=== PATIENT | female | born 1940 | race Caucasian/White ===

== ENCOUNTER 2016-10-07 10:37 | Inpatient (IN) | payer MEDICARE, BC, OTHER ==
[~2016-10-07] VITALS: Ht 157.5 cm; Wt 42.8 kg
[2016-10-07] VITALS (7 sets, daily range): BP systolic 117–172; BP diastolic 55–72; PULSE 60–77; RESP 14–22; TEMP 96.6–97.7; O2SAT 91–96
[~2016-10-07 10:37] MED LIST: ASPI81TA82 PO; CALC1CAP11 PO; D31000CA PO; FERR324T4 PO; IBUP800T23 PO; LEVO125T3 PO; LEXA5TAB PO; LORA-392 PO; MELA3CAP2 PO; METO25 PO; REST30CA PO; ZOFR4TAB PO
[2016-10-07] MEDS ORDERED: VITA100018 PO (11:12)
[2016-10-07] MEDS ORDERED: IBUP800T23 PO (11:12)
[2016-10-07] MEDS ORDERED: ZANT150T2 PO (11:12)
[2016-10-07] MEDS ORDERED: CALCTAB38 PO (11:12)
[2016-10-07] MEDS ORDERED: FERR325T86 PO (11:12)
[2016-10-07] MEDS ORDERED: REST15CA PO (11:12)
[2016-10-07] MEDS ORDERED: MELA0.02 PO (11:12)
[2016-10-07] MEDS ORDERED: VENTAER INH (11:12)
[2016-10-07] MEDS ORDERED: LORA-392 PO (11:12)
[2016-10-07] MEDS ORDERED: ZOFR4TAB PO (11:12)
[2016-10-07] MEDS ORDERED: LEXA5TAB PO (11:12)
[2016-10-07] MEDS ORDERED: METO25TA3 PO (11:12)
[2016-10-07] MEDS ORDERED: ACET-703 PO (11:12)
[2016-10-07] MEDS ORDERED: ASPI1TAB91 PO (11:12)
[2016-10-07] MEDS ORDERED: LEVO125T4 PO (11:12)
[2016-10-07] MEDS ORDERED: ONDANSETRON HCL 4 MG/2 ML VIAL IVP ONE (11:15)
[2016-10-07] MEDS ORDERED: SODIUM CHLORIDE 0.9% FLUSH 5 ML FLUSH IVF PRN (11:15)
[2016-10-07] MEDS ORDERED: MORPHINE SULFATE 4 MG/ML INJ IV PUSH ONE (11:15)
--- NOTE | 2016-10-07 11:21 | RADRPT ---
EXAM DATE/TIME: 10/07/2016 11:12 [facility] COMPARISON: No previous studies available for comparison. INDICATIONS : Left hip pain due to fall. MEDICAL HISTORY : Hypertension. Hypercholesterolemia. SURGICAL HISTORY : None. ENCOUNTER: Initial ACUITY: 1 day PAIN SCORE: 8/10 LOCATION: Left pelvis and hip. FINDINGS: Bony structures are osteoporotic. The pelvis is intact. There is no evidence of dislocation. There is a intertrochanteric fracture of the left femur slightly overriding and angulated at 45. CONCLUSION: Osteoporosis. Intertrochanteric fracture left femur Arnold Geller MD on October 07, 2016 at 11:18 Board Certified Radiologist. This report was verified electronically.
[2016-10-07 12:04] LABS: AUTOMATED NEUTROPHIL # 11.1 TH/MM3 (1.8-7.7); BASOPHIL # 0.1 TH/MM3 (0-0.2); BASOPHIL % 0.4 % (0.0-2.0); EOSINOPHIL % 0.3 % (0.0-4.0); HEMATOCRIT 41.1 % (35.0-46.0); HEMO FLAGS DIFF FINAL; LYMPH % 5.8 % (9.0-44.0); LYMPHOCYTE # 0.7 TH/MM3 (1.0-4.8); MEAN CELL VOLUME 94.6 FL (80.0-100.0); MEAN CORPUSCULAR HEMOGLOBIN 31.5 PG (27.0-34.0); MEAN CORPUSCULAR HGB CONC 33.3 % (32.0-36.0); MONO % 4.9 % (0.0-8.0); NEUT % 88.6 % (16.0-70.0); PLATELET COUNT 192 TH/MM3 (150-450); RED BLOOD COUNT 4.35 MIL/MM3 (4.00-5.30); WHITE BLOOD COUNT 12.5 TH/MM3 (4.0-11.0)
--- NOTE | 2016-10-07 12:12 | RADRPT ---
EXAM DATE/TIME: 10/07/2016 11:19 [facility] COMPARISON: CHEST SINGLE AP, June 26, 2016, 8:37. INDICATIONS : Evaluate for pneumonia, pneumothorax or communicable disease.Pre op for left hip surgery MEDICAL HISTORY : None. SURGICAL HISTORY : None. ENCOUNTER: Initial ACUITY: 1 day PAIN SCORE: 0/10 LOCATION: Bilateral chest FINDINGS: There continues to be some atelectasis in both lower lungs. There is no new or significant changes co mpared to the prior study. The upper lung stoddard remain clear and well-aerated. The heart size is sta ble. The bony structures are stable. CONCLUSION: No significant interval change. Andry Calvert MD on October 07, 2016 at 12:09 Board Certified Radiologist. This report was verified electronically.
[2016-10-07 12:26] LABS: ANION GAP 7 MEQ/L (5-15); AST (GOT) 21 U/L (15-37); BICARBONATE 26.4 MEQ/L (21.0-32.0); BLOOD UREA NITROGEN 23 MG/DL (7-18); CHLORIDE 106 MEQ/L (98-107); GLOMERULAR FILTRATION RATE 53 ML/MIN (>89); POTASSIUM 3.8 MEQ/L (3.5-5.1); SODIUM (NA) 139 MEQ/L (136-145)
[2016-10-07 12:29] LABS: ALKALINE PHOSPHATASE 101 U/L (45-117); ALT (GPT) 18 U/L (10-53); TOTAL BILIRUBIN ADULT 0.4 MG/DL (0.2-1.0)
[2016-10-07 12:32] LABS: APTT (PATIENT) 25.7 SEC (24.3-30.1); PROTHROMBIN TIME - PATIENT 11.1 SEC (9.8-11.6)
--- NOTE | 2016-10-07 13:27 | PD ---
HPI Chief Complaint: Fall Time Seen by Provider: 13:20 Travel History International Travel<30 days: No Contact w/Intl Traveler<30days: No Traveled to known affect area: No History of Present Illness HPI Patient is a pleasantly demented 75-year-old female who presents the emergency department with complaint of left-sided hip pain after mechanical fall transferring from wheelchair. This was a witnessed fall, no head injury or LOC. Patient complains of mild pain to the left hip, worsening with range of motion. Patient denies any other injuries. No blood thinners per review of medication list. PFSH Past Medical History AAA: Yes Anxiety: Yes Depression: Yes Cardiovascular Problems: Yes High Cholesterol: Yes COPD: Yes Coronary Artery Disease: Yes Dementia: Yes Diminished Hearing: No Gastrointestinal Disorders: Yes GERD: Yes Genitourinary: No Hypertension: Yes Musculoskeletal: No Neurologic: No Reproductive: No Respiratory: No Thyroid Disease: Yes Past Surgical History Abdominal Surgery: Yes (cholecystectomy 2000) Cholecystectomy: Yes Gynecologic Surgery: Yes (hysterectomy 15 years ago) Hysterectomy: Yes Neurologic Surgery: Yes Other Surgery: Yes Social History Alcohol Use: No Tobacco Use: No (6 CIGARRETTES A DAY) Substance Use: No Allergies-Medications (Allergen,Severity, Reaction): Coded Allergies: No Known Allergies (Verified , 10/07/16) Reported Meds & Prescriptions Reported Meds & Active Scripts Active Reported Zofran (Ondansetron HCl) 4 Mg Tab 4 Mg PO Q6HR PRN Ventolin Hfa 18 GM Inh (Albuterol Sulfate) 90 Mcg/Act Aer 2 Puff INH Q6H PRN Tylenol Extra Strength (Acetaminophen) 500 Mg Tab 500 Mg PO Q6HR PRN Restoril (Temazepam) 15 Mg Cap 15 Mg PO HS PRN Ibuprofen 800 Mg Tab 800 Mg PO Q6HR PRN Ativan (Lorazepam) 0.5 Mg Tab 0.5 Mg PO Q12HR PRN Metoprolol Tartrate 25 Mg Tab 12.5 Mg PO Q8HR Ferrousul (Ferrous Sulfate) 325 Mg Tab 325 Mg PO TID Zantac (Ranitidine HCl) 150 Mg Tab 150 Mg PO DAILY Vitamin D3 (Cholecalciferol) 1,000 Unit Tab 1,000 Units PO DAILY Melatonin 3 Mg Tab 3 Mg PO HS Lexapro (Escitalopram Oxalate) 5 Mg Tab 5 Mg PO DAILY Levothyroxine (Levothyroxine Sodium) 125 Mcg Tab 125 Mcg PO DAILY Calcium 600+D (Calcium Carbonate-Vitamin D) 600-400 Mg-Unit Tab 1 Tab PO DAILY Aspirin Adult Low Strength (Aspirin) 81 Mg Tabdr 81 Mg PO DAILY Review of Systems ROS Limitations: Poor Historian Except as stated in HPI: all other systems reviewed are Neg Physical Exam Exam Limitations: Poor Historian Narrative GENERAL: Elderly demented female in no acute distress SKIN: Warm and dry. HEAD: Atraumatic. Normocephalic. EYES: Pupils equal and round. No scleral icterus. No injection or drainage. ENT: No nasal bleeding or discharge. Mucous membranes pink and moist. NECK: Supple without midline tenderness to palpation CARDIOVASCULAR: Regular rate and rhythm. No murmur appreciated. RESPIRATORY: No accessory muscle use. Clear to auscultation. Breath sounds equal bilaterally. GASTROINTESTINAL: Abdomen soft, non-tender, nondistended. MUSCULOSKELETAL: No midline tenderness to palpation of thoracic or lumbar spine. Bilateral upper extremities and right lower extremities unremarkable. Pelvis is stable AP and lateral compression. Left hip pain with range of motion reproducible, no obvious deformity. Patient prefers to keep the hip slightly flexed. No obvious rotation. Distal sensation and pulses intact. NEUROLOGICAL: Awake and alert to self, place but not time. Baseline first grandson. Normal speech. Data Data Last Documented VS Vital Signs Date Time Temp Pulse Resp B/P Pulse Ox O2 Delivery O2 Flow Rate FiO2 10/07/16 10:42 97.6 60 14 123/58 91 Orders Hip, Uni(4+Vws) W Ap Pelvis (10/07/16 ) Electrocardiogram (10/07/16 11:14) Complete Blood Count With Diff (10/07/16 11:14) Comprehensive Metabolic Panel (10/07/16 11:14) Prothrombin Time / Inr (Pt) (10/07/16 11:14) Act Partial Throm Time (Ptt) (10/07/16 11:14) Chest, Single Ap (10/07/16 11:14) Iv Access Insert/Monitor (10/07/16 11:14) Oximetry (10/07/16 11:14) Ecg Monitoring (10/07/16 11:14) Morphine Inj (Morphine Inj) (10/07/16 11:15) Ondansetron Inj (Zofran Inj) (10/07/16 11:15) Sodium Chloride 0.9% Flush (Ns Flush) (10/07/16 11:15) Labs Laboratory Tests Test 10/07/16 11:45 White Blood Count 12.5 TH/MM3 Red Blood Count 4.35 MIL/MM3 Hemoglobin 13.7 GM/DL Hematocrit 41.1 % Mean Corpuscular Volume 94.6 FL Mean Corpuscular Hemoglobin 31.5 PG Mean Corpuscular Hemoglobin 33.3 % Concent Red Cell Distribution Width 13.0 % Platelet Count 192 TH/MM3 Mean Platelet Volume 9.3 FL Neutrophils (%) (Auto) 88.6 % Lymphocytes (%) (Auto) 5.8 % Monocytes (%) (Auto) 4.9 % Eosinophils (%) (Auto) 0.3 % Basophils (%) (Auto) 0.4 % Neutrophils # (Auto) 11.1 TH/MM3 Lymphocytes # (Auto) 0.7 TH/MM3 Monocytes # (Auto) 0.6 TH/MM3 Eosinophils # (Auto) 0.0 TH/MM3 Basophils # (Auto) 0.1 TH/MM3 CBC Comment DIFF FINAL Differential Comment Prothrombin Time 11.1 SEC Prothromb Time International 1.0 RATIO Ratio Activated Partial 25.7 SEC Thromboplast Time Sodium Level 139 MEQ/L Potassium Level 3.8 MEQ/L Chloride Level 106 MEQ/L Carbon Dioxide Level 26.4 MEQ/L Anion Gap 7 MEQ/L Blood Urea Nitrogen 23 MG/DL Creatinine 1.03 MG/DL Estimat Glomerular Filtration 53 ML/MIN Rate Random Glucose 130 MG/DL Calcium Level 9.1 MG/DL Total Bilirubin 0.4 MG/DL Aspartate Amino Transf 21 U/L (AST/SGOT) Alanine Aminotransferase 18 U/L (ALT/SGPT) Alkaline Phosphatase 101 U/L Total Protein 7.5 GM/DL Albumin 3.6 GM/DL [facility] Medical Decision Making Medical Screen Exam Complete: Yes Emergency Medical Condition: Yes Medical Record Reviewed: Yes Differential Diagnosis 75-year-old demented female here with complaint of left hip pain after mechanical fall. Differential includes hip fracture, pelvic fracture, hip contusion, hip dislocation. Narrative Course Patient placed on monitor, IV established and blood obtained. A twelve-lead EKG shows sinus rhythm with evidence of LVH with strain-type pattern. Patient was given morphine, Zofran for pain. X-ray of the chest and hip were obtained showing osteoporosis with intertrochanteric fracture of the left femur. CBC, CMP, coags obtained unremarkable. Tejeda catheter was placed and urinalysis was sent. Orthopedics consulted and patient will be admitted for further management. Diagnosis Primary Impression: Closed left hip fracture Qualified Code: S72.002A - Closed left hip fracture, initial encounter Additional Impression: Fall Qualified Code: W19.XXXA - Fall, initial encounter Admitting Information Admitting Physician Requests: Admit Denisse Zazueta MD Oct 07, 2016 13:27
[2016-10-07 15:15] LABS: BLOOD, URINE NEG (NEG); COMMENT (UR) CULT NOT INDICATED; CULTURE IF INDICATED CULT NOT INDICATED; GLUCOSE,URINE NEG (NEG); KETONE, URINE NEG (NEG); MUCUS URINE FEW /lpf (OCC); NITRITE,URINE NEG (NEG); PH, URINE 5.5 (5.0-8.5); URINE COLOR YELLOW (YELLW/STRAW)
--- NOTE | 2016-10-07 15:28 | HHI.HP ---
[facility] Service Family Medicine Primary Care Physician Toni Lewis MD Admission Diagnosis L hip fx Diagnoses: International Travel<30 Days: No Contact w/Intl Traveler<30days: No Known Affected Area: No History of Present Illness Ms. Rahman is a 75 yo F with PMH of dementia, MVP (sees Dr. Edouard) who presents following fall injury at [facility] earlier today. History obtained by patient's daughter due to severity of patient's dementia: Patient reportedly fell at ~0900 this morning when walking; she reportedly tripped on a wheelchair resulting in her fall.Patient was sent to [facility] for XR imaging and L femur fracture was identified. [Per ED documentation, fall was reportedly witnessed and without any preceding LOC or head injury] Patient reportedly has history of frequent falls. Patient is also chronically disoriented due to dementia; her dementia is reportedly progressing rapidly and she is only sometimes able to remember her daughter's face. No reported recent/ acute changes in mental status. No reported recent known infections or fevers. Patient has lived at [facility] for past several years after developing dementia after aortic aneurysm repair ~2 years prior. Patient sees Dr. Edouard- Cardiology, Dr. Duy Chung (Vascular Surgery) ( Jason Quintanilla MD R2) Review of Systems ROS Limitations: Clinical Condition, Altered Mental Status Constitutional: COMPLAINS OF: Weight loss, DENIES: Fever Ears, nose, mouth, throat: DENIES: Nasal discharge, Running Nose Gastrointestinal: COMPLAINS OF: Anorexia (not eating, but likes milkshakes ) ( Jason Quintanilla MD R2) Past Family Social History Past Medical History Dementia MVP Aortic aneurysm s/p repair 80% Carotid stenosis- sees Dr. Edouard COPD Hypothyroidism Hypercholesterolemia Past Surgical History Aortic aneurysm repair Hysterectomy- distant past Per EMR Hysterectomy 15yrs ago Cholecystectomy 2000 Unspecified Neurologic surgery Reported Medications RECONCILED [facility] LIST Reported Meds & Active Scripts Active Reported DOES NOT TAKE Zofran (Ondansetron HCl) 4 Mg Tab 4 Mg PO Q6HR PRN DOES NOT TAKE Ventolin Hfa 18 GM Inh (Albuterol Sulfate) 90 Mcg/Act Aer 2 Puff INH Q6H PRN DOES NOT TAKE Tylenol Extra Strength (Acetaminophen) 500 Mg Tab 500 Mg PO Q6HR PRN x Restoril (Temazepam) 15 Mg Cap 15 Mg PO HS PRN DOES NOT TAKE Ibuprofen 800 Mg Tab 800 Mg PO Q6HR PRN x Ativan (Lorazepam) 0.5 Mg Tab 0.5 Mg PO Q12HR PRN x Metoprolol Tartrate 25 Mg Tab 12.5 Mg PO Q8HR x Ferrousul (Ferrous Sulfate) 325 Mg Tab 325 Mg PO TID x Zantac (Ranitidine HCl) 150 Mg Tab 150 Mg PO DAILY x Vitamin D3 (Cholecalciferol) 1,000 Unit Tab 1,000 Units PO DAILY x Melatonin 3 Mg Tab 3 Mg PO HS x Lexapro (Escitalopram Oxalate) 5 Mg Tab 5 Mg PO DAILY DOES NOT TAKE Levothyroxine (Levothyroxine Sodium) 125 Mcg Tab 125 Mcg PO DAILY x Calcium 600+D (Calcium Carbonate-Vitamin D) 600-400 Mg-Unit Tab 1 Tab PO DAILY x Aspirin Adult Low Strength (Aspirin) 81 Mg Tabdr 81 Mg PO DAILY (Jason Quintanilla MD R2) Allergies: Coded Allergies: No Known Allergies (Verified , 10/07/16) Family History Sister- history of aortic aneurysm Social History [facility] DIANA Smoking- since 18yrs, quit several years ago since [facility] (Jason Quintanilla MD R2 ) Physical Exam Vital Signs Vital Signs Date Time Temp Pulse Resp B/P Pulse Ox O2 Delivery O2 Flow Rate FiO2 10/07/16 13:27 70 15 117/55 94 Nasal Cannula 2 10/07/16 13:26 94 Nasal Cannula 2 10/07/16 10:42 97.6 60 14 123/58 91 Physical Exam GENERAL: Patient appears comfortable, in no acute distress. Patient frail SKIN: Warm and dry, no rashes appreciated EYES: No scleral icterus, injection, or drainage. HENT: Head: No signs of trauma. Mouth: No lesions appreciated. NECK: No appreciated lymphadenopathy or thyromegaly appreciated CARDIOVASCULAR: Regular rate and rhythm; prominent murmur which starts after S1. Normal peripheral perfusion in lower extremities. RESPIRATORY: Normal respiratory rate. Lungs clear to auscultation bilaterally; decreased breath sounds. GASTROINTESTINAL: Abdomen soft, nondistended, nontender. Bowel sounds normal. MUSCULOSKELETAL: No lower extremity swelling. No appreciated calf asymmetry. NEURO/PSYCH: Awake, alert. Patient would sometimes answer questions but was not oriented. Patient often would stare and not respond to questioning. Cranial nerves grossly normal; patient with symmetric smile. Patient could lift R LE. Patient reported normal sensation in lower extremities Laboratory Laboratory Tests Test 10/07/16 10/07/16 11:45 15:00 White Blood Count 12.5 Red Blood Count 4.35 Hemoglobin 13.7 Hematocrit 41.1 Mean Corpuscular Volume 94.6 Mean Corpuscular Hemoglobin 31.5 Mean Corpuscular Hemoglobin 33.3 Concent Red Cell Distribution Width 13.0 Platelet Count 192 Mean Platelet Volume 9.3 Neutrophils (%) (Auto) 88.6 Lymphocytes (%) (Auto) 5.8 Monocytes (%) (Auto) 4.9 Eosinophils (%) (Auto) 0.3 Basophils (%) (Auto) 0.4 Neutrophils # (Auto) 11.1 Lymphocytes # (Auto) 0.7 Monocytes # (Auto) 0.6 Eosinophils # (Auto) 0.0 Basophils # (Auto) 0.1 CBC Comment DIFF FINAL Differential Comment Prothrombin Time 11.1 Prothromb Time International 1.0 Ratio Activated Partial 25.7 Thromboplast Time Sodium Level 139 Potassium Level 3.8 Chloride Level 106 Carbon Dioxide Level 26.4 Anion Gap 7 Blood Urea Nitrogen 23 Creatinine 1.03 Estimat Glomerular Filtration 53 Rate Random Glucose 130 Calcium Level 9.1 Total Bilirubin 0.4 Aspartate Amino Transf 21 (AST/SGOT) Alanine Aminotransferase 18 (ALT/SGPT) Alkaline Phosphatase 101 Total Protein 7.5 Albumin 3.6 Urine Color YELLOW Urine Turbidity CLEAR Urine pH 5.5 Urine Specific [place] 1.024 Urine Protein TRACE Urine Glucose (UA) NEG Urine Ketones NEG Urine Occult Blood NEG Urine Nitrite NEG Urine Bilirubin NEG Urine Urobilinogen LESS THAN 2.0 Urine Leukocyte Esterase NEG Urine RBC 3 Urine WBC 1 Urine Mucus FEW Microscopic Urinalysis Comment CULT NOT INDICATED (Jason Quintanilla MD R2) Result Diagram: 10/07/16 1145 10/07/16 1145 Imaging Last Impressions Chest X-Ray 10/07/16 1114 Signed Impressions: Service Date/Time: Friday, October 07, 2016 11:19 - CONCLUSION: No significant interval change. Andry Calvert MD Hip and Pelvis X-Ray 10/07/16 0000 Signed Impressions: Service Date/Time: Friday, October 07, 2016 11:12 - CONCLUSION: Osteoporosis. Intertrochanteric fracture left femur Arnold Geller MD (Jason Quintanilla MD R2) Assessment and Plan Assessment and Plan Ms. Rahman is a 75 yo F with: Code Status DNR (Jason Quintanilla MD R2) Attending Attestation The patient has been seen and examined. The chart and all resident notes have been reviewed. I agree that inpatient care is appropriate and that a two midnight stay is expected for the reasons documented in the resident history and physical. I have discussed this with the resident and certify the resident s order for inpatient admission. (Tianna Edouard MD) Problem List: (1) Closed left hip fracture Status: Acute Plan: Orthopedic surgery consulted -Per ED and Ortho discussion, will make patient NPO after midnight in case of possible surgical repair tomorrow -Maintenance IV F while NPO -Blood typing ordered due to patient age >75yrs -Palliative care consulted per discussion with patient's daughter as surgical risks and benefits of surgery not clearly established -Pain control -Scheduled Tylenol -Morphine 3mg IV q3hrs Impression: Mechanical fall this morning resulting in left intertrochanteric femur fracture (2) Dementia Status: Chronic Plan: -Continue home Ativan when necessary Continue home Restoril when necessary -We'll defer repeat head CT since reported no headache contact on recent fall and no focal neurologic deficit -Will consult PT and OT Impression: Patient with ~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 Progressive CT 06/2016 with chronic cortical atrophy, periventricular and deep white matter small vessel ischemic demyelination and possible old lacunar infarct in left corby (3) Cardiovascular risk factor Status: Acute Plan: -Will consider Cardiology consultation for further risk stratification based on surgical decisions Impression: Patient with reported MVP (reported progression per patient's daughter) and bilateral carotid stenosis (~80% bilaterally). Patient sees Dr. Edouard (Cardiology) and Dr. Chung (VS). Patient reportedly recently saw Dr. Edouard (4) Osteoporosis Status: Acute Plan: We'll check vitamin D level -Continue home vitamin D Impression: Patient with history of osteoporosis per patient's daughter. (5) Fluids, Electrolytes, and Nutrition Status: Acute Plan: Fluids: NS at maintenance while NPO Electrolytes: Monitor and replete as needed Nutrition: NPO after midnight in case of possible surgical intervention (6) DVT Prophylaxis Status: Acute Plan: -Bilateral SCD's -Will initiate chemical prophylaxis after decision regarding surgery made (Jason Quintanilla MD R2) Physician Certification 2 Midnight Certification Type: Admission for Inpatient Services Order for Inpatient Services The services are ordered in accordance with Medicare regulations or non- Medicare payer requirements, as applicable. In the case of services not specified as inpatient-only, they are appropriately provided as inpatient services in accordance with the 2-midnight benchmark. Estimated LOS (days): 3 days is the estimated time the patient will need to remain in the hospital, assuming treatment plan goals are met and no additional complications. Post-Hospital Plan: Home (Jason Quintanilla MD R2) Problem Qualifiers (1) Closed left hip fracture: Qualified Code: S72.002A - Closed left hip fracture, initial encounter Jason Quintanilla MD R2 Oct 07, 2016 15:28 Tianna Edouard MD Oct 09, 2016 08:31
[2016-10-07] MEDS ORDERED: ACETAMINOPHEN 325 MG TAB PO PRN (16:00)
[2016-10-07] MEDS ORDERED: ONDANSETRON HCL 4 MG/2 ML VIAL IVP PRN (16:00)
[2016-10-07] MEDS ORDERED: NALOXONE HCL 0.4 MG/ML AMP IV PRN (16:00)
[2016-10-07] MEDS ORDERED: SODIUM CHLORIDE 0.9% FLUSH 5 ML FLUSH FLUSH PRN (16:00)
[2016-10-07] MEDS ORDERED: ZOLPIDEM TARTRATE 5 MG TAB PO PRN (16:00)
[2016-10-07] MEDS ORDERED: TEMAZEPAM 15 MG CAP PO PRN (16:15)
[2016-10-07] MEDS ORDERED: LORazepam 0.5 MG TAB PO PRN (16:15)
[2016-10-07] MEDS ORDERED: RESP: ALBUTEROL 2.5 MG/IPRATROPIUM 0.5 MG NEB (PRN) NEB (16:15)
--- NOTE | 2016-10-07 17:20 | HHI.FPPN ---
Subjective Subjective Patient seen and examined. Case reviewed and discussed Please refer to resident H&P for further details regarding HPI, ROS, PMH, SurgHx , FH and SocHx In summary, patient is a 75yo demented female presenting from [facility] after she tripped over a wheelchair. Imaging upon arrival to the ED noted L intertrochanteric femur fracture. Patient is seen in the ED, daughter and grandson at the bedside. Patient unable to provide any component of the history. [facility] Objective Objective Last Impressions Chest X-Ray 10/07/16 1114 Signed Impressions: Service Date/Time: Friday, October 07, 2016 11:19 - CONCLUSION: No significant interval change. Andry Calvert MD Hip and Pelvis X-Ray 10/07/16 0000 Signed Impressions: Service Date/Time: Friday, October 07, 2016 11:12 - CONCLUSION: Osteoporosis. Intertrochanteric fracture left femur Arnold Geller MD Laboratory Tests - Abnormals Test 10/07/16 10/07/16 11:45 15:00 White Blood Count 12.5 TH/MM3 Neutrophils (%) (Auto) 88.6 % Lymphocytes (%) (Auto) 5.8 % Neutrophils # (Auto) 11.1 TH/MM3 Lymphocytes # (Auto) 0.7 TH/MM3 Blood Urea Nitrogen 23 MG/DL Creatinine 1.03 MG/DL Estimat Glomerular Filtration 53 ML/MIN Rate Random Glucose 130 MG/DL Urine Mucus FEW /lpf Vital Signs 10/07/16 10/07/16 10/07/16 10/07/16 10:42 13:26 13:27 16:30 Temp 97.6 Pulse 60 70 69 Resp 14 15 20 B/P 123/58 117/55 129/60 Pulse Ox 91 94 94 96 O2 Delivery Nasal Cannula Nasal Cannula Nasal Cannula O2 Flow Rate 2 2 2 10/07/16 17:04 Pulse Ox 94 O2 Delivery Nasal Cannula O2 Flow Rate 2.00 Physical exam GENERAL: Thin, elderly female. Resting in bed. SKIN: Warm and dry. Mild pallor, No rashes, lesions HEAD: Normocephalic. AT EYES: No scleral icterus. No injection or drainage. ENT: MM slightly dry. NECK: Supple, trachea midline. No JVD or lymphadenopathy. CARDIOVASCULAR: Regular rate and rhythm with audible 2-3/6 murmu, no gallops or rubs. RESPIRATORY: Breath sounds equal and clear bilaterally anteriorly. No accessory muscle use. GASTROINTESTINAL: Abdomen soft, non-tender, nondistended. Midline incisional scar, well-healed. Normal active BS : Tejeda intact to gravity MUSCULOSKELETAL: No cyanosis, or edema. L LE notably shorter than R. NEURO: Awake and alert. Sporatic words, oriented to self alone. CN grossly intact. Assessment Assessment 75yoF admitted with: L intertrochanteric femur fracture Dementia MVP Leukocytosis Hyperglycemia Hypothyroidism HL Abdominal aortic aneurysm s/p repair 2 years ago Carotid stenosis PLAN PLAN Pain control Orthopedic consultation Check Vit D level calcium, Vit D supplementation Resume home medications as appropriate Palliative care consult given patient's progressive decline and per daughter's request PT consult Patient seen and examined. Case reviewed and discussed Agree with plan of care as discussed with me and documented in the resident note. Tianna Edouard MD Oct 07, 2016 17:20
[2016-10-07] MEDS: FERROUS SULFATE 325 MG (65 MG ELEMENTAL IRON) TAB PO SCH (17:59)
[2016-10-07] MEDS: ACETAMINOPHEN 500 MG CPLT PO SCH (18:32)
[2016-10-07] MEDS ORDERED: SODIUM CHLORIDE 0.9% FLUSH 5 ML FLUSH FLUSH SCH (21:00)
[2016-10-07] MEDS ORDERED: hydrALAZINE HCL 10 MG TAB PO PRN (21:45)
[2016-10-07] MEDS: METOPROLOL TARTRATE 25 MG TAB PO SCH (22:00)
[2016-10-08] VITALS (7 sets, daily range): BP systolic 98–141; BP diastolic 52–68; PULSE 72–86; RESP 15–18; TEMP 96–96.9; O2SAT 91–98
[2016-10-08] MEDS: SODIUM CHLOR 0.9% 1000 ML INJ 1,000 ML IV SCH ×3 (01:18→20:37)
[2016-10-08] MEDS ORDERED: LACTATED RINGER'S 1000 ML IV SCH (01:30)
[2016-10-08] MEDS ORDERED: METOPROLOL TARTRATE 25 MG TAB PO PRN (01:30)
[2016-10-08] MEDS ORDERED: INSULIN HUMAN REGULAR 1,000 UNITS/10 ML VIAL SQ PRN (01:30)
[2016-10-08] MEDS ORDERED: SODIUM CHLORID 0.9% 500 ML IV SCH (01:30)
[2016-10-08] MEDS: MORPHINE SULFATE 4 MG/ML INJ IV PUSH PRN (04:17)
[2016-10-08] MEDS: METOPROLOL TARTRATE 25 MG TAB PO SCH ×3 (06:00→22:00)
[2016-10-08] MEDS: ACETAMINOPHEN 500 MG CPLT PO SCH ×4 (06:00→18:13)
--- NOTE | 2016-10-08 06:43 | PD.ORT.PN ---
Subjective Subjective Remarks Fall at halfway facility at [facility]. Left hip pain. No other complaints. Accompanied by daughter due to dementia Objective Vitals Vital Signs Date Time Temp Pulse Resp B/P Pulse Ox O2 Delivery O2 Flow Rate FiO2 10/08/16 04:00 96.6 85 18 141/61 93 10/08/16 00:00 96.5 86 18 137/68 95 10/07/16 20:00 96.6 74 18 172/72 93 10/07/16 18:46 97.7 77 22 144/63 94 10/07/16 17:04 94 Nasal Cannula 2.00 10/07/16 16:30 69 20 129/60 96 Nasal Cannula 2 10/07/16 13:27 70 15 117/55 94 Nasal Cannula 2 10/07/16 13:26 94 Nasal Cannula 2 10/07/16 10:42 97.6 60 14 123/58 91 I/O 10/07/16 10/07/16 10/07/16 10/08/16 10/08/16 10/08/16 07:00 15:00 23:00 07:00 15:00 23:00 Intake Total 240 ml 60 ml Output Total 250 ml 100 ml Balance -10 ml -40 ml Intake Oral 240 ml 60 ml Output Urine Total 250 ml 100 ml # Bowel Movements 0 0 Result Diagram: 10/07/16 1145 10/07/16 1145 Other Results Laboratory Tests Test 10/07/16 11:45 Prothrombin Time 11.1 SEC (9.8-11.6) Prothromb Time International 1.0 RATIO Ratio Imaging Last 24 hours Impressions Chest X-Ray 10/07/16 1114 Signed Impressions: Service Date/Time: Friday, October 07, 2016 11:19 - CONCLUSION: No significant interval change. Andry Calvert MD Objective Remarks Bilateral upper extremities: Full range of motion neurovascular intact Right lower extremity: No pain with range of motion of hip knee or ankle Left lower extremity: Pain to palpation over hip distally neurovascularly intact Assessment & Plan Assessment and Plan Left intertrochanteric femur fracture Nothing by mouth Surgery this morning with Dr. Sellers for IM nail fixation Sign consents TOM LANGFORD PA-C Oct 08, 2016 06:43
[2016-10-08] MEDS ORDERED: DICLOFENAC SODIUM 37.5 MG/ML VIAL IV PUSH ONE (06:48)
[2016-10-08] MEDS ORDERED: fentaNYL CITRATE 250 MCG/5 ML AMP ONE (06:48)
[2016-10-08] MEDS ORDERED: ACETAMINOPHEN 1000 MG/100 ML VIAL IV ONE (06:48)
[2016-10-08] MEDS ORDERED: ONDANSETRON HCL 4 MG/2 ML VIAL ONE (06:48)
[2016-10-08] MEDS ORDERED: VANCOMYCIN HCL 1000 MG VIAL ONE (07:06)
[2016-10-08] MEDS ORDERED: SODIUM CHLOR 0.9% 250 ML INJ 250 ML ONE (07:07)
[2016-10-08] MEDS ORDERED: BUPIVACAINE/EPINEPHRINE 0.25% PF 30 ML VIAL ONE (07:07)
[2016-10-08] MEDS ORDERED: GENTAMICIN SULFATE 80 MG/2 ML VIAL ONE (07:07)
[2016-10-08] MEDS ORDERED: ceFAZolin INJ 1,000 MG VIAL ONE (07:07)
[2016-10-08 07:18] LABS: AUTOMATED NEUTROPHIL # 10.2 TH/MM3 (1.8-7.7); BASOPHIL # 0.1 TH/MM3 (0-0.2); BASOPHIL % 0.5 % (0.0-2.0); HEMATOCRIT 34.8 % (35.0-46.0); HEMO FLAGS DIFF FINAL; LYMPH % 6.4 % (9.0-44.0); LYMPHOCYTE # 0.8 TH/MM3 (1.0-4.8); MEAN CELL VOLUME 92.4 FL (80.0-100.0); MEAN CORPUSCULAR HEMOGLOBIN 31.5 PG (27.0-34.0); MEAN CORPUSCULAR HGB CONC 34.1 % (32.0-36.0); MONO % 9.4 % (0.0-8.0); NEUT % 83.7 % (16.0-70.0); PLATELET COUNT 192 TH/MM3 (150-450); RED BLOOD COUNT 3.77 MIL/MM3 (4.00-5.30); RED CELL DISTRIBUTION WIDTH 12.7 % (11.6-17.2); WHITE BLOOD COUNT 12.2 TH/MM3 (4.0-11.0)
[2016-10-08 07:32] LABS: BICARBONATE 26.6 MEQ/L (21.0-32.0); POTASSIUM 3.8 MEQ/L (3.5-5.1)
--- NOTE | 2016-10-08 07:41 | MB ---
cc: ALMA SMITH DATE OF CONSULTATION: 10/08/2016 REASON FOR CONSULTATION Left hip intertrochanteric fracture. HISTORY OF PRESENT ILLNESS Alexia is a 75-year-old female who has a history of dementia. She also has a history of mitral valve prolapse. She lives in the [facility]. The patient had a fall. She tripped on a wheelchair causing her to fall. She presented to the emergency room where x-rays revealed a left hip intertrochanteric fracture. The patient is currently resting comfortably. She is unable to give any significant history. Her daughter is present. She did not witness the fall. The patient had an aortic aneurysm repair approximately two years ago. No other history is available. PAST MEDICAL HISTORY ILLNESSES 1. Dementia. 2. Mitral valve prolapse. 3. Carotid stenosis. 4. COPD. 5. High cholesterol. SURGERIES 1. Aortic aneurysm repair. 2. Hysterectomy. 3. Cholecystectomy. MEDICATIONS Please see EMR for complete list of medications. This was reviewed. ALLERGIES No known drug allergies. FAMILY HISTORY Positive for an aortic aneurysm in her sister. SOCIAL HISTORY The patient lives in an [facility]. She quit smoking several years ago. REVIEW OF SYSTEMS Unobtainable secondary to dementia. PHYSICAL EXAMINATION GENERAL: The patient is a thin 75-year-old female who is awake and comfortable. She is confused. VITAL SIGNS: Temperature 96.6, pulse 85, respirations 18, blood pressure 141/61. O2 sat is 93% on room air. HEAD: The patient is normocephalic. Pupils are equal. NECK: Soft, nontender. Trachea is midline. ABDOMEN: Soft, nontender, nondistended. EXTREMITIES: Examination of bilateral upper extremities reveals no pain with shoulder, elbow or wrist motion. She has good capillary refill in her fingers. Radial pulses are palpable. Skin is intact. Examination of the right leg reveals no significant pain with hip, knee or ankle motion. Skin is intact. Dorsalis pedis pulse is palpable. Examination of the left leg reveals pain with any hip motion. She has no tenderness around her knee tibia or ankle. Skin is intact. Dorsalis pedis pulse is palpable. X-RAYS X-rays of the left hip were reviewed. X-rays reveal a displaced left hip intertrochanteric fracture. IMPRESSION 1. Dementia. 2. Mitral valve prolapse. 3. Left hip intertrochanteric fracture. PLAN The treatment options were discussed with the patient and her daughter. At this point options would include nonsurgical treatment. With nonsurgical treatment the patient is likely to be bedridden and not be able to ambulate. She would likely have persistent pain secondary to nonunion of her fracture. Surgical options would include reduction and intramedullary nail fixation of her left femur. The risks of surgery include bleeding, infection, injuries to arteries, nerves and blood vessels, painful hardware, nonunion, malunion, avascular necrosis as well as medical complications including blood clot, stroke, heart attack and . The patient's family understands that she is a high risk for surgery but would like to receive the surgery anyway to help improve her quality of life. All questions were answered. I will plan on surgery today. A mid-level provider in my office (nurse practitioner or physician branch assistant) may see this patient on follow-up visits and continue to implement the objectives of this plan including: Starting or adjusting medications, injections , cast application, orthotics, brace application, physical therapy, radiological studies (including x-ray, MRI, CT, ultrasound, bone scan), vascular studies, neurologic studies, specialist consultation, and proceeding with surgical management, as appropriate. MD JOSE Matute/VIELKA /7:08 AM /7:25 AM RUFINO
--- NOTE | 2016-10-08 08:01 | PD.OP ---
cc: Errol Marie MD Operative Report Date of Surgery: Oct 08, 2016 Preoperative Diagnosis: Left hip intertrochanteric fracture Postoperative Diagnosis: Procedure: Reduction and pinning of fixation left femur Anesthesia: Gen. Surgeon: Errol Marie Alarm Mechanic(s): BRET Helms PA-C The surgical procedure was assisted by my physician assistant farm operations manager. My P.A. presence was necessary throughout this case for the manipulation and positioning of the surgical extremity. My P.A. was assisting me throughout the duration of this procedure. The skill set of a physician assistant farm operations manager was medically necessary to complete this procedure. During the surgical case the surgical nurse practitioner was working at the back table and the physician assistant farm operations manager was directly assisting me. Operation and Findings: Implants used: 10 mm 130 Synthes TFNA short troch nail Plan of activity: Weight-bear as tolerated Patient was seen and evaluated preoperatively. The patient has significant hip pain from intertrochanteric hip fracture. The risk and benefits of surgery were discussed in depth with the patient to include bleeding infection nonunion malunion and need for hip replacement painful hardware as well as medical competitions including but not stroke heart attack and . Informed consent was obtained. Operative site was marked. Patient was brought to the operating room and placed on fracture table. IV sedation was administered by anesthesiologist. Timeout procedure was performed. Hip and leg were prepped with alcohol followed by DuraPrep and draped in the usual sterile fashion. IV antibiotics were given prior to incision. Procedure began with reduction of fracture. Traction was applied. The leg was manipulated to achieve reduction. Excellent reduction was achieved. Fluoroscopy was used to confirm reduction. A three inch incision was made proximal to the trochanter. Subcutaneous tissue was dissected bluntly. Guidepin was placed at the tip of the trochanter and advanced into the femoral canal. Fluoroscopy confirmed appropriate guidepin placement. A opening reamer was placed over the guidepin. The Synthes TFNA nail was attached to the insertion handle. Nail was now placed through the tip of the trochanter into the femoral canal. Fluoroscopy confirmed appropriate nail placement. A second incision was made over the lateral thigh. Cannulas were placed through the insertion handle down to the femur. Guidepin was now placed through the femoral nail into the center of the femoral head. Fluoroscopy confirmed appropriate guidepin placement. Screw length was measured. Cannulated drill was placed over the guidepin. Appropriate length lag screw was now placed. Traction was released and compression was applied. The set screw was now tightened in dynamic mode. Using the insertion handle as a guide a distal interlocking screw was drilled and placed. Final fluoroscopy revealed well aligned fracture with well-placed hardware. Incision was closed with 3-0 Vicryl and sarah. Sterile dressings were applied. Patient was awakened and transferred to recovery room. Errol Marie MD Oct 08, 2016 08:01
[2016-10-08] MEDS ORDERED: SODIUM CHLORIDE 0.9% FLUSH 5 ML FLUSH IVF PRN (08:15)
[2016-10-08] MEDS ORDERED: MORPHINE SULFATE 4 MG/ML INJ IV PUSH PRN (08:15)
[2016-10-08] MEDS ORDERED: ACETAMINOPHEN/HYDROcodone 325 MG/5 MG TAB PO PRN (08:15)
[2016-10-08] MEDS ORDERED: ERGOCALCIFEROL (VIT D2) 50,000 UNIT CAP PO ONE (08:15)
[2016-10-08] MEDS ORDERED: DO NOT ADM ANY ANTICOAGULANT DRUGS XX PRN (08:26)
[2016-10-08] MEDS ORDERED: XARE10TA PO (08:29)
[2016-10-08] MEDS ORDERED: NORC5TAB PO (08:29)
[2016-10-08] MEDS ORDERED: WALKER WHEELS/F1 MIS (08:30)
[2016-10-08] MEDS ORDERED: *RESP: ALBUTEROL 2.5 MG/3 ML NEB (PRN) PERIprocedural Use ONLY NEB ONE (08:32)
--- NOTE | 2016-10-08 08:57 | RADRPT ---
EXAM DATE/TIME: 10/08/2016 08:00 [facility] COMPARISON: HIP LEFT (MIN 4VWS) W AP PELVIS, October 07, 2016, 11:12. INDICATIONS : Left hip fracture, ORIF done in operating room. MEDICAL HISTORY : None. SURGICAL HISTORY : None. ENCOUNTER: Initial ACUITY: 1 day PAIN SCORE: Non-responsive. LOCATION: Left hip. FINDINGS: A two view examination of the left hip was performed. There is been open reduction internal fixation of the left intratrochanteric fracture, now secured with a medullary silke and compression screw. Fract ure fragments are in adequate anatomic alignment. Femoral acetabular articulation is preserved. CONCLUSION: Appropriate postoperative appearance of the left intratrochanteric ORIF. Kumar Blevins MD on October 08, 2016 at 8:54 Board Certified Radiologist. This report was verified electronically.
[2016-10-08] MEDS: ASPIRIN EC 81 MG TABEC PO SCH (09:00)
[2016-10-08] MEDS ORDERED: CALCIUM/VITAMIN D 250 MG/125 U TAB PO SCH (09:00)
[2016-10-08] MEDS ORDERED: CHOLECALCIFEROL (VIT D3) 1000 UNIT TAB PO SCH (09:00)
[2016-10-08] MEDS: SODIUM CHLORIDE 0.9% FLUSH 5 ML FLUSH IVF SCH ×2 (09:00→21:00)
[2016-10-08] MEDS: FERROUS SULFATE 325 MG (65 MG ELEMENTAL IRON) TAB PO SCH ×3 (09:00→18:00)
[2016-10-08] MEDS: CALCIUM/VITAMIN D 250 MG/125 U TAB PO SCH ×3 (09:00→18:00)
[2016-10-08] MEDS: ESCITALOPRAM OXALATE 10 MG TAB PO SCH (09:00)
[2016-10-08] MEDS: FAMOTIDINE 20 MG TAB PO SCH (09:00)
[2016-10-08] MEDS: CHOLECALCIFEROL (VIT D3) 5000 UNIT CAP PO SCH (09:00)
[2016-10-08] MEDS ORDERED: RESP: ALBUTEROL 2.5 MG/IPRATROPIUM 0.5 MG NEB (SCH) NEB ONE (09:45)
--- NOTE | 2016-10-08 09:55 | PD.CONS ---
Consult Service Palliative Care . Consult Requested By Dr. Quintanilla . Primary Care Physician Toni Lewis MD . Reason for Consultation a. To assist with evaluation and management of symptoms including: pain, confusion b. To assist medical decision maker(s) with: better understanding of current medical conditions; weighing benefits/burdens of medical treatment options; making medical treatment decisions. . HPI History of Present Illness Ms. Rahman is a 75 year old female who presented to [facility] ED on 10/07/16 for evaluation of left-sided hip pain s/p a fall. She has been a resident of [facility] for several years. Her past medical history includes dementia, MVP, aortic aneurysm s/p repair, carotid stenosis (80%- follows Dr. Edouard), COPD, hypothyroidism and hypercholesterolemia. The patient sees Dr. Edouard (cardiology) and Dr. Duy Chung (vascular surgery ) outpatient. History was obtained from the patient's daughter because of the patient's severe dementia at baseline. The daughter reported her mother's dementia was progressing rapidly and the patient often does not remember her. This was a witness mechanical fall, without head injury or LOC. Of note, the patient has a history of frequent falls. Upon presentation to the ED, the patient reported mild pain in her left hip that was exacerbated with movement. Additional diagnostic findings in the ED: * Vital signs: Pulse 60, respirations 14, BP 123/58, oxygen saturation 91% on room air, oral temperature 97.6 * WBC: 12.5, hemoglobin 13.7, hematocrit 41.1, platelets 192, neutrophils 88.6% * Sodium: 139, potassium 3.8, chloride 106, carbon dioxide 26.4, glucose 1:30, calcium 9.1 * BUN: 23, creatinine 1.03, GFR 53 * The total bilirubin: 0.4, AST 21, ALT 18, alkaline phosphatase 101 * Total protein: 6.5, albumin 3.6 * PT: 11.1, INR 1.0, APTT 25.7 * Urinalysis: normal * Hip/Pelvis X-ray: Osteoporosis, Intertochanteric fracture left femur * Chest x-ray: There continues to be some atelectasis in both lower lungs, there is no new significant changes compared to the prior study. Upper lung stoddard remain clear and well aerated. Heart size is stable. Bony structures are stable. No significant interval change. * EKG: shows sinus rhythm with evidence of LVH with strain-type pattern. Patient was admitted for further evaluation and medical management a closed left hip fracture. Orthopedics was consulted, and patient was seen and evaluated preoperatively. Dr. Sellers has a lengthy conversation with the patient and her daughter to discuss treatment option. The risks and benefits of surgery were address as well, and patient's family understands the patient is high risk for surgery. The patient is experiencing significant pain, and decision was made to proceed with surgery to improve this patient's quality of life. Palliative Care was consulted to assist with symptom management and to discuss with the patient/family the benefits and burdens of her current illnesses and the options regarding future care. . Past Family Social History Coded Allergies: No Known Allergies (Verified , 10/07/16) Past Medical History Dementia MVP Aortic aneurysm s/p repair 80% Carotid stenosis- sees Dr. Edouard COPD Hypothyroidism Hypercholesterolemia . Past Surgical History Aortic aneurysm repair Hysterectomy- distant past . Reported Medications Restoril (Temazepam) 15 Mg Cap 15 Mg PO HS PRN Ibuprofen 800 Mg Tab 800 Mg PO Q6HR PRN Ativan (Lorazepam) 0.5 Mg Tab 0.5 Mg PO Q12HR PRN Metoprolol Tartrate 25 Mg Tab 12.5 Mg PO Q8HR Ferrousul (Ferrous Sulfate) 325 Mg Tab 325 Mg PO TID Zantac (Ranitidine HCl) 150 Mg Tab 150 Mg PO DAILY Vitamin D3 (Cholecalciferol) 1,000 Unit Tab 1,000 Units PO DAILY Melatonin 3 Mg Tab 3 Mg PO HS Lexapro (Escitalopram Oxalate) 5 Mg Tab 5 Mg PO DAILY Calcium 600+D (Calcium Carbonate-Vitamin D) 600-400 Mg-Unit Tab 1 Tab PO DAILY Aspirin Adult Low Strength (Aspirin) 81 Mg Tabdr 81 Mg PO DAILY . Current Medications Medications (Trade) Dose Ordered Sig/Alma Route Start Time Stop Time Status Last Admin (Tylenol) 650 mg Q4H PRN PO 10/07/16 16:00 (Zofran Inj) 4 mg Q6H PRN IVP 10/07/16 16:00 (Ambien) 5 mg HS PRN PO 10/07/16 16:00 (Narcan Inj) 0.4 mg UNSCH PRN IV 10/07/16 16:00 (Ecotrin Ec) 81 mg DAILY PO 10/08/16 09:00 (Lexapro) 5 mg DAILY PO 10/08/16 09:00 (Ferrous Sulfate) 325 mg TID PO 10/07/16 18:00 (Ativan) 0.5 mg Q12HR PRN PO 10/07/16 16:15 (Lopressor) 12.5 mg Q8HR PO 10/07/16 22:00 (Pepcid) 20 mg DAILY PO 10/08/16 09:00 (Restoril) 15 mg HS PRN PO 10/07/16 16:15 (Tylenol) 500 mg Q6H PO 10/07/16 18:00 10/07/16 18:32 Morphine Sulfate 3 mg 3 mg Q3H PRN IV PUSH 10/07/16 18:00 10/08/16 04:17 (NS 1000 ml Inj) 1,000 ml @ 80 mls/hr [id number] IV 10/07/16 21:30 10/08/16 01:18 Hydralazine HCl 10 mg 10 mg Q8HR PRN PO 10/07/16 21:45 Lactated Ringer's 1,000 ml @ 30 mls/hr Q24H IV 10/08/16 01:30 (NS 500 ml Inj) 500 ml @ 30 mls/hr [id number] IV 10/08/16 01:30 10/09/16 01:29 (NS Flush) 2 ml UNSCH PRN IVF 10/08/16 08:15 (NS Flush) 2 ml BID IVF 10/08/16 09:00 Enoxaparin Sodium 30 mg 30 mg Q24H SQ 10/09/16 07:30 (Ancef Inj/NS Inj) 100 ml @ 200 mls/hr Q8H IV 10/08/16 16:00 10/09/16 08:29 (Oscal-D 250-125) 250 mg TID PO 10/08/16 09:00 (Kapaa 5-325 Mg) 1 tab Q4H PRN PO 10/08/16 08:15 (Morphine Inj) 3 mg Q3H PRN IV PUSH 10/08/16 08:15 (Vitamin D3) 5,000 units DAILY PO 10/08/16 09:00 Miscellaneous Information ALL NURSING DEPARTME... UNSCH PRN XX 10/08/16 08:26 10/09/16 08:25 (Duoneb Neb) 1 ampule NOW ONCE NEB 10/08/16 09:45 10/08/16 09:46 . Family History Sister- history of aortic aneurysm . Substance Use Tobacco: Previous smoker, quit several years ago. Alcohol: None known Prescription med abuse: None known Illicits: None known . Physical Exam Vital Signs Date Time Temp Pulse Resp B/P Pulse Ox O2 Delivery O2 Flow Rate FiO2 10/08/16 09:40 93 55 10/08/16 09:30 65 12 118/59 90 Bi-Pap 55 10/08/16 09:15 64 12 117/55 89 Nasal Cannula 4 10/08/16 09:00 70 12 115/56 91 Nasal Cannula 4 10/08/16 08:45 75 12 116/64 93 Nasal Cannula 4 10/08/16 08:30 92 12 128/77 96 Nasal Cannula 4 10/08/16 08:25 98.3 85 12 119/57 99 Nasal Cannula 4 10/08/16 04:00 96.6 85 18 141/61 93 10/08/16 00:00 96.5 86 18 137/68 95 10/07/16 20:00 96.6 74 18 172/72 93 10/07/16 18:46 97.7 77 22 144/63 94 10/07/16 17:04 94 Nasal Cannula 2.00 10/07/16 16:30 69 20 129/60 96 Nasal Cannula 2 10/07/16 13:27 70 15 117/55 94 Nasal Cannula 2 10/07/16 13:26 94 Nasal Cannula 2 10/07/16 10:42 97.6 60 14 123/58 91 10/07/16 10/08/16 19:00 07:00 Intake Total 704 ml Output Total 350 ml Balance 354 ml Intake Oral 300 ml IV Total 404 ml Output Urine Total 350 ml # Bowel Movements 0 Exam CONSTITUTIONAL/GENERAL: This is an adequately nourished patient, in no apparent distress. TUBES/LINES/DRAINS: SKIN: No jaundice, rashes, or lesions. Ecchymoses on upper extremities. No wounds seen anteriorly. Skin temperature appropriate. Not diaphoretic. HEAD: Atraumatic. Normocephalic. EYES: Pupils equal and round and reactive. Extraocular motions intact. No scleral icterus. No injection or drainage. Fundi not examined. ENT: Hearing grossly normal. Nose without bleeding or purulent drainage. Throat without visible erythema, exudates, masses, or lesions. NECK: Trachea midline. Supple, nontender. No palpable thyroid enlargement or nodularity. CARDIOVASCULAR: Regular rate and rhythm without murmurs, gallops, or rubs. No JVD. Peripheral pulses symmetric. RESPIRATORY/CHEST: Symmetric, unlabored respirations. Clear to auscultation. Breath sounds equal bilaterally. No wheezes, rales, or rhonchi. GASTROINTESTINAL: Abdomen soft, non-tender, nondistended. No hepato-splenomegaly , or palpable masses. No guarding. Bowel sounds present. GENITOURINARY: Without palpable bladder distension. Tejeda catheter in place. MUSCULOSKELETAL: Extremities without clubbing, cyanosis, or edema. No joint tenderness or effusion noted. No calf tenderness. No mottling or clubbing. LYMPHATICS: No palpable cervical or supraclavicular adenopathy. NEUROLOGICAL: Awake and alert. Motor and sensory grossly within normal limits. Follows commands. Cognitively sharp. Moves all extremities. PSYCHIATRIC: No obvious anxiety/depression. no apparent hallucinations or other psychotic thought process. Diagnostic Tests Laboratory Laboratory Tests Test 10/07/16 10/07/16 10/08/16 11:45 15:00 06:32 White Blood Count 12.5 TH/MM3 12.2 TH/MM3 (4.0-11.0) (4.0-11.0) Red Blood Count 4.35 MIL/MM3 3.77 MIL/MM3 (4.00-5.30) (4.00-5.30) Hemoglobin 13.7 GM/DL 11.9 GM/DL (11.6-15.3) (11.6-15.3) Hematocrit 41.1 % 34.8 % (35.0-46.0) (35.0-46.0) Mean Corpuscular Volume 94.6 FL 92.4 FL (80.0-100.0) (80.0-100.0) Mean Corpuscular Hemoglobin 31.5 PG 31.5 PG (27.0-34.0) (27.0-34.0) Mean Corpuscular Hemoglobin 33.3 % 34.1 % Concent (32.0-36.0) (32.0-36.0) Red Cell Distribution Width 13.0 % 12.7 % (11.6-17.2) (11.6-17.2) Platelet Count 192 TH/MM3 192 TH/MM3 (150-450) (150-450) Mean Platelet Volume 9.3 FL 9.8 FL (7.0-11.0) (7.0-11.0) Neutrophils (%) (Auto) 88.6 % 83.7 % (16.0-70.0) (16.0-70.0) Lymphocytes (%) (Auto) 5.8 % 6.4 % (9.0-44.0) (9.0-44.0) Monocytes (%) (Auto) 4.9 % (0.0-8.0) 9.4 % (0.0-8.0) Eosinophils (%) (Auto) 0.3 % (0.0-4.0) 0.0 % (0.0-4.0) Basophils (%) (Auto) 0.4 % (0.0-2.0) 0.5 % (0.0-2.0) Neutrophils # (Auto) 11.1 TH/MM3 10.2 TH/MM3 (1.8-7.7) (1.8-7.7) Lymphocytes # (Auto) 0.7 TH/MM3 0.8 TH/MM3 (1.0-4.8) (1.0-4.8) Monocytes # (Auto) 0.6 TH/MM3 1.2 TH/MM3 (0-0.9) (0-0.9) Eosinophils # (Auto) 0.0 TH/MM3 0.0 TH/MM3 (0-0.4) (0-0.4) Basophils # (Auto) 0.1 TH/MM3 0.1 TH/MM3 (0-0.2) (0-0.2) CBC Comment DIFF FINAL DIFF FINAL Differential Comment Prothrombin Time 11.1 SEC (9.8-11.6) Prothromb Time International 1.0 RATIO Ratio Activated Partial 25.7 SEC Thromboplast Time (24.3-30.1) Sodium Level 139 MEQ/L 142 MEQ/L (136-145) (136-145) Potassium Level 3.8 MEQ/L 3.8 MEQ/L (3.5-5.1) (3.5-5.1) Chloride Level 106 MEQ/L 109 MEQ/L (98-107) (98-107) Carbon Dioxide Level 26.4 MEQ/L 26.6 MEQ/L (21.0-32.0) (21.0-32.0) Anion Gap 7 MEQ/L (5-15) 6 MEQ/L (5-15) Blood Urea Nitrogen 23 MG/DL (7-18) 23 MG/DL (7-18) Creatinine 1.03 MG/DL 0.86 MG/DL (0.50-1.00) (0.50-1.00) Estimat Glomerular Filtration 53 ML/MIN (>89) 65 ML/MIN (>89) Rate Random Glucose 130 MG/DL 105 MG/DL (74-106) (74-106) Calcium Level 9.1 MG/DL 8.4 MG/DL (8.5-10.1) (8.5-10.1) Total Bilirubin 0.4 MG/DL (0.2-1.0) Aspartate Amino Transf 21 U/L (15-37) (AST/SGOT) Alanine Aminotransferase 18 U/L (10-53) (ALT/SGPT) Alkaline Phosphatase 101 U/L (45-117) Total Protein 7.5 GM/DL (6.4-8.2) Albumin 3.6 GM/DL (3.4-5.0) Blood Type A NEGATIVE Urine Color YELLOW (YELLW/STRAW) Urine Turbidity CLEAR (CLEAR) Urine pH 5.5 (5.0-8.5) Urine Specific Haslet 1.024 (1.002-1.035) Urine Protein TRACE mg/dL (NEG-TRACE) Urine Glucose (UA) NEG mg/dL (NEG) Urine Ketones NEG mg/dL (NEG) Urine Occult Blood NEG (NEG) Urine Nitrite NEG (NEG) Urine Bilirubin NEG (NEG) Urine Urobilinogen LESS THAN 2.0 MG/DL (LESS THAN 2.0) Urine Leukocyte Esterase NEG (NEG) Urine RBC 3 /hpf (0-3) Urine WBC 1 /hpf (0-5) Urine Mucus FEW /lpf (OCC) Microscopic Urinalysis Comment CULT NOT INDICATED 25-Hydroxy Vitamin D Total 19.1 ng/ML (30-100) Thyroid Stimulating Hormone 7.680 uIU/ML 3rd Gen (0.358-3.740) Result Diagram: 10/08/16 0632 10/08/16 0632 Patient/Family Conference Issues Discussed: * Palliative care role, purpose, approach * Additional medical, psychosocial, and spiritual history * Patients general health, functional status, and cognitive changes in the months leading up to the current hospitalization * Patient/family understanding of the current medical problems * Patient/family understanding of prognosis * Patients goals of care as best understood from advance directives and/or conversations and/or values * Current medical treatment options and benefits/burdens of those options * Likely scenarios comparing ongoing aggressive care with a transition to comfort measures only * Questions answered to the best of my ability * Palliative care contact information provided Assessment and Plan Pertinent Non-Medical Issues Psychosocial: Spiritual: Legal: Ethical issues impacting care: Important Contacts Manju John, daughter: [phone] or [phone] . Code Status: No Code Thank you for the opportunity to participate in the care of Ms. Rahman. Lynette Valle Oct 08, 2016 09:55
--- NOTE | 2016-10-08 11:23 | RADRPT ---
EXAM DATE/TIME: 10/08/2016 11:03 [facility] COMPARISON: CHEST SINGLE AP, October 07, 2016, 11:19. INDICATIONS : Short of breath. MEDICAL HISTORY : None. SURGICAL HISTORY : None. ENCOUNTER: Subsequent ACUITY: 1 day PAIN SCORE: Non-responsive. LOCATION: Bilateral chest FINDINGS: There is again noted to BE mild elevation right hemidiaphragm and mild prominence of the basilar inte rstitium with atherosclerotic cardiovascular disease and probable compensated cardiomegaly. CONCLUSION: No acute disease. No significant change has occurred. Arnold Geller MD on October 08, 2016 at 11:21 Board Certified Radiologist. This report was verified electronically.
[2016-10-08] MEDS ORDERED: PROPOFOL 200 MG/20 ML AMP IV ONE (12:00)
[2016-10-08] MEDS ORDERED: SODIUM CHLOR 0.9% 250 ML INJ 250 ML IV ONE (12:00)
[2016-10-08] MEDS ORDERED: ONDANSETRON HCL 4 MG/2 ML VIAL IV PUSH ONE (12:00)
--- NOTE | 2016-10-08 13:17 | HHI.HCPN ---
Palliative Care consulted to assist family with of clarification of medical treatment goals - operative versus conservative management of intertrochanteric fracture of the left femur s/p fall. Palliative care contacted the patient's daughter via telephone. The patient was taken to the OR this morning, family refusing Palliative Care at this time. Thank you for the opportunity to participate in care of Ms. Rahman and please feel free to reconsult Palliative Care in the future if indicated. . Lynette Valle Oct 08, 2016 13:17
--- NOTE | 2016-10-08 13:52 | HHI.FPPN ---
Subjective Remarks Ms. Rahman was seen this morning in response to nursing staff concerns regarding hypoxia with saturations in high 80's post operatively since arriving back from the PACU. Patient was predominately non vocal during exam, but responded briefly to some general questioning and did not report any pain. Per EMR, patient was placed on BIPAP post-operatively then transitioned to 4 L O2 via NC this morning. Patient afebrile with stable vital signs overnight. Low urine output documented. (Jason Quintanilla MD R2) Objective Vitals Vital Signs Date Time Temp Pulse Resp B/P Pulse Ox O2 Delivery O2 Flow Rate FiO2 10/08/16 10:35 96.3 73 16 102/55 91 10/08/16 10:00 97.9 71 12 120/63 91 Nasal Cannula 4 10/08/16 09:45 71 12 123/65 95 Bi-Pap 55 10/08/16 09:40 93 55 10/08/16 09:30 65 12 118/59 90 Bi-Pap 55 10/08/16 09:15 64 12 117/55 89 Nasal Cannula 4 10/08/16 09:00 70 12 115/56 91 Nasal Cannula 4 10/08/16 08:45 75 12 116/64 93 Nasal Cannula 4 10/08/16 08:30 92 12 128/77 96 Nasal Cannula 4 10/08/16 08:25 98.3 85 12 119/57 99 Nasal Cannula 4 10/08/16 04:00 96.6 85 18 141/61 93 10/08/16 00:00 96.5 86 18 137/68 95 10/07/16 20:00 96.6 74 18 172/72 93 10/07/16 18:46 97.7 77 22 144/63 94 10/07/16 17:04 94 Nasal Cannula 2.00 10/07/16 16:30 69 20 129/60 96 Nasal Cannula 2 I/O 10/07/16 10/07/16 10/07/16 10/08/16 10/08/16 10/08/16 07:00 15:00 23:00 07:00 15:00 23:00 Intake Total 240 ml 464 ml 375 ml Output Total 250 ml 100 ml 120 ml Balance -10 ml 364 ml 255 ml Intake Oral 240 ml 60 ml 0 ml IV Total 404 ml 75 ml Other 300 ml Output Urine Total 250 ml 100 ml 45 ml Estimated Blood Loss 75 ml # Bowel Movements 0 0 (Jason Quintanilla MD R2) Result Diagram: 10/08/16 0632 10/08/16 0632 Imaging Last Impressions Hip X-Ray 10/08/16 0000 Signed Impressions: Service Date/Time: Saturday, October 08, 2016 08:00 - CONCLUSION: Appropriate postoperative appearance of the left intratrochanteric ORIF. Kumar Blevins MD Chest X-Ray 10/08/16 0000 Signed Impressions: Service Date/Time: Saturday, October 08, 2016 11:03 - CONCLUSION: No acute disease. No significant change has occurred. Arnold Geller MD Hip and Pelvis X-Ray 10/07/16 0000 Signed Impressions: Service Date/Time: Friday, October 07, 2016 11:12 - CONCLUSION: Osteoporosis. Intertrochanteric fracture left femur Arnold Geller MD Objective Remarks GENERAL: Frail, sleeping appears comfortable, in no acute distress SKIN: Warm and dry, no rashes appreciated. mild pallor EYES: No scleral icterus, injection, or drainage. EOMI CARDIOVASCULAR: Regular rate and rhythm; prominent murmur which starts after S1. Normal peripheral perfusion in lower extremities. RESPIRATORY: Shallow breaths. Lungs clear to auscultation bilaterally; decreased breath sounds. On 4 L O2 via NC GASTROINTESTINAL: Abdomen soft, nondistended, nontender. Bowel sounds normal. MUSCULOSKELETAL: No lower extremity swelling. No appreciated calf asymmetry. L hip dressing in place; surgical incision not inspected : Tejeda in place NEURO/PSYCH: Patient would sometimes answer questions but was not oriented. Cranial nerves grossly normal; patient with symmetric smile. (Jason Quintanilla MD R2) A/P Assessment and Plan Ms. Rahman is a 75 yo F with: (Jason Quintanilla MD R2) Attending Attestation Patient seen and examined. Case reviewed and discussed Agree with plan of care as discussed with me and documented in the resident note. (Tianna Edouard MD) Problem List: (1) Closed left hip fracture Status: Acute Plan: Orthopedic surgery consulted -POD 0 operative repair: Reduction and pinning/fixation of left femur -PT consulted -Neuro checks -Ice/cold packs, dressing changes, decubitis precautions per Ortho -Enoxaparin 30mg daily, SCD's for DVT ppx -Acapella, incentive spirometry -Pain control -Scheduled Tylenol -Morphine 3mg IV q3hrs Impression: Mechanical fall this morning resulting in left intertrochanteric femur fracture (2) Dementia Status: Chronic Plan: -Continue home Ativan when necessary Continue home Restoril when necessary -We'll defer repeat head CT since reported no headache contact on recent fall and no focal neurologic deficit -Will consult PT and OT Impression: Patient with ~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 Progressive CT 06/2016 with chronic cortical atrophy, periventricular and deep white matter small vessel ischemic demyelination and possible old lacunar infarct in left corby (3) Cardiovascular risk factor Status: Acute Plan: Impression: Patient with reported MVP (reported progression per patient' s daughter) and bilateral carotid stenosis (~80% bilaterally). Patient sees Dr. Edouard (Cardiology) and Dr. Chung (VS). Patient reportedly recently saw Dr. Edouard (4) Osteoporosis Status: Acute Plan: Vitamin D 5000 U daily per Ortho Impression: Patient with history of osteoporosis per patient's daughter. Vitamin D level 19.1 (5) Shortness of breath Status: Acute Plan: -Continue to monitor O2 saturations and provide supplemental O2 as needed -CXR ordered- no acute change Impression: Patient with hypoxia with saturations in high 80's post-operatively this morning (6) Hypothyroid Status: Acute Plan: -TSH elevated -will check T4 -Continue home levothyroxine Impression: Patient with PMH hypothyroidism on home Levothyroxine 125 ug daily (7) Fluids, Electrolytes, and Nutrition Status: Acute Plan: Fluids: NS at maintenance while NPO Electrolytes: Monitor and replete as needed Nutrition: 1800 Jorge regular diet (8) DVT Prophylaxis Status: Acute Plan: -Bilateral SCD's At 24hrs post-op: Enoxaparin 30mg daily per Ortho (Jason Quintanilla MD R2) Problem Qualifiers (1) Closed left hip fracture: Qualified Code: S72.002A - Closed left hip fracture, initial encounter Jason Quintanilla MD R2 Oct 08, 2016 13:51 Tianna Edouard MD Oct 09, 2016 08:32
--- NOTE | 2016-10-08 16:59 | HHI.PR ---
Addendum to Inpatient Note Addendum Reason: Additional Documentation Additional Information S: Ms. Rahman was re-evaluated this afternoon in the company of her daughter. Patient denied pain and reported that she was comfortable. Patient smiling and appeared relaxed. Nursing staff present at bedside reports decreased urine output O: Patient in no distress, resting comfortably in inpatient. Respiratory: Normal rate, on 4L NC O2, no visible distress A/P: -Continue postoperative management for femur fracture per Ortho -We'll plan to add IV fluids to increase urine output monitor closely -We'll monitor pain control -We'll encourage incentive spirometry/Acapella Seen with Dr. Vital (Jason Quintanilla MD R2) Jason Quintanilla MD R2 Oct 08, 2016 16:59 Tianna Edouard MD Oct 09, 2016 08:31
[2016-10-08] MEDS ORDERED: SODIUM CHLORID 0.9% 500 ML INJ 500 ML IV ONE (17:30)
--- NOTE | 2016-10-08 23:28 | EKG ---
Date Performed: 10/07/2016 Time Performed: 12:35:30 PTAGE: 75 years EKG: Sinus rhythm POSSIBLE LEFT ATRIAL ENLARGEMENT LEFT VENTRICULAR HYPERTROPHY AND ST-T CHANGE ABNORMAL ECG PREVIOUS TRACING : 06/26/2016 08.41 DOCTOR: Minerva Ramirez Interpretating Date/Time 10/08/2016 23:20:43
[2016-10-09] VITALS (15 sets, daily range): BP systolic 74–125; BP diastolic 50–67; PULSE 68–102; RESP 15–18; TEMP 96.2–98.9; O2SAT 74–100
[2016-10-09] MEDS: MORPHINE SULFATE 4 MG/ML INJ IV PUSH PRN ×3 (00:07→21:42)
[2016-10-09] MEDS: ACETAMINOPHEN 500 MG CPLT PO SCH ×3 (00:11→10:25)
[2016-10-09] MEDS: SODIUM CHLOR 0.9% 1000 ML INJ 1,000 ML IV SCH ×2 (05:21→08:43)
[2016-10-09] MEDS: METOPROLOL TARTRATE 25 MG TAB PO SCH ×2 (05:22→08:44)
[2016-10-09] MEDS: LEVOTHYROXINE SODIUM 125 MCG TAB PO SCH (05:28)
[2016-10-09 06:56] LABS: AUTOMATED NEUTROPHIL # 8.1 TH/MM3 (1.8-7.7); BASOPHIL % 0.4 % (0.0-2.0); BICARBONATE 25.5 MEQ/L (21.0-32.0); EOSINOPHIL % 0.2 % (0.0-4.0); HEMATOCRIT 26.5 % (35.0-46.0); HEMO FLAGS DIFF FINAL; LYMPH % 10.8 % (9.0-44.0); LYMPHOCYTE # 1.1 TH/MM3 (1.0-4.8); MEAN CELL VOLUME 93.8 FL (80.0-100.0); MEAN CORPUSCULAR HEMOGLOBIN 32.3 PG (27.0-34.0); MEAN CORPUSCULAR HGB CONC 34.4 % (32.0-36.0); MONO % 12.4 % (0.0-8.0); NEUT % 76.2 % (16.0-70.0); PLATELET COUNT 147 TH/MM3 (150-450); POTASSIUM 3.8 MEQ/L (3.5-5.1); RED BLOOD COUNT 2.83 MIL/MM3 (4.00-5.30); RED CELL DISTRIBUTION WIDTH 12.9 % (11.6-17.2); WHITE BLOOD COUNT 10.6 TH/MM3 (4.0-11.0)
--- NOTE | 2016-10-09 07:04 | PD.ORT.PN ---
Subjective Subjective Remarks Confused and in restraints Objective Vitals Vital Signs Date Time Temp Pulse Resp B/P Pulse Ox O2 Delivery O2 Flow Rate FiO2 10/09/16 04:00 96.4 75 15 116/51 93 10/09/16 00:00 96.2 82 15 91/50 92 10/08/16 20:00 96.0 72 15 98/52 98 10/08/16 17:42 92 Nasal Cannula 5.00 10/08/16 16:03 96.9 74 16 108/67 92 10/08/16 10:35 96.3 73 16 102/55 91 10/08/16 10:00 97.9 71 12 120/63 91 Nasal Cannula 4 10/08/16 09:45 71 12 123/65 95 Bi-Pap 55 10/08/16 09:40 93 55 10/08/16 09:30 65 12 118/59 90 Bi-Pap 55 10/08/16 09:15 64 12 117/55 89 Nasal Cannula 4 10/08/16 09:00 70 12 115/56 91 Nasal Cannula 4 10/08/16 08:45 75 12 116/64 93 Nasal Cannula 4 10/08/16 08:30 92 12 128/77 96 Nasal Cannula 4 10/08/16 08:25 98.3 85 12 119/57 99 Nasal Cannula 4 I/O 10/08/16 10/08/16 10/08/16 10/09/16 10/09/16 10/09/16 07:00 15:00 23:00 07:00 15:00 23:00 Intake Total 464 ml 435 ml 784 ml 637 ml Output Total 100 ml 220 ml 50 ml 100 ml Balance 364 ml 215 ml 734 ml 537 ml Intake Oral 60 ml 60 ml 60 ml 0 ml IV Total 404 ml 75 ml 724 ml 637 ml Other 300 ml Output Urine Total 100 ml 145 ml 50 ml 100 ml Estimated Blood Loss 75 ml # Bowel Movements 0 0 0 Result Diagram: 10/08/16 0632 10/09/16 0606 Imaging Last 24 hours Impressions Chest X-Ray 10/07/16 1114 Signed Impressions: Service Date/Time: Friday, October 07, 2016 11:19 - CONCLUSION: No significant interval change. Andry Calvert MD Objective Remarks Bilateral upper extremities: Full range of motion neurovascular intact Right lower extremity: No pain with range of motion of hip knee or ankle Left lower extremity: Clean dry dressings intact. Distally neurovascularly intact Assessment & Plan Assessment and Plan Left intertrochanteric femur fracture POD 1 IM nail PT weightbearing as tolerated Daily dressing changes beginning POD 2 Incentive spirometry Lovenox Case management for DC planning to rehabilitation follow-up with Dr. Marie or JOVANNY in 2 weeks TOM LANGFORD PA-C Oct 09, 2016 07:04
[2016-10-09] MEDS: FAMOTIDINE 20 MG TAB PO SCH (08:43)
[2016-10-09] MEDS: CHOLECALCIFEROL (VIT D3) 5000 UNIT CAP PO SCH (08:43)
[2016-10-09] MEDS: CALCIUM/VITAMIN D 250 MG/125 U TAB PO SCH ×3 (08:43→18:00)
[2016-10-09] MEDS: FERROUS SULFATE 325 MG (65 MG ELEMENTAL IRON) TAB PO SCH ×3 (08:43→18:00)
[2016-10-09] MEDS: ENOXAPARIN SODIUM 30 MG/0.3 ML SYRINGE SQ SCH (08:43)
[2016-10-09] MEDS: ASPIRIN EC 81 MG TABEC PO SCH (08:43)
[2016-10-09] MEDS: ESCITALOPRAM OXALATE 10 MG TAB PO SCH (08:43)
[2016-10-09] MEDS: SODIUM CHLORIDE 0.9% FLUSH 5 ML FLUSH IVF SCH (08:44)
[2016-10-09] MEDS ORDERED: DEXTROSE 50% IN WATER 50 ML SYRINGE ONE (09:05)
[2016-10-09 09:23] LABS: BLOOD GAS BASE EXCESS -2.3 mmol/L (-2-2); BLOOD GAS CARBOXYHEMOGLOBIN 1.5 % (0-4); BLOOD GAS HCO3 22 mmol/L (22-26); BLOOD GAS METHEMOGLOBIN 0.5 % (0-2); BLOOD GAS O2 HGB SATURATION 97 % (90-100); BLOOD GAS OXYGEN CONTENT 10.5 Vol % (12.0-20.0); BLOOD GAS PCO2 36 mmHg (38-42); BLOOD GAS PO2 145 mmHg (61-120); BLOOD GAS TOTAL HGB 7.4 G/DL (12.0-16.0); CRITICAL VALUE NO; DRAW SITE RT RADIAL; LITER FLOW 12 L/M; NUMBER OF ARTERIAL PUNCTURES 2; OXYGEN DEVICE MASK; STAT YES; TEMP CORR TO 98.6; ULNAR PULSE PRESENT
--- NOTE | 2016-10-09 09:27 | HHI.FPPN ---
Subjective Remarks Ms. Rahman was afebrile overnight with O2 saturations in low 90's on 5 L O2 via NC. Residents responded to Halicat this morning; patient was reportedly hypotensive to SBP ~80's this morning in association with O2 saturations in mid 70's-80's. Patient reportedly was trying to remove NC frequently overnight; restraints were placed. Continued decreased urine output overnight; 15ml/hr over the past 24 hrs. (Jason Quintanilla MD R2) Remarks Discussed with patient's daughter; clarified code status and patient is full code. (Jason Quintanilla MD R2) Objective Vitals Vital Signs Date Time Temp Pulse Resp B/P Pulse Ox O2 Delivery O2 Flow Rate FiO2 10/09/16 09:01 94 Simple Mask 15.00 10/09/16 09:00 74 21 10/09/16 08:00 98.0 102 18 74/56 96 10/09/16 04:00 96.4 75 15 116/51 93 10/09/16 00:00 96.2 82 15 91/50 92 10/08/16 20:00 96.0 72 15 98/52 98 10/08/16 17:42 92 Nasal Cannula 5.00 10/08/16 16:03 96.9 74 16 108/67 92 10/08/16 10:35 96.3 73 16 102/55 91 10/08/16 10:00 97.9 71 12 120/63 91 Nasal Cannula 4 10/08/16 09:45 71 12 123/65 95 Bi-Pap 55 10/08/16 09:40 93 55 10/08/16 09:30 65 12 118/59 90 Bi-Pap 55 I/O 10/08/16 10/08/16 10/08/16 10/09/16 10/09/16 10/09/16 07:00 15:00 23:00 07:00 15:00 23:00 Intake Total 464 ml 435 ml 784 ml 637 ml Output Total 100 ml 220 ml 50 ml 100 ml Balance 364 ml 215 ml 734 ml 537 ml Intake Oral 60 ml 60 ml 60 ml 0 ml IV Total 404 ml 75 ml 724 ml 637 ml Other 300 ml Output Urine Total 100 ml 145 ml 50 ml 100 ml Estimated Blood Loss 75 ml # Bowel Movements 0 0 0 (Jason Quintanilla MD R2) Result Diagram: 10/09/16 0606 10/09/16 0606 Imaging Last Impressions Hip X-Ray 10/08/16 0000 Signed Impressions: Service Date/Time: Saturday, October 08, 2016 08:00 - CONCLUSION: Appropriate postoperative appearance of the left intratrochanteric ORIF. Kumar Blevins MD Chest X-Ray 10/08/16 0000 Signed Impressions: Service Date/Time: Saturday, October 08, 2016 11:03 - CONCLUSION: No acute disease. No significant change has occurred. Arnold Geller MD Hip and Pelvis X-Ray 10/07/16 0000 Signed Impressions: Service Date/Time: Friday, October 07, 2016 11:12 - CONCLUSION: Osteoporosis. Intertrochanteric fracture left femur Arnold Geller MD Objective Remarks GENERAL: Frail, sleeping appears comfortable, in no acute distress SKIN: Warm and dry, no rashes appreciated. mild pallor EYES: No scleral icterus, injection, or drainage. EOMI CARDIOVASCULAR: Regular rate and rhythm; prominent murmur which starts after S1. Normal peripheral perfusion in lower extremities. RESPIRATORY: Normal rate. decreased breath sounds. On ventimask at 15L O2; sats in low 90's GASTROINTESTINAL: Abdomen soft, nondistended, nontender. Bowel sounds normal. MUSCULOSKELETAL: No lower extremity swelling. Surgical incision not inspected; no obvious bleeding or surrounding hematomas : Tejeda in place NEURO/PSYCH: Patient alert; would sometimes answer questions but was not oriented. Cranial nerves grossly normal; patient with symmetric smile. (Jason Quintanilla MD R2) A/P Assessment and Plan Ms. Rahman is a 75 yo F with: (Jason Quintanilla MD R2) Attending Attestation Patient seen and examined. Case reviewed and discussed Agree with plan of care as discussed with me and documented in the resident note. Appreciate CCM and cardiology expertise. (Tianna Edouard MD) Problem List: (1) Shortness of breath Status: Acute Plan: -Discussed with respiratory; will try simple mask and monitor O2 saturations; if not improved will transfer to bed for BIPAP -Will recheck CXR -ABG- pH 7.402, CO2 35.8, O2 145 , HCO3 21.8 -Will work-up for possible sepsis (patient has received stephany-op Cefazolin x3 doses per Ortho) -CBC this morning w/o leukocytosis -BC x2 ordered -Lactic acid ordered -Will check UA -Will check EKG -Will check troponin x1 Impression: Recent desaturations to 70's -80's morning of 10/09; improved to low 90's on Ventimask at 15L O2. Clarified with patient's daughter that she is full code. Patient has received Ativan at 0522 this morning. Last Morphine dose was 3mg at 0007 10/09. (2) Hypotension Status: Acute Plan: -Manual BP check 100/70 at bedside -Hold home Metoprolol -will give 500ml bolus NS and will reassess Impression: BP this morning ~80's SBP. On home Metoprolol; received at 0522 (3) Closed left hip fracture Status: Acute Plan: Orthopedic surgery consulted -POD 1 operative repair: Reduction and pinning/fixation of left femur -PT consulted -Neuro checks -Ice/cold packs, dressing changes, decubitis precautions per Ortho -Enoxaparin 30mg daily, SCD's for DVT ppx -Acapella, incentive spirometry -Pain control -Scheduled Tylenol -Morphine 3mg IV q3hrs for breakthrough pain Impression: Mechanical fall this morning resulting in left intertrochanteric femur fracture (4) Dementia Status: Chronic Plan: -Hold home Ativan Hold home Restoril -We'll defer repeat head CT since reported no headache contact on recent fall and no focal neurologic deficit -Will consult PT and OT -PT- rehab recommended -OT Impression: Patient with ~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 Progressive CT 06/2016 with chronic cortical atrophy, periventricular and deep white matter small vessel ischemic demyelination and possible old lacunar infarct in left corby (5) Cardiovascular risk factor Status: Acute Plan: -Will check echo to clarify Impression: Patient with reported MVP (reported progression per patient's daughter) and bilateral carotid stenosis (~80% bilaterally). Patient sees Dr. Edouard (Cardiology) and Dr. Chung (VS). Patient reportedly recently saw Dr. Edouard (6) Osteoporosis Status: Acute Plan: Vitamin D 5000 U daily per Ortho Impression: Patient with history of osteoporosis per patient's daughter. Vitamin D level 19.1 (7) Hypothyroid Status: Acute Plan: -TSH elevated -will check T4 -Continue home levothyroxine Impression: Patient with PMH hypothyroidism on home Levothyroxine 125 ug daily (8) Fluids, Electrolytes, and Nutrition Status: Acute Plan: Fluids: NS at maintenance while NPO Electrolytes: Monitor and replete as needed Nutrition: 1800 Jorge regular diet (9) DVT Prophylaxis Status: Acute Plan: -Bilateral SCD's At 24hrs post-op: Enoxaparin 30mg daily per Ortho (Jason Quintanilla MD R2) Problem Qualifiers (1) Closed left hip fracture: Qualified Code: S72.002A - Closed left hip fracture, initial encounter Jason Quintanilla MD R2 Oct 09, 2016 09:27 Tianna Edouard MD Oct 10, 2016 12:31
[2016-10-09] MEDS ORDERED: SODIUM CHLORID 0.9% 500 ML INJ 500 ML IV ONE (09:30)
--- NOTE | 2016-10-09 09:52 | RADRPT ---
EXAM DATE/TIME: 10/09/2016 09:16 [facility] COMPARISON: CHEST SINGLE AP, October 08, 2016, 11:03. INDICATIONS : Chest pain, short of breath MEDICAL HISTORY : None. SURGICAL HISTORY : left hip ENCOUNTER: Subsequent ACUITY: 3 days PAIN SCORE: Non-responsive. LOCATION: Bilateral chest FINDINGS: Portable upright AP view of the chest is degraded by motion artifact. There is elevation of the right hemidiaphragm and there is stable opacity left lung base. No pleural effusion or pneumothorax is whit ntified. Bones demonstrate no acute finding. CONCLUSION: Motion degraded but stable examination. There is atelectasis versus mild consolidation at the left kady ng base. Mariano Mcclure MD on October 09, 2016 at 9:49 Board Certified Radiologist. This report was verified electronically.
[2016-10-09 10:51] LABS: BACTERIA, URINE OCC /hpf; BLOOD, URINE SMALL (NEG); CALCIUM OXALATE CRYSTALS,URINE OCC /hpf; GLUCOSE,URINE TRACE mg/dL (NEG); KETONE, URINE NEG (NEG); MUCUS URINE FEW /lpf (OCC); NITRITE,URINE NEG (NEG); PH, URINE 5.5 (5.0-8.5); SQUAMOUS EPITHELIAL CELL URINE 1 /hpf (0-5); URINE COLOR YELLOW (YELLW/STRAW)
[2016-10-09 10:53] LABS: COMMENT (UR) CATH-CULTURE IND; CULTURE IF INDICATED CATH CULTURE IND
[2016-10-09] MEDS ORDERED: MORPHINE SULFATE 4 MG/ML INJ IV PUSH PRN (11:15)
[2016-10-09] MEDS ORDERED: BUMETANIDE INJ 1 MG/4 ML VIAL IV PUSH ONE (12:00)
[2016-10-09 12:16] LABS: ALKALINE PHOSPHATASE 66 U/L (45-117); ALT (GPT) 18 U/L (10-53); ANION GAP 8 MEQ/L (5-15); AST (GOT) 31 U/L (15-37); BICARBONATE 26.1 MEQ/L (21.0-32.0); BLOOD UREA NITROGEN 22 MG/DL (7-18); CHLORIDE 111 MEQ/L (98-107); CREATINE KINASE 396 U/L (26-192); GLOMERULAR FILTRATION RATE 50 ML/MIN (>89); GLUCOSE,FASTING 92 MG/DL (74-99); MAGNESIUM 1.9 MG/DL (1.5-2.5); POTASSIUM 3.7 MEQ/L (3.5-5.1); SODIUM (NA) 145 MEQ/L (136-145); TOTAL BILIRUBIN ADULT 0.3 MG/DL (0.2-1.0)
[2016-10-09 12:28] LABS: LACTIC ACID GHOST NOT REPORTABLE
[2016-10-09 12:56] LABS: BLOOD GAS BASE EXCESS -2.1 mmol/L (-2-2); BLOOD GAS CARBOXYHEMOGLOBIN 1.7 % (0-4); BLOOD GAS HCO3 22 mmol/L (22-26); BLOOD GAS METHEMOGLOBIN 0.8 % (0-2); BLOOD GAS O2 HGB SATURATION 97 % (90-100); BLOOD GAS OXYGEN CONTENT 11.4 Vol % (12.0-20.0); BLOOD GAS PCO2 35 mmHg (38-42); BLOOD GAS PO2 144 mmHg (61-120); BLOOD GAS TOTAL HGB 8.1 G/DL (12.0-16.0); TEMP CORR TO 98.6
[2016-10-09 12:57] LABS: CRITICAL VALUE NO; DRAW SITE RT RADIAL; LITER FLOW 10 L/M; NUMBER OF ARTERIAL PUNCTURES 1; OXYGEN DEVICE SIMPLE MASK
[2016-10-09 12:58] LABS: STAT NO
[2016-10-09] MEDS ORDERED: CHLORHEXIDINE GLUCONATE 2 % 1 PACK (2 CLOTHS) TOP PRN (13:15)
[2016-10-09] MEDS ORDERED: SODIUM CHLORIDE 0.9% FLUSH 5 ML FLUSH IV FLUSH PRN (13:15)
[2016-10-09] MEDS ORDERED: BISACODYL 10 MG SUPP RECTAL PRN (13:15)
[2016-10-09] MEDS ORDERED: RESP: ALBUTEROL 2.5 MG/IPRATROPIUM 0.5 MG NEB (PRN) INH (13:15)
[2016-10-09] MEDS ORDERED: MISCELLANEOUS NURSING INFORMATION XX SCH (13:15)
--- NOTE | 2016-10-09 13:45 | EC ---
Study Study Date:10/09/2016 STUDY CONCLUSIONS SUMMARY - Left ventricle: The cavity size was normal. Wall thickness was increased in a pattern of mild LVH. Systolic function was normal. The estimated ejection fraction was in the range of 55% to 60%. Wall motion was normal; there were no regional wall motion abnormalities. - Aortic valve: Calcification. Valve mobility was restricted. Transvalvular velocity was increased. There was severe stenosis. Mild to moderate regurgitation. Valve area: 0.55cm^2 (Vmax). - Mitral valve: Mild regurgitation. - Tricuspid valve: Moderate-severe regurgitation. - Pulmonic valve: Peak gradient: 12mm Hg (S). - Pulmonary arteries: PA peak pressure: 48mm Hg (S). If LV function is below 40, please consider prescribing an ACEI or ARB or document rationale for non-use. PROCEDURE DATA STUDY STATUS: Elective. Procedure: Transthoracic echocardiography. Image quality was good. Scanning was performed from the parasternal, apical, and subcostal acoustic windows. Study completion: The patient tolerated the procedure well. Transthoracic echocardiography. M-mode, complete 2D, complete spectral Doppler, and color Doppler. Height: Height: 52in. Weight: Weight: 106.8lb. Body mass index: BMI: 27.8kg/m^2. Body surface area: BSA: 1.29m^2. Patient status: Inpatient. CARDIAC ANATOMY LEFT VENTRICLE: The cavity size was normal. Wall thickness was increased in a pattern of mild LVH. Systolic function was normal. The estimated ejection fraction was in the range of 55% to 60%. Wall motion was normal; there were no regional wall motion abnormalities. AORTIC VALVE: Trileaflet; normal thickness leaflets. Calcification. Valve mobility was restricted. Doppler: Transvalvular velocity was increased. There was severe stenosis. Mild to moderate regurgitation. Valve area: 0.55cm^2 (Vmax). Indexed valve area: 0.43cm^2/m^2 (Vmax). Mean gradient: 48mm Hg (S). Peak gradient: 70mm Hg (S). AORTA: Aortic root: The aortic root was normal in size. MITRAL VALVE: Structurally normal valve. Doppler: Transvalvular velocity was within the normal range. There was no evidence for stenosis. Mild regurgitation. Peak gradient: 3mm Hg (D). LEFT ATRIUM: The atrium was normal in size. RIGHT VENTRICLE: The cavity size was normal. Wall thickness was normal. PULMONIC VALVE: Doppler: Transvalvular velocity was within the normal range. There was no evidence for stenosis. No regurgitation. Peak gradient: 12mm Hg (S). TRICUSPID VALVE: Structurally normal valve. Doppler: Transvalvular velocity was within the normal range. Moderate-severe regurgitation. PULMONARY ARTERY: The main pulmonary artery was normal-sized. Systolic pressure was within the normal range. RIGHT ATRIUM: The atrium was normal in size. PERICARDIUM: There was no pericardial effusion. SYSTEMIC VEINS: Inferior vena cava: The vessel was normal in size. Patient weight: 106.8lb _Ejection fraction:_ 65-75% _Fractional shortening:_ 32% up to 5Kg 5-11.5Kg 11.6-22.9Kg 23-45Kg 45-57Kg Aortic Root 7-13 <17 13-22 17-27 17-27 LA diam 6-13 <23 24-38 33-47 37-40 RVID 10-17 7-15 7-15 7-18 8-17 LVIDd 12-22 <32 24-38 33-47 37-40 LVPW 2-4 3-6 5-7 6-8 7-8 IVS 2-4 3-6 5-7 6-8 7-8 BASIC MEASUREMENTS ADULT NORMAL Left ventricle LV internal dimension, ED, chordal *42 mm 43-52 level, PLAX LV internal dimension, ES, chordal 30.6 mm 23-38 level, PLAX Fractional shortening, chordal level, *27 % >29 PLAX LV posterior wall thickness, ED 8.2 mm IVS/LVPW ratio, ED 0.74 <1.3 Ventricular septum Septal thickness, ED 6.09 mm Aortic valve Leaflet separation *9 mm 15-26 Right ventricle RV internal dimension, ED, PLAX *15.5 mm 19-38 BASIC MEASUREMENTS ADULT NORMAL Aortic valve Leaflet separation *9 mm 15-26 Aorta Root diameter, ED *19 mm 20-37 Left atrium Anterior-posterior dimension, ES 35 mm 19-40 Anterior-posterior dimension index, ES *2.71 cm/m^2 <2.2 LA/aortic root ratio 1.84 DOPPLER MEASUREMENTS ADULT NORMAL Main pulmonary artery Pressure, S *48 mm Hg =30 Aortic valve Peak velocity, S 417 cm/s Mean velocity, S 330 cm/s VTI, S 110 cm Mean gradient, S 48 mm Hg Peak gradient, S 70 mm Hg Valve area, Vmax 0.55 cm^2 Valve area index, Vmax 0.43 cm^2/m^2 Regurgitant velocity, ED 335 cm/s Regurgitant deceleration 1950 cm/s^2 Regurgitant pressure half-time 503 ms Regurgitant gradient, ED 45 mm Hg Mitral valve Peak E-wave velocity 90.3 cm/s Peak A-wave velocity 126 cm/s Deceleration time *134 ms 150-230 Peak gradient, D 3 mm Hg Peak E/A ratio 0.7 Maximal regurgitant velocity 436 cm/s Tricuspid valve Regurgitant peak velocity 300 cm/s Peak RV-RA gradient, S 36 mm Hg Maximal regurgitant velocity 300 cm/s Systemic veins Estimated CVP 10 mm Hg Right ventricle RV pressure, S *60 mm Hg <30 Pulmonic valve Peak velocity, S 170 cm/s Peak gradient, S 12 mm Hg LEGEND: Mean values are shown as u=mean value. Asterisk (*) klein values outside specified normal range. Prepared and signed by Jagdeep Mcgraw [id number]
--- NOTE | 2016-10-09 14:08 | PD.CONS ---
[facility] Service Critical Care Medicine Consult Requested By Reason for Consult Hypotension, hypoxia Primary Care Physician Toni Lewis MD History of Present Illness Ms. Rahman is a 75 year old female who presented to [facility] ED on 10/07/16 for evaluation of left-sided hip pain s/p a fall. She is a resident of [facility] for several years. The patient has a history of frequent falls and fell over a wheelchair, and presented with the left hip intertrochanteric fracture .the patient underwent IM nailing of left hip fracture yesterday .postoperatively the patient did well with minimal pain noted , but had episodes of desaturation this a.m. The patient oxygenation requirements increased to from 4 L nasal cannula to facemask at 1012 L/m. The patient was also noted to be hypotensive with a systolic blood pressure in the 70s. The patient's medication regimen included Ativan, and Lopressor this a.m.. The patient received a normal saline IV bolus of 500 cc, and the patient continues on normal saline at 120/hour. Her past medical history includes dementia, MVP, aortic aneurysm s/p repair, carotid stenosis (80%-follows Dr. Edouard), COPD, hypothyroidism and hypercholesterolemia. Critical care medicine was consulted for management. Review of Systems ROS Limitations: Altered Mental Status Past Family Social History Allergies: Coded Allergies: No Known Allergies (Verified , 10/07/16) Past Medical History COPD, mitral valve prolapse, carotid stenosis, hypercholesterolemia, dementia Past Surgical History IM nail left intertrochanteric hip fracture, hysterectomy, cholecystectomy, AAA repair Reported Medications see MAR Active Ordered Medications see MAR Family History Unobtainable Social History Per medical records, smoking history. Physical Exam Vital Signs Vital Signs Date Time Temp Pulse Resp B/P Pulse Ox O2 Delivery O2 Flow Rate FiO2 10/09/16 13:18 98.9 85 16 125/65 100 10/09/16 12:40 97 Simple Mask 10.00 10/09/16 11:55 99 Mask 10.00 10/09/16 11:55 99 Simple Mask 10.00 10/09/16 10:24 98 Mask 10.00 10/09/16 10:20 98 Simple Mask 10.00 10/09/16 10:20 Simple Mask 10.00 10/09/16 09:01 94 Simple Mask 15.00 10/09/16 09:00 74 21 10/09/16 08:00 98.0 102 18 74/56 96 10/09/16 04:00 96.4 75 15 116/51 93 10/09/16 00:00 96.2 82 15 91/50 92 10/08/16 20:00 96.0 72 15 98/52 98 10/08/16 17:42 92 Nasal Cannula 5.00 10/08/16 16:03 96.9 74 16 108/67 92 Physical Exam GENERAL: Elderly petite female, sitting up in bed, cooperative, and demented. SKIN: Warm and dry. HEAD: Atraumatic. Normocephalic. EYES: Pupils equal and round. No scleral icterus. No injection or drainage. ENT: No nasal bleeding or discharge. Mucous membranes pink and moist. NECK: Trachea midline. No JVD. CARDIOVASCULAR: Normal rate, regular rhythm.3/6 murmur, left 4th ICS RESPIRATORY: No accessory muscle use. Clear to auscultation . Breath sounds equal bilaterally. Facemask currently at 10 L GASTROINTESTINAL: Abdomen soft, non-tender, nondistended. No guarding. MUSCULOSKELETAL: Extremities without clubbing, cyanosis, or edema. No obvious deformities. Left hip dressing clean dry and intact NEUROLOGICAL: Awake and alert. RASS 0. No gross focal/sensory deficits. Follows commands in all 4 extremities. Laboratory Laboratory Tests Test 10/09/16 10/09/16 10/09/16 10/09/16 06:06 09:12 10:15 10:20 White Blood Count 10.6 Red Blood Count 2.83 Hemoglobin 9.1 Hematocrit 26.5 Mean Corpuscular Volume 93.8 Mean Corpuscular Hemoglobin 32.3 Mean Corpuscular Hemoglobin 34.4 Concent Red Cell Distribution Width 12.9 Platelet Count 147 Mean Platelet Volume 9.3 Neutrophils (%) (Auto) 76.2 Lymphocytes (%) (Auto) 10.8 Monocytes (%) (Auto) 12.4 Eosinophils (%) (Auto) 0.2 Basophils (%) (Auto) 0.4 Neutrophils # (Auto) 8.1 Lymphocytes # (Auto) 1.1 Monocytes # (Auto) 1.3 Eosinophils # (Auto) 0.0 Basophils # (Auto) 0.0 CBC Comment DIFF FINAL Differential Comment Sodium Level 143 145 Potassium Level 3.8 3.7 Chloride Level 110 111 Carbon Dioxide Level 25.5 26.1 Anion Gap 8 8 Blood Urea Nitrogen 23 22 Creatinine 1.07 1.08 Estimat Glomerular Filtration 50 50 Rate Random Glucose 96 Calcium Level 8.4 8.1 B-Type Natriuretic Peptide 188 Free Thyroxine 1.29 Thyroid Stimulating Hormone 8.130 3rd Gen Blood Gas Puncture Site RT RADIAL Blood Gas Patient Temperature 98.6 Blood Gas HCO3 22 Blood Gas Base Excess -2.3 Blood Gas Oxygen Saturation 97 Arterial Blood pH 7.40 Arterial Blood Partial 36 Pressure CO2 Arterial Blood Partial 145 Pressure O2 Arterial Blood Oxygen Content 10.5 Arterial Blood 1.5 Carboxyhemoglobin Arterial Blood Methemoglobin 0.5 Blood Gas Hemoglobin 7.4 Oxygen Delivery Device MASK Blood Gas Liter Flow 12 Urine Color YELLOW Urine Turbidity HAZY Urine pH 5.5 Urine Specific Rule 1.035 Urine Protein 30 Urine Glucose (UA) TRACE Urine Ketones NEG Urine Occult Blood SMALL Urine Nitrite NEG Urine Bilirubin NEG Urine Urobilinogen LESS THAN 2.0 Urine Leukocyte Esterase TRACE Urine RBC 17 Urine WBC 9 Urine Squamous Epithelial 1 Cells Urine Calcium Oxalate Crystals OCC Urine Bacteria OCC Urine Mucus FEW Microscopic Urinalysis Comment CATH-CULTURE IND Fasting Glucose 92 Lactic Acid Level 2.3 Magnesium Level 1.9 Total Bilirubin 0.3 Aspartate Amino Transf 31 (AST/SGOT) Alanine Aminotransferase 18 (ALT/SGPT) Alkaline Phosphatase 66 Total Creatine Kinase 396 Creatine Kinase MB 20.0 Creatine Kinase MB % 5.1 Troponin I 3.18 Total Protein 5.4 Albumin 2.4 Test 10/09/16 12:43 Blood Gas Puncture Site RT RADIAL Blood Gas Patient Temperature 98.6 Blood Gas HCO3 22 Blood Gas Base Excess -2.1 Blood Gas Oxygen Saturation 97 Arterial Blood pH 7.41 Arterial Blood Partial 35 Pressure CO2 Arterial Blood Partial 144 Pressure O2 Arterial Blood Oxygen Content 11.4 Arterial Blood 1.7 Carboxyhemoglobin Arterial Blood Methemoglobin 0.8 Blood Gas Hemoglobin 8.1 Oxygen Delivery Device SIMPLE MASK Blood Gas Liter Flow 10 Date/Time Procedure Status Source Growth 10/09/16 10:20 Aerobic Blood Culture Received Blood Peripheral Pending 10/09/16 10:20 Anaerobic Blood Culture Received Blood Peripheral Pending 10/09/16 10:15 Urine Culture Received Urine Catheterized Urine Pending Result Diagram: 10/09/16 0606 10/09/16 1020 Imaging Last 24 hours Impressions Chest X-Ray 10/09/16 0000 Signed Impressions: Service Date/Time: September 09:16 - CONCLUSION: Motion degraded but stable examination. There is atelectasis versus mild consolidation at the left lung base. Mariano Mcclure MD Septic Shock Reassessment Heart: Regular rate and rhythm Lungs: Clear Skin: Warm Peripheral Pulses: Bounding Right Radial Bounding Left Radial Bounding Right Dorsalis Pedis Bounding Left Dorsalis Pedis Capillary Refill: Brisk Assessment and Plan Assessment and Plan This is a 75-year-old female status post mechanical fall that underwent left hip repair, POD #1. The patient has a history of COPD, and underwent general endotracheal anesthesia. The patient secondary to dementia, is not able to participate in pulmonary exercises to circumvent postoperative atelectasis. The patient subsequently has respiratory compromise. The patient received beta brittany and Ativan medication early this a.m., which contributed to hypotension and a decrease in respiratory effort. The patient has a history of mitral valve prolapse and postop BNP and troponin were elevated, suggestive of possible cardiac event. Postoperative echocardiogram revealed severe aortic stenosis. Neurologic: Dementia Depression Postoperative pain Insomnia -Hold Lexapro home med -Hold all benzodiazepines, avoid sedatives -Neurochecks per ICU protocol -Utilize multimodal pain therapy, Ofirmev 700 mg every 6 hours 1 day, ketorolac 15 mg every 6 hours 1 day, use narcotics sparingly, morphine for breakthrough pain -Consider melatonin 5-10mg hs at bedtime, for insomnia. D/C Ambien Respiratory: -Respiratory insufficiency-resolved -Postoperative atelectasis -Obtain ABG -O2 sat currently 98-99% -Schedule bronchodilators every 4 hours, and utilize every 2 hours when necessary for wheezing -Consider BiPAP at at bedtime Cardiovascular: Carotid stenosis Severe aortic stenosis Mitral valve prolapse Hypotension-resolved -10/09 obtain EKG, HR 80's currently -Maintain MAP> 65mmHg, SBP 120's, the patient was previously bolused with 500 cc of normal saline -Initial BNP 188 -Obtain Serial troponins, initial 3.18 -Continue aspirin -10/09 Echo severe aortic stenosis LAKE 0.55, aortic regurgitation ,tricuspid moderate to severe regurgitation, mitral valve mild regurgitation, EF 5560%, No RWMA -Resume metoprolol, when clinically indicated, HR 80's -Cardiology consulted-Dr. Gauthier appreciate recommendations Renal: Renal insufficiency -Monitor BMP, creatinine 1.0 -- Strict I/Os , monitor urine output hourly. Ensure urine output 0.5cc/kg/hr FEN/GI: -Change IV fluids LR 100cc/hr -Replete electrolytes per ICU protocol Heme/ID: Leukocytosis-resolved -WBC 12.2-> 10. Monitor CBC -Hemoglobin stable. 11.9 Endocrine: -Euglycemic -- SSI Prophylaxis: GI Prophylaxis Pepcid DVT Prophylaxis -- SCDs Lovenox Lines: Peripheral IVs. Central line if indicated Dispo: Level 2 Patient is stable at this time, hypoxia resolved, patient is normotensive. Critical care medicine signing off. Thank you for the consult. Code Status FULL Discussed Condition With Grandson and [employer] at bedside. Mildred Ritter MD Oct 09, 2016 14:08
[2016-10-09] MEDS: ACETAMINOPHEN 1000 MG/100 ML VIAL IV SCH ×2 (14:21→20:36)
[2016-10-09] MEDS: LACTATED RINGER'S 1000 ML INJ 1,000 ML IV SCH (15:00)
[2016-10-09] MEDS: RESP: ALBUTEROL 2.5 MG/IPRATROPIUM 0.5 MG NEB (SCH) INH ×2 (15:36→22:15)
[2016-10-09] MEDS ORDERED: LACTATED RINGER'S 1000 ML INJ 250 ML IV ONE (16:00)
--- NOTE | 2016-10-09 17:17 | MB ---
cc: JOSIAS SUAREZ DATE OF CONSULTATION: 10/09/2016. HISTORY OF PRESENT ILLNESS: Ms. Rahman is a 75-year-old white female with history of dementia and aortic stenosis. She is followed at her assisted living facility after she tripped while walking. She underwent open reduction internal fixation of her left hip fracture. She developed hypoxemia this morning requiring oxygen. She was also hypotensive with a blood pressure in the 70s. She was given a normal saline bolus and was transferred to the surgical intensive care unit. Currently she is resting in her bed with an oxygen mask on. She denies any chest pain or shortness of breath. She states that she is feeling fine. Her blood pressure is now normal. Her oxygen is 99% on 4 liters face mask. PAST MEDICAL HISTORY: Her past medical history is positive for: 1. Aortic stenosis, which is severe by echocardiogram from 12/2015. Ejection fraction at that time was 62%. 2. History of mitral valve prolapse. 3. Abdominal aortic aneurysm which was repaired in 12/2014. 4. Peripheral vascular disease. 5. Bilateral carotid stenosis. 6. Hypertension. 7. Dyslipidemia. 8. Hypothyroidism. 9. Alvarez's esophagus. 11. Back compression fracture. 12. History of tonsillectomy. 13. Hysterectomy. MEDICATIONS: Her medications at home included: 1. Aspirin. 2. Calcium. 3. Levothyroxine. 4. Ranitidine. 5. Simvastatin. 6. Temazepam. 8. Metoprolol. 9. Zofran. 10. Albuterol. The patient was started here on Xarelto. ALLERGIES: LIPITOR. SOCIAL HISTORY: The patient used to smoke in the past but not recently. She does not drink alcohol. FAMILY HISTORY: Family history is positive for hypertension, negative for heart disease. REVIEW OF SYSTEMS: The review of systems is otherwise negative. PHYSICAL EXAMINATION: VITAL SIGNS: Blood pressure 125/55, pulse 85 and regular. HEAD, EYES, EARS, NOSE, THROAT: Negative. NECK: 2+ carotid upstrokes, no bruits. LUNGS: Clear. HEART: Regular with a 3/5 systolic ejection murmur of aortic stenosis. No gallop. ABDOMEN: Abdomen soft. No bruits. EXTREMITIES: Without edema. 2+ distal pulses. NEUROLOGIC: Grossly nonfocal. EKGS: EKG was reviewed and showed normal sinus rhythm, left ventricular hypertrophy with secondary S-T-T changes. Echocardiogram showed preserved left ventricular systolic function with an ejection fraction of 55% to 60%. No wall motion abnormalities. Mild left ventricular hypertrophy. Severe aortic stenosis. Mild to moderate aortic insufficiency. Mild mitral regurgitation. Moderate to severe tricuspid regurgitation. Mild pulmonary hypertension. LABS: Hemoglobin 9.1. Potassium 3.7, creatinine 1.1. Troponin 3.2. BNP 188. CK-MB 5.1. DIAGNOSIS: 1. Non-ST elevation myocardial infarction. 2. Severe aortic stenosis. 3. Preserved left ventricular systolic function. 4. Peripheral vascular disease, carotid stenosis. 5. Recent orthopedic surgery for hip fracture. 6. Dementia. 7. Status post abdominal aortic aneurysm repair. 8. Hypertension. 9. Dyslipidemia. DISPOSITION: Ms. Rahman will be monitored in the intensive care unit. We will obtain serial enzymes and EKGs. At this time, her condition is stabilized. I recommend to continue therapy with aspirin. I recommend to resume her beta-brittany if her blood pressure remains stable. She is anemic and her hemoglobin will be closely monitored. I recommend to pay close attention to her fluid loading. She has severe aortic stenosis and may not tolerate fluid overload well. I will follow her for cardiology during her hospitalization. MD RUDDY Emanuel/WALDEMAR /2:19 PM /5:02 PM RUFINO
[2016-10-09] MEDS: DOCUSATE SODIUM 50 MG/SENNA 8.6 MG TAB PO SCH (21:12)
[2016-10-09] MEDS: FAMOTIDINE 20 MG/2 ML VIAL IV PUSH SCH (21:13)
[2016-10-09] MEDS: SODIUM CHLORIDE 0.9% FLUSH 5 ML FLUSH IV FLUSH SCH (21:13)
[2016-10-10] VITALS (16 sets, daily range): BP systolic 94–136; BP diastolic 50–74; PULSE 53–120; RESP 18–20; TEMP 97.6–98.7; O2SAT 93–99
[2016-10-10] MEDS: ACETAMINOPHEN 1000 MG/100 ML VIAL IV SCH ×2 (02:00→08:50)
[2016-10-10] MEDS: CHLORHEXIDINE GLUCONATE 2 % 1 PACK (2 CLOTHS) TOP SCH (04:00)
[2016-10-10] MEDS: RESP: ALBUTEROL 2.5 MG/IPRATROPIUM 0.5 MG NEB (SCH) INH ×4 (04:41→21:09)
[2016-10-10 05:40] LABS: AUTOMATED NEUTROPHIL # 6.7 TH/MM3 (1.8-7.7); BASOPHIL # 0.1 TH/MM3 (0-0.2); BASOPHIL % 0.6 % (0.0-2.0); EOSINOPHIL # 0.1 TH/MM3 (0-0.4); EOSINOPHIL % 0.9 % (0.0-4.0); HEMATOCRIT 22.9 % (35.0-46.0); HEMO FLAGS DIFF FINAL; LYMPH % 14.9 % (9.0-44.0); LYMPHOCYTE # 1.4 TH/MM3 (1.0-4.8); MEAN CELL VOLUME 94.6 FL (80.0-100.0); MEAN CORPUSCULAR HEMOGLOBIN 32.2 PG (27.0-34.0); MEAN CORPUSCULAR HGB CONC 34.1 % (32.0-36.0); MONO % 10.2 % (0.0-8.0); NEUT % 73.4 % (16.0-70.0); PLATELET COUNT 137 TH/MM3 (150-450); RED BLOOD COUNT 2.43 MIL/MM3 (4.00-5.30); RED CELL DISTRIBUTION WIDTH 12.9 % (11.6-17.2); WHITE BLOOD COUNT 9.1 TH/MM3 (4.0-11.0)
[2016-10-10] MEDS: KETOROLAC TROMETHAMINE 60 MG/2 ML (IM) VIAL IM SCH ×4 (06:00→18:00)
[2016-10-10 06:01] LABS: BICARBONATE 24.2 MEQ/L (21.0-32.0); MAGNESIUM 1.8 MG/DL (1.5-2.5); POTASSIUM 3.4 MEQ/L (3.5-5.1)
--- NOTE | 2016-10-10 06:31 | RADRPT ---
EXAM DATE/TIME: 10/10/2016 05:07 [facility] COMPARISON: CHEST SINGLE AP, October 09, 2016, 9:16. INDICATIONS : Evaluate for pulmonary disease. MEDICAL HISTORY : None. SURGICAL HISTORY : None. ENCOUNTER: Initial ACUITY: 4 - 6 days PAIN SCORE: Non-responsive. LOCATION: chest FINDINGS: A single view of the chest demonstrates cardiomegaly with bibasilar densities and interstitial edema. There are catheter is external to patient. Osseous structures are intact. CONCLUSION: 1. Bibasilar densities. 2. Cardiomegaly with interstitial edema, more pronounced on the current study. Kory Mccarthy MD on October 10, 2016 at 6:27 Board Certified Radiologist. This report was verified electronically.
[2016-10-10] MEDS: LEVOTHYROXINE SODIUM 125 MCG TAB PO SCH (06:32)
[2016-10-10] MEDS: ENOXAPARIN SODIUM 30 MG/0.3 ML SYRINGE SQ SCH (06:32)
[2016-10-10 08:43] LABS: ULNAR PULSE PRESENT
[2016-10-10] MEDS: DOCUSATE SODIUM 50 MG/SENNA 8.6 MG TAB PO SCH ×2 (08:50→21:00)
[2016-10-10] MEDS: FAMOTIDINE 20 MG/2 ML VIAL IV PUSH SCH ×2 (08:50→21:00)
[2016-10-10] MEDS: FERROUS SULFATE 325 MG (65 MG ELEMENTAL IRON) TAB PO SCH ×3 (08:50→18:18)
[2016-10-10] MEDS: CHOLECALCIFEROL (VIT D3) 5000 UNIT CAP PO SCH (08:50)
[2016-10-10] MEDS: CALCIUM/VITAMIN D 250 MG/125 U TAB PO SCH ×3 (08:50→18:18)
[2016-10-10] MEDS: SODIUM CHLORIDE 0.9% FLUSH 5 ML FLUSH IV FLUSH SCH ×2 (08:51→21:00)
[2016-10-10] MEDS: ASPIRIN EC 81 MG TABEC PO SCH (09:09)
[2016-10-10] MEDS: LACTATED RINGER'S 1000 ML INJ 1,000 ML IV SCH ×2 (09:09)
--- NOTE | 2016-10-10 09:30 | PD.ORT.PN ---
Subjective Subjective Remarks In restraints, pleasant and in no significant pain Objective Vitals Vital Signs Date Time Temp Pulse Resp B/P Pulse Ox O2 Delivery O2 Flow Rate FiO2 10/10/16 08:00 97.9 98 20 96/50 93 10/10/16 07:05 94 Simple Mask 10.00 10/10/16 07:00 98 10/10/16 07:00 92 Simple Mask 10.00 10/10/16 04:00 97.9 82 19 117/63 94 10/10/16 03:00 89 10/10/16 00:00 53 19 94/53 94 10/09/16 23:00 83 10/09/16 21:50 18 10/09/16 19:57 98.6 68 18 123/55 98 10/09/16 19:00 68 10/09/16 19:00 98 Simple Mask 10.00 10/09/16 16:02 83 18 122/67 99 10/09/16 16:00 78 10/09/16 13:18 98.9 85 16 125/65 100 10/09/16 12:40 82 10/09/16 12:40 97 Simple Mask 10.00 10/09/16 11:55 99 Mask 10.00 10/09/16 11:55 99 Simple Mask 10.00 10/09/16 10:24 98 Mask 10.00 10/09/16 10:20 98 Simple Mask 10.00 10/09/16 10:20 Simple Mask 10.00 I/O 10/09/16 10/09/16 10/09/16 10/10/16 10/10/16 10/10/16 06:59 14:59 22:59 06:59 14:59 22:59 Intake Total 637 ml 500 ml 1299 ml Output Total 100 ml 124 ml 450 ml Balance 537 ml 376 ml 849 ml Intake Oral 0 ml 30 ml IV Total 637 ml 500 ml 1269 ml Output Urine Total 100 ml 124 ml 450 ml # Bowel Movements 0 0 0 Result Diagram: 10/10/1652610/10/16526 Imaging Last 24 hours Impressions Chest X-Ray 10/07/16 1114 Signed Impressions: Service Date/Time: Friday, October 07, 2016 11:19 - CONCLUSION: No significant interval change. Andry Calvert MD Objective Remarks Bilateral upper extremities: Full range of motion neurovascular intact Right lower extremity: No pain with range of motion of hip knee or ankle Left lower extremity: Clean dry dressings intact. Distally neurovascularly intact. Minimal pain with internal/external rotation of the hip. Assessment & Plan Assessment and Plan Left intertrochanteric femur fracture POD 2 IM nail PT weightbearing as tolerated Daily dressing changes Incentive spirometry Lovenox Case management for DC planning to rehabilitation Orthopedically cleared for discharge when medically safe follow-up with Dr. Marie or OJVANNY in 2 weeks TOM LANGFORD PA-C Oct 10, 2016 09:30
--- NOTE | 2016-10-10 09:49 | PD.CONS ---
Consult Service Palliative Care . Consult Requested By Dr. Quintanilla . Primary Care Physician Toni Lewis MD . Reason for Consultation a. To assist with evaluation and management of symptoms including: pain, confusion b. To assist medical decision maker(s) with: better understanding of current medical conditions; weighing benefits/burdens of medical treatment options; making medical treatment decisions. . HPI History of Present Illness Ms. Rahman is a 75 year old female who presented to [facility] ED on 10/07/16 for evaluation of left-sided hip pain s/p a fall. She has been a resident of [facility] for several years. Her past medical history includes dementia, history of mitral valve prolapse, aortic aneurysm s/p repair 12/2014, peripheral vascular disease, bilateral carotid stenosis (80%-follows Dr. Edouard), COPD, hypothyroidism, Alvarez's esophagus, dyslipidemia and back compression fractures. The patient sees Dr. Edouard (cardiology) and Dr. Duy Chung (vascular surgery) outpatient. History was obtained from the patient's daughter because of the patient's severe dementia at baseline. The daughter reported her mother's dementia was progressing rapidly and the patient often does not remember her. This was a witness mechanical fall, without head injury or LOC. Of note, the patient has a history of frequent falls. Upon presentation to the ED, the patient reported mild pain in her left hip that was exacerbated with movement. Additional diagnostic findings in the ED: * Vital signs: Pulse 60, respirations 14, BP 123/58, oxygen saturation 91% on room air, oral temperature 97.6 * WBC: 12.5, hemoglobin 13.7, hematocrit 41.1, platelets 192, neutrophils 88.6% * Sodium: 139, potassium 3.8, chloride 106, carbon dioxide 26.4, glucose 1:30, calcium 9.1 * BUN: 23, creatinine 1.03, GFR 53 * The total bilirubin: 0.4, AST 21, ALT 18, alkaline phosphatase 101 * Total protein: 6.5, albumin 3.6 * PT: 11.1, INR 1.0, APTT 25.7 * Urinalysis: normal * Hip/Pelvis X-ray: Osteoporosis, Intertochanteric fracture left femur * Chest x-ray: There continues to be some atelectasis in both lower lungs, there is no new significant changes compared to the prior study. Upper lung stoddard remain clear and well aerated. Heart size is stable. Bony structures are stable. No significant interval change. * EKG: shows sinus rhythm with evidence of LVH with strain-type pattern. Patient was admitted for further evaluation and medical management a closed left hip fracture. Orthopedics was consulted, and patient was seen and evaluated preoperatively. Dr. Sellers has a lengthy conversation with the patient and her daughter to discuss treatment option. The risks and benefits of surgery were address as well, and patient's family understands the patient is high risk for surgery. The patient is experiencing significant pain, and decision was made to proceed with surgery to improve this patient's quality of life. Overnight on 10/09/16 the patient's oxygen requirements increased from 4L via nasal cannula to mask at 15L. The patient was also noted to be hypotensive with SBP in the 80s. Patient subsequently found to have elevated troponins suggestive of an NSTEMI. EKG was reviewed and showed normal sinus rhythm, left ventricular hypertrophy and secondary S-S-T changes. Echocardiogram showed preserved left ventricle systolic function with an EF of 55%60%. No wall motion abnormalities. Mild left ventricular hypertrophy. Severe aortic stenosis. Mild to moderate aortic insufficiency. Mild mitral regurgitation. Moderate to severe tricuspid regurgitation. Mild pulmonary hypertension. Chest x-ray on 10/10/16 showing bibasilar densities and cardiomegaly with interstitial edema, more pronounced then on previous image. Blood and urine cultures pending. Cardiology was consulted. Will monitor serial troponin and EKGs for suspected an NSTEMI. Recommendation were made to continue daily aspirin, plan for carvedilol if patient's blood pressure and watch for fluid overloading. Palliative Care was consulted to assist with symptom management and to discuss with the patient/family the benefits and burdens of her current illnesses and the options regarding future care. . Function/Cognitive Trajectory Patient is a resident of [facility] with severe dementia. Disoriented with nonsensical speech. Patient started state her mother has remain independent with ambulation, although currently hospitalized with a left hip fracture status post a fall. She requires assist with dressing, toileting, bathing and eating. She requires verbal reinforcement and physical assist for adequate nutritional intake. Patient has lost approximately 20 pounds in the past 2 years per her daughter. . Review of Systems ROS Limitations: Altered Mental Status, Speech Impaired Constitutional: COMPLAINS OF: Weight loss (20 pound loss in 2 years) Ears, nose, mouth, throat: DENIES: Epistaxis Cardiovascular: DENIES: Lower Extremity Edema Hematologic/Lymphatics: COMPLAINS OF: Bruising Neurologic: COMPLAINS OF: Abnormal gait, Speech Problems, Poor Balance Psychiatric: COMPLAINS OF: Confusion Past Family Social History Coded Allergies: No Known Allergies (Verified , 10/07/16) Past Medical History Dementia History of mitral valve prolapse Aortic aneurysm s/p repair in 12/2014 Peripheral vascular disease Bilateral carotid stenosis COPD Hypothyroidism Hypertension Dyslipidemia Alvarez's esophagus Back compression fracture . Past Surgical History Aortic aneurysm repair Hysterectomy- distant past . Reported Medications Zofran (Ondansetron HCl) 4 Mg Tab 4 Mg PO Q6HR PRN Ventolin Hfa 18 GM Inh (Albuterol Sulfate) 90 Mcg/Act Aer 2 Puff INH Q6H PRN Tylenol Extra Strength (Acetaminophen) 500 Mg Tab 500 Mg PO Q6HR PRN Restoril (Temazepam) 15 Mg Cap 15 Mg PO HS PRN Ibuprofen 800 Mg Tab 800 Mg PO Q6HR PRN Ativan (Lorazepam) 0.5 Mg Tab 0.5 Mg PO Q12HR PRN Metoprolol Tartrate 25 Mg Tab 12.5 Mg PO Q8HR Ferrousul (Ferrous Sulfate) 325 Mg Tab 325 Mg PO TID Zantac (Ranitidine HCl) 150 Mg Tab 150 Mg PO DAILY Vitamin D3 (Cholecalciferol) 1,000 Unit Tab 1,000 Units PO DAILY Melatonin 3 Mg Tab 3 Mg PO HS Lexapro (Escitalopram Oxalate) 5 Mg Tab 5 Mg PO DAILY Levothyroxine (Levothyroxine Sodium) 125 Mcg Tab 125 Mcg PO DAILY Calcium 600+D (Calcium Carbonate-Vitamin D) 600-400 Mg-Unit Tab 1 Tab PO DAILY Aspirin Adult Low Strength (Aspirin) 81 Mg Tabdr 81 Mg PO DAILY . Current Medications Medications (Trade) Dose Ordered Sig/Alma Route Start Time Stop Time Status Last Admin (Zofran Inj) 4 mg Q6H PRN IVP 10/07/16 16:00 (Narcan Inj) 0.4 mg UNSCH PRN IV 10/07/16 16:00 (Ecotrin Ec) 81 mg DAILY PO 10/08/16 09:00 10/10/16 09:09 (Lexapro) 5 mg DAILY PO 10/08/16 09:00 Hold 10/09/16 08:43 (Ferrous Sulfate) 325 mg TID PO 10/07/16 18:00 10/10/16 08:50 (Lopressor) 12.5 mg Q8HR PO 10/07/16 22:00 Hold 10/09/16 05:22 (Morphine Inj) 3 mg Q3H PRN IV PUSH 10/07/16 18:00 Hold 10/09/16 00:07 (Lovenox Inj) 30 mg Q24H SQ 10/09/16 07:30 10/10/16 06:32 (Oscal-D 250-125) 250 mg TID PO 10/08/16 09:00 10/10/16 08:50 ([facility] [place] 5-325 Mg) 1 tab Q4H PRN PO 10/08/16 08:15 Hold (Vitamin D3) 5,000 units DAILY PO 10/08/16 09:00 10/10/16 08:50 (Synthroid) 125 mcg DAILY@0600 PO 10/09/16 06:00 10/10/16 06:32 (Toshia-Colace) 2 tab BID PO 10/09/16 21:00 10/10/16 08:50 (NS Flush) 2 ml UNSCH PRN IV FLUSH 10/09/16 13:15 (NS Flush) 2 ml BID IV FLUSH 10/09/16 21:00 10/10/16 08:51 (Pepcid Inj) 20 mg Q12HR IV PUSH 10/09/16 21:00 10/10/16 08:50 (Dulcolax Supp) 10 mg DAILY PRN RECTAL 10/09/16 13:15 Miscellaneous Information 1 Q361D XX 10/09/16 13:15 (Chlorhexidine 2% Cloth) 3 pack Taper DAILY@04 TOP 10/10/16 04:00 10/06/17 03:59 10/10/16 04:00 (Chlorhexidine 2% Cloth) 3 pack UNSCH PRN TOP 10/09/16 13:15 10/09/16 13:49 (Ofirmev Inj) 700 mg Q6H IV 10/09/16 14:00 10/10/16 13:59 10/10/16 08:50 Ketorolac Tromethamine 15 mg 15 mg Q6HR IM 10/09/16 18:00 10/14/16 17:59 (Lr 1000 ml Inj) 1,000 ml @ 100 mls/hr Q10H IV 10/09/16 14:00 10/10/16 09:09 (Morphine Inj) 2 mg Q6H PRN IV PUSH 10/09/16 14:00 10/09/16 21:42 . Family History Family history is positive for hypertension, negative for heart disease. . . Substance Use Tobacco: Previous smoker. Alcohol: Patient does not drink alcohol. Prescription med abuse: None known. Illicits: None known. . Psychosocial History Patient is a . She has one daughter (John John) who lives locally. . Spiritual/Cultural Factors Unknown . Living Will: Never completed Health Care Surrogate: Never completed Durable Power of Manager Field: Never completed Health Care Surrogate(s): NA Documented care wishes: There are no documented care wishes available. . Today's verbally stated goals: Patient has end-stage dementia with disorientation and nonsensical speech- unable to verbalize medical treatment goals. . Family/friends goals: Patient's daughter wants "to give her a chance" to get better and return to the facility where she resides. . Ethical and Legal Issues Per [place] statutes, in the absence of written advanced directives healthcare proxy decision-making falls to the patient's only daughter Manju John. . Physical Exam Vital Signs Date Time Temp Pulse Resp B/P Pulse Ox O2 Delivery O2 Flow Rate FiO2 10/10/16 08:00 97.9 98 20 96/50 93 10/10/16 07:05 94 Simple Mask 10.00 10/10/16 07:00 98 10/10/16 07:00 92 Simple Mask 10.00 10/10/16 04:00 97.9 82 19 117/63 94 10/10/16 03:00 89 10/10/16 00:00 53 19 94/53 94 10/09/16 23:00 83 10/09/16 21:50 18 10/09/16 19:57 98.6 68 18 123/55 98 10/09/16 19:00 68 10/09/16 19:00 98 Simple Mask 10.00 10/09/16 16:02 83 18 122/67 99 10/09/16 16:00 78 10/09/16 13:18 98.9 85 16 125/65 100 10/09/16 12:40 82 10/09/16 12:40 97 Simple Mask 10.00 10/09/16 11:55 99 Mask 10.00 10/09/16 11:55 99 Simple Mask 10.00 10/09/16 10:24 98 Mask 10.00 10/09/16 10:20 98 Simple Mask 10.00 10/09/16 10:20 Simple Mask 10.00 . 10/09/16 10/10/16 18:59 06:59 Intake Total 500 ml 1299 ml Output Total 124 ml 450 ml Balance 376 ml 849 ml Intake Oral 30 ml IV Total 500 ml 1269 ml Output Urine Total 124 ml 450 ml # Bowel Movements 0 0 . Exam CONSTITUTIONAL/GENERAL: This is a frail elderly female patient, in no acute distress. TUBES/LINES/DRAINS: PIV 1. Tejeda catheter. SKIN: Ecchymoses on upper extremities. Skin temperature appropriate. Not diaphoretic. HEAD: Atraumatic. Normocephalic. EYES: Pupils equal and round and reactive. Extraocular motions intact. No scleral icterus. No injection or drainage. Fundi not examined. ENT: Hearing grossly normal. Nose without bleeding or purulent drainage. NECK: Trachea midline. CARDIOVASCULAR: Regular rate and rhythm. + Systolic murmur. No JVD. Peripheral pulses symmetric. RESPIRATORY/CHEST: Symmetric, unlabored respirations on simple mask at 10L oxygen, saturations in the low to mid 90s. Breath sounds diminished. GASTROINTESTINAL: Abdomen soft, non-tender, nondistended. Bowel sounds present. GENITOURINARY: Without palpable bladder distension. Tejeda catheter in place.No joint tenderness or effusion noted. No calf tenderness. No mottling or clubbing. LYMPHATICS: No palpable cervical or supraclavicular adenopathy. NEUROLOGICAL: Awake and alert. Disoriented, unable to tell me her name. Attempts to answer simple questions, speech is nonsensical at times. Moves all extremities 4 PSYCHIATRIC: No obvious anxiety/depression. No apparent hallucinations or other psychotic thought process. . Diagnostic Tests Laboratory Laboratory Tests Test 10/07/16 10/07/16 10/08/16 10/09/16 11:45 15:00 06:32 06:06 White Blood Count 12.5 TH/MM3 12.2 TH/MM3 10.6 TH/MM3 (4.0-11.0) (4.0-11.0) (4.0-11.0) Red Blood Count 4.35 MIL/MM3 3.77 MIL/MM3 2.83 MIL/MM3 (4.00-5.30) (4.00-5.30) (4.00-5.30) Hemoglobin 13.7 GM/DL 11.9 GM/DL 9.1 GM/DL (11.6-15.3) (11.6-15.3) (11.6-15.3) Hematocrit 41.1 % 34.8 % 26.5 % (35.0-46.0) (35.0-46.0) (35.0-46.0) Mean Corpuscular Volume 94.6 FL 92.4 FL 93.8 FL (80.0-100.0) (80.0-100.0) (80.0-100.0) Mean Corpuscular Hemoglobin 31.5 PG 31.5 PG 32.3 PG (27.0-34.0) (27.0-34.0) (27.0-34.0) Mean Corpuscular Hemoglobin 33.3 % 34.1 % 34.4 % Concent (32.0-36.0) (32.0-36.0) (32.0-36.0) Red Cell Distribution Width 13.0 % 12.7 % 12.9 % (11.6-17.2) (11.6-17.2) (11.6-17.2) Platelet Count 192 TH/MM3 192 TH/MM3 147 TH/MM3 (150-450) (150-450) (150-450) Mean Platelet Volume 9.3 FL 9.8 FL 9.3 FL (7.0-11.0) (7.0-11.0) (7.0-11.0) Neutrophils (%) (Auto) 88.6 % 83.7 % 76.2 % (16.0-70.0) (16.0-70.0) (16.0-70.0) Lymphocytes (%) (Auto) 5.8 % 6.4 % 10.8 % (9.0-44.0) (9.0-44.0) (9.0-44.0) Monocytes (%) (Auto) 4.9 % (0.0-8.0) 9.4 % (0.0-8.0) 12.4 % (0.0-8.0) Eosinophils (%) (Auto) 0.3 % (0.0-4.0) 0.0 % (0.0-4.0) 0.2 % (0.0-4.0) Basophils (%) (Auto) 0.4 % (0.0-2.0) 0.5 % (0.0-2.0) 0.4 % (0.0-2.0) Neutrophils # (Auto) 11.1 TH/MM3 10.2 TH/MM3 8.1 TH/MM3 (1.8-7.7) (1.8-7.7) (1.8-7.7) Lymphocytes # (Auto) 0.7 TH/MM3 0.8 TH/MM3 1.1 TH/MM3 (1.0-4.8) (1.0-4.8) (1.0-4.8) Monocytes # (Auto) 0.6 TH/MM3 1.2 TH/MM3 1.3 TH/MM3 (0-0.9) (0-0.9) (0-0.9) Eosinophils # (Auto) 0.0 TH/MM3 0.0 TH/MM3 0.0 TH/MM3 (0-0.4) (0-0.4) (0-0.4) Basophils # (Auto) 0.1 TH/MM3 0.1 TH/MM3 0.0 TH/MM3 (0-0.2) (0-0.2) (0-0.2) CBC Comment DIFF FINAL DIFF FINAL DIFF FINAL Differential Comment Prothrombin Time 11.1 SEC (9.8-11.6) Prothromb Time International 1.0 RATIO Ratio Activated Partial 25.7 SEC Thromboplast Time (24.3-30.1) Sodium Level 139 MEQ/L 142 MEQ/L 143 MEQ/L (136-145) (136-145) (136-145) Potassium Level 3.8 MEQ/L 3.8 MEQ/L 3.8 MEQ/L (3.5-5.1) (3.5-5.1) (3.5-5.1) Chloride Level 106 MEQ/L 109 MEQ/L 110 MEQ/L (98-107) (98-107) (98-107) Carbon Dioxide Level 26.4 MEQ/L 26.6 MEQ/L 25.5 MEQ/L (21.0-32.0) (21.0-32.0) (21.0-32.0) Anion Gap 7 MEQ/L (5-15) 6 MEQ/L (5-15) 8 MEQ/L (5-15) Blood Urea Nitrogen 23 MG/DL (7-18) 23 MG/DL (7-18) 23 MG/DL (7-18) Creatinine 1.03 MG/DL 0.86 MG/DL 1.07 MG/DL (0.50-1.00) (0.50-1.00) (0.50-1.00) Estimat Glomerular Filtration 53 ML/MIN (>89) 65 ML/MIN (>89) 50 ML/MIN (>89) Rate Random Glucose 130 MG/DL 105 MG/DL 96 MG/DL (74-106) (74-106) (74-106) Calcium Level 9.1 MG/DL 8.4 MG/DL 8.4 MG/DL (8.5-10.1) (8.5-10.1) (8.5-10.1) Total Bilirubin 0.4 MG/DL (0.2-1.0) Aspartate Amino Transf 21 U/L (15-37) (AST/SGOT) Alanine Aminotransferase 18 U/L (10-53) (ALT/SGPT) Alkaline Phosphatase 101 U/L (45-117) Total Protein 7.5 GM/DL (6.4-8.2) Albumin 3.6 GM/DL (3.4-5.0) Blood Type A NEGATIVE Urine Color YELLOW (YELLW/STRAW) Urine Turbidity CLEAR (CLEAR) Urine pH 5.5 (5.0-8.5) Urine Specific [place] 1.024 (1.002-1.035) Urine Protein TRACE mg/dL (NEG-TRACE) Urine Glucose (UA) NEG mg/dL (NEG) Urine Ketones NEG mg/dL (NEG) Urine Occult Blood NEG (NEG) Urine Nitrite NEG (NEG) Urine Bilirubin NEG (NEG) Urine Urobilinogen LESS THAN 2.0 MG/DL (LESS THAN 2.0) Urine Leukocyte Esterase NEG (NEG) Urine RBC 3 /hpf (0-3) Urine WBC 1 /hpf (0-5) Urine Mucus FEW /lpf (OCC) Microscopic Urinalysis Comment CULT NOT INDICATED 25-Hydroxy Vitamin D Total 19.1 ng/ML (30-100) Thyroid Stimulating Hormone 7.680 uIU/ML 8.130 uIU/ML 3rd Gen (0.358-3.740) (0.358-3.740) B-Type Natriuretic Peptide 188 PG/ML (0-100) Free Thyroxine 1.29 NG/DL (0.76-1.46) Test 10/09/16 10/09/16 10/09/16 10/09/16 09:12 10:15 10:20 12:43 Blood Gas Puncture Site RT RADIAL RT RADIAL Blood Gas Patient Temperature 98.6 98.6 Blood Gas HCO3 22 mmol/L 22 mmol/L (22-26) (22-26) Blood Gas Base Excess -2.3 mmol/L -2.1 mmol/L (-2-2) (-2-2) Blood Gas Oxygen Saturation 97 % (90-100) 97 % (90-100) Arterial Blood pH 7.40 7.41 (7.380-7.420) (7.380-7.420) Arterial Blood Partial 36 mmHg (38-42) 35 mmHg (38-42) Pressure CO2 Arterial Blood Partial 145 mmHg 144 mmHg Pressure O2 (61-120) (61-120) Arterial Blood Oxygen Content 10.5 Vol % 11.4 Vol % (12.0-20.0) (12.0-20.0) Arterial Blood 1.5 % (0-4) 1.7 % (0-4) Carboxyhemoglobin Arterial Blood Methemoglobin 0.5 % (0-2) 0.8 % (0-2) Blood Gas Hemoglobin 7.4 G/DL 8.1 G/DL (12.0-16.0) (12.0-16.0) Oxygen Delivery Device MASK SIMPLE MASK Blood Gas Liter Flow 12 L/M 10 L/M Urine Color YELLOW (YELLW/STRAW) Urine Turbidity HAZY (CLEAR) Urine pH 5.5 (5.0-8.5) Urine Specific [place] 1.035 (1.002-1.035) Urine Protein 30 mg/dL (NEG-TRACE) Urine Glucose (UA) TRACE mg/dL (NEG) Urine Ketones NEG mg/dL (NEG) Urine Occult Blood SMALL (NEG) Urine Nitrite NEG (NEG) Urine Bilirubin NEG (NEG) Urine Urobilinogen LESS THAN 2.0 MG/DL (LESS THAN 2.0) Urine Leukocyte Esterase TRACE (NEG) Urine RBC 17 /hpf (0-3) Urine WBC 9 /hpf (0-5) Urine Squamous Epithelial 1 /hpf (0-5) Cells Urine Calcium Oxalate Crystals OCC /hpf (NONE) Urine Bacteria OCC /hpf (NONE) Urine Mucus FEW /lpf (OCC) Microscopic Urinalysis Comment CATH-CULTURE IND Sodium Level 145 MEQ/L (136-145) Potassium Level 3.7 MEQ/L (3.5-5.1) Chloride Level 111 MEQ/L (98-107) Carbon Dioxide Level 26.1 MEQ/L (21.0-32.0) Anion Gap 8 MEQ/L (5-15) Blood Urea Nitrogen 22 MG/DL (7-18) Creatinine 1.08 MG/DL (0.50-1.00) Estimat Glomerular Filtration 50 ML/MIN (>89) Rate Fasting Glucose 92 MG/DL (74-99) Lactic Acid Level 2.3 mmol/L (0.4-2.0) Calcium Level 8.1 MG/DL (8.5-10.1) Magnesium Level 1.9 MG/DL (1.5-2.5) Total Bilirubin 0.3 MG/DL (0.2-1.0) Aspartate Amino Transf 31 U/L (15-37) (AST/SGOT) Alanine Aminotransferase 18 U/L (10-53) (ALT/SGPT) Alkaline Phosphatase 66 U/L (45-117) Total Creatine Kinase 396 U/L (26-192) Creatine Kinase MB 20.0 NG/ML (0.5-3.6) Creatine Kinase MB % 5.1 % (0.0-4.0) Troponin I 3.18 NG/ML (0.02-0.05) Total Protein 5.4 GM/DL (6.4-8.2) Albumin 2.4 GM/DL (3.4-5.0) Test 10/09/16 10/09/16 10/09/16 10/09/16 13:40 14:51 16:43 20:55 Nasal Screen MRSA (PCR) NEGATIVE (NEGATIVE) Lactic Acid Level 1.4 mmol/L 2.6 mmol/L (0.4-2.0) (0.4-2.0) Troponin I 24.20 NG/ML (0.02-0.05) Test 10/09/16 10/10/16 23:02 05:27 Troponin I 19.40 NG/ML (0.02-0.05) White Blood Count 9.1 TH/MM3 (4.0-11.0) Red Blood Count 2.43 MIL/MM3 (4.00-5.30) Hemoglobin 7.8 GM/DL (11.6-15.3) Hematocrit 22.9 % (35.0-46.0) Mean Corpuscular Volume 94.6 FL (80.0-100.0) Mean Corpuscular Hemoglobin 32.2 PG (27.0-34.0) Mean Corpuscular Hemoglobin 34.1 % Concent (32.0-36.0) Red Cell Distribution Width 12.9 % (11.6-17.2) Platelet Count 137 TH/MM3 (150-450) Mean Platelet Volume 8.7 FL (7.0-11.0) Neutrophils (%) (Auto) 73.4 % (16.0-70.0) Lymphocytes (%) (Auto) 14.9 % (9.0-44.0) Monocytes (%) (Auto) 10.2 % (0.0-8.0) Eosinophils (%) (Auto) 0.9 % (0.0-4.0) Basophils (%) (Auto) 0.6 % (0.0-2.0) Neutrophils # (Auto) 6.7 TH/MM3 (1.8-7.7) Lymphocytes # (Auto) 1.4 TH/MM3 (1.0-4.8) Monocytes # (Auto) 0.9 TH/MM3 (0-0.9) Eosinophils # (Auto) 0.1 TH/MM3 (0-0.4) Basophils # (Auto) 0.1 TH/MM3 (0-0.2) CBC Comment DIFF FINAL Differential Comment Sodium Level 145 MEQ/L (136-145) Potassium Level 3.4 MEQ/L (3.5-5.1) Chloride Level 109 MEQ/L (98-107) Carbon Dioxide Level 24.2 MEQ/L (21.0-32.0) Anion Gap 12 MEQ/L (5-15) Blood Urea Nitrogen 19 MG/DL (7-18) Creatinine 0.97 MG/DL (0.50-1.00) Estimat Glomerular Filtration 56 ML/MIN (>89) Rate Random Glucose 88 MG/DL (74-106) Calcium Level 8.1 MG/DL (8.5-10.1) Phosphorus Level 2.2 MG/DL (2.5-4.9) Magnesium Level 1.8 MG/DL (1.5-2.5) . Result Diagram: 10/10/1652610/10/16526 Microbiology Microbiology Date/Time Procedure Status Source Growth 10/09/16 10:11 Aerobic Blood Culture Received Blood Peripheral Pending 10/09/16 10:11 Anaerobic Blood Culture Received Blood Peripheral Pending 10/09/16 10:15 Urine Culture Received Urine Catheterized Urine Pending 10/09/16 10:20 Aerobic Blood Culture Received Blood Peripheral Pending 10/09/16 10:20 Anaerobic Blood Culture Received Blood Peripheral Pending . Imaging Last 72 hours Impressions Chest X-Ray 10/10/16 0300 Signed Impressions: Service Date/Time: Monday, October 10, 2016 05:07 - CONCLUSION: 1. Bibasilar densities. 2. Cardiomegaly with interstitial edema, more pronounced on the current study. Kory Mccarthy MD Chest X-Ray 10/09/16 0000 Signed Impressions: Service Date/Time: September 09:16 - CONCLUSION: Motion degraded but stable examination. There is atelectasis versus mild consolidation at the left lung base. Mariano Mcclure MD Hip X-Ray 10/08/16 0000 Signed Impressions: Service Date/Time: Saturday, October 08, 2016 08:00 - CONCLUSION: Appropriate postoperative appearance of the left intratrochanteric ORIF. Kumar Blevins MD Chest X-Ray 10/08/16 0000 Signed Impressions: Service Date/Time: Saturday, October 08, 2016 11:03 - CONCLUSION: No acute disease. No significant change has occurred. Arnold Geller MD . Patient/Family Conference Present at Family Conference: Spoke with patient's daughter, Jie, via telephone. . Issues Discussed: * Palliative care role, purpose, approach * Additional medical, psychosocial, and spiritual history * Patients general health, functional status, and cognitive changes in the months leading up to the current hospitalization * Patient/family understanding of the current medical problems * Patient/family understanding of prognosis * Patients goals of care as best understood from advance directives and/or conversations and/or values * Current medical treatment options and benefits/burdens of those options * Likely scenarios comparing ongoing aggressive care with a transition to comfort measures only * Questions answered to the best of my ability * Palliative care contact information provided . Assessment and Plan Disease Oriented Problem List: (1) Vitamin D deficiency (2) Fall (3) DVT Prophylaxis (4) Fluids, Electrolytes, and Nutrition (5) Osteoporosis (6) MVP (mitral valve prolapse) (7) Cardiovascular risk factor (8) Dementia (9) Closed left hip fracture (10) Shortness of breath (11) Hypothyroid (12) Hypotension (13) Aortic stenosis (14) Cardiovascular disease Symptom Scale: (1) Pain 0-10 Scale: Unable to quantify (2) Confusion Comment: Advanced dementia. Patient disoriented and confused - does not know her name, where she is or the circumstances of her situation. Patient attempts to answer simple question, but speech is frequently nonsensical. Pertinent Non-Medical Issues Psychosocial: Patient is a . She has one daughter (John John) who lives locally. Spiritual: None known Legal: Per [place] statutes, in the absence of written advanced directives healthcare proxy decision-making falls to the patient's only daughter, Manju John. Ethical issues impacting care: No known ethical decision impacting care at this time. . Important Contacts Manju John, daughter: [phone] or [phone] . Prognosis Patient is a 75 year old female with advanced dementia and severe heart disease. She was admitted with a left hip fracture status post a fall and subsequently had a NSTEMI postoperatively. Requiring simple mask on 10L oxygen. Prognosis generally poor. . Code Status: Full Code Plan * FULL CODE * Decision-making: Per [place] statutes, in the absence of written and faxed directives healthcare proxy decision-making falls to the patient's only daughter , Manju John * Aggressive goals. * Discussed the process of cardiopulmonary resuscitation in detail with patient' s daughter (compression, medications, cardioversion, intubation/mechanical ventilation) status post NSTEMI and the risks for a subsequent cardiac event. Patient's daughter states she understands the risks of CPR (i.e. fractured ribs , ventilator dependency), but she still wants to do everything possible to " give her a chance". The patient's daughter states she is comfortable and prepared to make a decision to withdrawal life support down the road if necessary, because she knows her mother would not want be kept alive artificially. * Palliative care contact information provided to patient's daughter. * Patient's daughter would like to meet with Palliative Care to further discuss medical treatment goals-will attempt to schedule a meeting for early next week. * Palliative care will continue to follow this patient throughout her hospitalization to establish trust, assist with symptom management and clarification of medical treatment goals. . Thank you for the opportunity to participate in the care of Ms. Rahman. . Collaborating MD Comments . Attestation To help prompt me to consider important information that might be impacting today's encounter and assessment, information from prior notes written by myself or my colleagues may have been "brought forward" into today's note. My signature on this note, however, is an attestation that I personally performed the exam, history, and/or decision-making noted today, and, unless otherwise indicated, the interactions with patient, family, and staff as well as the review of records all occurred today. I also attest that the listed assessment and stated plan reflect my best clinical judgment today based on the combination of historical information, prior notes, and today's exam/ interactions. When time spent is documented, it refers only to time spent today by the signer, or if indicated, combined time spent today by collaborating physician/nurse practitioner. . Lynette Valle Oct 10, 2016 09:49
--- NOTE | 2016-10-10 10:26 | HHI.FPPN ---
Subjective Remarks Ms. Rahman was afebrile with hypotension overnight (MAPs mid 60's-80's). Per nursing staff, patient has been comfortable. Patient oriented to self but not to situation/location. No pain reported. No BM per EMR. (Jason Quintanilla MD R2) Objective Vitals Vital Signs Date Time Temp Pulse Resp B/P Pulse Ox O2 Delivery O2 Flow Rate FiO2 10/10/16 08:00 97.9 98 20 96/50 93 10/10/16 07:05 94 Simple Mask 10.00 10/10/16 07:00 98 10/10/16 07:00 92 Simple Mask 10.00 10/10/16 04:00 97.9 82 19 117/63 94 10/10/16 03:00 89 10/10/16 00:00 53 19 94/53 94 10/09/16 23:00 83 10/09/16 21:50 18 10/09/16 19:57 98.6 68 18 123/55 98 10/09/16 19:00 68 10/09/16 19:00 98 Simple Mask 10.00 10/09/16 16:02 83 18 122/67 99 10/09/16 16:00 78 10/09/16 13:18 98.9 85 16 125/65 100 10/09/16 12:40 82 10/09/16 12:40 97 Simple Mask 10.00 10/09/16 11:55 99 Mask 10.00 10/09/16 11:55 99 Simple Mask 10.00 I/O 10/09/16 10/09/16 10/09/16 10/10/16 10/10/16 10/10/16 07:00 15:00 23:00 07:00 15:00 23:00 Intake Total 637 ml 500 ml 1299 ml Output Total 100 ml 124 ml 450 ml Balance 537 ml 376 ml 849 ml Intake Oral 0 ml 30 ml IV Total 637 ml 500 ml 1269 ml Output Urine Total 100 ml 124 ml 450 ml # Bowel Movements 0 0 0 (Jason Quintanilla MD R2) Result Diagram: 10/10/1652610/10/16 05 Imaging Last Impressions Chest X-Ray 10/10/16 0300 Signed Impressions: Service Date/Time: Monday, October 10, 2016 05:07 - CONCLUSION: 1. Bibasilar densities. 2. Cardiomegaly with interstitial edema, more pronounced on the current study. Kory Mccarthy MD Hip X-Ray 10/08/16 0000 Signed Impressions: Service Date/Time: Saturday, October 08, 2016 08:00 - CONCLUSION: Appropriate postoperative appearance of the left intratrochanteric ORIF. Kumar Blevins MD Hip and Pelvis X-Ray 10/07/16 0000 Signed Impressions: Service Date/Time: Friday, October 07, 2016 11:12 - CONCLUSION: Osteoporosis. Intertrochanteric fracture left femur Arnold Geller MD Objective Remarks GENERAL: Frail, sleeping appears comfortable, in no acute distress SKIN: Warm and dry, no rashes appreciated. mild pallor. Surgical incision without obvious bleeding or surrounding hematomas EYES: No scleral icterus, injection, or drainage. EOMI CARDIOVASCULAR: Regular rate and rhythm; prominent systolic murmur. Normal peripheral perfusion in lower extremities. RESPIRATORY: Normal rate. decreased breath sounds. On simple mask at 10L O2; sats in high 90's GASTROINTESTINAL: Abdomen soft, nondistended, nontender. Bowel sounds normal. MUSCULOSKELETAL: No lower extremity swelling. : Tejeda in place NEURO/PSYCH: Patient alert; would answer simple questions. Cranial nerves grossly normal. Grossly normal peripheral motor and sensory function. (Jason Quintanilla MD R2) A/P Assessment and Plan Ms. Rahman is a 75 yo F with: (Jason Quintanilla MD R2) Attending Attestation Patient seen and examined. Case reviewed and discussed Agree with plan of care as discussed with me and documented in the resident note. 2D echo with severe aortic stenosis. Appreciate cardiology and CCM. Follow hgb trend. (Tianna Edouard MD) Problem List: (1) Cardiovascular disease Status: Acute Plan: -Cardiology consulted: -Suspect NSTEMI- serial troponins, EKG's -Continue aspirin -Plan for Carvedilol 3.125mg BID if BP stable -Watch fluid loading Impression: Patient of Dr. Edouard. Troponin x1 3.18 10/09 drawn in response to SOB; subsequent elevations to ~20. Echo 10/09- LVH, EF 55-60%, severe aortic stenosis (2) Shortness of breath Status: Acute Plan: -Continue simple mask and monitor O2 saturations -Will recheck CXR -Will monitor respiratory function/CXRs and consider diuresis if worsening -Continue Duonebs q4 hrs -BIPAP at bedtime per CC Impression: Recent desaturations to 70's -80's morning of 10/09; improved to low 90's on Ventimask at 15L O2. Ativan received 10/09 at 0522; Morphine 3mg at 0007 10/09. Patient subsequently found to have Troponin elevation suggestive of NSTEMI. CXR 10/10- Bibasilar densities. Cardiomegaly with interstitial edema; more pronounced ABGs x2 10/09- pH ~7.4, CO2 ~35, O2 ~145 , HCO3 22 (3) Hypotension Status: Acute Plan: -Continue LR at 100ml/hr per CC -Plan to initiate Carvedilol 3.125mg BID 10/11 per Cardiology Impression: Persistent BP with MAP's in 60's-80's. On home Metoprolol (4) Closed left hip fracture Status: Acute Plan: Orthopedic surgery consulted -POD 2 operative repair: Reduction and pinning/fixation of left femur -PT consulted -Neuro checks -Ice/cold packs, dressing changes, decubitis precautions per Ortho -Enoxaparin 30mg daily, SCD's for DVT ppx -Follow-up in 2 weeks -Acapella, incentive spirometry -Pain control -Scheduled IV Tylenol 700mg q6 hrs -Morphine 2mg IV q6hrs for breakthrough pain Impression: Left intertrochanteric femur fracture; s/p repair (5) Dementia Status: Chronic Plan: -Hold home Ativan Hold home Restoril -We'll defer repeat head CT since reported no headache contact on recent fall and no focal neurologic deficit -Will consult PT and OT -PT- rehab recommended -OT Impression: Patient with ~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 Progressive CT 06/2016 with chronic cortical atrophy, periventricular and deep white matter small vessel ischemic demyelination and possible old lacunar infarct in left corby (6) Osteoporosis Status: Acute Plan: Vitamin D 5000 U daily per Ortho Impression: Patient with history of osteoporosis per patient's daughter. Vitamin D level 19.1 (7) Hypothyroid Status: Acute Plan: -Continue home levothyroxine Impression: Patient with PMH hypothyroidism on home Levothyroxine 125 ug daily TSH elevated; T4 wnl (8) Fluids, Electrolytes, and Nutrition Status: Acute Plan: Fluids: NS at maintenance while NPO Electrolytes: Monitor and replete as needed Nutrition: 1800 Jorge regular diet (9) DVT Prophylaxis Status: Acute Plan: -Bilateral SCD's -Enoxaparin 30mg daily per Ortho (Jason Quintanilla MD R2) Problem Qualifiers (1) Closed left hip fracture: Qualified Code: S72.002A - Closed left hip fracture, initial encounter Jason Quintanilla MD R2 Oct 10, 2016 10:26 Tianna Edouard MD Oct 10, 2016 12:34
[2016-10-10] MEDS ORDERED: POTASSIUM CHLORIDE 10 MEQ CONTROLLED RELEASE TAB PO ONE (11:15)
[2016-10-10] MEDS: MORPHINE SULFATE 4 MG/ML INJ IV PUSH PRN ×2 (12:08→18:14)
[2016-10-10 13:34] LABS: HEMATOCRIT 21.7 % (35.0-46.0); REVIEW FLAG FINAL
--- NOTE | 2016-10-10 13:40 | EKG ---
Date Performed: 10/09/2016 Time Performed: 11:03:22 PTAGE: 75 years EKG: Sinus rhythm LEFT VENTRICULAR HYPERTROPHY AND ST-T CHANGE ABNORMAL ECG Since PREVIOUS TRACING , no significant change noted PREVIOUS TRACIN10/07/2016 12.35 DOCTOR: Demetrio Brooks Interpretating Date/Time 10/10/2016 13:34:00
[2016-10-10] MEDS ORDERED: SODIUM CHLOR 0.9% 250 ML INJ 250 ML IV ONE (15:45)
[2016-10-10 18:47] LABS: HEMATOCRIT 23.6 % (35.0-46.0); REVIEW FLAG FINAL
[2016-10-11] VITALS (21 sets, daily range): BP systolic 91–152; BP diastolic 55–99; PULSE 75–117; RESP 18–20; TEMP 97–98.5; O2SAT 93–98
[2016-10-11] MEDS: KETOROLAC TROMETHAMINE 60 MG/2 ML (IM) VIAL IM SCH ×2 (01:04)
[2016-10-11] MEDS: LACTATED RINGER'S 1000 ML INJ 1,000 ML IV SCH (01:06)
[2016-10-11] MEDS: MORPHINE SULFATE 4 MG/ML INJ IV PUSH PRN (01:11)
[2016-10-11] MEDS: KETOROLAC TROMETHAMINE 30 MG/ML (IVP) VIAL IV PUSH SCH ×2 (02:22→08:00)
[2016-10-11] MEDS: POTASSIUM PHOSPHATE MONOBASIC 500 MG TAB PO SCH ×3 (02:55→21:00)
--- NOTE | 2016-10-11 03:40 | RADRPT ---
EXAM DATE/TIME: 10/11/2016 02:08 [facility] COMPARISON: CHEST SINGLE AP, October 10, 2016, 5:07. INDICATIONS : Shortness of breath, possible pulmonary disease. MEDICAL HISTORY : Hypertension. Dementia SURGICAL HISTORY : Cholecystectomy. Hysterectomy. ENCOUNTER: Subsequent ACUITY: 4 - 6 days PAIN SCORE: Non-responsive. LOCATION: Bilateral chest FINDINGS: A single view of the chest demonstrates cardiomegaly with bibasilar densities and pulmonary vascular congestion. The cardiomediastinal contours are unremarkable. Osseous structures are intact. CONCLUSION: 1. Cardiomegaly with pulmonary vascular congestion. 2. Slight improvement in bibasilar densities. Kory Mccarthy MD on October 11, 2016 at 3:38 Board Certified Radiologist. This report was verified electronically.
[2016-10-11 03:41] LABS: AUTOMATED NEUTROPHIL # 9.5 TH/MM3 (1.8-7.7); BASOPHIL # 0.1 TH/MM3 (0-0.2); BASOPHIL % 0.6 % (0.0-2.0); EOSINOPHIL % 0.4 % (0.0-4.0); HEMATOCRIT 28.4 % (35.0-46.0); HEMO FLAGS DIFF FINAL; LYMPH % 4.8 % (9.0-44.0); LYMPHOCYTE # 0.5 TH/MM3 (1.0-4.8); MEAN CELL VOLUME 89.8 FL (80.0-100.0); MEAN CORPUSCULAR HEMOGLOBIN 31.6 PG (27.0-34.0); MEAN CORPUSCULAR HGB CONC 35.1 % (32.0-36.0); MONO % 8.8 % (0.0-8.0); NEUT % 85.4 % (16.0-70.0); PLATELET COUNT 165 TH/MM3 (150-450); RED BLOOD COUNT 3.16 MIL/MM3 (4.00-5.30); RED CELL DISTRIBUTION WIDTH 15.4 % (11.6-17.2); WHITE BLOOD COUNT 11.1 TH/MM3 (4.0-11.0)
[2016-10-11] MEDS: RESP: ALBUTEROL 2.5 MG/IPRATROPIUM 0.5 MG NEB (SCH) INH ×4 (04:00→20:57)
[2016-10-11 04:08] LABS: BICARBONATE 24.7 MEQ/L (21.0-32.0); POTASSIUM 4.1 MEQ/L (3.5-5.1)
[2016-10-11] MEDS: ENOXAPARIN SODIUM 30 MG/0.3 ML SYRINGE SQ SCH (06:27)
[2016-10-11] MEDS: LEVOTHYROXINE SODIUM 125 MCG TAB PO SCH (06:27)
[2016-10-11] MEDS: CHLORHEXIDINE GLUCONATE 2 % 1 PACK (2 CLOTHS) TOP SCH (06:28)
[2016-10-11] MEDS: FAMOTIDINE 20 MG/2 ML VIAL IV PUSH SCH ×2 (08:53→21:00)
[2016-10-11] MEDS: SODIUM CHLORIDE 0.9% FLUSH 5 ML FLUSH IV FLUSH SCH ×2 (08:53→21:00)
[2016-10-11] MEDS: CALCIUM/VITAMIN D 250 MG/125 U TAB PO SCH ×3 (08:54→18:00)
[2016-10-11] MEDS: CARVEDILOL 3.125 MG TAB PO SCH ×3 (08:54→23:44)
[2016-10-11] MEDS: DOCUSATE SODIUM 50 MG/SENNA 8.6 MG TAB PO SCH ×2 (08:54→21:00)
[2016-10-11] MEDS: FERROUS SULFATE 325 MG (65 MG ELEMENTAL IRON) TAB PO SCH ×3 (08:54→18:00)
[2016-10-11] MEDS: ASPIRIN EC 81 MG TABEC PO SCH (08:54)
[2016-10-11] MEDS: CHOLECALCIFEROL (VIT D3) 5000 UNIT CAP PO SCH (08:54)
[2016-10-11] MEDS ORDERED: FUROSEMIDE 20 MG/2 ML VIAL IV PUSH ONE (09:00)
--- NOTE | 2016-10-11 09:00 | HHI.FPPN ---
Subjective Remarks Ms. Rahman was afebrile overnight with intermittent tachycardia to ~120; BP has increased so that she has been normotensive to mildly hypertensive (max SBP 152). Patient has had urine output of ~22-30 ml/hr overnight. Patient seen this morning in the company of nursing staff; patient doing well and eating as directed by nursing staff; frequent redirection required due to dementia. Objective Vitals Vital Signs Date Time Temp Pulse Resp B/P Pulse Ox O2 Delivery O2 Flow Rate FiO2 10/11/16 07:00 96 Nasal Cannula 2.00 10/11/16 07:00 95 10/11/16 07:00 98.5 95 20 137/84 94 10/11/16 03:00 94 Nasal Cannula 2.00 10/11/16 03:00 94 Nasal Cannula 2.00 10/11/16 03:00 117 10/11/16 03:00 98.1 108 20 152/99 94 10/10/16 23:00 113 10/10/16 23:00 99 Simple Mask 10.00 10/10/16 23:00 98.5 113 18 119/74 99 10/10/16 22:55 98.7 113 18 106/58 97 10/10/16 22:00 94 Simple Mask 10.00 10/10/16 21:18 97.6 106 18 98/56 94 10/10/16 19:00 97.6 112 18 119/63 94 10/10/16 19:00 120 10/10/16 19:00 94 Simple Mask 10.00 10/10/16 16:01 98.0 97 20 94/52 99 10/10/16 15:39 95 Nasal Cannula 2.00 10/10/16 15:00 91 10/10/16 12:00 98.0 91 20 136/69 99 10/10/16 11:00 95 I/O 10/10/16 10/10/16 10/10/16 10/11/16 10/11/16 10/11/16 07:00 15:00 23:00 07:00 15:00 23:00 Intake Total 1299 ml 975 ml 850 ml Output Total 450 ml 300 ml 250 ml Balance 849 ml 675 ml 600 ml Intake Oral 30 ml 100 ml IV Total 1269 ml 875 ml 600 ml Packed Cells 250 ml Output Urine Total 450 ml 300 ml 250 ml # Bowel Movements 0 0 0 Result Diagram: 12/31/16 0315 10/11/16 0315 Imaging Last Impressions Chest X-Ray 10/11/16 0600 Signed Impressions: Service Date/Time: Tuesday, October 11, 2016 02:08 - CONCLUSION: 1. Cardiomegaly with pulmonary vascular congestion. 2. Slight improvement in bibasilar densities. Kory Mccarthy MD Hip X-Ray 10/08/16 0000 Signed Impressions: Service Date/Time: Saturday, October 08, 2016 08:00 - CONCLUSION: Appropriate postoperative appearance of the left intratrochanteric ORIF. Kumar Blevins MD Hip and Pelvis X-Ray 10/07/16 0000 Signed Impressions: Service Date/Time: Friday, October 07, 2016 11:12 - CONCLUSION: Osteoporosis. Intertrochanteric fracture left femur Arnold Geller MD Objective Remarks GENERAL: Frail, sleeping appears comfortable, in no acute distress SKIN: Warm and dry, no rashes appreciated. mild pallor. Surgical incision not inspected on this exam EYES: No scleral icterus, injection, or drainage. EOMI CARDIOVASCULAR: Tachycardic, regular rhythm; prominent systolic murmur. Normal peripheral perfusion in lower extremities. RESPIRATORY: Normal rate. decreased breath sounds. On 2L O2; sats in high 90's GASTROINTESTINAL: Abdomen soft, nondistended, nontender. Bowel sounds normal. MUSCULOSKELETAL: No lower extremity swelling. : Tejeda in place NEURO/PSYCH: Patient alert, awake, demented. Cranial nerves grossly normal. Grossly normal peripheral motor and sensory function. A/P Assessment and Plan Ms. Rahman is a 75 yo F with: Problem List: (1) Cardiovascular disease Status: Acute Plan: -Cardiology consulted: -Suspect NSTEMI- -Continue aspirin -Carvedilol 3.125mg BID if BP stable -Watch fluid loading Impression: Patient of Dr. Edouard. Troponin x1 3.18 10/09 drawn in response to SOB; subsequent elevations to ~20. Echo 10/09- LVH, EF 55-60%, severe aortic stenosis (2) Shortness of breath Status: Acute Plan: -Continue simple mask and monitor O2 saturations -Will give Lasix 10mg IV x1 -Will monitor respiratory function/CXRs and consider diuresis if worsening -Continue Duonebs q4 hrs -BIPAP at bedtime per CC Impression: Recent desaturations to 70's -80's morning of 10/09; improved to low 90's on Ventimask at 15L O2. Ativan received 10/09 at 0522; Morphine 3mg at 0007 10/09. Patient subsequently found to have Troponin elevation suggestive of NSTEMI. ABGs x2 10/09- pH ~7.4, CO2 ~35, O2 ~145 , HCO3 22 CXR 10/10- Bibasilar densities. Cardiomegaly with interstitial edema; more pronounced CXR 10/11- Pulmonary vascular congestion BNP 10/11- 1485 (3) Hypotension Status: Acute Plan: -Continue LR at 100ml/hr per CC -Plan to initiate Carvedilol 3.125mg BID 10/11 per Cardiology Impression: Persistent BP with MAP's in 60's-80's. On home Metoprolol (4) Closed left hip fracture Status: Acute Plan: Orthopedic surgery consulted -POD 3 operative repair: Reduction and pinning/fixation of left femur -PT consulted -Neuro checks -Ice/cold packs, dressing changes, decubitis precautions per Ortho -Enoxaparin 30mg daily, SCD's for DVT ppx -Follow-up in 2 weeks -Acapella, incentive spirometry -Pain control -Scheduled IV Tylenol 700mg q6 hrs -Morphine 2mg IV q6hrs for breakthrough pain -Will make Toradol PRN Impression: Left intertrochanteric femur fracture; s/p repair (5) Dementia Status: Chronic Plan: -Hold home Ativan Hold home Restoril -We'll defer repeat head CT since reported no headache contact on recent fall and no focal neurologic deficit -Will consult PT and OT -PT- rehab recommended -OT Impression: Patient with ~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 Progressive CT 06/2016 with chronic cortical atrophy, periventricular and deep white matter small vessel ischemic demyelination and possible old lacunar infarct in left corby (6) Osteoporosis Status: Acute Plan: Vitamin D 5000 U daily per Ortho Impression: Patient with history of osteoporosis per patient's daughter. Vitamin D level 19.1 (7) Hypothyroid Status: Acute Plan: -Continue home levothyroxine Impression: Patient with PMH hypothyroidism on home Levothyroxine 125 ug daily TSH elevated; T4 wnl (8) Fluids, Electrolytes, and Nutrition Status: Acute Plan: Fluids: Reduced due to pulmonary congestion; will stop vs. half maintenance based on oral intake Electrolytes: Monitor and replete as needed Nutrition: 1800 Jorge regular diet (9) DVT Prophylaxis Status: Acute Plan: -Bilateral SCD's -Enoxaparin 30mg daily per Ortho Problem Qualifiers (1) Closed left hip fracture: Qualified Code: S72.002A - Closed left hip fracture, initial encounter Jason Quintanilla MD R2 Oct 11, 2016 09:00
[2016-10-11 11:35] LABS: HEMATOCRIT 30.6 % (35.0-46.0); REVIEW FLAG FINAL
[2016-10-11] MEDS ORDERED: AZITHROMYCIN INJ 500 MG in SODIUM CHLOR 0.9% 250 ML INJ 250 ML IV ONE (14:00)
[2016-10-11] MEDS ORDERED: KETOROLAC TROMETHAMINE 30 MG/ML (IVP) VIAL IV PUSH PRN (14:00)
[2016-10-11] MEDS: cefTRIAXone INJ 1,000 MG in SODIUM CHLORIDE 0.9% INJ 100 ML IV SCH (14:25)
[2016-10-12] VITALS (28 sets, daily range): BP systolic 91–149; BP diastolic 55–85; PULSE 69–106; RESP 16–18; TEMP 97.2–99.1; O2SAT 90–97
[2016-10-12] MEDS: POLYETHYLENE GLYCOL 17 GM PKG PO SCH
[2016-10-12] MEDS: RESP: ALBUTEROL 2.5 MG/IPRATROPIUM 0.5 MG NEB (SCH) INH ×4 (03:29→20:37)
[2016-10-12] MEDS: CHLORHEXIDINE GLUCONATE 2 % 1 PACK (2 CLOTHS) TOP SCH (04:00)
[2016-10-12] MEDS: LEVOTHYROXINE SODIUM 125 MCG TAB PO SCH ×2 (06:00→08:34)
--- NOTE | 2016-10-12 07:39 | PD.ORT.PN ---
Subjective Subjective Remarks POD 4 s/p IMN left hip sleeping. slightly confused. Objective Vitals Vital Signs Date Time Temp Pulse Resp B/P Pulse Ox O2 Delivery O2 Flow Rate FiO2 10/12/16 04:24 97.2 87 18 127/74 10/12/16 04:15 92 Nasal Cannula 3.00 10/12/16 00:36 97.2 87 18 91/55 10/11/16 20:50 97.6 75 18 91/55 10/11/16 18:00 94 10/11/16 17:00 85 10/11/16 16:00 95 10/11/16 15:00 94 Nasal Cannula 3.00 10/11/16 15:00 97.0 87 18 91/55 10/11/16 15:00 96 10/11/16 14:00 97 10/11/16 13:00 101 10/11/16 12:00 104 10/11/16 11:45 97.0 108 20 108/66 10/11/16 11:23 96 Nasal Cannula 2.00 10/11/16 11:21 109 10/11/16 11:00 97.9 109 20 111/60 93 10/11/16 10:45 96 21 10/11/16 08:50 95 Nasal Cannula 5.00 10/11/16 08:00 98 Nasal Cannula 2.00 I/O 10/11/16 10/11/16 10/11/16 10/12/16 10/12/16 10/12/16 07:00 15:00 23:00 07:00 15:00 23:00 Intake Total 850 ml 400 ml Output Total 250 ml 1000 ml Balance 600 ml -600 ml Intake Oral 400 ml IV Total 600 ml Packed Cells 250 ml Output Urine Total 250 ml 1000 ml # Bowel Movements 0 0 Result Diagram: 10/11/16 1124 10/11/16 0315 Imaging Last 24 hours Impressions Chest X-Ray 10/07/16 1114 Signed Impressions: Service Date/Time: Friday, October 07, 2016 11:19 - CONCLUSION: No significant interval change. Andry Calvert MD Objective Remarks LLE: dressings clean and dry. intact. distal incision not covered. Assessment & Plan Assessment and Plan 1) Left intertrochanteric femur fracture POD 4 IM nail PT weightbearing as tolerated Daily dressing changes Incentive spirometry Lovenox Case management for DC planning to rehabilitation Orthopedically cleared for discharge when medically safe follow-up with Dr. Marie or PA in 2 weeks Babak Dye Oct 12, 2016 07:39
--- NOTE | 2016-10-12 07:48 | RADRPT ---
EXAM DATE/TIME: 10/12/2016 07:19 [facility] COMPARISON: No previous studies available for comparison. INDICATIONS : Distention. MEDICAL HISTORY : Unobtainable. SURGICAL HISTORY : Unobtainable. ENCOUNTER: Initial ACUITY: 1 day PAIN SCORE: Non-responsive. LOCATION: Bilateral abdomen. FINDINGS: Trochanteric nail and femoral intramedullary silke fixation of the left proximal femur trochanteric fra ctures identified. Decreased bone density. Nonobstructive bowel gas pattern. Atherosclerotic calcific ation of the is identified and aneurysmal dilatation has been described previously, incompletely eval uated on this study. CONCLUSION: Abdominal aortic aneurysm is incompletely evaluated on this study. Nonobstructive bowel gas pattern. Ross Duke MD on October 12, 2016 at 7:46 Board Certified Radiologist. This report was verified electronically.
[2016-10-12 07:57] LABS: AUTOMATED NEUTROPHIL # 12.4 TH/MM3 (1.8-7.7); BASOPHIL % 0.2 % (0.0-2.0); EOSINOPHIL % 0.2 % (0.0-4.0); HEMATOCRIT 26.5 % (35.0-46.0); HEMO FLAGS DIFF FINAL; LYMPH % 4.5 % (9.0-44.0); LYMPHOCYTE # 0.6 TH/MM3 (1.0-4.8); MEAN CELL VOLUME 90.2 FL (80.0-100.0); MEAN CORPUSCULAR HEMOGLOBIN 30.2 PG (27.0-34.0); MEAN CORPUSCULAR HGB CONC 33.5 % (32.0-36.0); MONO % 6.1 % (0.0-8.0); PLATELET COUNT 185 TH/MM3 (150-450); RED BLOOD COUNT 2.94 MIL/MM3 (4.00-5.30); RED CELL DISTRIBUTION WIDTH 15.7 % (11.6-17.2)
[2016-10-12] MEDS: ASPIRIN EC 81 MG TABEC PO SCH (08:34)
[2016-10-12] MEDS: POTASSIUM PHOSPHATE MONOBASIC 500 MG TAB PO SCH ×2 (08:34→21:06)
[2016-10-12] MEDS: CALCIUM/VITAMIN D 250 MG/125 U TAB PO SCH ×3 (08:34→18:19)
[2016-10-12] MEDS: FAMOTIDINE 20 MG/2 ML VIAL IV PUSH SCH ×2 (08:35→21:06)
[2016-10-12] MEDS: CARVEDILOL 3.125 MG TAB PO SCH ×2 (08:35→21:06)
[2016-10-12] MEDS: FERROUS SULFATE 325 MG (65 MG ELEMENTAL IRON) TAB PO SCH ×3 (08:35→18:19)
[2016-10-12] MEDS: DOCUSATE SODIUM 50 MG/SENNA 8.6 MG TAB PO SCH ×2 (08:35→21:07)
[2016-10-12] MEDS: ENOXAPARIN SODIUM 30 MG/0.3 ML SYRINGE SQ SCH (08:36)
[2016-10-12] MEDS: SODIUM CHLORIDE 0.9% FLUSH 5 ML FLUSH IV FLUSH SCH ×2 (08:36→21:00)
[2016-10-12 08:51] LABS: ALKALINE PHOSPHATASE 94 U/L (45-117); ALT (GPT) 25 U/L (10-53); ANION GAP 13 MEQ/L (5-15); AST (GOT) 92 U/L (15-37); BICARBONATE 21.9 MEQ/L (21.0-32.0); BLOOD UREA NITROGEN 35 MG/DL (7-18); CHLORIDE 110 MEQ/L (98-107); GLOMERULAR FILTRATION RATE 57 ML/MIN (>89); POTASSIUM 3.7 MEQ/L (3.5-5.1); SODIUM (NA) 145 MEQ/L (136-145); TOTAL BILIRUBIN ADULT 0.9 MG/DL (0.2-1.0)
[2016-10-12] MEDS: CHOLECALCIFEROL (VIT D3) 5000 UNIT CAP PO SCH (09:00)
--- NOTE | 2016-10-12 12:59 | HHI.FPPN ---
Subjective Remarks No acute events overnight. Afebrile, vital signs stable. Patient seen this morning sitting up in chair, interactive with examiners. Remains with sitter and in soft restraints. Patient removed Tejeda yesterday. (Michelle Roldan MD R3) Objective Vitals Vital Signs Date Time Temp Pulse Resp B/P Pulse Ox O2 Delivery O2 Flow Rate FiO2 10/12/16 11:15 98.3 82 16 139/84 91 10/12/16 11:15 97 Room Air 10/12/16 11:15 94 10/12/16 10:02 89 10/12/16 09:48 Nasal Cannula 5.00 10/12/16 09:00 84 10/12/16 08:01 99.1 85 16 149/85 97 10/12/16 08:01 81 10/12/16 08:01 97 Room Air 10/12/16 07:00 81 10/12/16 06:00 101 10/12/16 05:00 103 10/12/16 04:24 97.2 87 18 127/74 10/12/16 04:15 92 Nasal Cannula 3.00 10/12/16 04:00 104 10/12/16 03:00 69 10/12/16 02:00 80 10/12/16 01:00 73 10/12/16 00:36 97.2 87 18 91/55 10/12/16 00:00 81 10/11/16 23:00 104 10/11/16 22:00 88 10/11/16 21:00 83 10/11/16 20:50 97.6 75 18 91/55 10/11/16 20:00 94 10/11/16 19:00 92 10/11/16 18:00 94 10/11/16 17:00 85 10/11/16 16:00 95 10/11/16 15:00 94 Nasal Cannula 3.00 10/11/16 15:00 97.0 87 18 91/55 10/11/16 15:00 96 10/11/16 14:00 97 10/11/16 13:00 101 I/O 10/11/16 10/11/16 10/11/16 10/12/16 10/12/16 10/12/16 07:00 15:00 23:00 07:00 15:00 23:00 Intake Total 850 ml 400 ml Output Total 250 ml 1000 ml Balance 600 ml -600 ml Intake Oral 400 ml IV Total 600 ml Packed Cells 250 ml Output Urine Total 250 ml 1000 ml # Bowel Movements 0 0 (Michelle Roldan MD R3) Result Diagram: 10/12/16 0735 10/12/16 0735 Objective Remarks GENERAL: No acute distress SKIN: Warm and dry, no rashes appreciated. mild pallor. Surgical incision not inspected on this exam EYES: No scleral icterus, injection, or drainage. EOMI CARDIOVASCULAR: Tachycardic, regular rhythm; prominent systolic murmur. Normal peripheral perfusion in lower extremities. RESPIRATORY: Normal rate. decreased breath sounds. On 2L O2; sats in high 90's GASTROINTESTINAL: Abdomen soft, nondistended, nontender. Bowel sounds normal. MUSCULOSKELETAL: No lower extremity swelling. : Tejeda in place NEURO/PSYCH: Patient alert, awake, demented. Cranial nerves grossly normal. Grossly normal peripheral motor and sensory function. (Michelle Roldan MD R3) A/P Assessment and Plan Ms. Rahman is a 75 yo F with left hip fracture who suffered NSTEMI following surgery. Discharge Planning To rehabilitation once clinically improved. Patient will need to be free of restraints for 24 hours. (Michelle Roldan MD R3) Attending Attestation Patient seen and examined. Case reviewed and discussed Agree with plan of care as discussed with me and documented in the resident note. (Tianna Edouard MD) Problem List: (1) Cardiovascular disease Status: Acute Plan: -Cardiology consulted: -Suspect NSTEMI- -Continue aspirin -Carvedilol 3.125mg BID if BP stable -Watch fluid loading Impression: Patient of Dr. Edouard. Troponin x1 3.18 10/09 drawn in response to SOB; subsequent elevations to ~20. Echo 10/09- LVH, EF 55-60%, severe aortic stenosis (2) Shortness of breath Status: Resolved Plan: -Stable following Lasix -Continue Duonebs q4 hrs -BIPAP at bedtime per CC Impression: Desaturations to 70's -80's morning of 10/09; improved to low 90's on Ventimask at 15L O2. Ativan received 10/09 at 0522; Morphine 3mg at 0007 . Patient subsequently found to have Troponin elevation suggestive of NSTEMI. ABGs x2 10/09- pH ~7.4, CO2 ~35, O2 ~145 , HCO3 22 CXR 10/10- Bibasilar densities. Cardiomegaly with interstitial edema; more pronounced CXR 10/11- Pulmonary vascular congestion BNP 10/11- 1485 (3) Closed left hip fracture Status: Acute Plan: Orthopedic surgery consulted -POD 4 operative repair: Reduction and pinning/fixation of left femur -PT consulted -Neuro checks -Ice/cold packs, dressing changes, decubitis precautions per Ortho -Enoxaparin 30mg daily, SCD's for DVT ppx -Follow-up in 2 weeks -Acapella, incentive spirometry -Pain control -Scheduled IV Tylenol 700mg q6 hrs -Morphine 2mg IV q6hrs for breakthrough pain -Will make Toradol PRN Impression: Left intertrochanteric femur fracture; s/p repair (4) Decreased urine output Status: Resolved Plan: Total urine output over the past 24 hours 1000 mL. Patient off IV fluids. Continue to monitor. If patient takes in enough by mouth liquids and continues to have good urination she can be discharged to rehabilitation. (5) Dementia Status: Chronic Plan: -Hold home Ativan Hold home Restoril -We'll defer repeat head CT since reported no headache contact on recent fall and no focal neurologic deficit -Will consult PT and OT -PT- rehab recommended -OT Impression: Patient with ~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 Progressive CT 06/2016 with chronic cortical atrophy, periventricular and deep white matter small vessel ischemic demyelination and possible old lacunar infarct in left corby (6) Osteoporosis Status: Acute Plan: Vitamin D 5000 U daily per Ortho Impression: Patient with history of osteoporosis per patient's daughter. Vitamin D level 19.1 (7) Hypothyroid Status: Acute Plan: -Continue home levothyroxine Impression: Patient with PMH hypothyroidism on home Levothyroxine 125 ug daily TSH elevated; T4 wnl (8) Fluids, Electrolytes, and Nutrition Status: Acute Plan: Fluids: Reduced due to pulmonary congestion; will stop vs. half maintenance based on oral intake Electrolytes: Monitor and replete as needed Nutrition: 1800 Jorge regular diet (9) DVT Prophylaxis Status: Acute Plan: -Bilateral SCD's -Enoxaparin 30mg daily per Ortho (Michelle Roldan MD R3) Problem Qualifiers (1) Closed left hip fracture: Qualified Code: S72.002A - Closed left hip fracture, initial encounter Michelle Roldan MD R3 Oct 12, 2016 12:59 Tianna Edouard MD Oct 14, 2016 17:01
[2016-10-12] MEDS: AZITHROMYCIN INJ 250 MG in SODIUM CHLOR 0.9% 250 ML INJ 250 ML IV SCH (15:38)
[2016-10-12] MEDS: cefTRIAXone INJ 1,000 MG in SODIUM CHLORIDE 0.9% INJ 100 ML IV SCH (15:40)
[2016-10-12] MEDS ORDERED: SODIUM CHLOR 0.9% 1000 ML INJ 1,000 ML IV SCH (16:00)
--- NOTE | 2016-10-12 16:53 | RADRPT ---
EXAM DATE/TIME: 10/11/2016 16:44 [facility] COMPARISON: No previous studies available for comparison. INDICATIONS : Decreased urine output. MEDICAL HISTORY : Hypertension. Gastroesophageal reflux disease. Hypercholesterolemia. Dementia. Cardiovascular proble ms. Coronary artery disease. Dementia. GI disorder. SURGICAL HISTORY : Cholecystectomy. Hysterectomy. ENCOUNTER: Initial ACUITY: 1 day PAIN SCORE: 0/10 LOCATION: Bilateral flank MEASUREMENTS: RIGHT KIDNEY: 8.2 x 4.4 x 3.8 cm LEFT KIDNEY: 9.6 x 4.1 x 4.3 cm FINDINGS: RIGHT KIDNEY: Parenchyma is mildly echogenic. No focal lesions seen. No hydronephrosis or hydroureter. LEFT KIDNEY: Parenchyma is mildly echogenic. No focal lesion seen. No hydronephrosis or hydroureter. BLADDER: Nondistended and grossly unremarkable. Incidentally seen small spleen, estimated at about 5 cm in size. There also appears to be bilateral p leural effusions. CONCLUSION: 1. Small and mildly echogenic kidneys typical of chronic parenchymal disease. No obstructive uropathy or other acute abnormality demonstrated. 2. Small spleen and bilateral pleural effusions incidentally noted. Mariano Osorio MD on October 12, 2016 at 16:50 Board Certified Radiologist. This report was verified electronically.
[2016-10-13] VITALS (24 sets, daily range): BP systolic 120–141; BP diastolic 62–88; PULSE 73–114; RESP 16–28; TEMP 97–98.7; O2SAT 92–97
[2016-10-13] MEDS: RESP: ALBUTEROL 2.5 MG/IPRATROPIUM 0.5 MG NEB (SCH) INH ×2 (02:47→08:21)
[2016-10-13] MEDS: LEVOTHYROXINE SODIUM 125 MCG TAB PO SCH (06:35)
[2016-10-13] MEDS: CHOLECALCIFEROL (VIT D3) 5000 UNIT CAP PO SCH (10:23)
[2016-10-13] MEDS: DOCUSATE SODIUM 50 MG/SENNA 8.6 MG TAB PO SCH ×2 (10:23→21:04)
[2016-10-13] MEDS: ASPIRIN EC 81 MG TABEC PO SCH (10:23)
[2016-10-13] MEDS: POTASSIUM PHOSPHATE MONOBASIC 500 MG TAB PO SCH ×2 (10:23→21:04)
[2016-10-13] MEDS: FERROUS SULFATE 325 MG (65 MG ELEMENTAL IRON) TAB PO SCH ×3 (10:23→18:00)
[2016-10-13] MEDS: CALCIUM/VITAMIN D 250 MG/125 U TAB PO SCH ×3 (10:23→18:00)
--- NOTE | 2016-10-13 10:25 | HHI.FPPN ---
Subjective Remarks Ms. Rahman was afebrile with stable vital signs overnight; patient has been saturating 9097 percent on 2 L O2 via NC. Patient has been normotensive with HR in 90s. Patient accompanied by sitter; no complaints noted. Patient confused/demented this morning; oriented to self. Patient denies complaints or states "I don't know." Objective Vitals Vital Signs Date Time Temp Pulse Resp B/P Pulse Ox O2 Delivery O2 Flow Rate FiO2 10/13/16 08:21 97 Nasal Cannula 2.00 10/13/16 06:00 78 10/13/16 05:00 99 10/13/16 04:00 99 10/13/16 03:30 98.7 92 16 130/88 92 10/13/16 03:30 92 Nasal Cannula 2.00 10/13/16 03:00 93 10/13/16 02:00 89 10/13/16 01:00 96 10/13/16 00:00 84 10/12/16 23:00 83 10/12/16 23:00 98.7 83 16 136/75 90 10/12/16 23:00 90 Nasal Cannula 2.00 10/12/16 22:00 96 10/12/16 21:00 82 10/12/16 20:00 88 10/12/16 20:00 92 Nasal Cannula 2.00 10/12/16 20:00 98.7 86 16 141/75 92 10/12/16 19:40 92 Nasal Cannula 2.00 10/12/16 19:00 97 10/12/16 18:01 93 10/12/16 17:00 82 10/12/16 16:41 99 10/12/16 15:30 98.4 85 16 144/80 96 10/12/16 15:30 96 Room Air 10/12/16 15:00 106 10/12/16 14:00 72 10/12/16 13:00 85 10/12/16 12:00 79 10/12/16 11:15 98.3 82 16 139/84 91 10/12/16 11:15 97 Room Air 10/12/16 11:15 94 I/O 10/12/16 10/12/16 10/12/16 10/13/16 10/13/16 10/13/16 07:00 15:00 23:00 07:00 15:00 23:00 Intake Total 880 ml 440 ml Output Total 350 ml 350 ml Balance 530 ml 90 ml Intake Oral 480 ml 440 ml IV Total 400 ml Output Urine Total 350 ml 350 ml # Voids 2 2 # Bowel Movements 0 Result Diagram: 10/13/16 1043 10/13/16 1431 Imaging Last Impressions Renal Ultrasound 10/12/16 0000 Signed Impressions: Service Date/Time: Tuesday, October 11, 2016 16:44 - CONCLUSION: 1. Small and mildly echogenic kidneys typical of chronic parenchymal disease. No obstructive uropathy or other acute abnormality demonstrated. 2. Small spleen and bilateral pleural effusions incidentally noted. Mariano Osorio MD Abdomen X-Ray 10/12/16 0000 Signed Impressions: Service Date/Time: Wednesday, October 12, 2016 07:19 - CONCLUSION: Abdominal aortic aneurysm is incompletely evaluated on this study. Nonobstructive bowel gas pattern. Ross Duke MD Chest X-Ray 10/11/16 0600 Signed Impressions: Service Date/Time: Tuesday, October 11, 2016 02:08 - CONCLUSION: 1. Cardiomegaly with pulmonary vascular congestion. 2. Slight improvement in bibasilar densities. Kory Mccarthy MD Hip X-Ray 10/08/16 0000 Signed Impressions: Service Date/Time: Saturday, October 08, 2016 08:00 - CONCLUSION: Appropriate postoperative appearance of the left intratrochanteric ORIF. Kumar Blevins MD Hip and Pelvis X-Ray 10/07/16 0000 Signed Impressions: Service Date/Time: Friday, October 07, 2016 11:12 - CONCLUSION: Osteoporosis. Intertrochanteric fracture left femur Arnold Geller MD Objective Remarks GENERAL: No acute distress SKIN: Warm and dry, no rashes appreciated. mild pallor. Surgical incision not inspected on this exam EYES: No scleral icterus, injection, or drainage. EOMI CARDIOVASCULAR: Tachycardic, regular rhythm; prominent systolic murmur. Normal peripheral perfusion in lower extremities. RESPIRATORY: Normal rate. decreased breath sounds. On 2L O2 via NC; sats in high 90's GASTROINTESTINAL: Abdomen soft, nondistended, nontender. Bowel sounds normal. MUSCULOSKELETAL: No lower extremity swelling. : Tejeda in place NEURO/PSYCH: Patient alert, awake, demented. Cranial nerves grossly normal. Grossly normal peripheral motor and sensory function. A/P Assessment and Plan Ms. Rahman is a 75 yo F with left hip fracture who suffered NSTEMI following surgery. Discharge Planning To rehabilitation once clinically improved. Patient will need to be free of restraints for 24 hours. Problem List: (1) Cardiovascular disease Status: Acute Plan: -Cardiology consulted: -Suspect NSTEMI -Continue aspirin -Carvedilol 3.125mg BID -Watch fluid loading Impression: Patient of Dr. Edouard. Troponin x1 3.18 10/09 drawn in response to SOB; subsequent elevations to ~20. Echo 10/09- LVH, EF 55-60%, severe aortic stenosis (2) Closed left hip fracture Status: Acute Plan: Orthopedic surgery consulted -POD 5 operative repair: Reduction and pinning/fixation of left femur -PT consulted -Neuro checks -Ice/cold packs, dressing changes, decubitis precautions per Ortho -Enoxaparin 30mg daily per Ortho for DVT ppx -Follow-up in 2 weeks -Acapella, incentive spirometry -Pain control -Scheduled IV Tylenol 700mg q6 hrs -Morphine 2mg IV q6hrs for breakthrough pain Impression: Left intertrochanteric femur fracture; s/p repair (3) Shortness of breath Status: Resolved Plan: -Stable following Lasix -Continue Duonebs q4 hrs Impression: Desaturations to 70's -80's morning of 10/09; improved to low 90's on Ventimask at 15L O2. Ativan received 10/09 at 0522; Morphine 3mg at 0007 . Patient subsequently found to have Troponin elevation suggestive of NSTEMI. ABGs x2 10/09- pH ~7.4, CO2 ~35, O2 ~145 , HCO3 22 CXR 10/10- Bibasilar densities. Cardiomegaly with interstitial edema; more pronounced CXR 10/11- Pulmonary vascular congestion BNP 10/11- 1485 (4) Decreased urine output Status: Resolved Plan: -Will discontinue IV fluids and monitor output Impression: Total urine output over the past 24 hours 700 mL. Patient on light IV fluids; 42 ml/hr. (5) Dementia Status: Chronic Plan: -Hold home Ativan Hold home Restoril -We'll defer repeat head CT since reported no headache contact on recent fall and no focal neurologic deficit -Will consult PT and OT -PT- rehab recommended -OT Impression: Patient with ~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 Progressive CT 06/2016 with chronic cortical atrophy, periventricular and deep white matter small vessel ischemic demyelination and possible old lacunar infarct in left corby (6) Osteoporosis Status: Acute Plan: Vitamin D 5000 U daily per Ortho Impression: Patient with history of osteoporosis per patient's daughter. Vitamin D level 19.1 (7) Hypothyroid Status: Acute Plan: -Continue home levothyroxine Impression: Patient with PMH hypothyroidism on home Levothyroxine 125 ug daily TSH elevated; T4 wnl (8) Constipation Status: Acute Plan: -Continue Toshia-Colace -Will provide suppository -Miralax 17gm once today -Milk of Magnesia once today Impression: No known BM during hospitalization (9) Fluids, Electrolytes, and Nutrition Status: Acute Plan: Fluids: Reduced due to pulmonary congestion; will stop and monitor Electrolytes: Monitor and replete as needed Nutrition: 1800 Jorge regular diet (10) DVT Prophylaxis Status: Acute Plan: -Bilateral SCD's -Rivaroxaban at discharge by Ortho Remarks S: Patient re-evaluated this evening at 1830: Per nursing staff, patient's O2 was increased to 3L today to maintain saturations in low 90's. Patient has required extensive nursing support to provide oral intake. ~400ml urine output today. O: Patient in no acute distress. Cardio: HR in 90's. Systolic murmur present Respiratory: tachypneic with RR 25-30; no wheezing to auscultation. Breath sounds present bilaterally, appear decreased on R. A/P: SOB -Will obtain CXR due to tachypnea -Will otherwise not alter therapy since sats and HR seem largely unchanged and patient not in distress. Decreased urine output/oral intake -Will ask nursing staff at new floor to provide extensive feeding support; will hold IV fluids at this time Problem Qualifiers (1) Closed left hip fracture: Qualified Code: S72.002A - Closed left hip fracture, initial encounter Jason Quintanilla MD R2 Oct 13, 2016 10:25
[2016-10-13] MEDS: CARVEDILOL 3.125 MG TAB PO SCH ×2 (10:34→21:05)
[2016-10-13] MEDS: SODIUM CHLORIDE 0.9% FLUSH 5 ML FLUSH IV FLUSH SCH ×2 (10:52→21:05)
[2016-10-13] MEDS: ENOXAPARIN SODIUM 30 MG/0.3 ML SYRINGE SQ SCH (10:52)
[2016-10-13 11:07] LABS: BASOPHIL # 0.1 TH/MM3 (0-0.2); BASOPHIL % 0.5 % (0.0-2.0); EOSINOPHIL % 0.3 % (0.0-4.0); HEMATOCRIT 28.4 % (35.0-46.0); HEMO FLAGS DIFF FINAL; LYMPH % 6.9 % (9.0-44.0); LYMPHOCYTE # 0.8 TH/MM3 (1.0-4.8); MEAN CELL VOLUME 91.6 FL (80.0-100.0); MEAN CORPUSCULAR HEMOGLOBIN 31.1 PG (27.0-34.0); MONO % 7.1 % (0.0-8.0); NEUT % 85.2 % (16.0-70.0); PLATELET COUNT 219 TH/MM3 (150-450); RED CELL DISTRIBUTION WIDTH 15.2 % (11.6-17.2); WHITE BLOOD COUNT 11.8 TH/MM3 (4.0-11.0)
[2016-10-13 11:24] LABS: BICARBONATE 24.3 MEQ/L (21.0-32.0)
[2016-10-13 11:28] LABS: POTASSIUM 2.9 MEQ/L (3.5-5.1)
[2016-10-13] MEDS: cefTRIAXone INJ 1,000 MG in SODIUM CHLORIDE 0.9% INJ 100 ML IV SCH (13:08)
[2016-10-13] MEDS: FAMOTIDINE 20 MG/2 ML VIAL IV PUSH SCH (13:08)
[2016-10-13] MEDS ORDERED: POTASSIUM CHLORIDE 25 MEQ EFFERVESCENT TAB PO ONE ×2 (13:30→15:30)
[2016-10-13] MEDS ORDERED: MAGNESIUM HYDROXIDE SUSP 30 ML CUP PO ONE (15:00)
[2016-10-13] MEDS: AZITHROMYCIN INJ 250 MG in SODIUM CHLOR 0.9% 250 ML INJ 250 ML IV SCH (15:00)
[2016-10-13] MEDS ORDERED: BISACODYL 10 MG SUPP RECTAL ONE (15:00)
--- NOTE | 2016-10-13 16:54 | HHI.HCPN ---
Reason for visit a. To assist with evaluation and management of symptoms including: pain, confusion b. To assist medical decision maker(s) with: better understanding of current medical conditions; weighing benefits/burdens of medical treatment options; making medical treatment decisions. . (Lynette Valle) Subjective/Interval History POD 4 status post IMN left intratrochanteric left femur fracture. Patient was seen and assessed in room 237. Patient is awake, pleasantly confused with a sitter at bedside. When asked what her name is, the patient responds "I'm Jie 's (her daughter)". Speech is primarily nonsensical. Patient denies any pain or shortness of breath. Afebrile. Tolerating 2-3L oxygen via nasal cannula with oxygen saturations in the low to mid 90s. Urine cultures pending- no growth in 48 hours. Blood cultures NNTD. WBC trending downward. BNP: 1791 Orthopedically cleared for discharge to SNF for rehab when medically stable. . Family/friend interactions Message left for patient's daughter (Manju John) on voice mail. . (Lynette Valle) Advance Directives Living Will: Never completed Health Care Surrogate: Never completed Durable Power of Mission Coordinator: Never completed (Lynette Valle) Advance Directive Specifics Health Care Surrogate(s): NA Documented care wishes: There are no documented care wishes available. . (Lynette Valle) Objective Vital Signs Date Time Temp Pulse Resp B/P Pulse Ox O2 Delivery O2 Flow Rate FiO2 10/13/16 15:16 90 10/13/16 15:16 93 Nasal Cannula 3.00 10/13/16 15:16 97.8 90 18 141/76 94 10/13/16 11:30 93 Nasal Cannula 3.00 10/13/16 11:30 94 10/13/16 11:30 97.4 94 18 140/71 93 10/13/16 08:21 97 Nasal Cannula 2.00 10/13/16 07:30 92 10/13/16 07:30 97.0 92 18 137/78 93 10/13/16 07:30 93 Nasal Cannula 3.00 10/13/16 06:00 78 10/13/16 05:00 99 10/13/16 04:00 99 10/13/16 03:30 98.7 92 16 130/88 92 10/13/16 03:30 92 Nasal Cannula 2.00 10/13/16 03:00 93 10/13/16 02:00 89 10/13/16 01:00 96 10/13/16 00:00 84 10/12/16 23:00 83 10/12/16 23:00 98.7 83 16 136/75 90 10/12/16 23:00 90 Nasal Cannula 2.00 10/12/16 22:00 96 10/12/16 21:00 82 10/12/16 20:00 88 10/12/16 20:00 92 Nasal Cannula 2.00 10/12/16 20:00 98.7 86 16 141/75 92 10/12/16 19:40 92 Nasal Cannula 2.00 10/12/16 19:00 97 10/12/16 18:01 93 10/12/16 17:00 82 10/12/16 16:41 99 Intake & Output 10/13/16 10/13/16 07:00 19:00 Intake Total 440 ml Output Total 350 ml Balance 90 ml Intake Oral 440 ml Output Urine Total 350 ml # Voids 2 . Physical Exam CONSTITUTIONAL/GENERAL: This is a frail, elderly, pleasantly confused female patient, in no acute distress. TUBES/LINES/DRAINS: PIV 1. Tejeda catheter. SKIN: Ecchymoses on upper and lower extremities. Skin temperature appropriate. Not diaphoretic. HEAD: Atraumatic. Normocephalic. EYES: No scleral icterus. No injection or drainage. Fundi not examined. ENT: Hearing grossly normal. Nose without bleeding or purulent drainage. NECK: Trachea midline. CARDIOVASCULAR: Regular rate and rhythm. + Systolic murmur. No JVD. Peripheral pulses symmetric. RESPIRATORY/CHEST: Symmetric, unlabored respirations. Tolerating 23 liters oxygen via nasal cannula, saturations in the low to mid 90s. Breath sounds diminished. GASTROINTESTINAL: Abdomen soft, non-tender, nondistended. Bowel sounds present. GENITOURINARY: Without palpable bladder distension. Tejeda catheter in place. NEUROLOGICAL: Awake, pleasantly confused. Speech is predominantly nonsensical. Moves all extremities 4 PSYCHIATRIC: No obvious anxiety/depression. No apparent hallucinations or other psychotic thought process. . (Lynette Valle) Diagnostic Tests Laboratory Laboratory Tests Test 10/10/16 10/10/16 10/11/16 10/11/16 18:35 20:48 03:15 11:24 Hemoglobin 8.0 GM/DL 10.0 GM/DL 10.4 GM/DL (11.6-15.3) (11.6-15.3) (11.6-15.3) Hematocrit 23.6 % 28.4 % 30.6 % (35.0-46.0) (35.0-46.0) (35.0-46.0) Blood Type A NEGATIVE Antibody Screen POSITIVE Antigen Identification E Antigen - NEGATIVE Crossmatch Leukocyte-Reduced Red Blood Cells Blood Bank Comment Antibody Identification Anti-E White Blood Count 11.1 TH/MM3 (4.0-11.0) Red Blood Count 3.16 MIL/MM3 (4.00-5.30) Mean Corpuscular Volume 89.8 FL (80.0-100.0) Mean Corpuscular Hemoglobin 31.6 PG (27.0-34.0) Mean Corpuscular Hemoglobin 35.1 % Concent (32.0-36.0) Red Cell Distribution Width 15.4 % (11.6-17.2) Platelet Count 165 TH/MM3 (150-450) Mean Platelet Volume 9.2 FL (7.0-11.0) Neutrophils (%) (Auto) 85.4 % (16.0-70.0) Lymphocytes (%) (Auto) 4.8 % (9.0-44.0) Monocytes (%) (Auto) 8.8 % (0.0-8.0) Eosinophils (%) (Auto) 0.4 % (0.0-4.0) Basophils (%) (Auto) 0.6 % (0.0-2.0) Neutrophils # (Auto) 9.5 TH/MM3 (1.8-7.7) Lymphocytes # (Auto) 0.5 TH/MM3 (1.0-4.8) Monocytes # (Auto) 1.0 TH/MM3 (0-0.9) Eosinophils # (Auto) 0.0 TH/MM3 (0-0.4) Basophils # (Auto) 0.1 TH/MM3 (0-0.2) CBC Comment DIFF FINAL Differential Comment Sodium Level 144 MEQ/L (136-145) Potassium Level 4.1 MEQ/L (3.5-5.1) Chloride Level 110 MEQ/L (98-107) Carbon Dioxide Level 24.7 MEQ/L (21.0-32.0) Anion Gap 9 MEQ/L (5-15) Blood Urea Nitrogen 23 MG/DL (7-18) Creatinine 0.94 MG/DL (0.50-1.00) Estimat Glomerular Filtration 58 ML/MIN (>89) Rate Random Glucose 83 MG/DL (74-106) Calcium Level 8.5 MG/DL (8.5-10.1) B-Type Natriuretic Peptide 1485 PG/ML (0-100) Test 10/11/16 10/12/16 10/13/16 10/13/16 12:42 07:35 05:30 10:43 Lactic Acid Level 1.7 mmol/L (0.4-2.0) White Blood Count 14.0 TH/MM3 11.8 TH/MM3 (4.0-11.0) (4.0-11.0) Red Blood Count 2.94 MIL/MM3 3.10 MIL/MM3 (4.00-5.30) (4.00-5.30) Hemoglobin 8.9 GM/DL 9.6 GM/DL (11.6-15.3) (11.6-15.3) Hematocrit 26.5 % 28.4 % (35.0-46.0) (35.0-46.0) Mean Corpuscular Volume 90.2 FL 91.6 FL (80.0-100.0) (80.0-100.0) Mean Corpuscular Hemoglobin 30.2 PG 31.1 PG (27.0-34.0) (27.0-34.0) Mean Corpuscular Hemoglobin 33.5 % 34.0 % Concent (32.0-36.0) (32.0-36.0) Red Cell Distribution Width 15.7 % 15.2 % (11.6-17.2) (11.6-17.2) Platelet Count 185 TH/MM3 219 TH/MM3 (150-450) (150-450) Mean Platelet Volume 9.1 FL 9.2 FL (7.0-11.0) (7.0-11.0) Neutrophils (%) (Auto) 89.0 % 85.2 % (16.0-70.0) (16.0-70.0) Lymphocytes (%) (Auto) 4.5 % 6.9 % (9.0-44.0) (9.0-44.0) Monocytes (%) (Auto) 6.1 % (0.0-8.0) 7.1 % (0.0-8.0) Eosinophils (%) (Auto) 0.2 % (0.0-4.0) 0.3 % (0.0-4.0) Basophils (%) (Auto) 0.2 % (0.0-2.0) 0.5 % (0.0-2.0) Neutrophils # (Auto) 12.4 TH/MM3 10.0 TH/MM3 (1.8-7.7) (1.8-7.7) Lymphocytes # (Auto) 0.6 TH/MM3 0.8 TH/MM3 (1.0-4.8) (1.0-4.8) Monocytes # (Auto) 0.8 TH/MM3 0.8 TH/MM3 (0-0.9) (0-0.9) Eosinophils # (Auto) 0.0 TH/MM3 0.0 TH/MM3 (0-0.4) (0-0.4) Basophils # (Auto) 0.0 TH/MM3 0.1 TH/MM3 (0-0.2) (0-0.2) CBC Comment DIFF FINAL DIFF FINAL Differential Comment Sodium Level 145 MEQ/L 141 MEQ/L (136-145) (136-145) Potassium Level 3.7 MEQ/L 2.9 MEQ/L (3.5-5.1) (3.5-5.1) Chloride Level 110 MEQ/L 107 MEQ/L (98-107) (98-107) Carbon Dioxide Level 21.9 MEQ/L 24.3 MEQ/L (21.0-32.0) (21.0-32.0) Anion Gap 13 MEQ/L (5-15) 10 MEQ/L (5-15) Blood Urea Nitrogen 35 MG/DL (7-18) 28 MG/DL (7-18) Creatinine 0.96 MG/DL 0.79 MG/DL (0.50-1.00) (0.50-1.00) Estimat Glomerular Filtration 57 ML/MIN (>89) 71 ML/MIN (>89) Rate Random Glucose 77 MG/DL 100 MG/DL (74-106) (74-106) Calcium Level 8.4 MG/DL 7.8 MG/DL (8.5-10.1) (8.5-10.1) Total Bilirubin 0.9 MG/DL (0.2-1.0) Aspartate Amino Transf 92 U/L (15-37) (AST/SGOT) Alanine Aminotransferase 25 U/L (10-53) (ALT/SGPT) Alkaline Phosphatase 94 U/L (45-117) B-Type Natriuretic Peptide 1957 PG/ML 1791 PG/ML (0-100) (0-100) Total Protein 5.2 GM/DL (6.4-8.2) Albumin 2.5 GM/DL (3.4-5.0) Test 10/13/16 14:31 Potassium Level 3.2 MEQ/L (3.5-5.1) . (Lynette Valle) Result Diagram: 10/13/16 1043 10/13/16 1431 Microbiology Microbiology Date/Time Procedure Status Source Growth 10/09/16 10:20 Aerobic Blood Culture - Preliminary Resulted Blood Peripheral NO GROWTH IN 4 DAYS 10/09/16 10:20 Anaerobic Blood Culture - Preliminary Resulted Blood Peripheral NO GROWTH IN 4 DAYS 10/09/16 10:15 Urine Culture - Final Complete Urine Catheterized Urine NO GROWTH IN 48 HOURS. , Imaging Last 72 hours Impressions Renal Ultrasound 10/12/16 0000 Signed Impressions: Service Date/Time: Tuesday, October 11, 2016 16:44 - CONCLUSION: 1. Small and mildly echogenic kidneys typical of chronic parenchymal disease. No obstructive uropathy or other acute abnormality demonstrated. 2. Small spleen and bilateral pleural effusions incidentally noted. Mariano Osorio MD Abdomen X-Ray 10/12/16 0000 Signed Impressions: Service Date/Time: Wednesday, October 12, 2016 07:19 - CONCLUSION: Abdominal aortic aneurysm is incompletely evaluated on this study. Nonobstructive bowel gas pattern. Ross Duke MD Chest X-Ray 10/11/16 0600 Signed Impressions: Service Date/Time: Tuesday, October 11, 2016 02:08 - CONCLUSION: 1. Cardiomegaly with pulmonary vascular congestion. 2. Slight improvement in bibasilar densities. Kory Mccarthy MD . (Lynette Valle) Assessment and Plan Disease Oriented Problem List: (1) Vitamin D deficiency (2) Fall (3) DVT Prophylaxis (4) Fluids, Electrolytes, and Nutrition (5) Osteoporosis (6) MVP (mitral valve prolapse) (7) Cardiovascular risk factor (8) Dementia (9) Closed left hip fracture (10) Shortness of breath (11) Hypothyroid (12) Hypotension (13) Aortic stenosis (14) Cardiovascular disease Symptom Scale: (1) Pain 0-10 Scale: Unable to quantify (2) Confusion Comment: Advanced dementia. Patient disoriented and confused. When asked what her name is the patient responds " I'm Jie's". Does no know where she is or the circumstances of her situation. Patient attempts to answer simple question, but speech is predominantly nonsensical. Pertinent Non-Medical Issues Psychosocial: Patient is a . She has one daughter (John John) who lives locally. Spiritual: None known Legal: Per [place] statutes, in the absence of written advanced directives healthcare proxy decision-making falls to the patient's only daughter, Manju John. Ethical issues impacting care: No known ethical decision impacting care at this time. . Important Contacts Manju John, daughter: [phone] or [phone] . Prognosis Patient is a 75 year old female with advanced dementia and severe heart disease. She was admitted with a left hip fracture status post a fall and subsequently had a NSTEMI postoperatively. Requiring simple mask on 10L oxygen. Prognosis generally poor. . Code Status: Full Code Plan * FULL CODE * Decision-making: Per [place] statutes, in the absence of written and faxed directives healthcare proxy decision-making falls to the patient's only daughter , Manju John * Goals: Aggressive goals. * 10/10/16: Discussed the process of cardiopulmonary resuscitation in detail with patient's daughter (compression, medications, cardioversion, intubation/ mechanical ventilation) status post NSTEMI and the risks for a subsequent cardiac event. Patient's daughter states she understands the risks of CPR (i.e. fractured ribs, ventilator dependency), but she still wants to do everything possible to "give her a chance". The patient's daughter states she is comfortable and prepared to make a decision to withdrawal life support down the road if necessary, because she knows her mother would not want be kept alive artificially. * Symptom managementconfusion: Advanced dementia. Patient disoriented and confused. When asked what her name is the patient responds " I'm Jie's". Does no know where she is or the circumstances of her situation. Patient attempts to answer simple question, but speech is predominantly nonsensical. * Patient's daughter would like to meet with Palliative Care to further discuss medical treatment goals. Palliative care attempted to contact patient's daughter (Manju John) on 10/13/16, message left on voice mail. Awaiting return call. * Palliative care will continue to follow this patient throughout her hospitalization to establish trust, assist with symptom management and clarification of medical treatment goals. . (Lynette Valle) Attestation To help prompt me to consider important information that might be impacting today's encounter and assessment, information from prior notes written by myself or my colleagues may have been "brought forward" into today's note. My signature on this note, however, is an attestation that I personally performed the exam, history, and/or decision-making noted today, and, unless otherwise indicated, the interactions with patient, family, and staff as well as the review of records all occurred today. I also attest that the listed assessment and stated plan reflect my best clinical judgment today based on the combination of historical information, prior notes, and today's exam/ interactions. When time spent is documented, it refers only to time spent today by the signer, or if indicated, combined time spent today by collaborating physician/nurse practitioner. . (Lynette Valle) Collaborating MD Comments Chart reviewed. Case discussed with palliative care CORE DRILLER HELPER. Above JUAN F note reviewed and I concur. . (Graham Ortiz MD) Lynette Valle Oct 13, 2016 16:54 Graham Ortiz MD Nov 29, 2016 14:20
[2016-10-13] MEDS ORDERED: POLYETHYLENE GLYCOL 17 GM PKG PO ONE (17:00)
[2016-10-13] MEDS ORDERED: POTASSIUM CHLORIDE 10 MEQ CONTROLLED RELEASE TAB PO ONE (18:00)
--- NOTE | 2016-10-13 20:24 | RADRPT ---
EXAM DATE/TIME: 10/13/2016 19:52 [facility] COMPARISON: CHEST SINGLE AP, October 11, 2016, 2:08. INDICATIONS : Respiratory status. MEDICAL HISTORY : None. SURGICAL HISTORY : ORIF hip ENCOUNTER: Initial ACUITY: 1 day PAIN SCORE: 0/10 LOCATION: Bilateral upper chest FINDINGS: Worsening bilateral perihilar and basilar infiltrates with small effusions. There is mild cardiomegal y. Pneumothorax. CONCLUSION: Worsening bilateral perihilar and basilar infiltrates with small effusions. Mariano Osorio MD on October 13, 2016 at 20:22 Board Certified Radiologist. This report was verified electronically.
[2016-10-13] MEDS ORDERED: FAMOTIDINE 20 MG/2 ML VIAL IV PUSH SCH (21:00)
[2016-10-13] MEDS: FAMOTIDINE 20 MG TAB PO SCH (21:04)
[2016-10-13] MEDS ORDERED: FUROSEMIDE 20 MG/2 ML VIAL IV PUSH ONE (22:00)
[2016-10-14] VITALS (10 sets, daily range): BP systolic 112–127; BP diastolic 54–63; PULSE 62–91; RESP 16–24; TEMP 97.4–98; O2SAT 90–95
[2016-10-14] MEDS: CHLORHEXIDINE GLUCONATE 2 % 1 PACK (2 CLOTHS) TOP SCH (04:00)
[2016-10-14] MEDS: LEVOTHYROXINE SODIUM 125 MCG TAB PO SCH (05:53)
[2016-10-14 07:50] LABS: AUTOMATED NEUTROPHIL # 9.4 TH/MM3 (1.8-7.7); BASOPHIL # 0.1 TH/MM3 (0-0.2); BASOPHIL % 0.5 % (0.0-2.0); EOSINOPHIL # 0.3 TH/MM3 (0-0.4); EOSINOPHIL % 2.2 % (0.0-4.0); HEMATOCRIT 29.9 % (35.0-46.0); HEMO FLAGS DIFF FINAL; LYMPH % 10.6 % (9.0-44.0); LYMPHOCYTE # 1.3 TH/MM3 (1.0-4.8); MEAN CELL VOLUME 91.4 FL (80.0-100.0); MEAN CORPUSCULAR HEMOGLOBIN 30.7 PG (27.0-34.0); MEAN CORPUSCULAR HGB CONC 33.6 % (32.0-36.0); MONO % 8.9 % (0.0-8.0); NEUT % 77.8 % (16.0-70.0); PLATELET COUNT 238 TH/MM3 (150-450); RED BLOOD COUNT 3.28 MIL/MM3 (4.00-5.30); RED CELL DISTRIBUTION WIDTH 15.3 % (11.6-17.2); WHITE BLOOD COUNT 12.1 TH/MM3 (4.0-11.0)
[2016-10-14 08:14] LABS: BICARBONATE 25.9 MEQ/L (21.0-32.0); POTASSIUM 3.5 MEQ/L (3.5-5.1)
[2016-10-14] MEDS: CALCIUM/VITAMIN D 250 MG/125 U TAB PO SCH ×3 (08:49→17:20)
[2016-10-14] MEDS: FERROUS SULFATE 325 MG (65 MG ELEMENTAL IRON) TAB PO SCH ×3 (08:49→17:20)
[2016-10-14] MEDS: FAMOTIDINE 20 MG TAB PO SCH ×2 (08:49→21:35)
[2016-10-14] MEDS: DOCUSATE SODIUM 50 MG/SENNA 8.6 MG TAB PO SCH ×2 (08:49→21:35)
[2016-10-14] MEDS: ASPIRIN EC 81 MG TABEC PO SCH (08:49)
[2016-10-14] MEDS: ENOXAPARIN SODIUM 30 MG/0.3 ML SYRINGE SQ SCH (08:49)
[2016-10-14] MEDS: POTASSIUM PHOSPHATE MONOBASIC 500 MG TAB PO SCH ×2 (08:49→21:35)
[2016-10-14] MEDS: SODIUM CHLORIDE 0.9% FLUSH 5 ML FLUSH IV FLUSH SCH ×2 (08:50→21:36)
[2016-10-14] MEDS: POLYETHYLENE GLYCOL 17 GM PKG PO SCH (08:50)
[2016-10-14] MEDS: CARVEDILOL 3.125 MG TAB PO SCH ×2 (08:50→21:35)
[2016-10-14] MEDS: CHOLECALCIFEROL (VIT D3) 5000 UNIT CAP PO SCH (10:13)
[2016-10-14] MEDS: cefTRIAXone INJ 1,000 MG in SODIUM CHLORIDE 0.9% INJ 100 ML IV SCH (13:42)
[2016-10-14] MEDS: AZITHROMYCIN INJ 250 MG in SODIUM CHLOR 0.9% 250 ML INJ 250 ML IV SCH (15:34)
[2016-10-14] MEDS: ACETAMINOPHEN 1000 MG/100 ML VIAL IV SCH ×2 (15:39→21:35)
--- NOTE | 2016-10-14 15:41 | HHI.FPPN ---
Subjective Remarks No acute events overnight. AF, VS wnl and stable except O2 sat 92 on 3 L nasal cannula. Today says she feels well, not in pain, still constantly trying to sit up and get out of bed. Restraints in place. (Dylan Vital MD R1) Objective Vitals Vital Signs Date Time Temp Pulse Resp B/P Pulse Ox O2 Delivery O2 Flow Rate FiO2 10/14/16 12:00 97.4 91 20 112/54 90 10/14/16 11:57 94 Nasal Cannula 3.00 10/14/16 11:28 Nasal Cannula 3.00 21 10/14/16 08:00 97.7 71 18 119/63 93 10/14/16 04:22 97.8 75 22 127/63 95 10/14/16 00:40 98.0 82 24 124/63 93 10/13/16 20:46 73 10/13/16 20:00 Nasal Cannula 3.00 10/13/16 19:08 97.9 81 28 120/62 92 10/13/16 18:00 92 10/13/16 17:00 98 10/13/16 16:00 96 I/O 10/13/16 10/13/16 10/13/16 10/14/16 10/14/16 10/14/16 07:00 15:00 23:00 07:00 15:00 23:00 Intake Total 440 ml 963 ml 0 ml Output Total 350 ml 400 ml 1300 ml Balance 90 ml 563 ml -1300 ml Intake Oral 440 ml 200 ml 0 ml IV Total 763 ml Output Urine Total 350 ml 400 ml 1300 ml # Voids 2 # Bowel Movements 3 1 1 (Dylan Vital MD R1) Result Diagram: 10/14/16 0720 10/14/16 0720 Imaging Last Impressions Chest X-Ray 10/13/16 1900 Signed Impressions: Service Date/Time: Thursday, October 13, 2016 19:52 - CONCLUSION: Worsening bilateral perihilar and basilar infiltrates with small effusions. Mariano Osorio MD Renal Ultrasound 10/12/16 0000 Signed Impressions: Service Date/Time: Tuesday, October 11, 2016 16:44 - CONCLUSION: 1. Small and mildly echogenic kidneys typical of chronic parenchymal disease. No obstructive uropathy or other acute abnormality demonstrated. 2. Small spleen and bilateral pleural effusions incidentally noted. Mariano Osorio MD Abdomen X-Ray 10/12/16 0000 Signed Impressions: Service Date/Time: Wednesday, October 12, 2016 07:19 - CONCLUSION: Abdominal aortic aneurysm is incompletely evaluated on this study. Nonobstructive bowel gas pattern. Ross Duke MD Hip X-Ray 10/08/16 0000 Signed Impressions: Service Date/Time: Saturday, October 08, 2016 08:00 - CONCLUSION: Appropriate postoperative appearance of the left intratrochanteric ORIF. Kumar Blevins MD Hip and Pelvis X-Ray 10/07/16 0000 Signed Impressions: Service Date/Time: Friday, October 07, 2016 11:12 - CONCLUSION: Osteoporosis. Intertrochanteric fracture left femur Arnold Geller MD Objective Remarks GENERAL: No acute distress SKIN: Warm and dry, no rashes appreciated. mild pallor. Surgical incision not inspected on this exam EYES: No scleral icterus, injection, or drainage. EOMI CARDIOVASCULAR: Tachycardic, regular rhythm; prominent systolic murmur. Normal peripheral perfusion in lower extremities. RESPIRATORY: Normal rate. decreased breath sounds. On 2L O2 via NC; sats in high 90's GASTROINTESTINAL: Abdomen soft, nondistended, nontender. Bowel sounds normal. MUSCULOSKELETAL: No lower extremity swelling. : Tejeda in place NEURO/PSYCH: Patient alert, awake, demented. Cranial nerves grossly normal. Grossly normal peripheral motor and sensory function. Medications and IVs Current Medications Medications (Trade) Dose Ordered Sig/[place] Route Start Time Stop Time Status Last Admin (Zofran Inj) 4 mg Q6H PRN IVP 10/07/16 16:00 (Narcan Inj) 0.4 mg UNSCH PRN IV 10/07/16 16:00 (Ecotrin Ec) 81 mg DAILY PO 10/08/16 09:00 10/14/16 08:49 (Lexapro) 5 mg DAILY PO 10/08/16 09:00 Hold 10/09/16 08:43 (Ferrous Sulfate) 325 mg TID PO 10/07/16 18:00 10/14/16 13:42 (Morphine Inj) 3 mg Q3H PRN IV PUSH 10/07/16 18:00 Hold 10/10/16 12:08 (Lovenox Inj) 30 mg Q24H SQ 10/09/16 07:30 10/14/16 08:49 (Oscal-D 250-125) 250 mg TID PO 10/08/16 09:00 10/14/16 13:42 ([place] 5-325 Mg) 1 tab Q4H PRN PO 10/08/16 08:15 Hold (Vitamin D3) 5,000 units DAILY PO 10/08/16 09:00 10/14/16 10:13 (Synthroid) 125 mcg DAILY@0600 PO 10/09/16 06:00 10/14/16 05:53 (Toshia-Colace) 2 tab BID PO 10/09/16 21:00 10/14/16 08:49 (NS Flush) 2 ml UNSCH PRN IV FLUSH 10/09/16 13:15 (NS Flush) 2 ml BID IV FLUSH 10/09/16 21:00 10/14/16 08:50 (Dulcolax Supp) 10 mg DAILY PRN RECTAL 10/09/16 13:15 Miscellaneous Information 1 Q361D XX 10/09/16 13:15 (Chlorhexidine 2% Cloth) 3 pack Taper DAILY@04 TOP 10/10/16 04:00 10/06/17 03:59 10/14/16 04:00 (Chlorhexidine 2% Cloth) 3 pack UNSCH PRN TOP 10/09/16 13:15 10/09/16 13:49 (Morphine Inj) 2 mg Q6H PRN IV PUSH 10/09/16 14:00 10/11/16 01:11 (K-Phos) 500 mg Q12HR PO 10/10/16 21:00 10/14/16 08:49 (Coreg) 3.125 mg Q12HR PO 10/11/16 09:00 10/14/16 08:50 Ketorolac Tromethamine 15 mg 15 mg Q6H PRN IV PUSH 10/11/16 14:00 (Rocephin Inj/NS Inj) 100 ml @ 200 mls/hr Q24H IV 10/11/16 13:30 10/14/16 13:42 Polyethylene Glycol 17 gm 17 gm DAILY PO 10/12/16 00:00 Azithromycin 250 mg/Sodium Chloride 250 ml @ 250 mls/hr Q24H IV 10/12/16 15:00 10/13/16 15:00 (NS 1000 ml Inj) 1,000 ml @ 42 mls/hr [id number] IV 10/12/16 16:00 Hold 10/12/16 16:00 (Pepcid) 20 mg Q12HR PO 10/13/16 21:00 10/14/16 08:49 (Ofirmev Inj) 1,000 mg Q6H IV 10/14/16 15:30 UNV (Dylan Vital MD R1) A/P Assessment and Plan Ms. Rahman is a 75 yo F with left hip fracture who suffered NSTEMI following surgery. Discharge Planning To rehabilitation once clinically improved. Patient will need to be free of restraints for 24 hours. (Dylan Vital MD R1) Attending Attestation Patient seen and examined. Case reviewed and discussed Agree with plan of care as discussed with me and documented in the resident note. (Tianna dEouard MD) Problem List: (1) Cardiovascular disease Status: Acute Plan: Patient of Dr. Edouard. Troponin x1 3.18 10/09 drawn in response to SOB; subsequent elevations to ~20. Echo 10/09- LVH, EF 55-60%, severe aortic stenosis -Cardiology consulted: -Suspect NSTEMI due to critical aortic stenosis -Continue aspirin -Carvedilol 3.125mg BID -Watch fluid loading -Discussed with Dr. Edouard, no need for CT surg evaluation at this time, had previously discussed with family and they decided not to have surgery given dementia and high surgical risk in patient her age -Follow up with Dr. Edouard in clinic in 2 weeks (2) Closed left hip fracture Status: Acute Plan: Left intertrochanteric femur fracture; s/p repair Orthopedic surgery consulted, appreciate their recommendations -POD 6 operative repair: Reduction and pinning/fixation of left femur -PT consulted - rehab recommended -Neuro checks -Ice/cold packs, dressing changes, decubitis precautions per Ortho -Enoxaparin 30mg daily per Ortho for DVT ppx -Follow-up in 2 weeks -Acapella, incentive spirometry -Pain control -Scheduled IV Tylenol 1000mg q6 hrs -Morphine 2mg IV q6hrs for breakthrough pain (3) Leukocytosis Status: Acute Plan: Elevated WBC persistently this admission 11 --> 14 --> 11 --> 12 * Repeat CXR * Repeat UA * Continue rocephin and azithromycin for UTI, PNA coverage (4) Shortness of breath Status: Resolved Plan: Desaturations to 70's -80's morning of 10/09; improved to low 90's on Ventimask at 15L O2. Ativan received 10/09 at 0522; Morphine 3mg at 0007 10/09. Patient subsequently found to have Troponin elevation suggestive of NSTEMI. ABGs x2 10/09- pH ~7.4, CO2 ~35, O2 ~145 , HCO3 22 CXR 10/10- Bibasilar densities. Cardiomegaly with interstitial edema; more pronounced CXR 10/11- Pulmonary vascular congestion BNP 10/11- 1485 -Stable following Lasix -Continue Duonebs q4 hrs -Repeat CXR to evaluate for pulmonary edema (5) Decreased urine output Status: Resolved Plan: Total urine output over the past 24 hours 1700 cc --Continue to monitor (6) Dementia Status: Chronic Plan: Patient with ~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 Progressive CT 06/2016 with chronic cortical atrophy, periventricular and deep white matter small vessel ischemic demyelination and possible old lacunar infarct in left corby -Hold home Ativan Hold home Restoril -We'll defer repeat head CT since reported no headache contact on recent fall and no focal neurologic deficit -Will consult PT and OT -PT- rehab recommended -OT (7) Osteoporosis Status: Acute Plan: Vitamin D 5000 U daily per Ortho Impression: Patient with history of osteoporosis per patient's daughter. Vitamin D level 19.1 (8) Hypothyroid Status: Acute Plan: -Continue home levothyroxine Impression: Patient with PMH hypothyroidism on home Levothyroxine 125 ug daily TSH elevated; T4 wnl (9) Constipation Status: Resolved Plan: 2 BMs on 10/13/16 -Continue Toshia-Colace -Give additional agents PRN (10) Fluids, Electrolytes, and Nutrition Status: Acute Plan: Fluids: Reduced due to pulmonary congestion; will stop and monitor Electrolytes: Monitor and replete as needed Nutrition: 1800 Jorge regular diet (11) DVT Prophylaxis Status: Acute Plan: -Bilateral SCD's -Rivaroxaban at discharge by Ortho (Dylan Vital MD R1) Problem Qualifiers (1) Closed left hip fracture: Qualified Code: S72.002A - Closed left hip fracture, initial encounter Dylan Vital MD R1 Oct 14, 2016 15:40 Tianna Edouard MD Oct 14, 2016 17:09
--- NOTE | 2016-10-14 16:02 | RADRPT ---
EXAM DATE/TIME: 10/14/2016 15:19 [facility] COMPARISON: CHEST SINGLE AP, October 13, 2016, 19:52. INDICATIONS : Shortness of breath. MEDICAL HISTORY : Hypertension. Gastroesophageal reflux disease. Hypercholesterolemia. Dementia, Cardiovascular dis ease, CAD, GI disorder SURGICAL HISTORY : Cholecystectomy. Hysterectomy. ENCOUNTER: Subsequent ACUITY: 1 week PAIN SCORE: Non-responsive. LOCATION: Bilateral chest FINDINGS: The heart is enlarged. There are bilateral effusions and diffuse interstitial prominence suggesting c ongestive failure. This is similar to previous dated 10/13/16. The visualized bony structures are fito sly intact. CONCLUSION: Probable CHF unchanged compared to previous. Geovanni Meyer MD on October 14, 2016 at 15:59 Board Certified Radiologist. This report was verified electronically.
[2016-10-14] MEDS ORDERED: FUROSEMIDE 20 MG/2 ML VIAL IV PUSH ONE (18:00)
[2016-10-14 19:54] LABS: BACTERIA, URINE OCC /hpf; BLOOD, URINE TRACE (NEG); GLUCOSE,URINE NEG (NEG); KETONE, URINE 40 mg/dL (NEG); NITRITE,URINE NEG (NEG); SQUAMOUS EPITHELIAL CELL URINE <1 /hpf (0-5); URINE COLOR YELLOW (YELLW/STRAW)
[2016-10-14 19:55] LABS: COMMENT (UR) CATH-CULTURE IND; CULTURE IF INDICATED CATH CULTURE IND
[2016-10-15] VITALS (8 sets, daily range): BP systolic 98–126; BP diastolic 53–82; PULSE 53–78; RESP 18–20; TEMP 97.4–98.3; O2SAT 92–98
[2016-10-15] MEDS: ACETAMINOPHEN 1000 MG/100 ML VIAL IV SCH ×2 (03:31→08:05)
[2016-10-15] MEDS: CHLORHEXIDINE GLUCONATE 2 % 1 PACK (2 CLOTHS) TOP SCH (03:32)
[2016-10-15 05:12] LABS: AUTOMATED NEUTROPHIL # 7.7 TH/MM3 (1.8-7.7); BASOPHIL % 0.3 % (0.0-2.0); EOSINOPHIL # 0.3 TH/MM3 (0-0.4); EOSINOPHIL % 3.3 % (0.0-4.0); HEMATOCRIT 30.9 % (35.0-46.0); HEMO FLAGS DIFF FINAL; LYMPH % 8.1 % (9.0-44.0); LYMPHOCYTE # 0.8 TH/MM3 (1.0-4.8); MEAN CELL VOLUME 92.4 FL (80.0-100.0); MEAN CORPUSCULAR HEMOGLOBIN 31.1 PG (27.0-34.0); MEAN CORPUSCULAR HGB CONC 33.6 % (32.0-36.0); MONO % 8.8 % (0.0-8.0); NEUT % 79.5 % (16.0-70.0); PLATELET COUNT 264 TH/MM3 (150-450); RED BLOOD COUNT 3.35 MIL/MM3 (4.00-5.30); RED CELL DISTRIBUTION WIDTH 15.5 % (11.6-17.2); WHITE BLOOD COUNT 9.6 TH/MM3 (4.0-11.0)
[2016-10-15 05:39] LABS: BICARBONATE 26.6 MEQ/L (21.0-32.0)
[2016-10-15 05:43] LABS: POTASSIUM 2.9 MEQ/L (3.5-5.1)
[2016-10-15] MEDS: LEVOTHYROXINE SODIUM 125 MCG TAB PO SCH (06:46)
[2016-10-15] MEDS: ENOXAPARIN SODIUM 30 MG/0.3 ML SYRINGE SQ SCH (06:52)
[2016-10-15] MEDS: CARVEDILOL 3.125 MG TAB PO SCH ×2 (08:03→21:38)
[2016-10-15] MEDS: CALCIUM/VITAMIN D 250 MG/125 U TAB PO SCH ×3 (08:04→17:52)
[2016-10-15] MEDS: CHOLECALCIFEROL (VIT D3) 5000 UNIT CAP PO SCH (08:04)
[2016-10-15] MEDS: FERROUS SULFATE 325 MG (65 MG ELEMENTAL IRON) TAB PO SCH ×3 (08:04→17:52)
[2016-10-15] MEDS: POLYETHYLENE GLYCOL 17 GM PKG PO SCH (08:04)
[2016-10-15] MEDS: FAMOTIDINE 20 MG TAB PO SCH ×2 (08:04→21:39)
[2016-10-15] MEDS: POTASSIUM PHOSPHATE MONOBASIC 500 MG TAB PO SCH (08:04)
[2016-10-15] MEDS: DOCUSATE SODIUM 50 MG/SENNA 8.6 MG TAB PO SCH ×2 (08:04→21:38)
[2016-10-15] MEDS: SODIUM CHLORIDE 0.9% FLUSH 5 ML FLUSH IV FLUSH SCH ×2 (08:04→21:00)
[2016-10-15] MEDS: ASPIRIN EC 81 MG TABEC PO SCH (08:04)
[2016-10-15] MEDS ORDERED: POTASSIUM CHLORIDE 10 MEQ CAP PO ONE ×3 (09:00→11:00)
[2016-10-15] MEDS ORDERED: PILL SPLITTER OTHER PRN ×2 (10:15→18:30)
[2016-10-15] MEDS: cefTRIAXone INJ 1,000 MG in SODIUM CHLORIDE 0.9% INJ 100 ML IV SCH (12:02)
[2016-10-15] MEDS: AZITHROMYCIN INJ 250 MG in SODIUM CHLOR 0.9% 250 ML INJ 250 ML IV SCH (14:04)
[2016-10-15] MEDS ORDERED: FUROSEMIDE 20 MG/2 ML VIAL IV PUSH SCH (15:00)
[2016-10-15 16:54] LABS: BICARBONATE 29.3 MEQ/L (21.0-32.0)
--- NOTE | 2016-10-15 17:06 | HHI.HCPN ---
Reason for visit a. To assist with evaluation and management of symptoms including: pain, confusion b. To assist medical decision maker(s) with: better understanding of current medical conditions; weighing benefits/burdens of medical treatment options; making medical treatment decisions. . (Lynette Valle) Subjective/Interval History Patient seen and assessed in room 1417. Patient remains pleasantly confused, oriented to self only. Nonsensical speech. The [facility] examination was administered 10/15/16. Patient scored 0/30 on tested items which is indicative of severe dementia. Remains in soft restraints. Patient will need to be free of restraints for 24 hours before being discharged to SNF. Tolerating 3L oxygen via nasal cannula with saturations in the high 90s. Respirations unlabored, breath sounds diminished bilaterally. Follow-up chest x- ray on 10/14/16 showing probable CHF, worsening bilateral perihilar and basilar infiltrates with small effusions, similar to previous imaging. Afebrile. Leukocytosis resolved. WBC 9.6. Blood cultures and urine cultures remain negative to date. BNP 1847 yesterday, decreased to 1717 today. Cardiology continues to follow patient with suspected NSTEMI related to critical aortic stenosis. Dr. Edouard is quite familiar with this patient. Dr. Edouard previously discussed aggressive versus nonaggressive medical management with family. Given the patient's advanced age and dementia, the patient/family had decided not to pursue surgical intervention. Per Dr. Edouard, he will follow up with patient in clinic 2 weeks post discharge. Patient denies pain, showing no signs or symptoms of non-verbal pain such as grimacing, moaning or furrowed brow upon exam. Acetaminophen 1000 mg IV q6 hours ATC. . Family/friend interactions Spoke with patient's daughter via telephone. Goals remain aggressive and she is hopeful her mother will be discharged in the near future. . (Lynette Valle) Advance Directives Living Will: Never completed Health Care Surrogate: Never completed Durable Power of Construction Rep: Never completed (Lynette Valle) Advance Directive Specifics Health Care Surrogate(s): NA Documented care wishes: There are no documented care wishes available. . (Lynette Valle) Objective Vital Signs Date Time Temp Pulse Resp B/P Pulse Ox O2 Delivery O2 Flow Rate FiO2 10/15/16 08:59 98 Nasal Cannula 3.00 10/15/16 08:56 Nasal Cannula 3.00 21 10/15/16 04:00 97.8 61 18 114/82 97 10/15/16 00:29 98.3 53 18 120/59 96 10/14/16 20:36 97.9 73 18 125/59 95 10/14/16 20:26 62 10/14/16 20:15 Nasal Cannula 3.00 10/14/16 18:03 90 Nasal Cannula 3.00 Intake & Output 10/15/16 10/15/16 07:00 19:00 Intake Total 460 ml Output Total 2000 ml Balance -1540 ml Intake Oral 460 ml Output Urine Total 2000 ml # Bowel Movements 1 . Physical Exam CONSTITUTIONAL/GENERAL: This is a frail, elderly, pleasantly confused female patient, in no acute distress. TUBES/LINES/DRAINS: PIV 1. Tejeda catheter. Soft restraints. SKIN: Ecchymoses on upper and lower extremities. Skin temperature appropriate. Not diaphoretic. HEAD: Atraumatic. Normocephalic. ENT: Hearing grossly normal. Nose without bleeding or purulent drainage. NECK: Trachea midline. CARDIOVASCULAR: Regular rate and rhythm. + Systolic murmur. No JVD. Peripheral pulses symmetric. RESPIRATORY/CHEST: Symmetric, unlabored respirations. Breath sounds diminished. No accessory muscle use. GASTROINTESTINAL: Abdomen soft, non-tender, nondistended. Bowel sounds present. GENITOURINARY: Without palpable bladder distension. Tejeda catheter in place. NEUROLOGICAL: Awake, pleasantly confused. Nonsensical speech. Attempting to climb out of bed, soft restraints in place. PSYCHIATRIC: No obvious anxiety/depression. . (Lynette Valle) Diagnostic Tests Laboratory Laboratory Tests Test 10/13/16 10/13/16 10/13/16 10/14/16 05:30 10:43 14:31 07:20 B-Type Natriuretic Peptide 1791 PG/ML 1847 PG/ML (0-100) (0-100) White Blood Count 11.8 TH/MM3 12.1 TH/MM3 (4.0-11.0) (4.0-11.0) Red Blood Count 3.10 MIL/MM3 3.28 MIL/MM3 (4.00-5.30) (4.00-5.30) Hemoglobin 9.6 GM/DL 10.1 GM/DL (11.6-15.3) (11.6-15.3) Hematocrit 28.4 % 29.9 % (35.0-46.0) (35.0-46.0) Mean Corpuscular Volume 91.6 FL 91.4 FL (80.0-100.0) (80.0-100.0) Mean Corpuscular Hemoglobin 31.1 PG 30.7 PG (27.0-34.0) (27.0-34.0) Mean Corpuscular Hemoglobin 34.0 % 33.6 % Concent (32.0-36.0) (32.0-36.0) Red Cell Distribution Width 15.2 % 15.3 % (11.6-17.2) (11.6-17.2) Platelet Count 219 TH/MM3 238 TH/MM3 (150-450) (150-450) Mean Platelet Volume 9.2 FL 9.1 FL (7.0-11.0) (7.0-11.0) Neutrophils (%) (Auto) 85.2 % 77.8 % (16.0-70.0) (16.0-70.0) Lymphocytes (%) (Auto) 6.9 % 10.6 % (9.0-44.0) (9.0-44.0) Monocytes (%) (Auto) 7.1 % (0.0-8.0) 8.9 % (0.0-8.0) Eosinophils (%) (Auto) 0.3 % (0.0-4.0) 2.2 % (0.0-4.0) Basophils (%) (Auto) 0.5 % (0.0-2.0) 0.5 % (0.0-2.0) Neutrophils # (Auto) 10.0 TH/MM3 9.4 TH/MM3 (1.8-7.7) (1.8-7.7) Lymphocytes # (Auto) 0.8 TH/MM3 1.3 TH/MM3 (1.0-4.8) (1.0-4.8) Monocytes # (Auto) 0.8 TH/MM3 1.1 TH/MM3 (0-0.9) (0-0.9) Eosinophils # (Auto) 0.0 TH/MM3 0.3 TH/MM3 (0-0.4) (0-0.4) Basophils # (Auto) 0.1 TH/MM3 0.1 TH/MM3 (0-0.2) (0-0.2) CBC Comment DIFF FINAL DIFF FINAL Differential Comment Sodium Level 141 MEQ/L 142 MEQ/L (136-145) (136-145) Potassium Level 2.9 MEQ/L 3.2 MEQ/L 3.5 MEQ/L (3.5-5.1) (3.5-5.1) (3.5-5.1) Chloride Level 107 MEQ/L 107 MEQ/L (98-107) (98-107) Carbon Dioxide Level 24.3 MEQ/L 25.9 MEQ/L (21.0-32.0) (21.0-32.0) Anion Gap 10 MEQ/L (5-15) 9 MEQ/L (5-15) Blood Urea Nitrogen 28 MG/DL (7-18) 19 MG/DL (7-18) Creatinine 0.79 MG/DL 0.79 MG/DL (0.50-1.00) (0.50-1.00) Estimat Glomerular Filtration 71 ML/MIN (>89) 71 ML/MIN (>89) Rate Random Glucose 100 MG/DL 85 MG/DL (74-106) (74-106) Calcium Level 7.8 MG/DL 8.3 MG/DL (8.5-10.1) (8.5-10.1) Test 10/14/16 10/15/16 18:30 03:37 Urine Color YELLOW (YELLW/STRAW) Urine Turbidity CLEAR (CLEAR) Urine pH 6.0 (5.0-8.5) Urine Specific [place] 1.029 (1.002-1.035) Urine Protein TRACE mg/dL (NEG-TRACE) Urine Glucose (UA) NEG mg/dL (NEG) Urine Ketones 40 mg/dL (NEG) Urine Occult Blood TRACE (NEG) Urine Nitrite NEG (NEG) Urine Bilirubin NEG (NEG) Urine Urobilinogen LESS THAN 2.0 MG/DL (LESS THAN 2.0) Urine Leukocyte Esterase SMALL (NEG) Urine RBC 6 /hpf (0-3) Urine WBC 19 /hpf (0-5) Urine Squamous Epithelial <1 /hpf (0-5) Cells Urine Bacteria OCC /hpf (NONE) Microscopic Urinalysis Comment CATH-CULTURE IND White Blood Count 9.6 TH/MM3 (4.0-11.0) Red Blood Count 3.35 MIL/MM3 (4.00-5.30) Hemoglobin 10.4 GM/DL (11.6-15.3) Hematocrit 30.9 % (35.0-46.0) Mean Corpuscular Volume 92.4 FL (80.0-100.0) Mean Corpuscular Hemoglobin 31.1 PG (27.0-34.0) Mean Corpuscular Hemoglobin 33.6 % Concent (32.0-36.0) Red Cell Distribution Width 15.5 % (11.6-17.2) Platelet Count 264 TH/MM3 (150-450) Mean Platelet Volume 9.5 FL (7.0-11.0) Neutrophils (%) (Auto) 79.5 % (16.0-70.0) Lymphocytes (%) (Auto) 8.1 % (9.0-44.0) Monocytes (%) (Auto) 8.8 % (0.0-8.0) Eosinophils (%) (Auto) 3.3 % (0.0-4.0) Basophils (%) (Auto) 0.3 % (0.0-2.0) Neutrophils # (Auto) 7.7 TH/MM3 (1.8-7.7) Lymphocytes # (Auto) 0.8 TH/MM3 (1.0-4.8) Monocytes # (Auto) 0.8 TH/MM3 (0-0.9) Eosinophils # (Auto) 0.3 TH/MM3 (0-0.4) Basophils # (Auto) 0.0 TH/MM3 (0-0.2) CBC Comment DIFF FINAL Differential Comment Sodium Level 143 MEQ/L (136-145) Potassium Level 2.9 MEQ/L (3.5-5.1) Chloride Level 105 MEQ/L (98-107) Carbon Dioxide Level 26.6 MEQ/L (21.0-32.0) Anion Gap 11 MEQ/L (5-15) Blood Urea Nitrogen 18 MG/DL (7-18) Creatinine 0.88 MG/DL (0.50-1.00) Estimat Glomerular Filtration 63 ML/MIN (>89) Rate Random Glucose 72 MG/DL (74-106) Calcium Level 7.9 MG/DL (8.5-10.1) B-Type Natriuretic Peptide 1717 PG/ML (0-100) . (Lynette Valle) Result Diagram: 10/15/16 0337 10/15/16 033 Microbiology Microbiology Date/Time Procedure Status Source Growth 10/14/16 18:30 Urine Culture - Preliminary Resulted Urine Catheterized Urine NO GROWTH IN 24 HOURS. . Imaging Last 72 hours Impressions Chest X-Ray 10/14/16 0000 Signed Impressions: Service Date/Time: Friday, October 14, 2016 15:19 - CONCLUSION: Probable CHF unchanged compared to previous. Geovanni Meyer MD Chest X-Ray 10/13/16 1900 Signed Impressions: Service Date/Time: Thursday, October 13, 2016 19:52 - CONCLUSION: Worsening bilateral perihilar and basilar infiltrates with small effusions. Mariano Osorio MD . (Lynette Valle) Assessment and Plan Disease Oriented Problem List: (1) Vitamin D deficiency (2) Fall (3) DVT Prophylaxis (4) Fluids, Electrolytes, and Nutrition (5) Osteoporosis (6) MVP (mitral valve prolapse) (7) Cardiovascular risk factor (8) Dementia (9) Closed left hip fracture (10) Shortness of breath (11) Hypothyroid (12) Hypotension (13) Aortic stenosis (14) Cardiovascular disease Symptom Scale: (1) Pain 0-10 Scale: Unable to quantify Comment: Patient denies pain, showing no signs or symptoms of non-verbal pain such as grimacing, moaning or furrowed brow upon exam. Acetaminophen 1000 mg IV q6 hours ATC. . (2) Confusion Comment: [facility] score 0/30 - advanced dementia. Patient disoriented and confused. Nonsensical speech. Attempting to climb out of bed, in soft restraints. Patient will need to be restrained free 24 hours before being discharged to SNF. . Pertinent Non-Medical Issues Psychosocial: Patient is a . She has one daughter (John John) who lives locally. Spiritual: None known Legal: Per [place] statutes, in the absence of written advanced directives healthcare proxy decision-making falls to the patient's only daughter, Manju John. Ethical issues impacting care: No known ethical decision impacting care at this time. . Important Contacts Manju John, daughter: [phone] or [phone] . Prognosis Patient is a 75 year old female with advanced dementia and severe heart disease. She was admitted with a left hip fracture status post a fall and subsequently had a NSTEMI postoperatively. Requiring simple mask on 10L oxygen. Prognosis generally poor. . Code Status: Full Code Plan * FULL CODE * Decision-making: Per [place] statutes, in the absence of written and faxed directives healthcare proxy decision-making falls to the patient's only daughter , Manju John * Goals: Goals remain aggressive and she is hopeful her mother will be discharged in the near future. * 10/10/16: Discussed the process of cardiopulmonary resuscitation in detail with patient's daughter (compression, medications, cardioversion, intubation/ mechanical ventilation) status post NSTEMI and the risks for a subsequent cardiac event. Patient's daughter states she understands the risks of CPR (i.e. fractured ribs, ventilator dependency), but she still wants to do everything possible to "give her a chance". The patient's daughter states she is comfortable and prepared to make a decision to withdrawal life support down the road if necessary, because she knows her mother would not want be kept alive artificially. * Symptom managementconfusion: [facility] score 0/30 - advanced dementia. Patient disoriented and confused. Nonsensical speech. Attempting to climb out of bed, in soft restraints. Patient will need to be restrained free 24 hours before being discharged to SNF. * Cardiology continues to follow patient with suspected NSTEMI related to critical aortic stenosis. Dr. Edouard is quite familiar with this patient. Dr. Edouard previously discussed aggressive versus nonaggressive medical management with family. Given the patient's advanced age and dementia, the patient/family had decided not to pursue surgical intervention. Per Dr. Edouard, he will follow up with patient in clinic 2 weeks post discharge. * Symptom managementpain: Patient denies pain, showing no signs or symptoms of non-verbal pain such as grimacing, moaning or furrowed brow upon exam. Acetaminophen 1000 mg IV q6 hours ATC. * Palliative care will continue to follow this patient throughout her hospitalization to establish trust, assist with symptom management and clarification of medical treatment goals. . (Lynette Valle) Attestation To help prompt me to consider important information that might be impacting today's encounter and assessment, information from prior notes written by myself or my colleagues may have been "brought forward" into today's note. My signature on this note, however, is an attestation that I personally performed the exam, history, and/or decision-making noted today, and, unless otherwise indicated, the interactions with patient, family, and staff as well as the review of records all occurred today. I also attest that the listed assessment and stated plan reflect my best clinical judgment today based on the combination of historical information, prior notes, and today's exam/ interactions. When time spent is documented, it refers only to time spent today by the signer, or if indicated, combined time spent today by collaborating physician/nurse practitioner. . (Lynette Valle) Collaborating MD Comments Chart reviewed. Case discussed with palliative care ENGLISH TEACHER. Above ENGLISH TEACHER note reviewed and I concur. . (Graham Ortiz MD) Lynette Valle Oct 15, 2016 17:06 Graham Ortiz MD Nov 29, 2016 14:07
[2016-10-15 17:30] LABS: POTASSIUM 3.6 MEQ/L (3.5-5.1)
[2016-10-15] MEDS ORDERED: ONDANSETRON ODT 4 MG TAB PO PRN (18:00)
[2016-10-15] MEDS ORDERED: IBUPROFEN 400 MG TAB PO PRN (18:00)
[2016-10-15] MEDS: ACETAMINOPHEN 325 MG TAB PO SCH (18:55)
[2016-10-15] MEDS: FUROSEMIDE 20 MG TAB PO SCH (18:55)
--- NOTE | 2016-10-15 19:26 | HHI.FPPN ---
Subjective Remarks No acute events overnight. Afebrile, vital signs within normal limits and stable except for oxygen saturation 90 on 3 L nasal cannula. 2.3 L urine output overnight. Pleasant, no concerns. No chest pain, shortness of breath. (Dylan Vital MD R1) Objective Vitals Vital Signs Date Time Temp Pulse Resp B/P Pulse Ox O2 Delivery O2 Flow Rate FiO2 10/15/16 16:00 97.9 65 20 126/55 92 10/15/16 12:00 97.9 65 18 98/53 97 10/15/16 08:59 98 Nasal Cannula 3.00 10/15/16 08:56 Nasal Cannula 3.00 21 10/15/16 08:00 97.4 62 18 108/61 97 10/15/16 07:59 59 10/15/16 04:00 97.8 61 18 114/82 97 10/15/16 00:29 98.3 53 18 120/59 96 10/14/16 20:36 97.9 73 18 125/59 95 10/14/16 20:26 62 10/14/16 20:15 Nasal Cannula 3.00 I/O 10/14/16 10/14/16 10/14/16 10/15/16 10/15/16 10/15/16 07:00 15:00 23:00 07:00 15:00 23:00 Intake Total 0 ml 360 ml 360 ml 100 ml 240 ml Output Total 1300 ml 300 ml 1350 ml 650 ml Balance -1300 ml 60 ml -990 ml -550 ml 240 ml Intake Oral 0 ml 360 ml 360 ml 100 ml 240 ml Output Urine Total 1300 ml 300 ml 1350 ml 650 ml # Voids 4 # Bowel Movements 1 3 1 0 (Dylan Vital MD R1) Result Diagram: 10/15/16 0337 10/15/16 1549 Imaging Last Impressions Chest X-Ray 10/14/16 0000 Signed Impressions: Service Date/Time: Friday, October 14, 2016 15:19 - CONCLUSION: Probable CHF unchanged compared to previous. Geovanni Meyer MD Renal Ultrasound 10/12/16 0000 Signed Impressions: Service Date/Time: Tuesday, October 11, 2016 16:44 - CONCLUSION: 1. Small and mildly echogenic kidneys typical of chronic parenchymal disease. No obstructive uropathy or other acute abnormality demonstrated. 2. Small spleen and bilateral pleural effusions incidentally noted. Mariano Osorio MD Abdomen X-Ray 10/12/16 0000 Signed Impressions: Service Date/Time: Wednesday, October 12, 2016 07:19 - CONCLUSION: Abdominal aortic aneurysm is incompletely evaluated on this study. Nonobstructive bowel gas pattern. Ross Duke MD Hip X-Ray 10/08/16 0000 Signed Impressions: Service Date/Time: Saturday, October 08, 2016 08:00 - CONCLUSION: Appropriate postoperative appearance of the left intratrochanteric ORIF. Kumar Blevins MD Hip and Pelvis X-Ray 10/07/16 0000 Signed Impressions: Service Date/Time: Friday, October 07, 2016 11:12 - CONCLUSION: Osteoporosis. Intertrochanteric fracture left femur Arnold Geller MD Objective Remarks GENERAL: No acute distress SKIN: Warm and dry, no rashes appreciated. mild pallor. Surgical incision not inspected on this exam EYES: No scleral icterus, injection, or drainage. EOMI CARDIOVASCULAR: Tachycardic, regular rhythm; prominent systolic murmur. Normal peripheral perfusion in lower extremities. RESPIRATORY: Normal rate. decreased breath sounds. On 2L O2 via NC; sats in high 90's GASTROINTESTINAL: Abdomen soft, nondistended, nontender. Bowel sounds normal. MUSCULOSKELETAL: No lower extremity swelling. : Tejeda in place NEURO/PSYCH: Patient alert, awake, demented. Cranial nerves grossly normal. Grossly normal peripheral motor and sensory function. Medications and IVs Last Impressions Chest X-Ray 10/14/16 0000 Signed Impressions: Service Date/Time: Friday, October 14, 2016 15:19 - CONCLUSION: Probable CHF unchanged compared to previous. Geovanni Meyer MD Renal Ultrasound 10/12/16 0000 Signed Impressions: Service Date/Time: Tuesday, October 11, 2016 16:44 - CONCLUSION: 1. Small and mildly echogenic kidneys typical of chronic parenchymal disease. No obstructive uropathy or other acute abnormality demonstrated. 2. Small spleen and bilateral pleural effusions incidentally noted. Mariano Osorio MD Abdomen X-Ray 10/12/16 0000 Signed Impressions: Service Date/Time: Wednesday, October 12, 2016 07:19 - CONCLUSION: Abdominal aortic aneurysm is incompletely evaluated on this study. Nonobstructive bowel gas pattern. Ross Duke MD Hip X-Ray 10/08/16 0000 Signed Impressions: Service Date/Time: Saturday, October 08, 2016 08:00 - CONCLUSION: Appropriate postoperative appearance of the left intratrochanteric ORIF. Kumar Blevins MD Hip and Pelvis X-Ray 10/07/16 0000 Signed Impressions: Service Date/Time: Friday, October 07, 2016 11:12 - CONCLUSION: Osteoporosis. Intertrochanteric fracture left femur Arnold Geller MD (Dylan Vital MD R1) A/P Assessment and Plan Ms. Rahman is a 75 yo F with left hip fracture who suffered NSTEMI following surgery. Discharge Planning To rehabilitation once clinically improved and electrolyte disturbances resolved (Dylan Vital MD R1) Attending Attestation Patient seen and examined. Case reviewed and discussed Agree with plan of care as discussed with me and documented in the resident note. (Tianna Edouard MD) Problem List: (1) Cardiovascular disease Status: Acute Plan: Patient of Dr. Edouard. Troponin x1 3.18 10/09 drawn in response to SOB; subsequent elevations to ~20. Echo 10/09- LVH, EF 55-60%, severe aortic stenosis -Cardiology consulted: -Suspect NSTEMI due to critical aortic stenosis -Continue aspirin -Carvedilol 3.125mg BID -Watch fluid loading -Discussed with Dr. Edouard, no need for CT surg evaluation at this time, had previously discussed with family and they decided not to have surgery given dementia and high surgical risk in patient her age -Follow up with Dr. Edouard in clinic in 2 weeks (2) Closed left hip fracture Status: Acute Plan: Left intertrochanteric femur fracture; s/p repair Orthopedic surgery consulted, appreciate their recommendations -POD 7 operative repair: Reduction and pinning/fixation of left femur -PT consulted - rehab recommended -Neuro checks -Ice/cold packs, dressing changes, decubitis precautions per Ortho -Enoxaparin 30mg daily per Ortho for DVT ppx -Follow-up in 2 weeks -Acapella, incentive spirometry -Pain control -Scheduled Tylenol 650 mg PO Q6H -Ibuprofen PRN for additional pain (3) Leukocytosis Status: Resolved Plan: Elevated WBC persistently this admission 11 --> 14 --> 11 --> 12 --> 9.6 * Repeat CXR * Repeat UA * Levaquin 750 mg PO daily (4) Shortness of breath Status: Resolved Plan: Desaturations to 70's -80's morning of 10/09; improved to low 90's on Ventimask at 15L O2. Ativan received 10/09 at 0522; Morphine 3mg at 0007 10/09. Patient subsequently found to have Troponin elevation suggestive of NSTEMI. ABGs x2 10/09- pH ~7.4, CO2 ~35, O2 ~145 , HCO3 22 CXR 10/10- Bibasilar densities. Cardiomegaly with interstitial edema; more pronounced CXR 10/11- Pulmonary vascular congestion BNP 1425 --> 1847 --> 1717 -Stable following Lasix -Lasix 10 mg PO daily -Potassium 20 mEq PO daily -Continue Duonebs q4 hrs (5) Decreased urine output Status: Resolved Plan: Total urine output over the past 24 hours 2300 cc --Continue to monitor --D/C'd Nikhil 10/15/16 (6) Dementia Status: Chronic Plan: Patient with ~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 Progressive CT 06/2016 with chronic cortical atrophy, periventricular and deep white matter small vessel ischemic demyelination and possible old lacunar infarct in left corby -Hold home Ativan Hold home Restoril -We'll defer repeat head CT since reported no headache contact on recent fall and no focal neurologic deficit -Will consult PT and OT -PT- rehab recommended -OT (7) Osteoporosis Status: Chronic Plan: Vitamin D 5000 U daily per Ortho Impression: Patient with history of osteoporosis per patient's daughter. Vitamin D level 19.1 (8) Hypothyroid Status: Chronic Plan: -Continue home levothyroxine Impression: Patient with PMH hypothyroidism on home Levothyroxine 125 ug daily TSH elevated; T4 wnl (9) Constipation Status: Resolved Plan: 2 BMs on 10/13/16 -Continue Toshia-Colace -Give additional agents PRN (10) Fluids, Electrolytes, and Nutrition Status: Acute Plan: Fluids: Reduced due to pulmonary congestion; will stop and monitor Electrolytes: Monitor and replete as needed Nutrition: 1800 Jorge regular diet (11) DVT Prophylaxis Status: Acute Plan: -Lovenox 30 daily -Rivaroxaban at discharge by Ortho (Dylan Vital MD R1) Problem Qualifiers (1) Closed left hip fracture: Qualified Code: S72.002A - Closed left hip fracture, initial encounter Dylan Vital MD R1 Oct 15, 2016 19:26 Tianna Edouard MD Oct 16, 2016 16:37
[2016-10-16] VITALS (9 sets, daily range): BP systolic 92–145; BP diastolic 55–77; PULSE 63–94; RESP 18–20; TEMP 97.2–98.2; O2SAT 91–99
[2016-10-16] MEDS: ACETAMINOPHEN 325 MG TAB PO SCH ×4 (00:53→17:36)
[2016-10-16] MEDS: CHLORHEXIDINE GLUCONATE 2 % 1 PACK (2 CLOTHS) TOP SCH (04:00)
[2016-10-16] MEDS: LEVOTHYROXINE SODIUM 125 MCG TAB PO SCH (06:15)
[2016-10-16] MEDS: ENOXAPARIN SODIUM 30 MG/0.3 ML SYRINGE SQ SCH (06:16)
[2016-10-16] MEDS: FERROUS SULFATE 325 MG (65 MG ELEMENTAL IRON) TAB PO SCH ×3 (08:18→17:36)
[2016-10-16] MEDS: CALCIUM/VITAMIN D 250 MG/125 U TAB PO SCH ×3 (08:18→17:36)
[2016-10-16] MEDS: CHOLECALCIFEROL (VIT D3) 5000 UNIT CAP PO SCH (08:18)
[2016-10-16] MEDS: LEVOFLOXACIN 750 MG TAB PO SCH (08:18)
[2016-10-16] MEDS: SODIUM CHLORIDE 0.9% FLUSH 5 ML FLUSH IV FLUSH SCH ×2 (08:18→20:40)
[2016-10-16] MEDS: CARVEDILOL 3.125 MG TAB PO SCH ×2 (08:18→20:38)
[2016-10-16] MEDS: FAMOTIDINE 20 MG TAB PO SCH ×2 (08:18→20:38)
[2016-10-16] MEDS: POTASSIUM CHLORIDE 20 MEQ CONTROLLED RELEASE TAB PO SCH (08:18)
[2016-10-16] MEDS: DOCUSATE SODIUM 50 MG/SENNA 8.6 MG TAB PO SCH ×2 (08:18→20:38)
[2016-10-16] MEDS: POLYETHYLENE GLYCOL 17 GM PKG PO SCH (08:18)
[2016-10-16] MEDS: ASPIRIN EC 81 MG TABEC PO SCH (08:18)
[2016-10-16] MEDS: FUROSEMIDE 20 MG TAB PO SCH (08:18)
[2016-10-16 08:39] LABS: AUTOMATED NEUTROPHIL # 9.3 TH/MM3 (1.8-7.7); BASOPHIL # 0.1 TH/MM3 (0-0.2); BASOPHIL % 0.4 % (0.0-2.0); EOSINOPHIL # 0.2 TH/MM3 (0-0.4); EOSINOPHIL % 1.6 % (0.0-4.0); HEMATOCRIT 30.6 % (35.0-46.0); HEMO FLAGS DIFF FINAL; LYMPH % 8.4 % (9.0-44.0); MEAN CELL VOLUME 93.9 FL (80.0-100.0); MEAN CORPUSCULAR HEMOGLOBIN 31.2 PG (27.0-34.0); MEAN CORPUSCULAR HGB CONC 33.2 % (32.0-36.0); MONO % 9.3 % (0.0-8.0); NEUT % 80.3 % (16.0-70.0); PLATELET COUNT 297 TH/MM3 (150-450); RED BLOOD COUNT 3.26 MIL/MM3 (4.00-5.30); RED CELL DISTRIBUTION WIDTH 15.7 % (11.6-17.2); WHITE BLOOD COUNT 11.6 TH/MM3 (4.0-11.0)
[2016-10-16 08:57] LABS: POTASSIUM 4.1 MEQ/L (3.5-5.1)
[2016-10-16] MEDS ORDERED: FUROSEMIDE 20 MG TAB PO ONE (11:15)
--- NOTE | 2016-10-16 15:20 | HHI.FPPN ---
Subjective Remarks Yesterday lost IV access, meds transitioned to PO. Otherwise no acute events. Stable dementia. Doing well, not agitated. Vitals wnl and stable. Denies pain. (Dylan Vital MD R1) Objective Vitals Vital Signs Date Time Temp Pulse Resp B/P Pulse Ox O2 Delivery O2 Flow Rate FiO2 10/16/16 15:00 Nasal Cannula 3.00 10/16/16 15:00 Nasal Cannula 3.00 10/16/16 11:17 91 Nasal Cannula 3.00 10/16/16 11:00 Nasal Cannula 3.00 10/16/16 09:00 63 10/16/16 08:00 97.8 76 18 145/77 93 10/16/16 08:00 Nasal Cannula 3.00 10/16/16 04:00 97.9 64 18 124/64 93 10/16/16 00:00 97.7 85 20 111/60 99 10/15/16 23:15 Nasal Cannula 3.00 21 10/15/16 20:00 76 10/15/16 20:00 98.3 78 18 111/62 92 10/15/16 16:00 97.9 65 20 126/55 92 I/O 10/15/16 10/15/16 10/15/16 10/16/16 10/16/16 10/16/16 06:59 14:59 22:59 06:59 14:59 22:59 Intake Total 100 ml 240 ml 120 ml 0 ml 0 ml Output Total 650 ml Balance -550 ml 240 ml 120 ml 0 ml 0 ml Intake Oral 100 ml 240 ml 120 ml 0 ml IV Total 0 ml Output Urine Total 650 ml # Voids 4 2 2 # Bowel Movements 0 0 1 (Dylan Vital MD R1) Result Diagram: 10/16/16 0748 10/16/16 0748 Imaging Last Impressions Chest X-Ray 10/14/16 0000 Signed Impressions: Service Date/Time: Friday, October 14, 2016 15:19 - CONCLUSION: Probable CHF unchanged compared to previous. Geovanni Meyer MD Renal Ultrasound 10/12/16 0000 Signed Impressions: Service Date/Time: Tuesday, October 11, 2016 16:44 - CONCLUSION: 1. Small and mildly echogenic kidneys typical of chronic parenchymal disease. No obstructive uropathy or other acute abnormality demonstrated. 2. Small spleen and bilateral pleural effusions incidentally noted. Mariano Osorio MD Abdomen X-Ray 10/12/16 0000 Signed Impressions: Service Date/Time: Wednesday, October 12, 2016 07:19 - CONCLUSION: Abdominal aortic aneurysm is incompletely evaluated on this study. Nonobstructive bowel gas pattern. Ross Duke MD Hip X-Ray 10/08/16 0000 Signed Impressions: Service Date/Time: Saturday, October 08, 2016 08:00 - CONCLUSION: Appropriate postoperative appearance of the left intratrochanteric ORIF. Kumar Blevins MD Hip and Pelvis X-Ray 10/07/16 0000 Signed Impressions: Service Date/Time: Friday, October 07, 2016 11:12 - CONCLUSION: Osteoporosis. Intertrochanteric fracture left femur Arnold Geller MD Objective Remarks GENERAL: Thin elderly white female pleasantly demented in no acute distress. SKIN: Warm and dry, no rashes appreciated. mild pallor. Surgical incision not inspected on this exam EYES: No scleral icterus, injection, or drainage. EOMI CARDIOVASCULAR: Normal rate, regular rhythm; prominent systolic murmur. from known aortic stenosis. Normal peripheral perfusion in lower extremities. RESPIRATORY: Normal rate. On 3L O2 via NC; sats in high 90's. No crackles. GASTROINTESTINAL: Abdomen soft, nondistended, nontender. MUSCULOSKELETAL: No lower extremity swelling. Hip NEURO/PSYCH: Patient alert, awake, demented. Cranial nerves grossly normal. Grossly normal peripheral motor and sensory function. Medications and IVs Current Medications Medications (Trade) Dose Ordered Sig/Alma Route Start Time Stop Time Status Last Admin (Narcan Inj) 0.4 mg UNSCH PRN IV 10/07/16 16:00 (Ecotrin Ec) 81 mg DAILY PO 10/08/16 09:00 10/16/16 08:18 (Lexapro) 5 mg DAILY PO 10/08/16 09:00 Hold 10/09/16 08:43 (Ferrous Sulfate) 325 mg TID PO 10/07/16 18:00 10/16/16 13:51 (Lovenox Inj) 30 mg Q24H SQ 10/09/16 07:30 10/16/16 06:16 (Oscal-D 250-125) 250 mg TID PO 10/08/16 09:00 10/16/16 13:51 (Silex 5-325 Mg) 1 tab Q4H PRN PO 10/08/16 08:15 Hold (Vitamin D3) 5,000 units DAILY PO 10/08/16 09:00 10/16/16 08:18 (Synthroid) 125 mcg DAILY@0600 PO 10/09/16 06:00 10/16/16 06:15 (Toshia-Colace) 2 tab BID PO 10/09/16 21:00 10/16/16 08:18 (NS Flush) 2 ml UNSCH PRN IV FLUSH 10/09/16 13:15 (NS Flush) 2 ml BID IV FLUSH 10/09/16 21:00 10/16/16 08:18 (Dulcolax Supp) 10 mg DAILY PRN RECTAL 10/09/16 13:15 Miscellaneous Information 1 [id number] XX 10/09/16 13:15 (Chlorhexidine 2% Cloth) Taper DAILY@04 TOP 10/10/16 04:00 10/06/17 03:59 10/16/16 04:00 (Chlorhexidine 2% Cloth) 3 pack UNSCH PRN TOP 10/09/16 13:15 10/09/16 13:49 (Coreg) 3.125 mg Q12HR PO 10/11/16 09:00 10/16/16 08:18 Polyethylene Glycol 17 gm 17 gm DAILY PO 10/12/16 00:00 10/16/16 08:18 (NS 1000 ml Inj) 1,000 ml @ 42 mls/hr [id number] IV 10/12/16 16:00 Hold 10/12/16 16:00 (Pepcid) 10 mg Q12HR PO 10/15/16 21:00 10/16/16 08:18 (Pill Splitter) 1 ea UNSCH PRN OTHER 10/15/16 10:15 (KCl) 20 meq DAILY PO 10/16/16 09:00 10/16/16 08:18 (Levaquin) 750 mg DAILY PO 10/16/16 09:00 10/16/16 08:18 (Zofran Odt) 4 mg Q6H PRN PO 10/15/16 18:00 (Tylenol) 650 mg Q6HR PO 10/15/16 18:00 10/16/16 13:51 (Motrin) 400 mg Q6H PRN PO 10/15/16 18:00 (Lasix) 20 mg DAILY PO 10/17/16 09:00 (Dylan Vital MD R1) A/P Assessment and Plan Ms. Rahman is a 75 yo F with left hip fracture who suffered NSTEMI following surgery. Discharge Planning To rehabilitation once clinically improved and electrolyte disturbances resolved (Dylan Vital MD R1) Attending Attestation Patient seen and examined with the resident team. Case reviewed and discussed Agree with plan of care as discussed with me and documented in the resident note. (Tianna Edouard MD) Problem List: (1) Cardiovascular disease Status: Acute Plan: Patient of Dr. Edouard. Troponin x1 3.18 10/09 drawn in response to SOB; subsequent elevations to ~20. Echo 10/09- LVH, EF 55-60%, severe aortic stenosis -Cardiology consulted, appreciate their recommendations: -Suspect NSTEMI due to critical aortic stenosis -Continue aspirin -Carvedilol 3.125mg BID -Watch fluid loading -Discussed with Dr. Edouard, no need for CT surg evaluation at this time, had previously discussed with family and they decided not to have surgery given dementia and high surgical risk in patient her age -Follow up with Dr. Edouard in clinic in 2 weeks (2) Closed left hip fracture Status: Acute Plan: Left intertrochanteric femur fracture; s/p repair Orthopedic surgery consulted, appreciate their recommendations -POD 8 operative repair: Reduction and pinning/fixation of left femur -PT consulted - rehab recommended -Neuro checks -Ice/cold packs, dressing changes, decubitus precautions per Ortho -Enoxaparin 30mg daily per Ortho for DVT ppx -Follow-up in 2 weeks -Acapella, incentive spirometry -Pain control -Scheduled Tylenol 650 mg PO Q6H -Ibuprofen PRN for additional pain (3) Shortness of breath Status: Resolved Plan: Desaturations to 70's -80's morning of 10/09; improved to low 90's on Ventimask at 15L O2. Ativan received 10/09 at 0522; Morphine 3mg at 0007 10/09. Patient subsequently found to have Troponin elevation suggestive of NSTEMI. ABGs x2 10/09- pH ~7.4, CO2 ~35, O2 ~145 , HCO3 22 CXR 10/10- Bibasilar densities. Cardiomegaly with interstitial edema; more pronounced CXR 10/11- Pulmonary vascular congestion BNP 1425 --> 1847 --> 1717 --> 990 -Stable -Lasix 20 mg PO daily -Potassium 20 mEq PO daily -Continue Duonebs q4 hrs (4) Leukocytosis Status: Resolved Plan: Elevated WBC persistently this admission 11 --> 14 --> 11 --> 12 --> 9.6 --> 11.6 * Levaquin 750 mg PO daily * Diurese as above (5) Decreased urine output Status: Resolved Plan: Total urine output over the past 24 hours 2300 cc --Continue to monitor --D/C'd Nikhil 10/15/16 (6) Dementia Status: Chronic Plan: Patient with ~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 Progressive CT 06/2016 with chronic cortical atrophy, periventricular and deep white matter small vessel ischemic demyelination and possible old lacunar infarct in left corby -Hold home Ativan -Hold home Restoril -We'll defer repeat head CT since reported no headache contact on recent fall and no focal neurologic deficit -Will consult PT and OT -PT- rehab recommended -OT (7) Osteoporosis Status: Chronic Plan: Vitamin D 5000 U daily per Ortho Impression: Patient with history of osteoporosis per patient's daughter. Vitamin D level 19.1 (8) Hypothyroid Status: Chronic Plan: TSH elevated; T4 wnl -Continue home levothyroxine (9) Constipation Status: Resolved Plan: 2 BMs on 10/13/16 -Continue Toshia-Colace -Give additional agents PRN (10) Fluids, Electrolytes, and Nutrition Status: Acute Plan: Fluids: Reduced due to pulmonary congestion; will stop and monitor Electrolytes: Monitor and replete as needed Nutrition: 1800 Jorge regular diet (11) DVT Prophylaxis Status: Acute Plan: -Lovenox 30 daily -Rivaroxaban at discharge by Ortho (Dylan Vital MD R1) Problem Qualifiers (1) Closed left hip fracture: Qualified Code: S72.002A - Closed left hip fracture, initial encounter Dylan Vital MD R1 Oct 16, 2016 15:20 Tianna Edouard MD Oct 17, 2016 10:46
--- NOTE | 2016-10-16 16:38 | HHI.HCPN ---
Reason for visit a. To assist with evaluation and management of symptoms including: pain, confusion b. To assist medical decision maker(s) with: better understanding of current medical conditions; weighing benefits/burdens of medical treatment options; making medical treatment decisions. . (Lynette Valle) Subjective/Interval History Patient seen and assessed in room 1417. Sitting upright in recliner, smiling. Patient is more alert and interactive today but remains pleasantly confused. Nonsensical speech. The [facility] examination was administered 10/15/16. Patient scored 0/30 [facility], indicative of severe dementia. Patient denies pain, showing no signs or symptoms of non-verbal pain such as grimacing, moaning or furrowed brow upon exam. Acetaminophen 1000 mg IV q6 hours ATC. Tolerating 3L oxygen via nasal cannula with saturations in the high 90s. Respirations unlabored, breath sounds diminished bilaterally. Follow-up chest x- ray on 10/14/16 showing probable CHF, worsening bilateral perihilar and basilar infiltrates with small effusions, similar to previous imaging. Afebrile. WBC of 11.6. Blood cultures and urine cultures remain negative to date. Cardiology continues to follow patient with suspected NSTEMI related to critical aortic stenosis. Dr. Edouard is quite familiar with this patient. Dr. Edouard previously discussed aggressive versus nonaggressive medical management with family. Given the patient's advanced age and dementia, the patient/family had decided not to pursue surgical intervention. Per Dr. Edouard, he will follow up with patient in clinic 2 weeks post discharge. . Family/friend interactions Spoke to patient's daughter via telephone. Patient will likely be discharged back to [facility] in the upcoming days. We again discussed patient's CODE STATUS and reviewed the process of pulmonary resuscitation. The patient daughter verbalized understanding that given the patient's age, end stage dementia and significant heart disease it is unlikely cardiopulmonary resuscitation would be successful and would likely cause significant damage. However, the patient's daughter stated she wants her mother to remain a FULL CODE so she knows she gave her mother every chance. I encouraged her to discuss CODE STATUS recommendation further with Dr. Edouard at the next appointment. . (Lynette Valle) Advance Directives Living Will: Never completed Health Care Surrogate: Never completed Durable Power of Patient Partner: Never completed (Lynette Valle) Advance Directive Specifics Health Care Surrogate(s): NA Documented care wishes: There are no documented care wishes available. . (Lynette Valle) Objective Vital Signs Date Time Temp Pulse Resp B/P Pulse Ox O2 Delivery O2 Flow Rate FiO2 10/16/16 15:00 Nasal Cannula 3.00 10/16/16 15:00 Nasal Cannula 3.00 10/16/16 11:17 91 Nasal Cannula 3.00 10/16/16 11:00 Nasal Cannula 3.00 10/16/16 09:00 63 10/16/16 08:00 97.8 76 18 145/77 93 10/16/16 08:00 Nasal Cannula 3.00 10/16/16 04:00 97.9 64 18 124/64 93 10/16/16 00:00 97.7 85 20 111/60 99 10/15/16 23:15 Nasal Cannula 3.00 21 10/15/16 20:00 76 10/15/16 20:00 98.3 78 18 111/62 92 Intake & Output 10/16/16 10/16/16 07:00 19:00 Intake Total 120 ml 0 ml Balance 120 ml 0 ml Intake Oral 120 ml IV Total 0 ml # Voids 4 # Bowel Movements 1 . Physical Exam CONSTITUTIONAL/GENERAL: This is a frail, elderly, pleasantly confused female patient, in no acute distress. TUBES/LINES/DRAINS: Tejeda catheter. SKIN: Ecchymoses on upper and lower extremities. Skin temperature appropriate. Not diaphoretic. HEAD: Atraumatic. Normocephalic. ENT: Hearing grossly normal. Nose without bleeding or purulent drainage. NECK: Trachea midline. CARDIOVASCULAR: Regular rate and rhythm. + Systolic murmur. RESPIRATORY/CHEST: Symmetric, unlabored respirations. Breath sounds diminished. GASTROINTESTINAL: Abdomen soft, non-tender, nondistended. Bowel sounds present. GENITOURINARY: Without palpable bladder distension. Tejeda catheter in place. NEUROLOGICAL: Awake, pleasantly confused. Nonsensical speech. Attempting to climb out of recliner. PSYCHIATRIC: No obvious anxiety/depression. . (Lynette Valle) Diagnostic Tests Laboratory Laboratory Tests Test 10/14/16 10/14/16 10/15/16 10/15/16 07:20 18:30 03:37 15:49 White Blood Count 12.1 TH/MM3 9.6 TH/MM3 (4.0-11.0) (4.0-11.0) Red Blood Count 3.28 MIL/MM3 3.35 MIL/MM3 (4.00-5.30) (4.00-5.30) Hemoglobin 10.1 GM/DL 10.4 GM/DL (11.6-15.3) (11.6-15.3) Hematocrit 29.9 % 30.9 % (35.0-46.0) (35.0-46.0) Mean Corpuscular Volume 91.4 FL 92.4 FL (80.0-100.0) (80.0-100.0) Mean Corpuscular Hemoglobin 30.7 PG 31.1 PG (27.0-34.0) (27.0-34.0) Mean Corpuscular Hemoglobin 33.6 % 33.6 % Concent (32.0-36.0) (32.0-36.0) Red Cell Distribution Width 15.3 % 15.5 % (11.6-17.2) (11.6-17.2) Platelet Count 238 TH/MM3 264 TH/MM3 (150-450) (150-450) Mean Platelet Volume 9.1 FL 9.5 FL (7.0-11.0) (7.0-11.0) Neutrophils (%) (Auto) 77.8 % 79.5 % (16.0-70.0) (16.0-70.0) Lymphocytes (%) (Auto) 10.6 % 8.1 % (9.0-44.0) (9.0-44.0) Monocytes (%) (Auto) 8.9 % (0.0-8.0) 8.8 % (0.0-8.0) Eosinophils (%) (Auto) 2.2 % (0.0-4.0) 3.3 % (0.0-4.0) Basophils (%) (Auto) 0.5 % (0.0-2.0) 0.3 % (0.0-2.0) Neutrophils # (Auto) 9.4 TH/MM3 7.7 TH/MM3 (1.8-7.7) (1.8-7.7) Lymphocytes # (Auto) 1.3 TH/MM3 0.8 TH/MM3 (1.0-4.8) (1.0-4.8) Monocytes # (Auto) 1.1 TH/MM3 0.8 TH/MM3 (0-0.9) (0-0.9) Eosinophils # (Auto) 0.3 TH/MM3 0.3 TH/MM3 (0-0.4) (0-0.4) Basophils # (Auto) 0.1 TH/MM3 0.0 TH/MM3 (0-0.2) (0-0.2) CBC Comment DIFF FINAL DIFF FINAL Differential Comment Sodium Level 142 MEQ/L 143 MEQ/L 144 MEQ/L (136-145) (136-145) (136-145) Potassium Level 3.5 MEQ/L 2.9 MEQ/L 3.6 MEQ/L (3.5-5.1) (3.5-5.1) (3.5-5.1) Chloride Level 107 MEQ/L 105 MEQ/L 106 MEQ/L (98-107) (98-107) (98-107) Carbon Dioxide Level 25.9 MEQ/L 26.6 MEQ/L 29.3 MEQ/L (21.0-32.0) (21.0-32.0) (21.0-32.0) Anion Gap 9 MEQ/L (5-15) 11 MEQ/L (5-15) 9 MEQ/L (5-15) Blood Urea Nitrogen 19 MG/DL (7-18) 18 MG/DL (7-18) 24 MG/DL (7-18) Creatinine 0.79 MG/DL 0.88 MG/DL 0.95 MG/DL (0.50-1.00) (0.50-1.00) (0.50-1.00) Estimat Glomerular Filtration 71 ML/MIN (>89) 63 ML/MIN (>89) 58 ML/MIN (>89) Rate Random Glucose 85 MG/DL 72 MG/DL 85 MG/DL (74-106) (74-106) (74-106) Calcium Level 8.3 MG/DL 7.9 MG/DL 8.2 MG/DL (8.5-10.1) (8.5-10.1) (8.5-10.1) B-Type Natriuretic Peptide 1847 PG/ML 1717 PG/ML (0-100) (0-100) Urine Color YELLOW (YELLW/STRAW) Urine Turbidity CLEAR (CLEAR) Urine pH 6.0 (5.0-8.5) Urine Specific [place] 1.029 (1.002-1.035) Urine Protein TRACE mg/dL (NEG-TRACE) Urine Glucose (UA) NEG mg/dL (NEG) Urine Ketones 40 mg/dL (NEG) Urine Occult Blood TRACE (NEG) Urine Nitrite NEG (NEG) Urine Bilirubin NEG (NEG) Urine Urobilinogen LESS THAN 2.0 MG/DL (LESS THAN 2.0) Urine Leukocyte Esterase SMALL (NEG) Urine RBC 6 /hpf (0-3) Urine WBC 19 /hpf (0-5) Urine Squamous Epithelial <1 /hpf (0-5) Cells Urine Bacteria OCC /hpf (NONE) Microscopic Urinalysis Comment CATH-CULTURE IND Magnesium Level 1.7 MG/DL (1.5-2.5) Test 10/16/16 07:48 White Blood Count 11.6 TH/MM3 (4.0-11.0) Red Blood Count 3.26 MIL/MM3 (4.00-5.30) Hemoglobin 10.2 GM/DL (11.6-15.3) Hematocrit 30.6 % (35.0-46.0) Mean Corpuscular Volume 93.9 FL (80.0-100.0) Mean Corpuscular Hemoglobin 31.2 PG (27.0-34.0) Mean Corpuscular Hemoglobin 33.2 % Concent (32.0-36.0) Red Cell Distribution Width 15.7 % (11.6-17.2) Platelet Count 297 TH/MM3 (150-450) Mean Platelet Volume 9.3 FL (7.0-11.0) Neutrophils (%) (Auto) 80.3 % (16.0-70.0) Lymphocytes (%) (Auto) 8.4 % (9.0-44.0) Monocytes (%) (Auto) 9.3 % (0.0-8.0) Eosinophils (%) (Auto) 1.6 % (0.0-4.0) Basophils (%) (Auto) 0.4 % (0.0-2.0) Neutrophils # (Auto) 9.3 TH/MM3 (1.8-7.7) Lymphocytes # (Auto) 1.0 TH/MM3 (1.0-4.8) Monocytes # (Auto) 1.1 TH/MM3 (0-0.9) Eosinophils # (Auto) 0.2 TH/MM3 (0-0.4) Basophils # (Auto) 0.1 TH/MM3 (0-0.2) CBC Comment DIFF FINAL Differential Comment Sodium Level 142 MEQ/L (136-145) Potassium Level 4.1 MEQ/L (3.5-5.1) Chloride Level 109 MEQ/L (98-107) Carbon Dioxide Level 26.0 MEQ/L (21.0-32.0) Anion Gap 7 MEQ/L (5-15) Blood Urea Nitrogen 20 MG/DL (7-18) Creatinine 0.71 MG/DL (0.50-1.00) Estimat Glomerular Filtration 81 ML/MIN (>89) Rate Random Glucose 71 MG/DL (74-106) Calcium Level 8.1 MG/DL (8.5-10.1) B-Type Natriuretic Peptide 990 PG/ML (0-100) . . (Lynette Valle) Result Diagram: 10/16/16 0748 10/16/16 0748 Microbiology Microbiology Date/Time Procedure Status Source Growth 10/14/16 18:30 Urine Culture - Final Complete Urine Catheterized Urine NO GROWTH IN 48 HOURS. . Imaging Last 72 hours Impressions Chest X-Ray 10/14/16 0000 Signed Impressions: Service Date/Time: Friday, October 14, 2016 15:19 - CONCLUSION: Probable CHF unchanged compared to previous. Geovanni Meyer MD Chest X-Ray 10/13/16 1900 Signed Impressions: Service Date/Time: Thursday, October 13, 2016 19:52 - CONCLUSION: Worsening bilateral perihilar and basilar infiltrates with small effusions. Mariano Osorio MD . (Lynette Valle) Assessment and Plan Disease Oriented Problem List: (1) Vitamin D deficiency (2) Fall (3) DVT Prophylaxis (4) Fluids, Electrolytes, and Nutrition (5) Osteoporosis (6) MVP (mitral valve prolapse) (7) Cardiovascular risk factor (8) Dementia (9) Closed left hip fracture (10) Shortness of breath (11) Hypothyroid (12) Hypotension (13) Aortic stenosis (14) Cardiovascular disease Symptom Scale: (1) Pain 0-10 Scale: Unable to quantify Comment: Patient denies pain, showing no signs or symptoms of non-verbal pain such as grimacing, moaning or furrowed brow upon exam. Acetaminophen 1000 mg IV q6 hours ATC. . (2) Confusion Comment: [facility] score 0/30 - advanced dementia. Patient disoriented and confused. Nonsensical speech. Attempting to climb out of bed, in soft restraints. Patient will need to be restrained free 24 hours before being discharged to SNF. . Pertinent Non-Medical Issues Psychosocial: Patient is a . She has one daughter (John John) who lives locally. Spiritual: None known Legal: Per [place] statutes, in the absence of written advanced directives healthcare proxy decision-making falls to the patient's only daughter, Manju John. Ethical issues impacting care: No known ethical decision impacting care at this time. . Important Contacts Manju John, daughter: [phone] or [phone] . Prognosis Patient is a 75 year old female with advanced dementia and severe heart disease. She was admitted with a left hip fracture status post a fall and subsequently had a NSTEMI postoperatively. Requiring simple mask on 10L oxygen. Prognosis generally poor. . Code Status: Full Code Plan * FULL CODE * Decision-making: Per [place] statutes, in the absence of written and faxed directives healthcare proxy decision-making falls to the patient's only daughter , Manju John * Goals: Goals remain aggressive and she is hopeful her mother will be discharged in the near future. * Spoke to patient's daughter via telephone. Patient will likely be discharged back to [facility] in the upcoming days. We again discussed patient's CODE STATUS and reviewed the process of pulmonary resuscitation. The patient daughter verbalized understanding that given the patient's age, end stage dementia and significant heart disease it is unlikely cardiopulmonary resuscitation would be successful and would likely cause significant damage. However, the patient's daughter stated she wants her mother to remain a FULL CODE so she knows she gave her mother every chance. Encouraged daughter to discuss CODE STATUS with Dr. Edouard at next visit. * Symptom managementconfusion: [facility] score 0/30 - advanced dementia. Patient disoriented and confused. Nonsensical speech. Attempting to climb out of bed, in soft restraints. Patient will need to be restrained free 24 hours before being discharged to SNF. * Cardiology continues to follow patient with suspected NSTEMI related to critical aortic stenosis. Dr. Edouard is quite familiar with this patient. Dr. Edouard previously discussed aggressive versus nonaggressive medical management with family. Given the patient's advanced age and dementia, the patient/family had decided not to pursue surgical intervention. Per Dr. Edouard, he will follow up with patient in clinic 2 weeks post discharge. Encouraged daughter to discuss CODE STATUS with Dr. Edouard at next visit. * Symptom managementpain: Patient denies pain, showing no signs or symptoms of non-verbal pain such as grimacing, moaning or furrowed brow upon exam. Acetaminophen 1000 mg IV q6 hours ATC. * Palliative care will continue to follow this patient throughout her hospitalization to establish trust, assist with symptom management and clarification of medical treatment goals. . (Lynette Valle) Attestation To help prompt me to consider important information that might be impacting today's encounter and assessment, information from prior notes written by myself or my colleagues may have been "brought forward" into today's note. My signature on this note, however, is an attestation that I personally performed the exam, history, and/or decision-making noted today, and, unless otherwise indicated, the interactions with patient, family, and staff as well as the review of records all occurred today. I also attest that the listed assessment and stated plan reflect my best clinical judgment today based on the combination of historical information, prior notes, and today's exam/ interactions. When time spent is documented, it refers only to time spent today by the signer, or if indicated, combined time spent today by collaborating physician/nurse practitioner. . (Lynette Valle) Collaborating MD Comments Chart reviewed. Case discussed with palliative care CLINICAL ASSOCIATE. Above CLINICAL ASSOCIATE note reviewed and I concur. . (Graham Ortiz MD) Lynette Valle Oct 16, 2016 16:38 Graham Ortiz MD Nov 29, 2016 14:23
[2016-10-17] VITALS (7 sets, daily range): BP systolic 101–110; BP diastolic 50–72; PULSE 70–107; RESP 16–19; TEMP 97.3–98.5; O2SAT 93–99
[2016-10-17] MEDS: ACETAMINOPHEN 325 MG TAB PO SCH ×4 (00:12→18:08)
[2016-10-17] MEDS: CHLORHEXIDINE GLUCONATE 2 % 1 PACK (2 CLOTHS) TOP SCH (03:13)
[2016-10-17] MEDS: LEVOTHYROXINE SODIUM 125 MCG TAB PO SCH (04:45)
[2016-10-17] MEDS: ENOXAPARIN SODIUM 30 MG/0.3 ML SYRINGE SQ SCH (06:45)
--- NOTE | 2016-10-17 06:57 | PD.ORT.PN ---
Subjective Subjective Remarks pleasant and in no significant pain, dementia pulled sarah from distal incision yesterday. Objective Vitals Vital Signs Date Time Temp Pulse Resp B/P Pulse Ox O2 Delivery O2 Flow Rate FiO2 10/17/16 04:00 98.2 87 18 104/65 95 10/17/16 00:00 98.5 83 16 110/56 95 10/16/16 20:09 Nasal Cannula 3.00 10/16/16 20:07 92 10/16/16 20:00 98.2 94 18 127/66 92 10/16/16 16:00 97.3 82 20 102/61 91 10/16/16 15:00 Nasal Cannula 3.00 10/16/16 15:00 Nasal Cannula 3.00 10/16/16 12:00 97.2 86 20 92/55 91 10/16/16 11:17 91 Nasal Cannula 3.00 10/16/16 11:00 Nasal Cannula 3.00 10/16/16 09:00 63 10/16/16 08:00 97.8 76 18 145/77 93 10/16/16 08:00 Nasal Cannula 3.00 I/O 10/16/16 10/16/16 10/16/16 10/17/16 10/17/16 10/17/16 07:00 15:00 23:00 07:00 15:00 23:00 Intake Total 0 ml 480 ml 2 ml Balance 0 ml 480 ml 2 ml Intake Oral 0 ml 480 ml IV Total 0 ml 2 ml # Voids 2 4 # Bowel Movements 1 Result Diagram: 10/16/16 0748 10/16/16 0748 Imaging Last 24 hours Impressions Chest X-Ray 10/07/16 1114 Signed Impressions: Service Date/Time: Friday, October 07, 2016 11:19 - CONCLUSION: No significant interval change. Andry Calvert MD Objective Remarks Left lower extremity: Clean dry dressings intact. Steri-Strips over distal incision. No erythema or drainage on all 3 incisions. Distally neurovascularly intact is able to move all toes and a strong dorsiflexion plantar flexion of foot Assessment & Plan Assessment and Plan 1) Left intertrochanteric femur fracture POD 5 IM nail PT weightbearing as tolerated Daily dressing changes - Xeroform and Primapore Incentive spirometry Lovenox Case management for DC planning to rehabilitation Orthopedically cleared for discharge when medically safe follow-up with Dr. Marie or JOVANNY in 2 weeks TOM LANGFORD PA-C Oct 17, 2016 06:57
[2016-10-17 07:00] LABS: AUTOMATED NEUTROPHIL # 9.9 TH/MM3 (1.8-7.7); BASOPHIL % 0.3 % (0.0-2.0); EOSINOPHIL # 0.1 TH/MM3 (0-0.4); EOSINOPHIL % 0.7 % (0.0-4.0); HEMATOCRIT 32.8 % (35.0-46.0); HEMO FLAGS DIFF FINAL; LYMPH % 5.8 % (9.0-44.0); LYMPHOCYTE # 0.7 TH/MM3 (1.0-4.8); MEAN CELL VOLUME 93.2 FL (80.0-100.0); MEAN CORPUSCULAR HEMOGLOBIN 31.4 PG (27.0-34.0); MEAN CORPUSCULAR HGB CONC 33.6 % (32.0-36.0); MONO % 8.7 % (0.0-8.0); NEUT % 84.5 % (16.0-70.0); PLATELET COUNT 318 TH/MM3 (150-450); RED BLOOD COUNT 3.52 MIL/MM3 (4.00-5.30); WHITE BLOOD COUNT 11.7 TH/MM3 (4.0-11.0)
[2016-10-17 07:14] LABS: BICARBONATE 26.5 MEQ/L (21.0-32.0); POTASSIUM 3.5 MEQ/L (3.5-5.1)
[2016-10-17] MEDS ORDERED: FUROSEMIDE 20 MG TAB PO SCH (09:00)
[2016-10-17] MEDS: CHOLECALCIFEROL (VIT D3) 5000 UNIT CAP PO SCH (10:18)
[2016-10-17] MEDS: FAMOTIDINE 20 MG TAB PO SCH ×2 (10:18→22:01)
[2016-10-17] MEDS: CALCIUM/VITAMIN D 250 MG/125 U TAB PO SCH ×3 (10:19→18:08)
[2016-10-17] MEDS: POLYETHYLENE GLYCOL 17 GM PKG PO SCH (10:19)
[2016-10-17] MEDS: SODIUM CHLORIDE 0.9% FLUSH 5 ML FLUSH IV FLUSH SCH ×2 (10:19→21:00)
[2016-10-17] MEDS: CARVEDILOL 3.125 MG TAB PO SCH ×2 (10:19→22:07)
[2016-10-17] MEDS: DOCUSATE SODIUM 50 MG/SENNA 8.6 MG TAB PO SCH ×2 (10:19→22:02)
[2016-10-17] MEDS: LEVOFLOXACIN 750 MG TAB PO SCH (10:19)
[2016-10-17] MEDS: ASPIRIN EC 81 MG TABEC PO SCH (10:19)
[2016-10-17] MEDS: POTASSIUM CHLORIDE 20 MEQ CONTROLLED RELEASE TAB PO SCH (10:19)
[2016-10-17] MEDS: FERROUS SULFATE 325 MG (65 MG ELEMENTAL IRON) TAB PO SCH ×3 (10:19→18:08)
--- NOTE | 2016-10-17 16:05 | HHI.FPPN ---
Subjective Remarks No acute events overnight. AFVSS. Feeling well, very pleasant. Demented at baseline. Denies CP/SOB. Objective Vitals Vital Signs Date Time Temp Pulse Resp B/P Pulse Ox O2 Delivery O2 Flow Rate FiO2 10/17/16 12:34 97.9 97 18 102/72 95 10/17/16 10:28 Room Air 10/17/16 10:28 91 10/17/16 08:08 97.7 87 19 107/70 95 10/17/16 04:00 98.2 87 18 104/65 95 10/17/16 00:00 98.5 83 16 110/56 95 10/16/16 20:09 Nasal Cannula 3.00 10/16/16 20:07 92 10/16/16 20:00 98.2 94 18 127/66 92 10/16/16 16:00 97.3 82 20 102/61 91 I/O 10/16/16 10/16/16 10/16/16 10/17/16 10/17/16 10/17/16 07:00 15:00 23:00 07:00 15:00 23:00 Intake Total 0 ml 480 ml 2 ml Balance 0 ml 480 ml 2 ml Intake Oral 0 ml 480 ml IV Total 0 ml 2 ml # Voids 2 4 # Bowel Movements 1 Result Diagram: 10/17/16 0552 10/17/16 0552 Imaging Last Impressions Chest X-Ray 10/14/16 0000 Signed Impressions: Service Date/Time: Friday, October 14, 2016 15:19 - CONCLUSION: Probable CHF unchanged compared to previous. Geovanni Meyer MD Renal Ultrasound 10/12/16 0000 Signed Impressions: Service Date/Time: Tuesday, October 11, 2016 16:44 - CONCLUSION: 1. Small and mildly echogenic kidneys typical of chronic parenchymal disease. No obstructive uropathy or other acute abnormality demonstrated. 2. Small spleen and bilateral pleural effusions incidentally noted. Mariano Osorio MD Abdomen X-Ray 10/12/16 0000 Signed Impressions: Service Date/Time: Wednesday, October 12, 2016 07:19 - CONCLUSION: Abdominal aortic aneurysm is incompletely evaluated on this study. Nonobstructive bowel gas pattern. Ross Duke MD Hip X-Ray 10/08/16 0000 Signed Impressions: Service Date/Time: Saturday, October 08, 2016 08:00 - CONCLUSION: Appropriate postoperative appearance of the left intratrochanteric ORIF. Kumar Blevins MD Hip and Pelvis X-Ray 10/07/16 0000 Signed Impressions: Service Date/Time: Friday, October 07, 2016 11:12 - CONCLUSION: Osteoporosis. Intertrochanteric fracture left femur Arnold Geller MD Objective Remarks GENERAL: Thin elderly white female pleasantly demented in no acute distress. SKIN: Warm and dry, no rashes appreciated. mild pallor. Surgical incisions with steri-strips and sarah in place, appearing c/d/i. EYES: No scleral icterus, injection, or drainage. EOMI CARDIOVASCULAR: Normal rate, regular rhythm; prominent systolic murmur. from known aortic stenosis. Normal peripheral perfusion in lower extremities. RESPIRATORY: Normal rate. Poor inspiratory effort. On 3L O2 via NC; sats in high 90's. Mild crackles. GASTROINTESTINAL: Abdomen soft, nondistended, nontender. MUSCULOSKELETAL: No lower extremity swelling. NEURO/PSYCH: Patient alert, awake, demented. Cranial nerves grossly normal. Grossly normal peripheral motor and sensory function. Medications and IVs Current Medications Medications (Trade) Dose Ordered Sig/[place] Route Start Time Stop Time Status Last Admin (Narcan Inj) 0.4 mg UNSCH PRN IV 10/07/16 16:00 (Ecotrin Ec) 81 mg DAILY PO 10/08/16 09:00 10/17/16 10:19 (Lexapro) 5 mg DAILY PO 10/08/16 09:00 Hold 10/09/16 08:43 (Ferrous Sulfate) 325 mg TID PO 10/07/16 18:00 10/17/16 13:16 (Lovenox Inj) 30 mg Q24H SQ 10/09/16 07:30 10/17/16 06:45 (Oscal-D 250-125) 250 mg TID PO 10/08/16 09:00 10/17/16 13:16 ([place] 5-325 Mg) 1 tab Q4H PRN PO 10/08/16 08:15 Hold (Vitamin D3) 5,000 units DAILY PO 10/08/16 09:00 10/17/16 10:18 (Synthroid) 125 mcg DAILY@0600 PO 10/09/16 06:00 10/17/16 04:45 (Toshia-Colace) 2 tab BID PO 10/09/16 21:00 10/17/16 10:19 (NS Flush) 2 ml UNSCH PRN IV FLUSH 10/09/16 13:15 (NS Flush) 2 ml BID IV FLUSH 10/09/16 21:00 10/16/16 08:18 (Dulcolax Supp) 10 mg DAILY PRN RECTAL 10/09/16 13:15 Miscellaneous Information 1 Q361D XX 10/09/16 13:15 (Chlorhexidine 2% Cloth) Taper DAILY@04 TOP 10/10/16 04:00 10/06/17 03:59 10/17/16 03:13 (Chlorhexidine 2% Cloth) 3 pack UNSCH PRN TOP 10/09/16 13:15 10/09/16 13:49 (Coreg) 3.125 mg Q12HR PO 10/11/16 09:00 10/17/16 10:19 Polyethylene Glycol 17 gm 17 gm DAILY PO 10/12/16 00:00 10/17/16 10:19 (NS 1000 ml Inj) 1,000 ml @ 42 mls/hr [id number] IV 10/12/16 16:00 Hold 10/12/16 16:00 (Pepcid) 10 mg Q12HR PO 10/15/16 21:00 10/17/16 10:18 (Pill Splitter) 1 ea UNSCH PRN OTHER 10/15/16 10:15 (KCl) 20 meq DAILY PO 10/16/16 09:00 10/17/16 10:19 (Levaquin) 750 mg DAILY PO 10/16/16 09:00 10/17/16 10:19 (Zofran Odt) 4 mg Q6H PRN PO 10/15/16 18:00 (Tylenol) 650 mg Q6HR PO 10/15/16 18:00 10/17/16 13:16 (Motrin) 400 mg Q6H PRN PO 10/15/16 18:00 (Lasix) 20 mg BID PO 10/17/16 21:00 A/P Assessment and Plan Ms. Rahman is a 75 yo F with left hip fracture who suffered NSTEMI following surgery. Discharge Planning To rehabilitation once clinically improved and BNP/CXR no longer suggestive of CHF Problem List: (1) Cardiovascular disease Status: Acute Plan: Patient of Dr. Edouard. Troponin x1 3.18 10/09 drawn in response to SOB; subsequent elevations to ~20. Echo 10/09- LVH, EF 55-60%, severe aortic stenosis -Cardiology consulted, appreciate their recommendations: -Suspect NSTEMI due to critical aortic stenosis -Continue aspirin -Carvedilol 3.125mg BID -Watch fluid loading -Discussed with Dr. Edouard, no need for CT surg evaluation at this time, had previously discussed with family and they decided not to have surgery given dementia and high surgical risk in patient her age -Follow up with Dr. Edouard in clinic in 2 weeks (2) Closed left hip fracture Status: Acute Plan: Left intertrochanteric femur fracture; s/p repair Orthopedic surgery consulted, appreciate their recommendations -POD 8 operative repair: Reduction and pinning/fixation of left femur -PT consulted - rehab recommended -Neuro checks -Ice/cold packs, dressing changes, decubitus precautions per Ortho -Enoxaparin 30mg daily per Ortho for DVT ppx -Follow-up in 2 weeks -Acapella, incentive spirometry -Pain control -Scheduled Tylenol 650 mg PO Q6H -Ibuprofen PRN for additional pain (3) Shortness of breath Status: Resolved Plan: Desaturations to 70's -80's morning of 10/09; improved to low 90's on Ventimask at 15L O2. Ativan received 10/09 at 0522; Morphine 3mg at 0007 10/09. Patient subsequently found to have Troponin elevation suggestive of NSTEMI. ABGs x2 10/09- pH ~7.4, CO2 ~35, O2 ~145 , HCO3 22 CXR 10/10- Bibasilar densities. Cardiomegaly with interstitial edema; more pronounced CXR 10/11- Pulmonary vascular congestion BNP 1425 --> 1847 --> 1717 --> 990 --> 1593 -Stable clinically -Increase Lasix to 20 mg PO BID given continued elevation of BNP -CXR PA & Lateral to evaluate pulmonary edema -Incentive spirometry Q4Hr while awake -Potassium 20 mEq PO daily -Continue Duonebs q4 hrs (4) Leukocytosis Status: Resolved Plan: Elevated WBC persistently this admission 11 --> 14 --> 11 --> 12 --> 9.6 --> 11.6 --> 11.7 * Levaquin 750 mg PO daily * Diurese as above (5) Decreased urine output Status: Resolved Plan: Total urine output over the past 24 hours 2300 cc --Continue to monitor --D/C'd Nikhil 10/15/16 (6) Dementia Status: Chronic Plan: Patient with ~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 Progressive CT 06/2016 with chronic cortical atrophy, periventricular and deep white matter small vessel ischemic demyelination and possible old lacunar infarct in left corby -Hold home Ativan -Hold home Restoril -We'll defer repeat head CT since reported no headache contact on recent fall and no focal neurologic deficit -PT- rehab recommended (7) Osteoporosis Status: Chronic Plan: Vitamin D 5000 U daily per Ortho Impression: Patient with history of osteoporosis per patient's daughter. Vitamin D level 19.1 (8) Hypothyroid Status: Chronic Plan: TSH elevated; T4 wnl -Continue home levothyroxine (9) Constipation Status: Resolved Plan: 2 BMs on 10/13/16 -Continue Toshia-Colace -Give additional agents PRN (10) Fluids, Electrolytes, and Nutrition Status: Acute Plan: Fluids: Reduced due to pulmonary congestion; will stop and monitor Electrolytes: Monitor and replete as needed Nutrition: 1800 Jorge regular diet (11) DVT Prophylaxis Status: Acute Plan: -Lovenox 30 daily -Rivaroxaban at discharge by Ortho Problem Qualifiers (1) Closed left hip fracture: Qualified Code: S72.002A - Closed left hip fracture, initial encounter Dylan Vital MD R1 Oct 17, 2016 4:05 pm
--- NOTE | 2016-10-17 18:14 | RADRPT ---
EXAM DATE/TIME: 10/17/2016 17:34 [place] COMPARISON: CHEST SINGLE AP, October 14, 2016, 15:19. INDICATIONS : Shortness of breath MEDICAL HISTORY : Hypertension. Gastroesophageal reflux disease. Hypercholesterolemia. Dementia, Cardiovascular disease , CAD, GI disorder SURGICAL HISTORY : Cholecystectomy. Hysterectomy ENCOUNTER: Subsequent ACUITY: 1 week PAIN SCORE: Non-responsive. LOCATION: Bilateral chest FINDINGS: There is persistent flattening of the diaphragmatic contours and blunting of the costophrenic angles likely indicative of small effusions. There is mild streaky basilar parenchymal opacity may be some a telectasis or scarring. Heart size and pulmonary vascularity appear unchanged. Severe accentuation of thoracic kyphosis compression fractures and degenerative changes. CONCLUSION: Minimal basilar parenchymal opacity and possible small effusions. Mariano He MD on October 17, 2016 at 18:11 Board Certified Radiologist. This report was verified electronically.
[2016-10-17] MEDS: FUROSEMIDE 20 MG TAB PO SCH (22:01)
[2016-10-18] VITALS (8 sets, daily range): BP systolic 84–104; BP diastolic 42–65; PULSE 66–90; RESP 16–20; TEMP 95.5–98.2; O2SAT 94–99
[2016-10-18] MEDS: ACETAMINOPHEN 325 MG TAB PO SCH ×5 (01:43→23:30)
[2016-10-18] MEDS: CHLORHEXIDINE GLUCONATE 2 % 1 PACK (2 CLOTHS) TOP SCH (04:00)
[2016-10-18 05:46] LABS: BICARBONATE 29.7 MEQ/L (21.0-32.0); POTASSIUM 3.5 MEQ/L (3.5-5.1)
[2016-10-18] MEDS: LEVOTHYROXINE SODIUM 125 MCG TAB PO SCH (06:32)
[2016-10-18] MEDS: FERROUS SULFATE 325 MG (65 MG ELEMENTAL IRON) TAB PO SCH ×3 (08:53→17:54)
[2016-10-18] MEDS: FUROSEMIDE 20 MG TAB PO SCH ×2 (08:53→21:14)
[2016-10-18] MEDS: FAMOTIDINE 20 MG TAB PO SCH ×2 (08:53→21:14)
[2016-10-18] MEDS: POTASSIUM CHLORIDE 20 MEQ CONTROLLED RELEASE TAB PO SCH (08:53)
[2016-10-18] MEDS: DOCUSATE SODIUM 50 MG/SENNA 8.6 MG TAB PO SCH ×2 (08:53→21:00)
[2016-10-18] MEDS: CALCIUM/VITAMIN D 250 MG/125 U TAB PO SCH ×3 (08:53→17:54)
[2016-10-18] MEDS: ENOXAPARIN SODIUM 30 MG/0.3 ML SYRINGE SQ SCH (08:53)
[2016-10-18] MEDS: POLYETHYLENE GLYCOL 17 GM PKG PO SCH (08:54)
[2016-10-18] MEDS: ASPIRIN EC 81 MG TABEC PO SCH (08:54)
[2016-10-18] MEDS: SODIUM CHLORIDE 0.9% FLUSH 5 ML FLUSH IV FLUSH SCH ×2 (08:54→21:00)
[2016-10-18] MEDS: LEVOFLOXACIN 750 MG TAB PO SCH (08:54)
[2016-10-18] MEDS: CARVEDILOL 3.125 MG TAB PO SCH ×2 (08:54→21:14)
[2016-10-18] MEDS: CHOLECALCIFEROL (VIT D3) 5000 UNIT CAP PO SCH (08:54)
[2016-10-18 10:05] LABS: AUTOMATED NEUTROPHIL # 8.8 TH/MM3 (1.8-7.7); BASOPHIL % 0.5 % (0.0-2.0); EOSINOPHIL # 0.1 TH/MM3 (0-0.4); HEMATOCRIT 34.8 % (35.0-46.0); HEMO FLAGS DIFF FINAL; LYMPH % 6.1 % (9.0-44.0); LYMPHOCYTE # 0.6 TH/MM3 (1.0-4.8); MEAN CELL VOLUME 93.5 FL (80.0-100.0); MEAN CORPUSCULAR HEMOGLOBIN 31.3 PG (27.0-34.0); MEAN CORPUSCULAR HGB CONC 33.5 % (32.0-36.0); MONO % 9.1 % (0.0-8.0); NEUT % 83.3 % (16.0-70.0); PLATELET COUNT 358 TH/MM3 (150-450); RED BLOOD COUNT 3.73 MIL/MM3 (4.00-5.30); WHITE BLOOD COUNT 10.5 TH/MM3 (4.0-11.0)
--- NOTE | 2016-10-18 13:44 | HHI.FPPN ---
Subjective Remarks Ms. Rahman was afebrile with stable vital signs overnight. Per EMR appears to have stable quantity of oral intake (360- 840ml) over the past several days. Patient voiding and stooling normally per EMR. Patient demented but at baseline. (Jason Quintanilla MD R2) Objective Vitals Vital Signs Date Time Temp Pulse Resp B/P Pulse Ox O2 Delivery O2 Flow Rate FiO2 10/18/16 10:50 Nasal Cannula 2.00 10/18/16 08:00 96.0 72 17 101/58 99 10/18/16 07:28 Nasal Cannula 3.00 10/18/16 04:30 97.7 71 16 100/54 95 10/18/16 00:00 98.2 78 20 104/65 96 10/17/16 22:23 3.00 10/17/16 20:20 97.9 70 16 101/50 99 10/17/16 16:06 97.3 91 18 108/67 96 I/O 10/17/16 10/17/16 10/17/16 10/18/16 10/18/16 10/18/16 07:00 15:00 23:00 07:00 15:00 23:00 Intake Total 480 ml 240 ml 120 ml Balance 480 ml 240 ml 120 ml Intake Oral 480 ml 240 ml 120 ml # Voids 3 2 3 # Bowel Movements 2 (Jason Quintanilla MD R2) Result Diagram: 10/18/16 0937 10/18/16 0448 Imaging Last Impressions Chest X-Ray 10/17/16 0000 Signed Impressions: Service Date/Time: Monday, October 17, 2016 17:34 - CONCLUSION: Minimal basilar parenchymal opacity and possible small effusions. Mariano He MD Renal Ultrasound 10/12/16 0000 Signed Impressions: Service Date/Time: Tuesday, October 11, 2016 16:44 - CONCLUSION: 1. Small and mildly echogenic kidneys typical of chronic parenchymal disease. No obstructive uropathy or other acute abnormality demonstrated. 2. Small spleen and bilateral pleural effusions incidentally noted. Mariano Osorio MD Abdomen X-Ray 10/12/16 0000 Signed Impressions: Service Date/Time: Wednesday, October 12, 2016 07:19 - CONCLUSION: Abdominal aortic aneurysm is incompletely evaluated on this study. Nonobstructive bowel gas pattern. Ross Duke MD Hip X-Ray 10/08/16 0000 Signed Impressions: Service Date/Time: Saturday, October 08, 2016 08:00 - CONCLUSION: Appropriate postoperative appearance of the left intratrochanteric ORIF. Kumar Blevins MD Hip and Pelvis X-Ray 10/07/16 0000 Signed Impressions: Service Date/Time: Friday, October 07, 2016 11:12 - CONCLUSION: Osteoporosis. Intertrochanteric fracture left femur Arnold Geller MD Objective Remarks GENERAL: Thin elderly white female pleasantly demented in no acute distress. SKIN: Warm and dry, no rashes appreciated. mild pallor. Surgical incision open; covered but steri strips removed, appearing c/d/i. EYES: No scleral icterus, injection, or drainage. EOMI CARDIOVASCULAR: Normal rate, regular rhythm; prominent systolic murmur from known aortic stenosis. Normal peripheral perfusion in lower extremities. RESPIRATORY: Normal rate. Poor inspiratory effort. Mild crackles. O2 via NC not being worn by patient; saturation of 96-97% GASTROINTESTINAL: Abdomen soft, nondistended, nontender. MUSCULOSKELETAL: No lower extremity swelling. NEURO/PSYCH: Patient alert, awake, demented. Cranial nerves grossly normal. Grossly normal peripheral motor and sensory function. (Jason Quintanilla MD R2) A/P Assessment and Plan Ms. Rahman is a 75 yo F with left hip fracture who suffered NSTEMI following surgery. Discharge Planning To rehabilitation once clinically improved and BNP/CXR no longer suggestive of CHF (Jason Quintanilla MD R2) Attending Attestation Patient seen and examined with Dr. Quintanilla. Case reviewed and discussed Agree with plan of care as discussed with me and documented in the resident note (Tianna Edouard MD) Problem List: (1) Cardiovascular disease Status: Acute Plan: Patient of Dr. Edouard. Troponin x1 3.18 10/09 drawn in response to SOB; subsequent elevations to ~20. Echo 10/09- LVH, EF 55-60%, severe aortic stenosis -Cardiology consulted, appreciate their recommendations: -Suspect NSTEMI due to critical aortic stenosis -Continue aspirin -Carvedilol 3.125mg BID -Watch fluid loading -Discussed with Cardiology, no need for CT surg evaluation at this time, had previously discussed with family and they decided not to have surgery given dementia and high surgical risk in patient her age -Follow up with Dr. Edouard in clinic in 2 weeks (2) Dementia Status: Chronic Plan: Patient with ~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 Progressive CT 06/2016 with chronic cortical atrophy, periventricular and deep white matter small vessel ischemic demyelination and possible old lacunar infarct in left corby -Hold home Ativan -Hold home Restoril -We'll defer repeat head CT since reported no headache contact on recent fall and no focal neurologic deficit -PT- rehab recommended (3) Closed left hip fracture Status: Resolved Plan: Impression: Left intertrochanteric femur fracture; s/p repair. Patient presumably removed sarah with her hand Orthopedic surgery consulted, appreciate their recommendations -POD 10 operative repair: Reduction and pinning/fixation of left femur -PT consulted - rehab recommended -Neuro checks -Ice/cold packs, dressing changes, decubitus precautions per Ortho -Enoxaparin 30mg daily per Ortho for DVT ppx -Follow-up in 2 weeks -Discussed with Ortho; continue Steri-Strips at this time -Acapella, incentive spirometry -Pain control -Scheduled Tylenol 650 mg PO Q6H -Ibuprofen PRN for additional pain (4) Shortness of breath Status: Resolved Plan: Desaturations to 70's -80's morning of 10/09; improved to low 90's on Ventimask at 15L O2. Ativan received 10/09 at 0522; Morphine 3mg at 0007 10/09. Patient subsequently found to have Troponin elevation suggestive of NSTEMI. ABGs x2 10/09- pH ~7.4, CO2 ~35, O2 ~145 , HCO3 22 CXR 10/10- Bibasilar densities. Cardiomegaly with interstitial edema; more pronounced CXR 10/11- Pulmonary vascular congestion BNP 1425 --> 1847 --> 1717 --> 990 --> 1593 -Stable clinically -Increase Lasix to 20 mg PO BID given continued elevation of BNP -CXR PA & Lateral to evaluate pulmonary edema -Incentive spirometry Q4Hr while awake -Potassium 20 mEq PO daily -Continue Duonebs q4 hrs (5) Leukocytosis Status: Resolved Plan: Impression: Intermittently elevated WBC persistently this admission 11 --> 14 --> 11 --> 12 --> 9.6 --> 11.6 --> 11.7-> 10.5 (10/18) * Levaquin 750 mg PO daily * Diurese as above (6) Decreased urine output Status: Resolved Plan: Total urine output over the past 24 hours 2300 cc --Continue to monitor --D/C'd Nikhil 10/15/16 (7) Osteoporosis Status: Chronic Plan: Vitamin D 5000 U daily per Ortho Impression: Patient with history of osteoporosis per patient's daughter. Vitamin D level 19.1 (8) Hypothyroid Status: Chronic Plan: TSH elevated; T4 wnl -Continue home levothyroxine (9) Constipation Status: Resolved Plan: 2 BMs on 10/13/16 -Continue Toshia-Colace -Give additional agents PRN (10) Fluids, Electrolytes, and Nutrition Status: Acute Plan: Fluids: Reduced due to pulmonary congestion; will stop and monitor Electrolytes: Monitor and replete as needed Nutrition: 1800 Jorge regular diet (11) DVT Prophylaxis Status: Acute Plan: -Lovenox 30 daily -Rivaroxaban at discharge by Ortho (Jason Quintanilla MD R2) Problem Qualifiers (1) Closed left hip fracture: Qualified Code: S72.002A - Closed left hip fracture, initial encounter (2) Constipation: Qualified Code: K59.04 - Chronic idiopathic constipation Jason Quintanilla MD R2 Oct 18, 2016 13:44 Tianna Edouard MD Oct 19, 2016 14:01
[2016-10-18] MEDS ORDERED: SENN1TAB PO (18:02)
[2016-10-18] MEDS ORDERED: POTA20TA5 PO (18:02)
[2016-10-18] MEDS ORDERED: LEVA750T PO (18:02)
[2016-10-18] MEDS ORDERED: CHOL5000 PO (18:02)
[2016-10-18] MEDS ORDERED: FURO20TA PO (18:02)
[2016-10-18] MEDS ORDERED: CARV3.125 PO (18:02)
--- NOTE | 2016-10-18 18:03 | HHI.DCPOC ---
Discharge Care Plan Diagnosis: (1) Fall (2) Aortic stenosis (3) Vitamin D deficiency (4) Osteoporosis (5) Dementia Goals to Promote Your Health * To prevent worsening of your condition and complications * To maintain your health at the optimal level Directions to Meet Your Goals Take your medications as prescribed Follow your dietary instruction Follow activity as directed Keep your appointments as scheduled Take your immunizations and boosters as scheduled If your symptoms worsen call your PCP, if no PCP go to Urgent Care Center or Emergency Room Smoking is Dangerous to Your Health. Avoid second hand smoke Call the 24-hour hour crisis hotline for domestic abuse at Jason Quintanilla MD R2 Oct 18, 2016 18:03
[2016-10-19] VITALS: BP 93/52; PULSE 79; RESP 17; TEMP 98.2; O2SAT 94
[2016-10-19] MEDS: CHLORHEXIDINE GLUCONATE 2 % 1 PACK (2 CLOTHS) TOP SCH (04:00)
[2016-10-19 04:10] VITALS: BP 98/55; PULSE 81; RESP 20; TEMP 97.6; O2SAT 93
[2016-10-19 05:58] LABS: AUTOMATED NEUTROPHIL # 6.2 TH/MM3 (1.8-7.7); BASOPHIL # 0.1 TH/MM3 (0-0.2); BASOPHIL % 0.7 % (0.0-2.0); EOSINOPHIL # 0.2 TH/MM3 (0-0.4); EOSINOPHIL % 2.2 % (0.0-4.0); HEMATOCRIT 32.4 % (35.0-46.0); HEMO FLAGS DIFF FINAL; LYMPH % 10.9 % (9.0-44.0); LYMPHOCYTE # 0.9 TH/MM3 (1.0-4.8); MEAN CELL VOLUME 93.5 FL (80.0-100.0); MEAN CORPUSCULAR HEMOGLOBIN 31.5 PG (27.0-34.0); MEAN CORPUSCULAR HGB CONC 33.7 % (32.0-36.0); MONO % 14.3 % (0.0-8.0); NEUT % 71.9 % (16.0-70.0); PLATELET COUNT 347 TH/MM3 (150-450); RED BLOOD COUNT 3.46 MIL/MM3 (4.00-5.30); RED CELL DISTRIBUTION WIDTH 17.3 % (11.6-17.2); WHITE BLOOD COUNT 8.6 TH/MM3 (4.0-11.0)
[2016-10-19] MEDS: ACETAMINOPHEN 325 MG TAB PO SCH ×2 (06:21→13:05)
[2016-10-19 06:22] LABS: BICARBONATE 26.9 MEQ/L (21.0-32.0); POTASSIUM 3.6 MEQ/L (3.5-5.1)
[2016-10-19] MEDS: LEVOTHYROXINE SODIUM 125 MCG TAB PO SCH (06:23)
[2016-10-19 08:00] VITALS: BP 88/52; PULSE 71; RESP 16; TEMP 96; O2SAT 95
[2016-10-19] MEDS: POLYETHYLENE GLYCOL 17 GM PKG PO SCH (08:29)
[2016-10-19] MEDS: CHOLECALCIFEROL (VIT D3) 5000 UNIT CAP PO SCH (08:29)
[2016-10-19] MEDS: CALCIUM/VITAMIN D 250 MG/125 U TAB PO SCH ×2 (08:29→13:06)
[2016-10-19] MEDS: POTASSIUM CHLORIDE 20 MEQ CONTROLLED RELEASE TAB PO SCH (08:29)
[2016-10-19] MEDS: ENOXAPARIN SODIUM 30 MG/0.3 ML SYRINGE SQ SCH (08:29)
[2016-10-19] MEDS: DOCUSATE SODIUM 50 MG/SENNA 8.6 MG TAB PO SCH (08:29)
[2016-10-19] MEDS: ASPIRIN EC 81 MG TABEC PO SCH (08:30)
[2016-10-19] MEDS: SODIUM CHLORIDE 0.9% FLUSH 5 ML FLUSH IV FLUSH SCH (08:30)
[2016-10-19] MEDS: FERROUS SULFATE 325 MG (65 MG ELEMENTAL IRON) TAB PO SCH ×2 (08:30→13:06)
[2016-10-19] MEDS: FAMOTIDINE 20 MG TAB PO SCH (08:30)
[2016-10-19] MEDS: CARVEDILOL 3.125 MG TAB PO SCH (08:36)
--- NOTE | 2016-10-19 09:02 | HHI.FPPN ---
Subjective Remarks No acute events overnight. Afebrile, BPs ranging 90-100/40-50. Today she feels well, no chest pains, no trouble breathing on room air. Denies pain. Feels ready to go back to [facility]. Objective Vitals Vital Signs Date Time Temp Pulse Resp B/P Pulse Ox O2 Delivery O2 Flow Rate FiO2 10/19/16 04:10 97.6 81 20 98/55 93 10/19/16 00:00 98.2 79 17 93/52 94 10/18/16 21:31 66 10/18/16 20:00 97.9 90 16 100/59 98 10/18/16 16:17 96 21 10/18/16 16:00 97.1 72 18 96/42 94 10/18/16 12:00 95.5 78 16 84/50 98 10/18/16 10:50 Nasal Cannula 2.00 I/O 10/18/16 10/18/16 10/18/16 10/19/16 10/19/16 10/19/16 06:59 14:59 22:59 06:59 14:59 22:59 Intake Total 120 ml 480 ml 240 ml Balance 120 ml 480 ml 240 ml Intake Oral 120 ml 480 ml 240 ml # Voids 3 2 2 # Bowel Movements 5 Result Diagram: 10/19/16 0420 10/19/16 0420 Imaging Last Impressions Chest X-Ray 10/17/16 0000 Signed Impressions: Service Date/Time: Monday, October 17, 2016 17:34 - CONCLUSION: Minimal basilar parenchymal opacity and possible small effusions. Mariano He MD Renal Ultrasound 10/12/16 0000 Signed Impressions: Service Date/Time: Tuesday, October 11, 2016 16:44 - CONCLUSION: 1. Small and mildly echogenic kidneys typical of chronic parenchymal disease. No obstructive uropathy or other acute abnormality demonstrated. 2. Small spleen and bilateral pleural effusions incidentally noted. Mariano Osorio MD Abdomen X-Ray 10/12/16 0000 Signed Impressions: Service Date/Time: Wednesday, October 12, 2016 07:19 - CONCLUSION: Abdominal aortic aneurysm is incompletely evaluated on this study. Nonobstructive bowel gas pattern. Ross Duke MD Hip X-Ray 10/08/16 0000 Signed Impressions: Service Date/Time: Saturday, October 08, 2016 08:00 - CONCLUSION: Appropriate postoperative appearance of the left intratrochanteric ORIF. Kumar Blevins MD Hip and Pelvis X-Ray 10/07/16 0000 Signed Impressions: Service Date/Time: Friday, October 07, 2016 11:12 - CONCLUSION: Osteoporosis. Intertrochanteric fracture left femur Arnold Geller MD Objective Remarks GENERAL: Thin elderly white female pleasantly demented in no acute distress. SKIN: Warm and dry, no rashes appreciated. mild pallor. Surgical incision open; covered but steri strips removed, appearing c/d/i. CARDIOVASCULAR: Normal rate, regular rhythm; prominent systolic murmur from known aortic stenosis. Normal peripheral perfusion in lower extremities. RESPIRATORY: Normal rate. Poor inspiratory effort. Mild crackles. O2 sats > 90 on room air. GASTROINTESTINAL: Abdomen soft, nondistended, nontender. MUSCULOSKELETAL: No lower extremity swelling. NEURO/PSYCH: Patient alert, awake, demented. Cranial nerves grossly normal. Grossly normal peripheral motor and sensory function. Medications and IVs Current Medications Medications (Trade) Dose Ordered Sig/[place] Route Start Time Stop Time Status Last Admin (Narcan Inj) 0.4 mg UNSCH PRN IV 10/07/16 16:00 (Ecotrin Ec) 81 mg DAILY PO 10/08/16 09:00 10/19/16 08:30 (Lexapro) 5 mg DAILY PO 10/08/16 09:00 Hold 10/09/16 08:43 (Ferrous Sulfate) 325 mg TID PO 10/07/16 18:00 10/19/16 08:30 (Lovenox Inj) 30 mg Q24H SQ 10/09/16 07:30 10/19/16 08:29 (Oscal-D 250-125) 250 mg TID PO 10/08/16 09:00 10/19/16 08:29 ([place] 5-325 Mg) 1 tab Q4H PRN PO 10/08/16 08:15 Hold (Vitamin D3) 5,000 units DAILY PO 10/08/16 09:00 10/19/16 08:29 (Synthroid) 125 mcg DAILY@0600 PO 10/09/16 06:00 10/19/16 06:23 (Toshia-Colace) 2 tab BID PO 10/09/16 21:00 10/19/16 08:29 (NS Flush) 2 ml UNSCH PRN IV FLUSH 10/09/16 13:15 (NS Flush) 2 ml BID IV FLUSH 10/09/16 21:00 10/16/16 08:18 (Dulcolax Supp) 10 mg DAILY PRN RECTAL 10/09/16 13:15 Miscellaneous Information 1 [id number] XX 10/09/16 13:15 (Chlorhexidine 2% Cloth) Taper DAILY@04 TOP 10/10/16 04:00 10/06/17 03:59 10/17/16 03:13 (Chlorhexidine 2% Cloth) 3 pack UNSCH PRN TOP 10/09/16 13:15 10/09/16 13:49 (Coreg) 3.125 mg Q12HR PO 10/11/16 09:00 10/18/16 21:14 Polyethylene Glycol 17 gm 17 gm DAILY PO 10/12/16 00:00 10/19/16 08:29 (NS 1000 ml Inj) 1,000 ml @ 42 mls/hr [id number] IV 10/12/16 16:00 Hold 10/12/16 16:00 (Pepcid) 10 mg Q12HR PO 10/15/16 21:00 10/19/16 08:30 (Pill Splitter) 1 ea UNSCH PRN OTHER 10/15/16 10:15 (KCl) 20 meq DAILY PO 10/16/16 09:00 10/19/16 08:29 (Zofran Odt) 4 mg Q6H PRN PO 10/15/16 18:00 (Tylenol) 650 mg Q6HR PO 10/15/16 18:00 10/19/16 06:21 (Motrin) 400 mg Q6H PRN PO 10/15/16 18:00 (Lasix) 20 mg BID PO 10/17/16 21:00 Hold 10/18/16 21:14 (Levaquin) 750 mg Q48H PO 10/20/16 09:00 A/P Assessment and Plan Ms. Rahman is a 75 yo F with left hip fracture who suffered NSTEMI following surgery. Discharge Planning To rehabilitation once clinically improved Problem List: (1) Cardiovascular disease Status: Acute Plan: Patient of Dr. Edouard. Troponin x1 3.18 10/09 drawn in response to SOB; subsequent elevations to ~20. Echo 10/09- LVH, EF 55-60%, severe aortic stenosis -Cardiology consulted, appreciate their recommendations: -Suspect NSTEMI due to critical aortic stenosis -Continue aspirin -Reduce Carvedilol to 1.5625 mg BID -Discussed with Cardiology, no need for CT surg evaluation at this time, had previously discussed with family and they decided not to have surgery given dementia and high surgical risk in patient her age -Follow up with Dr. Edouard in clinic in 2 weeks (2) Dementia Status: Chronic Plan: Patient with ~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 Progressive CT 06/2016 with chronic cortical atrophy, periventricular and deep white matter small vessel ischemic demyelination and possible old lacunar infarct in left corby -Hold home Ativan -Hold home Restoril -We'll defer repeat head CT since reported no headache contact on recent fall and no focal neurologic deficit -PT- rehab recommended (3) Closed left hip fracture Status: Resolved Plan: Impression: Left intertrochanteric femur fracture; s/p repair. Patient presumably removed sarah with her hand Orthopedic surgery consulted, appreciate their recommendations -POD 11 operative repair: Reduction and pinning/fixation of left femur -PT consulted - rehab recommended -Neuro checks -Ice/cold packs, dressing changes, decubitus precautions per Ortho -Enoxaparin 30mg daily per Ortho for DVT ppx -Follow-up in 2 weeks -Acapella, incentive spirometry -Pain control -Scheduled Tylenol 650 mg PO Q6H -Ibuprofen PRN for additional pain (4) Shortness of breath Status: Resolved Plan: Desaturations to 70's -80's morning of 10/09; improved to low 90's on Ventimask at 15L O2. Ativan received 10/09 at 0522; Morphine 3mg at 0007 10/09. Patient subsequently found to have Troponin elevation suggestive of NSTEMI. ABGs x2 10/09- pH ~7.4, CO2 ~35, O2 ~145 , HCO3 22 CXR 10/10- Bibasilar densities. Cardiomegaly with interstitial edema; more pronounced CXR 10/11- Pulmonary vascular congestion BNP 1425 --> 1847 --> 1717 --> 990 --> 1593 --> 1080 --> 883 --> 1028 -Stable clinically -Discharge with Lasix 20 mg PO daily (down from BID due to low BPs, appearing well clinically) -Potassium 10 mEq PO daily (5) Leukocytosis Status: Resolved Plan: Impression: Intermittently elevated WBC persistently this admission 11 --> 14 --> 11 --> 12 --> 9.6 --> 11.6 --> 11.7-> 10.5 (10/18) * Levaquin 750 mg PO daily * Diurese as above (6) Osteoporosis Status: Chronic Plan: Vitamin D 5000 U daily per Ortho Impression: Patient with history of osteoporosis per patient's daughter. Vitamin D level 19.1 (7) Hypothyroid Status: Chronic Plan: TSH elevated; T4 wnl -Continue home levothyroxine (8) Constipation Status: Resolved Plan: 2 BMs on 10/13/16 -Continue Toshia-Colace -Give additional agents PRN (9) Fluids, Electrolytes, and Nutrition Status: Acute Plan: Fluids: Reduced due to pulmonary congestion; will stop and monitor Electrolytes: Monitor and replete as needed Nutrition: 1800 Jorge regular diet (10) DVT Prophylaxis Status: Acute Plan: -Lovenox 30 daily -Rivaroxaban at discharge by Ortho Problem Qualifiers (1) Closed left hip fracture: Qualified Code: S72.002A - Closed left hip fracture, initial encounter (2) Constipation: Qualified Code: K59.04 - Chronic idiopathic constipation Dylan Vital MD R1 Oct 19, 2016 09:01 Qualified Code: K59.04 - Chronic idiopathic constipation Dylan Vital MD R1 Oct 19, 2016 09:01
[2016-10-19] MEDS ORDERED: FURO1TAB62 PO (10:14)
[2016-10-19] MEDS ORDERED: CARV3.125 PO (10:14)
[2016-10-19] MEDS ORDERED: POTA10TA8 PO (10:28)
[2016-10-19] MEDS ORDERED: PILL SPLITTER OTHER PRN (10:45)
--- NOTE | 2016-10-19 11:31 | HHI.DS ---
Discharge Summary Admission Date Oct 07, 2016 at 13:56 Discharge Date: Oct 19, 2016 Admitting Diagnosis L hip fx (1) Cardiovascular disease Diagnosis: Secondary Plan: Patient of Dr. Edouard. Troponin x1 3.18 10/09 drawn in response to SOB; subsequent elevations to ~20. Echo 10/09- LVH, EF 55-60%, severe aortic stenosis -Cardiology consulted, appreciate their recommendations: -Suspect NSTEMI due to critical aortic stenosis -Continue aspirin -Reduce Carvedilol to 1.5625 mg BID -Discussed with Cardiology, no need for CT surg evaluation at this time, had previously discussed with family and they decided not to have surgery given dementia and high surgical risk in patient her age -Follow up with Dr. Edouard in clinic in 2 weeks (2) Dementia Diagnosis: Secondary Plan: Patient with ~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 Progressive CT 06/2016 with chronic cortical atrophy, periventricular and deep white matter small vessel ischemic demyelination and possible old lacunar infarct in left corby -Hold home Ativan -Hold home Restoril -We'll defer repeat head CT since reported no headache contact on recent fall and no focal neurologic deficit -PT- rehab recommended (3) Closed left hip fracture Diagnosis: Principal Plan: Impression: Left intertrochanteric femur fracture; s/p repair. Patient presumably removed sarah with her hand Orthopedic surgery consulted, appreciate their recommendations -POD 11 operative repair: Reduction and pinning/fixation of left femur -PT consulted - rehab recommended -Neuro checks -Ice/cold packs, dressing changes, decubitus precautions per Ortho -Enoxaparin 30mg daily per Ortho for DVT ppx -Follow-up in 2 weeks -Acapella, incentive spirometry -Pain control -Scheduled Tylenol 650 mg PO Q6H -Ibuprofen PRN for additional pain (4) Shortness of breath Diagnosis: Secondary Plan: Desaturations to 70's -80's morning of 10/09; improved to low 90's on Ventimask at 15L O2. Ativan received 10/09 at 0522; Morphine 3mg at 0007 10/09. Patient subsequently found to have Troponin elevation suggestive of NSTEMI. ABGs x2 10/09- pH ~7.4, CO2 ~35, O2 ~145 , HCO3 22 CXR 10/10- Bibasilar densities. Cardiomegaly with interstitial edema; more pronounced CXR 10/11- Pulmonary vascular congestion BNP 1425 --> 1847 --> 1717 --> 990 --> 1593 --> 1080 --> 883 --> 1028 -Stable clinically -Discharge with Lasix 20 mg PO daily (down from BID due to low BPs, appearing well clinically) -Potassium 10 mEq PO daily (5) Leukocytosis Diagnosis: Secondary Plan: Impression: Intermittently elevated WBC persistently this admission 11 --> 14 --> 11 --> 12 --> 9.6 --> 11.6 --> 11.7-> 10.5 (10/18) * Levaquin 750 mg PO daily * Diurese as above (6) Osteoporosis Diagnosis: Secondary Plan: Vitamin D 5000 U daily per Ortho Impression: Patient with history of osteoporosis per patient's daughter. Vitamin D level 19.1 (7) Hypothyroid Diagnosis: Secondary Plan: TSH elevated; T4 wnl -Continue home levothyroxine (8) Constipation Diagnosis: Secondary Plan: 2 BMs on 10/13/16 -Continue Toshia-Colace -Give additional agents PRN [facility] - Dr. Sellers Cardiology - Dr. Edouard CCM - Dr. Ritter Procedures ORIF L hip - 10/08/16 Brief History Ms. Rahman is a 75 yo F with PMH of dementia, MVP (sees Dr. Edouard) who presents following fall injury at [facility] earlier today. History obtained by patient's daughter due to severity of patient's dementia: Patient reportedly fell at ~0900 this morning when walking; she reportedly tripped on a wheelchair resulting in her fall.Patient was sent to [place] for XR imaging and L femur fracture was identified. [Per ED documentation, fall was reportedly witnessed and without any preceding LOC or head injury] Patient reportedly has history of frequent falls. Patient is also chronically disoriented due to dementia; her dementia is reportedly progressing rapidly and she is only sometimes able to remember her daughter's face. No reported recent/ acute changes in mental status. No reported recent known infections or fevers. Patient has lived at [facility] for past several years after developing dementia after aortic aneurysm repair ~2 years prior[address] Patient sees Dr. Edouard- Cardiology, Dr. Duy Chung (Vascular Surgery) CBC/BMP: 10/19/16 0420 10/19/16 0420 Significant Findings Laboratory Tests Test 10/17/16 10/18/16 10/18/16 10/18/16 05:52 04:48 09:37 14:00 White Blood Count 11.7 TH/MM3 (4.0-11.0) Red Blood Count 3.52 MIL/MM3 3.73 MIL/MM3 (4.00-5.30) (4.00-5.30) Hemoglobin 11.0 GM/DL (11.6-15.3) Hematocrit 32.8 % 34.8 % (35.0-46.0) (35.0-46.0) Neutrophils (%) (Auto) 84.5 % 83.3 % (16.0-70.0) (16.0-70.0) Lymphocytes (%) (Auto) 5.8 % 6.1 % (9.0-44.0) (9.0-44.0) Monocytes (%) (Auto) 8.7 % (0.0-8.0) 9.1 % (0.0-8.0) Neutrophils # (Auto) 9.9 TH/MM3 8.8 TH/MM3 (1.8-7.7) (1.8-7.7) Lymphocytes # (Auto) 0.7 TH/MM3 0.6 TH/MM3 (1.0-4.8) (1.0-4.8) Monocytes # (Auto) 1.0 TH/MM3 1.0 TH/MM3 (0-0.9) (0-0.9) Blood Urea Nitrogen 22 MG/DL (7-18) 21 MG/DL (7-18) Estimat Glomerular Filtration 71 ML/MIN (>89) 56 ML/MIN (>89) Rate B-Type Natriuretic Peptide 1593 PG/ML 1080 PG/ML 883 PG/ML (0-100) (0-100) (0-100) Calcium Level 8.4 MG/DL (8.5-10.1) Test 10/19/16 04:20 Red Blood Count 3.46 MIL/MM3 (4.00-5.30) Hemoglobin 10.9 GM/DL (11.6-15.3) Hematocrit 32.4 % (35.0-46.0) Red Cell Distribution Width 17.3 % (11.6-17.2) Neutrophils (%) (Auto) 71.9 % (16.0-70.0) Monocytes (%) (Auto) 14.3 % (0.0-8.0) Lymphocytes # (Auto) 0.9 TH/MM3 (1.0-4.8) Monocytes # (Auto) 1.2 TH/MM3 (0-0.9) Blood Urea Nitrogen 20 MG/DL (7-18) Estimat Glomerular Filtration 60 ML/MIN (>89) Rate B-Type Natriuretic Peptide 1028 PG/ML (0-100) Imaging Last Impressions Chest X-Ray 10/17/16 0000 Signed Impressions: Service Date/Time: Monday, October 17, 2016 17:34 - CONCLUSION: Minimal basilar parenchymal opacity and possible small effusions. Mariano He MD Renal Ultrasound 10/12/16 0000 Signed Impressions: Service Date/Time: Tuesday, October 11, 2016 16:44 - CONCLUSION: 1. Small and mildly echogenic kidneys typical of chronic parenchymal disease. No obstructive uropathy or other acute abnormality demonstrated. 2. Small spleen and bilateral pleural effusions incidentally noted. Mariano Osorio MD Abdomen X-Ray 10/12/16 0000 Signed Impressions: Service Date/Time: Wednesday, October 12, 2016 07:19 - CONCLUSION: Abdominal aortic aneurysm is incompletely evaluated on this study. Nonobstructive bowel gas pattern. Ross Duke MD Hip X-Ray 10/08/16 0000 Signed Impressions: Service Date/Time: Saturday, October 08, 2016 08:00 - CONCLUSION: Appropriate postoperative appearance of the left intratrochanteric ORIF. Kumar Blevins MD Hip and Pelvis X-Ray 10/07/16 0000 Signed Impressions: Service Date/Time: Friday, October 07, 2016 11:12 - CONCLUSION: Osteoporosis. Intertrochanteric fracture left femur Arnold Geller MD PE at Discharge GENERAL: Thin elderly white female pleasantly demented in no acute distress. SKIN: Warm and dry, no rashes appreciated. mild pallor. Surgical incision open; covered but steri strips removed, appearing c/d/i. CARDIOVASCULAR: Normal rate, regular rhythm; prominent systolic murmur from known aortic stenosis. Normal peripheral perfusion in lower extremities. RESPIRATORY: Normal rate. Poor inspiratory effort. Mild crackles. O2 sats > 90 on room air. GASTROINTESTINAL: Abdomen soft, nondistended, nontender. MUSCULOSKELETAL: No lower extremity swelling. NEURO/PSYCH: Patient alert, awake, demented. Cranial nerves grossly normal. Grossly normal peripheral motor and sensory function. Hospital Course 75 year old female with history of aortic stenosis admitted for left hip fracture. Taken to OR for ORIF on 10/08/16. After procedure had hypotension and NSTEMI likely from critical aortic stenosis. Spent 1 day in SICU and subsequently recovered after light hydration and medical management. Continued to improve clinically re: shortness of breath following surgery. Returned to baseline functioning and cleared for discharge to SNF with PT. Pt Condition on Discharge: Stable Discharge Disposition: Discharge to SNF Discharge Instructions DIET: Follow Instructions for: As Tolerated, No Restrictions Activities you can perform: Weight Bearing as [employer] Follow up Referrals: Cardiology - 1 Week with Mitra Edouard MD Orthopedics - 2 Weeks @ [facility] with Errol Sellers MD PCP Follow-up - 1 Week New Medications: Carvedilol (Coreg) 3.125 Mg Tab 1.56 MG PO BID 1/2 tab daily #30 Ref 0 TAB Furosemide (Lasix) 20 Mg Tab 20 MG PO DAILY #30 Ref 0 TAB Potassium Chloride ER (Potassium Chloride CR) 10 Meq Tab 10 MEQ PO DAILY #30 TAB Rivaroxaban (Xarelto) 10 Mg Tab 10 MG PO DAILY Blood Clot Prevention #14 Ref 0 TAB Walker with Front Wheels (Walker with Front Wheels) 1 Mis Mis 1 EA .ROUTE DIRECTED #1 Ref 0 EA Cholecalciferol (Vitamin D3) 5,000 Unit Cap 5000 UNITS PO DAILY #30 CAP Levofloxacin (Levaquin) 750 Mg Tab 750 MG PO EVERY OTHER DAY #4 TAB Sennosides-Docusate Sodium (Senna Plus 8.6-50 mg) 1 Tab Tab 2 TAB PO BID #60 TAB Continued Medications: Acetaminophen (Tylenol Extra Strength) 500 Mg Tab 500 MG PO Q6HR PRN PAIN Ref 0 TAB Albuterol 18 GM Inh (Ventolin Hfa 18 GM Inh) 90 Mcg/Act Aer 2 PUFF INH Q6H PRN SHORTNESS OF BREATH #1 Ref [address] (Aspirin Adult Low Strength) 81 Mg Tabdr 81 MG PO DAILY TAB Calcium Carbonate-Vitamin D (Calcium 600+D) 600-400 Mg-Unit Tab 1 TAB PO DAILY Nutritional Supplement TAB Ferrous Sulfate (Ferrousul) 325 Mg Tab 325 MG PO TID ANEMIA Ibuprofen (Ibuprofen) 800 Mg Tab 800 MG PO Q6HR PRN PAIN Ref 0 TAB Levothyroxine (Levothyroxine) 125 Mcg Tab 125 MCG PO DAILY Thyroid #30 Ref 0 TAB Melatonin (Melatonin) 3 Mg Tab 3 MG PO HS Insomnia Ondansetron (Zofran) 4 Mg Tab 4 MG PO Q6HR PRN NAUSEA Ref 0 TAB Ranitidine (Zantac) 150 Mg Tab 150 MG PO DAILY GERD #30 Ref 0 TAB Discontinued Medications: Cholecalciferol (Vitamin D3) 1,000 Unit Tab 1000 UNITS PO DAILY Nutritional Supplement #1 Ref 0 BOTTLE Escitalopram (Lexapro) 5 Mg Tab 5 MG PO DAILY Anxiety #30 Ref 0 TAB Lorazepam (Ativan) 0.5 Mg Tab 0.5 MG PO Q12HR PRN ANXIETY Ref 0 TAB Metoprolol Tartrate (Metoprolol Tartrate) 25 Mg Tab 12.5 MG PO Q8HR HTN #60 Ref 0 TAB Temazepam (Restoril) 15 Mg Cap 15 MG PO HS PRN INSOMNIA #30 Ref 0 CAP Dylan Vital MD R1 Oct 19, 2016 11:30
[2016-10-19 12:37] VITALS: PULSE 68
[2016-10-19] MEDS ORDERED: CARVEDILOL 3.125 MG TAB PO SCH (21:00)
[2016-10-20] MEDS ORDERED: LEVOFLOXACIN 750 MG TAB PO SCH (09:00)
== END 2016-10-19 13:45 | DRG 480 ==
LOC: NEDAMB 10:37 → NEDA 13:56 → N06B 17:30 → HCVR 10-09 12:58 → HCIN 10-11 11:42 → N04B 10-13 19:08 → N06A 10-17 20:31
PROVIDERS: ADMIT Family Medicine; ATTEND Family Medicine
PROC: 5A09357 Assistance with Respiratory Ventilation, Less than 24 Consecutive Hours, Continuous Positive Airway Pressure (ICD-10-PCS; 2016-10-08)
PROC: 0QS704Z Reposition Left Upper Femur with Internal Fixation Device, Open Approach (ICD-10-PCS; principal; 2016-10-08 07:16)
PROC: 30233N1 Transfusion of Nonautologous Red Blood Cells into Peripheral Vein, Percutaneous Approach (ICD-10-PCS; 2016-10-10)
DX: S72.142A Displaced intertrochanteric fracture of left femur, initial encounter for closed fracture (principal); I21.4 Non-ST elevation (NSTEMI) myocardial infarction; I95.9 Hypotension, unspecified; F03.90 Unspecified dementia, unspecified severity, without behavioral disturbance, psychotic disturbance, mood disturbance, and anxiety; J44.9 Chronic obstructive pulmonary disease, unspecified; I65.23 Occlusion and stenosis of bilateral carotid arteries; I50.9 Heart failure, unspecified; E55.9 Vitamin D deficiency, unspecified; J98.11 Atelectasis; I35.2 Nonrheumatic aortic (valve) stenosis with insufficiency; E03.9 Hypothyroidism, unspecified; M81.0 Age-related osteoporosis without current pathological fracture; D72.829 Elevated white blood cell count, unspecified; K59.04 Chronic idiopathic constipation; R73.9 Hyperglycemia, unspecified; R09.02 Hypoxemia; E78.00 Pure hypercholesterolemia, unspecified; N28.9 Disorder of kidney and ureter, unspecified; W01.0XXA Fall on same level from slipping, tripping and stumbling without subsequent striking against object, initial encounter; Y92.199 Unspecified place in other specified residential institution as the place of occurrence of the external cause; K21.9 Gastro-esophageal reflux disease without esophagitis; G47.00 Insomnia, unspecified; F32.9 Major depressive disorder, single episode, unspecified; I10 Essential (primary) hypertension; E78.5 Hyperlipidemia, unspecified; D64.9 Anemia, unspecified; Z87.19 Personal history of other diseases of the digestive system; Z91.81 History of falling; Z87.891 Personal history of nicotine dependence; Z86.79 Personal history of other diseases of the circulatory system
CPT/HCPCS: 36430; 36600; 51702; 71010; 71020; 73502; 73503; 74000; 76000; 76775; 80048; 80053; 81001; 82306; 82550; 82552; 82805; 83605; 83735; 83880; 84100; 84132; 84439; 84443; 84484; 85014; 85018; 85025; 85610; 85730; 86077; 86850; 86870; 86900; 86901; 86902; 86920; 86922; 87040; 87086; 87641; 93005; 93306; 94150; 94640; 94664; 94667; 94668; 94762; 96374; 96375; C1713; J0131; J0456; J0690; J0696; J1580; J1650; J1885; J1940; J2270; J2405; J3010; J3370; J7030; J7040; J7050; J7120; J7613; P9016

== ENCOUNTER 2017-02-12 23:13 | Emergency (ER) | payer MEDICARE, BC, MEDICAID ==
[~2017-02-12] VITALS: Ht 149.9 cm; Wt 40.9 kg
[~2017-02-12 23:13] MED LIST changes: +ACET-703 PO; +ASPI1TAB91 PO; -ASPI81TA82 PO; -CALC1CAP11 PO; +CALCTAB38 PO; +CARV3.125 PO; +CHOL5000 PO; -D31000CA PO; -FERR324T4 PO; +FERR325T86 PO; +FURO1TAB62 PO; +LEVA750T PO; -LEVO125T3 PO; +LEVO125T4 PO; -LEXA5TAB PO; -LORA-392 PO; +MELA0.02 PO; -MELA3CAP2 PO; -METO25 PO; +POTA10TA8 PO; -REST30CA PO; +SENN1TAB PO; +VENTAER INH; +WALKER WHEELS/F1 MIS; +XARE10TA PO; +ZANT150T2 PO
--- NOTE | 2017-02-13 00:17 | PD ---
HPI Chief Complaint: Fall Time Seen by Provider: 23:47 Travel History International Travel<30 days: No Contact w/Intl Traveler<30days: No Traveled to known affect area: No History of Present Illness HPI 76-year-old female sent in by her [facility] for evaluation of head trauma on Xarelto. Apparently the patient fell out of her bed and pulled a nightstand onto her head about 4 hours prior to arrival. She has a small area of ecchymosis and hematoma to her left forehead/eyebrow, and this was a concern to the staff. She has history of dementia and is only oriented to herself. This is her baseline mental status according to [facility] staff. Patient denies any physical complaints. She denies head neck or back pain. PFSH Past Medical History AAA: Yes Anxiety: Yes Depression: Yes Cardiovascular Problems: Yes High Cholesterol: Yes COPD: Yes Coronary Artery Disease: Yes Dementia: Yes Diminished Hearing: No Gastrointestinal Disorders: Yes GERD: Yes Genitourinary: No Hypertension: Yes Musculoskeletal: No Neurologic: No Reproductive: No Respiratory: No Thyroid Disease: Yes Past Surgical History Abdominal Surgery: Yes (cholecystectomy 2000) Cholecystectomy: Yes Gynecologic Surgery: Yes (hysterectomy 15 years ago) Hysterectomy: Yes Neurologic Surgery: Yes Other Surgery: Yes Social History Alcohol Use: No Tobacco Use: No (6 CIGARRETTES A DAY) Substance Use: No Allergies-Medications (Allergen,Severity, Reaction): Coded Allergies: No Known Allergies (Verified , 10/07/16) Reported Meds & Prescriptions Reported Meds & Active Scripts Active Potassium Chloride CR (Potassium Chloride) 10 Meq Tab 10 Meq PO DAILY Coreg (Carvedilol) 3.125 Mg Tab 1.56 Mg PO BID 1/2 tab daily Lasix (Furosemide) 20 Mg Tab 20 Mg PO DAILY Senna Plus 8.6-50 mg (Sennosides-Docusate Sodium) 1 Tab Tab 2 Tab PO BID Vitamin D3 (Cholecalciferol) 5,000 Unit Cap 5,000 Units PO DAILY Levaquin (Levofloxacin) 750 Mg Tab 750 Mg PO EVERY OTHER DAY Walker with Front Wheels (Device) 1 Mis Mis 1 Ea .ROUTE DIRECTED Xarelto (Rivaroxaban) 10 Mg Tab 10 Mg PO DAILY Reported Zofran (Ondansetron HCl) 4 Mg Tab 4 Mg PO Q6HR PRN Ventolin Hfa 18 GM Inh (Albuterol Sulfate) 90 Mcg/Act Aer 2 Puff INH Q6H PRN Tylenol Extra Strength (Acetaminophen) 500 Mg Tab 500 Mg PO Q6HR PRN Ibuprofen 800 Mg Tab 800 Mg PO Q6HR PRN Ferrousul (Ferrous Sulfate) 325 Mg Tab 325 Mg PO TID Zantac (Ranitidine HCl) 150 Mg Tab 150 Mg PO DAILY Melatonin 3 Mg Tab 3 Mg PO HS Levothyroxine (Levothyroxine Sodium) 125 Mcg Tab 125 Mcg PO DAILY Calcium 600+D (Calcium Carbonate-Vitamin D) 600-400 Mg-Unit Tab 1 Tab PO DAILY Aspirin Adult Low Strength (Aspirin) 81 Mg Tabdr 81 Mg PO DAILY Review of Systems Except as stated in HPI: all other systems reviewed are Neg Physical Exam Narrative GENERAL: Well-developed, well-nourished, comfortable, no acute distress. SKIN: Focused skin assessment warm/dry. Left forehead/eyebrow with mild ecchymosis/hematoma. No lacerations or abrasions. HEAD: Skin exam as above. Normocephalic. EYES: Pupils equal and round. EOMI. No scleral icterus. No injection or drainage. ENT: No nasal bleeding or discharge. Mucous membranes pink and moist. NECK: Trachea midline. No JVD. No midline vertebral step-off or tenderness. CARDIOVASCULAR: Regular rate and rhythm. RESPIRATORY: No accessory muscle use. Clear to auscultation. Breath sounds equal bilaterally. MUSCULOSKELETAL: No obvious deformities. No clubbing. No cyanosis. No edema. NEUROLOGICAL: Awake and alert. No obvious cranial nerve deficits. Motor grossly within normal limits. Normal speech. PSYCHIATRIC: Appropriate mood and affect; insight and judgment normal. Data Data Orders Ct Brain W/O Iv Contrast(Rout) (02/12/17 ) Ct Cerv Spine W/O Contrast (02/12/17 ) [facility] Medical Decision Making Medical Screen Exam Complete: Yes Emergency Medical Condition: Yes Differential Diagnosis Intracranial trauma, facial bone injury, cervical spine injury Narrative Course CT head: CONCLUSION: Cerebral atrophy and chronic ischemic small vessel vasculopathy. CT cervical spine: No fracture or subluxation. The patient is overall well-appearing. She is stable for discharge back to her [facility]. PMD follow-up in the next 1-2 days. Diagnosis Primary Impression: Closed head injury Qualified Code: S09.90XA - Closed head injury, initial encounter Referrals: Primary Care Physician 2 days Additional Instructions: Follow with your primary care physician in the next 1-2 days. Return to the emergency department for worsening symptoms or any other concerns. Disposition: 03 DISCHARGE TO SNF Condition: Pasha Peralta MD February 13, 2017 00:17
--- NOTE | 2017-02-13 02:54 | RADRPT ---
EXAM DATE/TIME: 02/13/2017 02:41 [facility] COMPARISON: CT BRAIN W/O CONTRAST, June 26, 2016, 8:15. INDICATIONS : Patient fell out of bed. Hematoma to left forehead. RADIATION DOSE: 30.15 CTDIvol (mGy) MEDICAL HISTORY : Dementia. SURGICAL HISTORY : None. ENCOUNTER: Initial ACUITY: 1 day PAIN SCALE: 0/10 LOCATION: cranial TECHNIQUE: Multiple contiguous axial images were obtained of the head. Using automated exposure control and adj ustment of the mA and/or kV according to patient size, radiation dose was kept as low as reasonably a chievable to obtain optimal diagnostic quality images. FINDINGS: CEREBRUM: There is cerebral atrophy. Scattered areas of low attenuation are seen within the periventricular whi te matter. The ventricles are normal for age. No evidence of midline shift, mass lesion, hemorrhage or acute infarction. No extra-axial fluid collections are seen. POSTERIOR FOSSA: The cerebellum and brainstem are intact. The 4th ventricle is midline. The cerebellopontine angle i s unremarkable. EXTRACRANIAL: The visualized portion of the orbits is intact. SKULL: The calvaria is intact. No evidence of skull fracture. CONCLUSION: Cerebral atrophy and chronic ischemic small vessel vasculopathy. Kory Mccarthy MD on February 13, 2017 at 2:52 Board Certified Radiologist. This report was verified electronically.
--- NOTE | 2017-02-13 03:33 | RADRPT ---
EXAM DATE/TIME: 02/13/2017 02:41 [facility] COMPARISON: CT CERVICAL SPINE W/O CONTRAST, June 26, 2016, 8:15. INDICATIONS : Fell out of bed. RADIATION DOSE: 12.46 CTDIvol (mGy) MEDICAL HISTORY : Dementia. SURGICAL HISTORY : None. ENCOUNTER: Initial ACUITY: 1 day PAIN SCALE: 0/10 LOCATION: neck TECHNIQUE: Volumetric scanning of the cervical spine was performed. Multiplanar reconstructions in the sagittal, coronal and oblique axial planes were performed. Using automated exposure control and adjustment o f the mA and/or kV according to patient size, radiation dose was kept as low as reasonably achievable to obtain optimal diagnostic quality images. FINDINGS: VERTEBRAE: Normal vertebral body height. Multilevel degenerative changes greatest at C5-6 and C6-7 levels. ALIGNMENT: No evidence of subluxation. C2-C3: The bony spinal canal is normal in size. No evidence of disc bulge or herniation. The neural forami na are bilaterally patent. C3-C4: The bony spinal canal is normal in size. No evidence of disc bulge or herniation. The neural forami na are bilaterally patent. C4-C5: The bony spinal canal is normal in size. No evidence of disc bulge or herniation. The neural forami na are bilaterally patent. C5-C6: The bony spinal canal is normal in size. No evidence of disc bulge or herniation. The neural forami na are bilaterally patent. C6-C7: The bony spinal canal is normal in size. No evidence of disc bulge or herniation. The neural forami na are bilaterally patent. C7-T1: The bony spinal canal is normal in size. No evidence of disc bulge or herniation. The neural forami na are bilaterally patent. CONCLUSION: No fracture or subluxation.. Kory Mccarthy MD on February 13, 2017 at 3:30 Board Certified Radiologist. This report was verified electronically.
[2017-02-13 04:10] VITALS: BP 126/55; PULSE 78; RESP 16; O2SAT 94
[2017-02-13 09:18] VITALS: BP 119/56
== END 2017-02-13 09:20 ==
LOC: NEPE 23:13
DX: S09.90XA Unspecified injury of head, initial encounter (principal); I10 Essential (primary) hypertension; W06.XXXA Fall from bed, initial encounter; Y93.84 Activity, sleeping; Y92.122 Bedroom in nursing home as the place of occurrence of the external cause
CPT/HCPCS: 70450; 72125

== ENCOUNTER 2017-02-28 13:43 | Inpatient (IN) | payer MEDICARE, BC, MEDICAID ==
[~2017-02-28] VITALS: Ht 137.2 cm; Wt 30.8 kg
[2017-02-28 13:49] VITALS: BP 114/58; PULSE 87; RESP 16; TEMP 97.8; O2SAT 98
--- NOTE | 2017-02-28 14:20 | PD ---
HPI Chief Complaint: Fall Time Seen by Provider: 14:00 Travel History International Travel<30 days: No Contact w/Intl Traveler<30days: No Traveled to known affect area: No History of Present Illness HPI 76yo F with PMH of dementia, anxiety, HTN, COPD was sent here from [facility] because she is refusing to walk after falling on 02/12/17. States she is usually ambulatory with staff assistance and had negative xray on 02/12 and 02/16. They attempted to do xray of pelvis today but she would not cooperate. Pt is pleasant and denies any complaints. Only thing on physical exam is ecchymoses in suprapubic region. PFSH Past Medical History Hx Anticoagulant Therapy: Yes (ASA) AAA: Yes Anxiety: Yes Depression: Yes Cardiovascular Problems: Yes High Cholesterol: Yes COPD: Yes Coronary Artery Disease: Yes Dementia: Yes Diminished Hearing: No Gastrointestinal Disorders: Yes GERD: Yes Genitourinary: No Hypertension: Yes Musculoskeletal: No Neurologic: No Reproductive: No Respiratory: No Thyroid Disease: Yes ?: Not Past Surgical History Abdominal Surgery: Yes (cholecystectomy 2000) Cholecystectomy: Yes Gynecologic Surgery: Yes (hysterectomy 15 years ago) Hysterectomy: Yes Neurologic Surgery: Yes Other Surgery: Yes Social History Alcohol Use: No Tobacco Use: No (6 CIGARRETTES A DAY) Substance Use: No Allergies-Medications (Allergen,Severity, Reaction): Coded Allergies: No Known Allergies (Verified , 02/28/17) Reported Meds & Prescriptions Reported Meds & Active Scripts Active Potassium Chloride CR (Potassium Chloride) 10 Meq Tab 10 Meq PO DAILY Coreg (Carvedilol) 3.125 Mg Tab 1.56 Mg PO BID 1/2 tab daily Lasix (Furosemide) 20 Mg Tab 20 Mg PO DAILY Senna Plus 8.6-50 mg (Sennosides-Docusate Sodium) 1 Tab Tab 2 Tab PO BID Vitamin D3 (Cholecalciferol) 5,000 Unit Cap 5,000 Units PO DAILY Levaquin (Levofloxacin) 750 Mg Tab 750 Mg PO EVERY OTHER DAY Xarelto (Rivaroxaban) 10 Mg Tab 10 Mg PO DAILY Reported Eliquis (Apixaban) 2.5 Mg Tab 2.5 Mg PO BID Zofran (Ondansetron HCl) 4 Mg Tab 4 Mg PO Q6HR PRN Ventolin Hfa 18 GM Inh (Albuterol Sulfate) 90 Mcg/Act Aer 2 Puff INH Q6H PRN Tylenol Extra Strength (Acetaminophen) 500 Mg Tab 500 Mg PO Q6HR PRN Ibuprofen 800 Mg Tab 800 Mg PO Q6HR PRN Ferrousul (Ferrous Sulfate) 325 Mg Tab 325 Mg PO TID Zantac (Ranitidine HCl) 150 Mg Tab 150 Mg PO DAILY Melatonin 3 Mg Tab 3 Mg PO HS Levothyroxine (Levothyroxine Sodium) 125 Mcg Tab 125 Mcg PO DAILY Calcium 600+D (Calcium Carbonate-Vitamin D) 600-400 Mg-Unit Tab 1 Tab PO DAILY Aspirin Adult Low Strength (Aspirin) 81 Mg Tabdr 81 Mg PO DAILY Review of Systems Except as stated in HPI: all other systems reviewed are Neg Physical Exam Narrative GENERAL: 76yo F not in distress. SKIN: Old ecchymoses on pubic bone. HEAD: Atraumatic. Normocephalic. EYES: Pupils equal and round. No scleral icterus. No injection or drainage. ENT: No nasal bleeding or discharge. Mucous membranes pink and moist. NECK: Trachea midline. No JVD. CARDIOVASCULAR: Regular rate and rhythm. + murmur appreciated. RESPIRATORY: No accessory muscle use. Clear to auscultation. Breath sounds equal bilaterally. GASTROINTESTINAL: Abdomen soft, non-tender, nondistended. No rebound tenderness or guarding. MUSCULOSKELETAL: Able to move both hips. Not complaining of pain. NEUROLOGICAL: Awake and alert. No obvious cranial nerve deficits. Motor grossly within normal limits. Normal speech. PSYCHIATRIC: Dementia. AAOx1. Data Data Last Documented VS Vital Signs Date Time Temp Pulse Resp B/P Pulse Ox O2 Delivery O2 Flow Rate FiO2 02/28/17 13:50 79 16 98 Room Air 02/28/17 13:49 97.8 114/[address] Pelvis W/O Iv Contrast (02/28/17 ) Admit Order (Ed Use Only) (02/28/17 15:54) MDM Medical Decision Making Medical Screen Exam Complete: Yes Emergency Medical Condition: Yes Interpretation(s) Last Impressions Pelvis CT 02/28/17 0000 Signed Impressions: Service Date/Time: Tuesday, February 28, 2017 14:47 - CONCLUSION: 1. Acute to subacute bilateral pubic rami fractures and bilateral sacral fractures. Pattern is characteristic of insufficiency type fractures. 2. Internal fixation hardware proximal left femur. 3. Aortic aneurysm status post repair. Reagan Marrufo MD Differential Diagnosis Pelvic fracture Narrative Course 76yo F who was sent here from OR because she is refusing to walk after falling . Pt had negative xray and on exam, has old ecchymoses and pubic bone. CT pelvis showed acute to subacute bilateral pubic rami fractures and bilateral sacral fractures. Pattern is characteristic of insufficiency type fractures. Pt is going to need physical therapy as pt cannot walk. Discussed with resident physician and accepted to their service for pelvic fractures. Diagnosis Primary Impression: Bilateral pubic rami fractures Qualified Code: S32.591A - Bilateral pubic rami fractures, closed, initial encounter Admitting Information Admitting Physician Requests: Observation Marisabel Mercado DO February 28, 2017 14:20
--- NOTE | 2017-02-28 15:32 | RADRPT ---
EXAM DATE/TIME: 02/28/2017 14:47 [place] COMPARISON: HIP LEFT (MIN 4VWS) W AP PELVIS, October 07, 2016, 11:12. HIP LEFT (AP&LAT 2/3VWS) WO AP PELVIS, 2015, 8:00. INDICATIONS : Unable to ambulate status post fall two weeks ago. ORAL CONTRAST: No oral contrast ingested. RADIATION DOSE: 6.67 CTDIvol (mGy) MEDICAL HISTORY : None SURGICAL HISTORY : Hysterectomy. Right hip surgery ENCOUNTER: Initial ACUITY: 2 weeks PAIN SCALE: 8/10 LOCATION: Bilateral pelvis TECHNIQUE: Volumetric scanning of the pelvis was performed. Using automated exposure control and adjustment of the mA and/or kV according to patient size, radiation dose was kept as low as reasonably achievable t o obtain optimal diagnostic quality images. FINDINGS: Bilateral pubic rami fractures are identified. Medial aspect of right superior pubic ramus, posterior aspect of right inferior pubic ramus, medial aspect of left superior pubic ramus and central aspect of the left inferior pubic ramus. These findings are not seen on the prior radiograph of 10/07/2016. No evidence of advanced bone bridging. Bilateral nondisplaced sacral fractures are noted with small step off at the anterior cortices. Sacro iliac joints within normal limits. Proximal left femoral hardware in place. Right proximal femur are intact. Distal abdominal aortic aneurysm with graft in place. No evidence of bowel dilatation. No free air or free fluid. No enlarged lymph nodes. CONCLUSION: 1. Acute to subacute bilateral pubic rami fractures and bilateral sacral fractures. Pattern is charac teristic of insufficiency type fractures. 2. Internal fixation hardware proximal left femur. 3. Aortic aneurysm status post repair. Reagan Marrufo MD on February 28, 2017 at 15:25 Board Certified Radiologist. This report was verified electronically.
--- NOTE | 2017-02-28 16:41 | HHI.HP ---
HPI Service Family Medicine Primary Care Physician No Primary Care Physician Admission Diagnosis Pelvic fracture Diagnoses: International Travel<30 Days: No Contact w/Intl Traveler<30days: No Known Affected Area: No History of Present Illness Alexia Rahman is a pleasant 76 year old woman with severe dementia following an aneurysm repair about 2.5 years ago, h/o left hip intertrochanteric fracture s/ p reduction and pinning of fixation left femur on 10/08/2016, HTN, COPD, severe aortic stenosis patient of Dr. Edouard, osteoporosis, hypothyroidism who is sent to the ED from [facility] due to difficulty ambulating following a fall on 02/12/2017. Patient was evaluated in the ED with daughter, Jie John , at bedside who provided history to the best of her understanding. Alexia was seen here on 02/12/2017 following a fall out of her bed and pulling a night stand onto her head. Her head and C-spine CT were negative for fracture and she was discharged back to her SNF. She had a pelvic x-ray on 02/12/2017 that was negative for any fracture and later again had pelvis, left and right hip x- rays obtained at [facility] on 02/16/2017 that were significant for osteoarthritic changes b/l, s/p left ORIF appearing healed. Her daughter reports that at baseline prior to 02/12/17 Alexia was able to ambulate with assistance without pain. Since 02/12, she has been more reluctant to ambulate. Daughter is unsure how significant her pain is. Due to continued symptoms of difficulty ambulate despite negative x-rays, CT pelvis was obtained here on presentation which is significant for acute to subacute bilateral pubic rami fractures and bilateral sacral fractures, characteristic of insufficiency type fractures. Daughter states at baseline the patient requires assistance to perform all IADLs. Alexia is usually only able to state her name, and is otherwise usually not oriented to time or place. Daughter did meet with palliative care here in and Alexia was kept a full code; however patient is now a DNR/DNI per daughter. Daughter does still desire aggressive medical care as she states that although Alexia cannot perform any IADLs herself and usually cannot identify who she is, Alexia still finds pleasure and enjoyment in various activities. Daughter reports that she was told by staff at [facility] Alexia had a rash along her midline low pelvic area. She has never seen this nor is unsure of the cause. Daughter is unaware of any other concerns or issues that the staff at [facility] had. Review of Systems ROS Limitations: Altered Mental Status Past Family Social History Past Medical History Dementia Aortic aneurysm s/p repair 80% Carotid stenosis- sees Dr. Edouard Severe aortic stenosis COPD HTN Hypothyroidism Hypercholesterolemia Past Surgical History Aortic aneurysm repair Hysterectomy Cholecystectomy 2000 Left hip intertrochanteric fracture s/p reduction and pinning of fixation left femur on 10/08/2016 Allergies: Coded Allergies: No Known Allergies (Verified , 02/28/17) Family History Sister - history of aortic aneurysm Social History Lives at [facility] Daughter Jie John at bedside Cigarette smoking - per EMR since 18 years of age, quit several years ago since living at [facility] Physical Exam Vital Signs Vital Signs Date Time Temp Pulse Resp B/P Pulse Ox O2 Delivery O2 Flow Rate FiO2 02/28/17 13:50 79 16 98 Room Air 02/28/17 13:49 97.8 87 16 114/58 98 Physical Exam GENERAL: NAD, lying comfortably in bed NEURO: Alert. Oriented to person but not to place or time. Speech is not slurred. Not able to easily follow commands. director of health education grossly intact. Difficult to assess strength 2/2 baseline severe dementia. Gait not tested. SKIN: Warm and dry. ~2 x 1 cm area of bruising overlying the pubis; no lesions in this area. Scattered ecchymosis. No areas of skin breakdown anywhere including back and sacrum. HEAD: Normocephalic. Atraumatic. EYES: PERRL. EOMI. No scleral icterus. No injection or drainage. ENT: No nasal drainage. Moist mucous membranes. No oral ulcers or lesions. NECK: Supple, trachea midline. No JVD. CARDIOVASCULAR: Regular rate and rhythm, harsh sounding early to mid systolic murmur best auscultated along right upper sternal border. Peripheral pulses 2+. Capillary refill < 2 seconds. RESPIRATORY: Breath sounds clear to auscultation and equal bilaterally, without wheezes, rales, or rhonchi. No accessory muscle use. GASTROINTESTINAL: Abdomen soft, nontender, nondistended, normal BS. No organomegaly or masses. No rebound tenderness. No guarding. MUSCULOSKELETAL: No edema, cyanosis, or clubbing. Normal range of motion. BACK: Nontender without deformity. No skin breakdown. Imaging Last [address] 02/28/17 0000 Signed Impressions: Service Date/Time: Tuesday, February 28, 2017 14:47 - CONCLUSION: 1. Acute to subacute bilateral pubic rami fractures and bilateral sacral fractures. Pattern is characteristic of insufficiency type fractures. 2. Internal fixation hardware proximal left femur. 3. Aortic aneurysm status post repair. Reagan Marrufo MD Assessment and Plan Assessment and Plan 76 year old woman with severe dementia following an aneurysm repair about 2.5 years ago, h/o left hip intertrochanteric fracture s/p reduction and pinning of fixation left femur on 10/08/2016, HTN, COPD, severe aortic stenosis patient of Dr. Edouard, osteoporosis, hypothyroidism sent to the ED from [facility] due to difficulty ambulating and found to have acute to subacute bilateral pubic rami fractures and bilateral sacral fractures on pelvis CT characteristic of insufficiency type fractures. Code Status DNR/DNI Discussed Condition With Dr. Gustavo Delgado, [facility] Problem List: (1) Bilateral pubic rami fractures Status: Acute Plan: - Spoke with Dr. Ghulam Grace, orthopedic surgeon, via phone who recommended, given patients medical history and previous orthopedic procedure, nonoperative management which should include DVT prophylaxis, pain control, and physical therapy - Pain control with Tylenol 650 mg po q4h prn; Tylenol would be the agent of choice for mild to moderate pain especially in this patient, would avoid opioids and NSAIDs - Patient has multiple risk factors leading to these insufficiency fractures - Patient would benefit from early mobilization with assistance only as tolerated to prevent thromboembolic complications - PT/OT consult - Continue Xarelto 10 mg po daily and aspirin 81 mg po daily - OOB with close assistance only - Continue calcium and vitamin D supplementation (2) Fluids, Electrolytes, and Nutrition Status: Acute Plan: IV fluids not indicated Heart healthy diet DVT prophylaxis: Xarelto as above Chronic medical issues: - Patient is on Coreg 1.5625 mg BID due to CV disease history; likely restart tomorrow if patients blood pressure tolerates - Hypothyroidism: continue home Synthroid Physician Certification 2 Midnight Certification Type: Admission for Inpatient Services Order for Inpatient Services The services are ordered in accordance with Medicare regulations or non- Medicare payer requirements, as applicable. In the case of services not specified as inpatient-only, they are appropriately provided as inpatient services in accordance with the 2-midnight benchmark. Estimated LOS (days): 2 days is the estimated time the patient will need to remain in the hospital, assuming treatment plan goals are met and no additional complications. Post-Hospital Plan: Retirement/[facility] Gregor Meraz MD R1 February 28, 2017 16:41
[2017-02-28] MEDS ORDERED: SODIUM CHLORIDE 0.9% FLUSH 10 ML FLUSH IV FLUSH PRN (16:45)
[2017-02-28] MEDS ORDERED: NALOXONE HCL 0.4 MG/ML AMP IV PRN (16:45)
--- NOTE | 2017-02-28 16:47 | PD.PN.STU ---
Subjective Remarks Ms. Rahman is a 76 year old woman with known dementia status post fall on 02/12. Her history was given by her daughter, Manju John. She was transported from [facility] where she resides after continued complaints about pain and decreased ambulation since the fall. She was ambulatory with assistance prior to the fall on 02/12. Xrays done on 02/12 and 02/16 showed no fracture. At baseline, she needs assistance with all ADLs. She is incontinent of bladder and bowels. She does have a good mood and normally tries to ambulate by herself. She has decreasing appetite and food intake. Nurses noticed new bruising in the suprapubic area this morning upon bathing. It is suspected that she may of hit the corner of a chair. She had a fall September 2016 resulting in a left hip fracture but returned to baseline after surgery. Daughter met with palliative care 09/2016 and at that time was a full code. Since discussion with her son and other physicians, daughter has decided to change to DNR/DNI. PMH: Dementia AAA Anxiety HTN COPD Aortic stenosis PSH: ORIF left hip 09/2016 AAA repair Hysterectomy 2002 Cholecystectomy 2000 Objective Vitals Vital Signs Date Time Temp Pulse Resp B/P Pulse Ox O2 Delivery O2 Flow Rate FiO2 02/28/17 13:50 79 16 98 Room Air 02/28/17 13:49 97.8 87 16 114/58 98 Imaging Last Impressions Pelvis CT 02/28/17 0000 Signed Impressions: Service Date/Time: Tuesday, February 28, 2017 14:47 - CONCLUSION: 1. Acute to subacute bilateral pubic rami fractures and bilateral sacral fractures. Pattern is characteristic of insufficiency type fractures. 2. Internal fixation hardware proximal left femur. 3. Aortic aneurysm status post repair. Reagan Marrufo MD Objective Remarks GENERAL: This is a frail appearing elderly woman in no apparent distress. SKIN: small bilateral ecchymoses on dorsal hands and forearms, ecchymoses suprapubic. Cool and dry. HEAD: Atraumatic. Normocephalic. No temporal or scalp tenderness. EYES: Pupils equal round and reactive. Extraocular motions intact. No scleral icterus. No injection or drainage. ENT: Nose without bleeding, purulent drainage. Airway patent. NECK: Trachea midline. No JVD or lymphadenopathy. Supple, nontender, no meningeal signs. CARDIOVASCULAR: Regular rate and rhythm systolic ejection murmur heard best at RUSB RESPIRATORY: Clear to auscultation. Breath sounds equal bilaterally. No wheezes , rales, or rhonchi. GASTROINTESTINAL: Abdomen soft, non-tender, nondistended. No hepato-splenomegaly , or palpable masses. No guarding. MUSCULOSKELETAL: Extremities without clubbing, cyanosis, or edema. No joint tenderness, effusion, or edema noted. No calf tenderness. NEUROLOGICAL: Awake. Oriented to person. Motor and sensory grossly within normal limits. Normal speech. Medications and IVs Current Medications Medications (Trade) Dose Ordered Sig/Alma Route Start Time Stop Time Status Last Admin (NS Flush) 2 ml UNSCH PRN IV FLUSH 02/28/17 16:45 (NS Flush) 2 ml BID IV FLUSH 02/28/17 21:00 (Tylenol) 650 mg Q4H PRN PO 02/28/17 16:45 (Narcan Inj) 0.4 mg UNSCH PRN IV 02/28/17 16:45 (Vitamin D3) 5,000 units DAILY PO 03/01/17 09:00 (Synthroid) 125 mcg DAILY@06 PO 03/01/17 06:00 (Ferrous Sulfate) 325 mg TID PO 02/28/17 18:00 02/28/17 17:00 (Oscal) 1 mg DAILY PO 03/01/17 09:00 (Vitamin D3) 400 units DAILY PO 03/01/17 09:00 A/P Assessment and Plan Ms. Rahman is a 76 year old woman with known dementia status post fall on 02/12. She is being admitted for continued pain and decreased ambulation. She has pelvic fractures that the daughter would like to speak to orthopedic surgery about a possible surgical intervention. Pelvic pain/Decreased ambulation CT confirmed pelvic fracture Acetaminophen 650mg PO Q4H as needed for pain Consult Orthopedic surgery Consult PT Chronic Medical Problems: COPD- albuterol neb 2.5mg neb Q6H PRN Hypothyroidism- Levothyroxine 125mcg PO daily Heart Healthy diet DVT prophylaxis: SCD bilaterally Sparkle Delgado M3 February 28, 2017 16:47
[2017-02-28 16:54] VITALS: BP 110/61; PULSE 81; RESP 16; TEMP 98; O2SAT 99
[2017-02-28] MEDS ORDERED: RESP: ALBUTEROL 2.5 MG/3 ML NEB (PRN) NEB (17:00)
[2017-02-28] MEDS: FERROUS SULFATE 325 MG (65 MG ELEMENTAL IRON) TAB PO SCH (17:00)
[2017-02-28] MEDS ORDERED: FERROUS SULFATE 325 MG PO SCH (18:00)
[2017-02-28 19:10] VITALS: BP 140/67; PULSE 64; RESP 19; TEMP 97.3; O2SAT 92
[2017-02-28] MEDS: SODIUM CHLORIDE 0.9% FLUSH 10 ML FLUSH IV FLUSH SCH (20:12)
[2017-02-28 20:25] VITALS: BP 99/69; PULSE 84; RESP 15; TEMP 98; O2SAT 94
[2017-02-28] MEDS ORDERED: APIX2.5T PO (20:33)
[2017-02-28] MEDS: FAMOTIDINE 20 MG TAB PO SCH (20:48)
[2017-02-28 23:05] VITALS: BP 122/65; PULSE 85; RESP 17; TEMP 98; O2SAT 91
[2017-03-01] MEDS: ACETAMINOPHEN 325 MG TAB PO PRN ×2 (00:10→08:16)
[2017-03-01 04:40] VITALS: BP 118/63; PULSE 86; RESP 16; TEMP 97.6; O2SAT 91
[2017-03-01] MEDS: LEVOTHYROXINE SODIUM 125 MCG TAB PO SCH (05:10)
--- NOTE | 2017-03-01 05:24 | HHI.PR ---
Addendum to Inpatient Note Addendum Reason: Corrected Documentation Additional Information Nurse paged at approx [phone] stating that it has been verified with [facility] and patient's daughter that she was on Eliquis 2.5mg twice daily + aspirin while at [facility], with last dose the morning of 02/28/17. Xarelto to be discontinued and Eliquis will be started at stated dose. Emperatriz Brooks MD R1 March 01, 2017 05:24
--- NOTE | 2017-03-01 07:21 | PD.PN.STU ---
Subjective Remarks Patient seen and examined this morning. Vital signs stable. No complaints of pain or problems. PT in room with patient, getting her ready to walk. Objective Vitals Vital Signs Date Time Temp Pulse Resp B/P Pulse Ox O2 Delivery O2 Flow Rate FiO2 03/01/17 04:40 97.6 86 16 118/63 91 02/28/17 23:05 98.0 85 17 122/65 91 02/28/17 20:25 98.0 84 15 99/69 94 02/28/17 19:10 97.3 64 19 140/67 92 02/28/17 16:54 98.0 81 16 110/61 99 Room Air 02/28/17 13:50 79 16 98 Room Air 02/28/17 13:49 97.8 87 16 114/58 98 I/O 02/28/17 02/28/17 02/28/17 03/01/17 03/01/17 03/01/17 07:00 15:00 23:00 07:00 15:00 23:00 Intake Total 60 ml 240 ml Balance 60 ml 240 ml Intake Oral 60 ml 240 ml # Voids 2 2 # Bowel Movements 0 0 Imaging Last Impressions Pelvis CT 02/28/17 0000 Signed Impressions: Service Date/Time: Tuesday, February 28, 2017 14:47 - CONCLUSION: 1. Acute to subacute bilateral pubic rami fractures and bilateral sacral fractures. Pattern is characteristic of insufficiency type fractures. 2. Internal fixation hardware proximal left femur. 3. Aortic aneurysm status post repair. Reagan Marrufo MD Objective Remarks GENERAL: This is a frail appearing elderly woman in no apparent distress. SKIN: small bilateral ecchymoses on dorsal hands and forearms, ecchymoses suprapubic. Cool and dry. HEAD: Atraumatic. Normocephalic. No temporal or scalp tenderness. EYES: Pupils equal round and reactive. Extraocular motions intact. No scleral icterus. No injection or drainage. ENT: Nose without bleeding, purulent drainage. Airway patent. NECK: Trachea midline. No JVD or lymphadenopathy. Supple, nontender, no meningeal signs. CARDIOVASCULAR: Regular rate and rhythm, systolic ejection murmur heard best at RUSB RESPIRATORY: Clear to auscultation. Breath sounds equal bilaterally. No wheezes , rales, or rhonchi. GASTROINTESTINAL: Abdomen soft, non-tender, nondistended. No hepato-splenomegaly , or palpable masses. No guarding. MUSCULOSKELETAL: Extremities without clubbing, cyanosis, or edema. No joint tenderness, effusion, or edema noted. No calf tenderness. NEUROLOGICAL: Awake. Oriented to person. Motor and sensory grossly within normal limits. Normal speech Medications and IVs Current Medications Medications (Trade) Dose Ordered Sig/Alma Route Start Time Stop Time Status Last Admin (NS Flush) 2 ml UNSCH PRN IV FLUSH 02/28/17 16:45 (NS Flush) 2 ml BID IV FLUSH 02/28/17 21:00 (Tylenol) 650 mg Q4H PRN PO 02/28/17 16:45 03/01/17 00:10 (Narcan Inj) 0.4 mg UNSCH PRN IV 02/28/17 16:45 (Vitamin D3) 5,000 units DAILY PO 03/01/17 09:00 (Synthroid) 125 mcg DAILY@06 PO 03/01/17 06:00 03/01/17 05:10 (Ferrous Sulfate) 325 mg TID PO 02/28/17 18:00 02/28/17 17:00 (Oscal) 1 mg DAILY PO 03/01/17 09:00 (Vitamin D3) 400 units DAILY PO 03/01/17 09:00 (Ecotrin Ec) 81 mg DAILY PO 03/01/17 09:00 (Pepcid) 20 mg BID PO 02/28/17 21:00 02/28/17 20:48 (Eliquis) 2.5 mg BID PO 03/01/17 09:00 A/P Assessment and Plan Ms. Rahman is a 76 year old woman with known dementia status post fall on 02/12. She is being admitted for continued pain and decreased ambulation. She has pelvic fractures that the daughter would like to speak to orthopedic surgery about a possible surgical intervention. Pelvic pain/Decreased ambulation CT confirmed pelvic fracture Acetaminophen 650mg PO Q4H as needed for pain Consulted Orthopedic surgery- recommended no surgery at this time Consult PT Consult Case Management for Rehab placement Chronic Medical Problems: COPD- albuterol neb 2.5mg neb Q6H PRN Hypothyroidism- Levothyroxine 125mcg PO daily Heart Healthy diet DVT prophylaxis: Eliquis 2.5mg PO BID Out of bed with assistance Discharge Planning Likely discharge to rehab, if medicare will need 3 night stay (discharge on 03/03 ) Sparkle Delgado March 01, 2017 07:21
[2017-03-01 08:00] VITALS: BP 121/51; PULSE 81; RESP 18; TEMP 96.4; O2SAT 90
[2017-03-01] MEDS: CALCIUM CARBONATE 1.25 GM (CA 500 MG) TAB PO SCH (08:17)
[2017-03-01] MEDS: ASPIRIN EC 81 MG TABEC PO SCH (08:17)
[2017-03-01] MEDS: FERROUS SULFATE 325 MG (65 MG ELEMENTAL IRON) TAB PO SCH ×3 (08:17→16:48)
[2017-03-01] MEDS: SODIUM CHLORIDE 0.9% FLUSH 10 ML FLUSH IV FLUSH SCH ×2 (08:17→22:14)
[2017-03-01] MEDS: CHOLECALCIFEROL (VIT D3) 400 UNIT TAB PO SCH (08:17)
[2017-03-01] MEDS: FAMOTIDINE 20 MG TAB PO SCH ×2 (08:17→22:15)
[2017-03-01] MEDS: CHOLECALCIFEROL (VIT D3) 5000 UNIT CAP PO SCH (08:17)
[2017-03-01] MEDS: APIXABAN 2.5 MG TABLET PO SCH ×2 (08:28→22:15)
--- NOTE | 2017-03-01 08:47 | HHI.FPPN ---
Subjective Remarks Alexia Rahman is a 76yo lady with dementia admitted for pelvic rami fractures, nonoperative, admitted for pelvic rami fractures likely sustained from a fall out of bed on 02/12/17. She apparently lives at an [facility], where she has been having difficulty ambulating since the fall. She had x-rays of her pelvis initially after the fall which were negative, but CT at this admission was positive for fractures. Also noted was a bruise above her pelvic bone which was noted while CNAs were bathing her at the [facility]. For further details, please see resident H&P. This morning, she reports she is feeling well. She denies pain. Of note, this is her second significant fall in 6 months. ROS: No pain, no SOB, no chest pain, no nausea/vomiting. All other systems reviewed are negative. PMH/PSxH/SocHx/FamHx: Per resident H&P. SIgnificant for: dementia, severe aortic stenosis, osteoporosis, COPD, hypothyroidism, left hip ORIF in September 2016. AAA repair, Left hip ORIF, hysterectomy, cholecystectomy. Sister with AAA. Lives at [facility]. Prior tobacco abuse Objective Vitals Vital Signs Date Time Temp Pulse Resp B/P Pulse Ox O2 Delivery O2 Flow Rate FiO2 03/01/17 08:00 96.4 81 18 121/51 90 03/01/17 04:40 97.6 86 16 118/63 91 02/28/17 23:05 98.0 85 17 122/65 91 02/28/17 20:25 98.0 84 15 99/69 94 02/28/17 19:10 97.3 64 19 140/67 92 02/28/17 16:54 98.0 81 16 110/61 99 Room Air 02/28/17 13:50 79 16 98 Room Air 02/28/17 13:49 97.8 87 16 114/58 98 I/O 02/28/17 02/28/17 02/28/17 03/01/17 03/01/17 03/01/17 07:00 15:00 23:00 07:00 15:00 23:00 Intake Total 60 ml 240 ml Balance 60 ml 240 ml Intake Oral 60 ml 240 ml # Voids 2 2 # Bowel Movements 0 0 Objective Remarks GENERAL: in NAD, no resp distress, nontoxic. Pleasant. HEENT: NCAT, EOMI, no scleral icterus, no conjunctival injection. MMM. NECK: Supple, no meningeal signs. Carotid bruit heard (murmur radiation) CV: RRR, S1 S2. 3/6 harsh systolic murmur consistent with known aortic stenosis CHEST/PULM: CTAB, no crackles, no wheezes ABD/GI: +BS, soft, nontender, nondistended EXT: 2+ DP pulses, no calf tenderness, no edema. No pain with log rolling of hips. NEURO: Awake, alert. Normal muscle tone. Grossly nonfocal. SKIN: Bruise noted overlying pelvic bone. PSYCH: Mood and affect are appropriate. Does not appear to respond to internal stimuli. A/P Assessment and Plan 76 year old woman found to have acute to subacute bilateral pubic rami fractures and bilateral sacral fractures on pelvis CT characteristic of insufficiency type fractures. Attending Attestation The patient has been seen and examined. The chart and all resident notes have been reviewed. I agree that inpatient care is appropriate and that a two midnight stay is expected for the reasons documented in the resident history and physical. I have discussed this with the resident and certify the resident s order for inpatient admission. Problem List: (1) Bilateral pubic rami fractures Status: Acute Plan: Nonoperative management. Await recs from PT. Pain management. Calcium/Vitamin D. Continue Xarelto 10 mg po daily and aspirin 81 mg po daily (2) Vitamin D deficiency Status: Chronic Plan: Continue Vitamin D as ordered. Vit D level 21. (3) Aortic stenosis Status: Chronic Plan: Followed by Dr. Edouard. Fall was from bed and not associated with syncope, per report. No further intervention needed at this time. (4) Dementia Status: Chronic Plan: Pt lives at [facility]. Will need to return there vs SNF at discharge. (5) Hypothyroid Status: Chronic Plan: Continue home medication. (6) Osteoporosis Status: Chronic Plan: Continue Ca/Vit D. Pt may benefit from bisphosphonate at discharge if not on one already. This can be managed / decided at discharge or as an outpatient. Problem Qualifiers (1) Bilateral pubic rami fractures: Katty Garcia MD March 01, 2017 08:47 (1) Bilateral pubic rami fractures: Katty Garcia MD March 01, 2017 08:47 fixation left femur on 10/08/2016, HTN, COPD, severe aortic stenosis patient of Dr. Edouard, osteoporosis, hypothyroidism sent to the ED from [facility] due to difficulty ambulating and found to have acute to subacute bilateral pubic rami fractures and bilateral sacral fractures on pelvis CT characteristic of insufficiency type fractures. Attending Attestation The patient has been seen and examined. The chart and all resident notes have been reviewed. I agree that inpatient care is appropriate and that a two midnight stay is expected for the reasons documented in the resident history and physical. I have discussed this with the resident and certify the resident s order for inpatient admission. Problem List: (1) Bilateral pubic rami fractures Status: Acute Plan: - Spoke with Dr. Ghulam Grace, orthopedic surgeon, via phone who recommended, given patients medical history and previous orthopedic procedure, nonoperative management which should include DVT prophylaxis, pain control, and physical therapy - Pain control with Tylenol 650 mg po q4h prn; Tylenol would be the agent of choice for mild to moderate pain especially in this patient, would avoid opioids and NSAIDs - Patient has multiple risk factors leading to these insufficiency fractures - Patient would benefit from early mobilization with assistance only as tolerated to prevent thromboembolic complications - PT/OT consult - Continue Xarelto 10 mg po daily and aspirin 81 mg po daily - OOB with close assistance only - Continue calcium and vitamin D supplementation (2) Fluids, Electrolytes, and Nutrition Status: Acute Plan: IV fluids not indicated Heart healthy diet DVT prophylaxis: Xarelto as above Chronic medical issues: - Patient is on Coreg 1.5625 mg BID due to CV disease history; likely restart tomorrow if patients blood pressure tolerates - Hypothyroidism: continue home Synthroid Problem Qualifiers (1) Bilateral pubic rami fractures: Qualified Code: S32.591A - Bilateral pubic rami fractures, closed, initial encounter Katty Garcia MD March 01, 2017 08:47
[2017-03-01] MEDS ORDERED: CALCIUM CARBONATE VITAMIN D PO SCH (09:00)
[2017-03-01] MEDS ORDERED: RIVAROXABAN 10 MG TAB PO SCH (09:00)
[2017-03-01 10:28] LABS: BASOPHIL # 0.1 TH/MM3 (0-0.2); BASOPHIL % 0.9 % (0.0-2.0); EOSINOPHIL # 0.1 TH/MM3 (0-0.4); EOSINOPHIL % 1.3 % (0.0-4.0); HEMATOCRIT 36.7 % (35.0-46.0); HEMO FLAGS DIFF FINAL; LYMPH % 10.4 % (9.0-44.0); LYMPHOCYTE # 0.9 TH/MM3 (1.0-4.8); MEAN CELL VOLUME 92.1 FL (80.0-100.0); MEAN CORPUSCULAR HEMOGLOBIN 30.8 PG (27.0-34.0); MEAN CORPUSCULAR HGB CONC 33.5 % (32.0-36.0); MONO % 11.2 % (0.0-8.0); NEUT % 76.2 % (16.0-70.0); PLATELET COUNT 399 TH/MM3 (150-450); RED BLOOD COUNT 3.99 MIL/MM3 (4.00-5.30); RED CELL DISTRIBUTION WIDTH 13.2 % (11.6-17.2); WHITE BLOOD COUNT 9.1 TH/MM3 (4.0-11.0)
[2017-03-01 10:48] LABS: ALT (GPT) 17 U/L (10-53); ANION GAP 6 MEQ/L (5-15); AST (GOT) 22 U/L (15-37); BICARBONATE 28.6 MEQ/L (21.0-32.0); BLOOD UREA NITROGEN 19 MG/DL (7-18); CHLORIDE 105 MEQ/L (98-107); GLOMERULAR FILTRATION RATE 72 ML/MIN (>89); POTASSIUM 3.7 MEQ/L (3.5-5.1); SODIUM (NA) 140 MEQ/L (136-145)
[2017-03-01 10:50] LABS: ALKALINE PHOSPHATASE 170 U/L (45-117); TOTAL BILIRUBIN ADULT 0.7 MG/DL (0.2-1.0)
[2017-03-01 10:59] LABS: CREATINE KINASE 70 U/L (26-192)
[2017-03-01 12:00] VITALS: BP 127/62; PULSE 79; RESP 18; TEMP 96.8; O2SAT 92
[2017-03-01 16:00] VITALS: BP 121/62; PULSE 84; RESP 18; TEMP 97.7; O2SAT 92
[2017-03-01 18:04] LABS: BACTERIA, URINE RARE /hpf; BLOOD, URINE SMALL (NEG); COMMENT (UR) CULTURE INDICATED; CULTURE IF INDICATED CULTURE INDICATED; GLUCOSE,URINE NEG (NEG); KETONE, URINE NEG (NEG); NITRITE,URINE POS (NEG); PH, URINE 7.5 (5.0-8.5); SQUAMOUS EPITHELIAL CELL URINE 13 /hpf (0-5); URINE COLOR YELLOW (YELLW/STRAW)
[2017-03-01 20:15] VITALS: BP 123/58; PULSE 88; RESP 15; TEMP 97.6; O2SAT 96
[2017-03-02 00:15] VITALS: BP 126/66; PULSE 97; RESP 15; TEMP 97.8; O2SAT 91
[2017-03-02 04:50] VITALS: BP 118/71; PULSE 97; RESP 15; TEMP 97.6; O2SAT 93
[2017-03-02] MEDS: LEVOTHYROXINE SODIUM 125 MCG TAB PO SCH (06:02)
[2017-03-02 08:00] VITALS: BP 109/56; PULSE 84; RESP 16; TEMP 97.3; O2SAT 93
[2017-03-02] MEDS: FERROUS SULFATE 325 MG (65 MG ELEMENTAL IRON) TAB PO SCH ×3 (08:33→17:49)
[2017-03-02] MEDS: CHOLECALCIFEROL (VIT D3) 5000 UNIT CAP PO SCH (08:34)
[2017-03-02] MEDS: CALCIUM CARBONATE 1.25 GM (CA 500 MG) TAB PO SCH (08:34)
[2017-03-02] MEDS: FAMOTIDINE 20 MG TAB PO SCH ×2 (08:34→21:21)
[2017-03-02] MEDS: ASPIRIN EC 81 MG TABEC PO SCH (08:34)
[2017-03-02] MEDS: APIXABAN 2.5 MG TABLET PO SCH ×2 (08:34→21:21)
[2017-03-02] MEDS: CHOLECALCIFEROL (VIT D3) 400 UNIT TAB PO SCH (08:34)
[2017-03-02] MEDS: SODIUM CHLORIDE 0.9% FLUSH 10 ML FLUSH IV FLUSH SCH ×2 (08:34→21:00)
--- NOTE | 2017-03-02 08:58 | HHI.FPPN ---
Subjective Remarks Patient lying comfortably in bed resting upright. Food tray untouched. Nursing made aware patient needs help eating. Review of systems unobtainable secondary to dementia. No complaints. (Rojelio Retana MD R2) Objective Vitals Vital Signs Date Time Temp Pulse Resp B/P Pulse Ox O2 Delivery O2 Flow Rate FiO2 03/02/17 08:00 97.3 84 16 109/56 93 03/02/17 04:50 97.6 97 15 118/71 93 03/02/17 00:15 97.8 97 15 126/66 91 03/01/17 21:00 Room Air 03/01/17 20:15 97.6 88 15 123/58 96 03/01/17 16:00 97.7 84 18 121/62 92 03/01/17 12:00 96.8 79 18 127/62 92 I/O 03/01/17 03/01/17 03/01/17 03/02/17 03/02/17 03/02/17 07:00 15:00 23:00 07:00 15:00 23:00 Intake Total 360 ml 120 ml 60 ml Balance 360 ml 120 ml 60 ml Intake Oral 360 ml 120 ml 60 ml # Voids 5 3 4 # Bowel Movements 0 0 0 (Rojelio Retana MD R2) Result Diagram: 03/01/17 1018 03/01/17 1018 Objective Remarks GENERAL: in NAD, no resp distress, nontoxic. Pleasant. HEENT: NCAT, EOMI, no scleral icterus, no conjunctival injection. MMM. NECK: Supple, no meningeal signs. Carotid bruit heard (murmur radiation) CV: RRR, S1 S2. 3/6 harsh systolic murmur consistent with known aortic stenosis CHEST/PULM: CTAB, no crackles, no wheezes ABD/GI: +BS, soft, nontender, nondistended EXT: 2+ DP pulses, no calf tenderness, no edema. No pain with log rolling of hips. NEURO: Awake, alert. Normal muscle tone. Grossly nonfocal. SKIN: Bruise noted overlying pelvic bone. PSYCH: Mood and affect are appropriate. Does not appear to respond to internal stimuli. (Rojelio Retana MD R2) A/P Assessment and Plan 76 year old woman found to have acute to subacute bilateral pubic rami fractures and bilateral sacral fractures on pelvis CT characteristic of insufficiency type fractures. Discharge Planning Likely today or tomorrow (Rojelio Retana MD R2) Attending Attestation Patient seen and examined, discussed with resident team. I agree with assessment and management as documented and discussed with me. Pt without complaints. Anticipate discharge once arrangements for SNF have been made. (Katty Garcia MD) Problem List: (1) Bilateral pubic rami fractures Status: Acute Plan: Nonoperative management. Physical therapy: [facility] with home health. Pain management. Calcium/Vitamin D. Continue eliquis 2.5 bid and aspirin 81 mg po daily (2) Vitamin D deficiency Status: Chronic Plan: Continue Vitamin D as ordered. Vit D level 21. (3) Aortic stenosis Status: Chronic Plan: Followed by Dr. Edouard. Fall was from bed and not associated with syncope, per report. No further intervention needed at this time. (4) Dementia Status: Chronic Plan: Pt lives at [facility]. Will need to return there vs SNF at discharge. (5) Hypothyroid Status: Chronic Plan: Continue home medication. (6) Osteoporosis Status: Chronic Plan: Continue Ca/Vit D. Pt may benefit from bisphosphonate at discharge if not on one already. This can be managed / decided at discharge or as an outpatient. (Rojelio Retana MD R2) Problem Qualifiers (1) Bilateral pubic rami fractures: Rojelio Retana MD R2 March 02, 2017 08:58 Katty Garcia MD March 02, 2017 17:00
[2017-03-02] MEDS ORDERED: LEVOFLOXACIN 750 MG TAB PO SCH (09:00)
--- NOTE | 2017-03-02 09:07 | HHI.FF ---
Face to Face Verification Diagnosis: (1) Dementia (2) Bilateral pubic rami fractures (3) Closed left hip fracture Physical Therapy Order: Evaluate and Treat, Improve ambulation, Strength and gait training Home Health Nursing Order: Medical education Signs/symptoms of disease process Medication education-adverse effect Nursing assessment with vital signs Home Health Aide Order: To Assist In: Bathing and personal care, shelter supervisor and meal prep I have seen patient Alexia Rahman on 03/02/17. My clinical findings support the need for the requested home health care services because: Ltd mobility - disease progression Deconditioned w/ increased weakness Med compliance is questionable Limited ability to care for self Impaired cognition/judgement High risk of falls I certify that my clinical findings support that this patient is homebound because: Impaired cognitive ability/safety Unsteady gait/balance Unsafe to leave home unassisted [id number] bed/chair Poor cardiac reserve Rojelio Retana MD R2 March 02, 2017 09:07
--- NOTE | 2017-03-02 09:08 | HHI.DCPOC ---
Discharge Care Plan Diagnosis: (1) Bilateral pubic rami fractures (2) Dementia Goals to Promote Your Health * To prevent worsening of your condition and complications * To maintain your health at the optimal level Directions to Meet Your Goals Take your medications as prescribed Follow your dietary instruction Follow activity as directed Keep your appointments as scheduled Take your immunizations and boosters as scheduled If your symptoms worsen call your PCP, if no PCP go to Urgent Care Center or Emergency Room Smoking is Dangerous to Your Health. Avoid second hand smoke Call the 24-hour hour crisis hotline for domestic abuse at Rojelio Retana MD R2 March 02, 2017 09:08
[2017-03-02] MEDS: DOCUSATE SODIUM 50 MG/SENNA 8.6 MG TAB PO SCH ×2 (09:15→21:21)
[2017-03-02] MEDS ORDERED: BACT800T5 PO (11:52)
[2017-03-02 12:00] VITALS: BP 129/67; PULSE 86; RESP 14; TEMP 97.4; O2SAT 94
[2017-03-02] MEDS: SULFAMETHOXAZOLE-TRIMETHOPRIM DS 800-160 MG TAB PO SCH ×2 (12:42→21:20)
[2017-03-02 16:00] VITALS: BP 118/64; PULSE 74; RESP 20; TEMP 95.5; O2SAT 94
[2017-03-02] MEDS: ACETAMINOPHEN 325 MG TAB PO PRN (17:49)
[2017-03-02 20:50] VITALS: BP 119/64; PULSE 86; RESP 17; TEMP 97.6; O2SAT 95
[2017-03-03 00:20] VITALS: BP 134/65; PULSE 80; RESP 16; TEMP 96.5; O2SAT 94
[2017-03-03] MEDS: LEVOTHYROXINE SODIUM 125 MCG TAB PO SCH (05:31)
[2017-03-03 08:00] VITALS: BP 121/69; PULSE 86; RESP 18; TEMP 97; O2SAT 94
[2017-03-03] MEDS: SODIUM CHLORIDE 0.9% FLUSH 10 ML FLUSH IV FLUSH SCH (09:00)
[2017-03-03] MEDS ORDERED: BACT800T5 PO (10:06)
[2017-03-03] MEDS: CHOLECALCIFEROL (VIT D3) 400 UNIT TAB PO SCH (10:33)
[2017-03-03] MEDS: DOCUSATE SODIUM 50 MG/SENNA 8.6 MG TAB PO SCH (10:33)
[2017-03-03] MEDS: CHOLECALCIFEROL (VIT D3) 5000 UNIT CAP PO SCH (10:33)
[2017-03-03] MEDS: APIXABAN 2.5 MG TABLET PO SCH (10:34)
[2017-03-03] MEDS: FAMOTIDINE 20 MG TAB PO SCH (10:34)
[2017-03-03] MEDS: CALCIUM CARBONATE 1.25 GM (CA 500 MG) TAB PO SCH (10:34)
[2017-03-03] MEDS: FERROUS SULFATE 325 MG (65 MG ELEMENTAL IRON) TAB PO SCH ×3 (10:34→17:49)
[2017-03-03] MEDS: SULFAMETHOXAZOLE-TRIMETHOPRIM DS 800-160 MG TAB PO SCH (10:34)
[2017-03-03] MEDS: ASPIRIN EC 81 MG TABEC PO SCH (10:34)
[2017-03-03] MEDS ORDERED: MAGNESIUM HYDROXIDE SUSP 30 ML CUP PO PRN (11:00)
--- NOTE | 2017-03-03 11:29 | HHI.FPPN ---
Subjective Remarks Patient sitting upright in a chair eating breakfast. Review of systems Limited secondary to dementia. No complaints. Pleasant. (Rojelio Retana MD R2) Objective Vitals Vital Signs Date Time Temp Pulse Resp B/P Pulse Ox O2 Delivery O2 Flow Rate FiO2 03/03/17 08:00 97.0 86 18 121/69 94 03/03/17 06:54 Room Air 03/03/17 00:20 96.5 80 16 134/65 94 03/02/17 20:50 97.6 86 17 119/64 95 03/02/17 16:00 95.5 74 20 118/64 94 03/02/17 12:00 97.4 86 14 129/67 94 I/O 03/02/17 03/02/17 03/02/17 03/03/17 03/03/17 03/03/17 07:00 15:00 23:00 07:00 15:00 23:00 Intake Total 60 ml 240 ml 50 ml 120 ml Balance 60 ml 240 ml 50 ml 120 ml Intake Oral 60 ml 240 ml 50 ml 120 ml # Voids 4 2 1 1 # Bowel Movements 0 0 0 0 (Rojelio Retana MD R2) Result Diagram: 03/01/17 1018 03/01/17 1018 Objective Remarks GENERAL: in NAD, no resp distress, nontoxic. Pleasant. HEENT: NCAT, EOMI, no scleral icterus, no conjunctival injection. MMM. NECK: Supple, no meningeal signs. Carotid bruit heard (murmur radiation) CV: RRR, S1 S2. 3/6 harsh systolic murmur consistent with known aortic stenosis CHEST/PULM: CTAB, no crackles, no wheezes ABD/GI: +BS, soft, nontender, nondistended EXT: 2+ DP pulses, no calf tenderness, no edema. No pain with log rolling of hips. NEURO: Awake, alert. Normal muscle tone. Grossly nonfocal. SKIN: Bruise noted overlying pelvic bone. PSYCH: Mood and affect are appropriate. Does not appear to respond to internal stimuli. (Rojelio Retana MD R2) A/P Assessment and Plan 76 year old woman found to have acute to subacute bilateral pubic rami fractures and bilateral sacral fractures on pelvis CT characteristic of insufficiency type fractures. Discharge Planning Discharged today to assisted facility. (Rojelio Retana MD R2) Attending Attestation Patient seen and examined, discussed with resident team. I agree with assessment and management as documented and discussed with me. Pt without complaints. She feels ready for discharge. She denies pain. (Katty Garcia MD) Problem List: (1) Bilateral pubic rami fractures Status: Acute Plan: Nonoperative management. Physical therapy: nursing home facility with PT. Pain management. Calcium/Vitamin D. Continue eliquis 2.5 bid and aspirin 81 mg po daily (2) UTI (urinary tract infection) Status: Acute Plan: Urine culture growing gram-negative silke Uncomplicated UTI. Treat with Bactrim twice a day for a four-day course. (3) Vitamin D deficiency Status: Chronic Plan: Continue Vitamin D as ordered. Vit D level 21. (4) Aortic stenosis Status: Chronic Plan: Followed by Dr. Edouard. Fall was from bed and not associated with syncope, per report. No further intervention needed at this time. (5) Dementia Status: Chronic Plan: Pt lives at [facility]. Patient will be discharged to assisted facility (6) Hypothyroid Status: Chronic Plan: Continue home medication. (7) Osteoporosis Status: Chronic Plan: Continue Ca/Vit D. Pt may benefit from bisphosphonate at discharge if not on one already. This can be managed as an outpatient. (Rojelio Retana MD R2) Problem Qualifiers (1) Bilateral pubic rami fractures: Rojelio Retana MD R2 March 03, 2017 11:29 Katty Garcia MD March 03, 2017 15:54
--- NOTE | 2017-03-03 11:57 | HHI.DS ---
Discharge Summary Admission Date February 28, 2017 at 17:23 Discharge Date: March 03, 2017 Admitting Diagnosis Pelvic fracture (1) Bilateral pubic rami fractures Diagnosis: Principal Plan: Nonoperative management. Physical therapy: [facility] facility with PT. Pain management. Calcium/Vitamin D. Continue eliquis 2.5 bid and aspirin 81 mg po daily (2) UTI (urinary tract infection) Diagnosis: Principal Plan: Urine culture growing gram-negative silke Uncomplicated UTI. Treat with Bactrim twice a day for a four-day course. (3) Vitamin D deficiency Diagnosis: Secondary Plan: Continue Vitamin D as ordered. Vit D level 21. (4) Aortic stenosis Diagnosis: Secondary Plan: Followed by Dr. Edouard. Fall was from bed and not associated with syncope, per report. No further intervention needed at this time. (5) Dementia Diagnosis: Principal Plan: Pt lives at [facility]. Patient will be discharged to halfway facility (6) Hypothyroid Diagnosis: Secondary Plan: Continue home medication. (7) Osteoporosis Diagnosis: Principal Plan: Continue Ca/Vit D. Pt may benefit from bisphosphonate at discharge if not on one already. This can be managed as an outpatient. Consultants None Procedures None Brief History Alexia Rahman is a pleasant 76 year old woman with severe dementia following an aneurysm repair about 2.5 years ago, h/o left hip intertrochanteric fracture s/ p reduction and pinning of fixation left femur on 10/08/2016, HTN, COPD, severe aortic stenosis patient of Dr. Edouard, osteoporosis, hypothyroidism who is sent to the ED from [facility] due to difficulty ambulating following a fall on 02/12/2017. Patient was evaluated in the ED with daughter, Jie John , at bedside who provided history to the best of her understanding. Alexia was seen here on 02/12/2017 following a fall out of her bed and pulling a night stand onto her head. Her head and C-spine CT were negative for fracture and she was discharged back to her SNF. She had a pelvic x-ray on 02/12/2017 that was negative for any fracture and later again had pelvis, left and right hip x- rays obtained at [facility] on 02/16/2017 that were significant for osteoarthritic changes b/l, s/p left ORIF appearing healed. Her daughter reports that at baseline prior to 02/12/17 Alexia was able to ambulate with assistance without pain. Since 02/12, she has been more reluctant to ambulate. Daughter is unsure how significant her pain is. Due to continued symptoms of difficulty ambulate despite negative x-rays, CT pelvis was obtained here on presentation which is significant for acute to subacute bilateral pubic rami fractures and bilateral sacral fractures, characteristic of insufficiency type fractures. Daughter states at baseline the patient requires assistance to perform all IADLs. Alexia is usually only able to state her name, and is otherwise usually not oriented to time or place. Daughter did meet with palliative care here in and Alexia was kept a full code; however patient is now a DNR/DNI per daughter. Daughter does still desire aggressive medical care as she states that although Alexia cannot perform any IADLs herself and usually cannot identify who she is, Alexia still finds pleasure and enjoyment in various activities. Daughter reports that she was told by staff at [facility] Alexia had a rash along her midline low pelvic area. She has never seen this nor is unsure of the cause. Daughter is unaware of any other concerns or issues that the staff at [facility] had. CBC/BMP: 03/01/17 1018 03/01/17 1018 Significant Findings Laboratory Tests Test 03/01/17 03/01/17 10:18 16:45 Blood Urea Nitrogen 19 MG/DL (7-18) Estimat Glomerular Filtration 72 ML/MIN (>89) Rate Alkaline Phosphatase 170 U/L (45-117) Albumin 2.9 GM/DL (3.4-5.0) 25-Hydroxy Vitamin D Total 21.0 ng/ML (30-100) Red Blood Count 3.99 MIL/MM3 (4.00-5.30) Neutrophils (%) (Auto) 76.2 % (16.0-70.0) Monocytes (%) (Auto) 11.2 % (0.0-8.0) Lymphocytes # (Auto) 0.9 TH/MM3 (1.0-4.8) Monocytes # (Auto) 1.0 TH/MM3 (0-0.9) Urine Turbidity CLOUDY (CLEAR) Urine Protein 30 mg/dL (NEG-TRACE) Urine Occult Blood SMALL (NEG) Urine Nitrite POS (NEG) Urine Leukocyte Esterase LARGE (NEG) Urine RBC 27 /hpf (0-3) Urine WBC Clumps MANY (NONE) Urine Bacteria RARE /hpf (NONE) Imaging Pelvis CT showing acute to subacute bilateral pubic rami fractures and bilateral sacral fractures. Pattern is characteristic of insufficiency-type fractures. Internal fixation hardware proximal left femur. Aortic aneurysm status post repair. PE at Discharge GENERAL: in NAD, no resp distress, nontoxic. Pleasant. HEENT: NCAT, EOMI, no scleral icterus, no conjunctival injection. MMM. NECK: Supple, no meningeal signs. Carotid bruit heard (murmur radiation) CV: RRR, S1 S2. 3/6 harsh systolic murmur consistent with known aortic stenosis CHEST/PULM: CTAB, no crackles, no wheezes ABD/GI: +BS, soft, nontender, nondistended EXT: 2+ DP pulses, no calf tenderness, no edema. No pain with log rolling of hips. NEURO: Awake, alert. Normal muscle tone. Grossly nonfocal. SKIN: Bruise noted overlying pelvic bone. PSYCH: Mood and affect are appropriate. Does not appear to respond to internal stimuli. Hospital Course Dr. Daniel Grace, orthopedic surgery, was called to discuss the patient's case given her findings of insufficiency fractures on pelvis CT. Given her medical history and previous orthopedic procedure, orthopedic surgery recommended nonoperative conservative management of insufficiency fractures with pain control, DVT prophylaxis, and early mobilization. Pain is controlled with Tylenol. Early mobilization is recommended. PT evaluated patient, recommends placement in [facility] with home health care physical therapy as patient is completely dependent for mobilization. The patient had an uncomplicated UTI, urine culture growing Escherichia coli > 100,000 cfus sensitive to Bactrim. Patient will complete a 4 day course of Bactrim. Patient should continue Eliquis 2.5 mg by mouth twice a day. Pt Condition on Discharge: Stable Discharge Disposition: Discharge to SNF Discharge Instructions DIET: Follow Instructions for: As Tolerated, No Restrictions Activities you can perform: See Additionl Instruction Other Activity Instructions: Per PT Follow up Referrals: PCP Follow-up - 2-3 Days New Medications: Sulfamethoxazole-Trimethoprim (Bactrim DS) 800-160 Mg Tab 1 TAB PO Q12HR #7 TAB Continued Medications: Acetaminophen (Tylenol Extra Strength) 500 Mg Tab 500 MG PO Q6HR PRN PAIN Ref 0 TAB Albuterol 18 GM Inh (Ventolin Hfa 18 GM Inh) 90 Mcg/Act Aer 2 PUFF INH Q6H PRN SHORTNESS OF BREATH #1 Ref 0 INHALER Apixaban (Eliquis) 2.5 Mg Tab 2.5 MG PO BID Blood Clot Prevention Ref [address] (Aspirin Adult Low Strength) 81 Mg Tabdr 81 MG PO DAILY TAB Calcium Carbonate-Vitamin D (Calcium 600+D) 600-400 Mg-Unit Tab 1 TAB PO DAILY Nutritional Supplement TAB Carvedilol (Coreg) 3.125 Mg Tab 1.56 MG PO BID 1/2 tab daily #30 Ref 0 TAB Cholecalciferol (Vitamin D3) 5,000 Unit Cap 5000 UNITS PO DAILY #30 CAP Ferrous Sulfate (Ferrousul) 325 Mg Tab 325 MG PO TID ANEMIA Furosemide (Lasix) 20 Mg Tab 20 MG PO DAILY #30 Ref 0 TAB Ibuprofen (Ibuprofen) 800 Mg Tab 800 MG PO Q6HR PRN PAIN Ref 0 TAB Levothyroxine (Levothyroxine) 125 Mcg Tab 125 MCG PO DAILY Thyroid #30 Ref 0 TAB Melatonin (Melatonin) 3 Mg Tab 3 MG PO HS Insomnia Ondansetron (Zofran) 4 Mg Tab 4 MG PO Q6HR PRN NAUSEA Ref 0 TAB Potassium Chloride ER (Potassium Chloride CR) 10 Meq Tab 10 MEQ PO DAILY #30 TAB Ranitidine (Zantac) 150 Mg Tab 150 MG PO DAILY GERD #30 Ref 0 TAB Sennosides-Docusate Sodium (Senna Plus 8.6-50 mg) 1 Tab Tab 2 TAB PO BID #60 TAB Discontinued Medications: Levofloxacin (Levaquin) 750 Mg Tab 750 MG PO EVERY OTHER DAY #4 TAB Rivaroxaban (Xarelto) 10 Mg Tab 10 MG PO DAILY Blood Clot Prevention #14 Ref 0 TAB Gregor Meraz MD R1 March 03, 2017 11:57
[2017-03-03 12:00] VITALS: BP 120/69; PULSE 86; RESP 18; TEMP 96.7; O2SAT 93
[2017-03-03 16:00] VITALS: BP 126/70; PULSE 91; RESP 18; TEMP 97.2; O2SAT 97
[2017-03-03] MEDS ORDERED: BISACODYL 10 MG SUPP RECTAL PRN (16:00)
== END 2017-03-03 19:42 | DRG 536 ==
LOC: NEPE 13:43 → NEDA 16:05 → OBSVTOIN 17:23 → N06B 18:29 → N06A 22:06
PROVIDERS: ADMIT Family Medicine; ATTEND Family Medicine
DX: S32.592A Other specified fracture of left pubis, initial encounter for closed fracture (principal); S32.10XA Unspecified fracture of sacrum, initial encounter for closed fracture; F03.90 Unspecified dementia, unspecified severity, without behavioral disturbance, psychotic disturbance, mood disturbance, and anxiety; N39.0 Urinary tract infection, site not specified; E55.9 Vitamin D deficiency, unspecified; I35.0 Nonrheumatic aortic (valve) stenosis; E03.9 Hypothyroidism, unspecified; S32.591A Other specified fracture of right pubis, initial encounter for closed fracture; M81.0 Age-related osteoporosis without current pathological fracture; B96.20 Unspecified Escherichia coli [E. coli] as the cause of diseases classified elsewhere; J44.9 Chronic obstructive pulmonary disease, unspecified; I10 Essential (primary) hypertension; W19.XXXA Unspecified fall, initial encounter; Y92.129 Unspecified place in nursing home as the place of occurrence of the external cause; Z87.891 Personal history of nicotine dependence
CPT/HCPCS: 72192; 80053; 81001; 82306; 82550; 85025; 87077; 87086; 87186

== ENCOUNTER 2017-11-19 01:38 | Inpatient (IN) | payer MEDICARE, BC, MEDICAID ==
[2017-11-19] VITALS (18 sets, daily range): BP systolic 57–130; BP diastolic 32–74; PULSE 71–128; RESP 18–30; TEMP 98.1–102; O2SAT 96–100
[~2017-11-19] VITALS: Ht 152.4 cm; Wt 34.0 kg
[~2017-11-19 01:38] MED LIST changes: +APIX2.5T PO; -ASPI1TAB91 PO; +ASPI81TA16 PO; +BACT800T5 PO; +IBUP1TAB7 PO; -IBUP800T23 PO; -LEVA750T PO; -MELA0.02 PO; +MELA3TAB52 PO; -WALKER WHEELS/F1 MIS; -XARE10TA PO
[2017-11-19] MEDS ORDERED: ACETAMINOPHEN 650 MG SUPP RECTAL ONE (02:00)
[2017-11-19] MEDS ORDERED: PIPERACIL-TAZO 3.375 GM PREMIX 50 ML IV ONE (02:00)
[2017-11-19] MEDS ORDERED: VANCOMYCIN INJ 1,000 MG in SODIUM CHLOR 0.9% 250 ML INJ 250 ML IV ONE (02:00)
[2017-11-19] MEDS ORDERED: PROPOFOL 1000 MG/100 ML INJ 100 ML IV STA (02:02)
[2017-11-19] MEDS ORDERED: PROPOFOL 500 MG/50 ML INJ 50 ML ONE (02:02)
[2017-11-19] MEDS ORDERED: SODIUM CHLOR 0.9% 1000 ML INJ 1,000 ML IV ONE ×3 (02:30→09:30)
[2017-11-19] MEDS ORDERED: fentaNYL DRIP 250 ML IV PRN ×2 (02:45→05:15)
[2017-11-19 02:57] LABS: AUTOMATED NEUTROPHIL # 4.4 TH/MM3 (1.8-7.7); BASOPHIL % 0.2 % (0.0-2.0); HEMATOCRIT 35.2 % (35.0-46.0); LYMPH % 10.6 % (9.0-44.0); LYMPHOCYTE # 0.6 TH/MM3 (1.0-4.8); MEAN CELL VOLUME 96.2 FL (80.0-100.0); MEAN CORPUSCULAR HEMOGLOBIN 32.7 PG (27.0-34.0); MEAN PLATELET VOLUME 10.6 FL (7.0-11.0); MONO % 4.3 % (0.0-8.0); MONOCYTE # 0.2 TH/MM3 (0-0.9); NEUT % 84.9 % (16.0-70.0); PLATELET COUNT 146 TH/MM3 (150-450); RED BLOOD COUNT 3.66 MIL/MM3 (4.00-5.30); RED CELL DISTRIBUTION WIDTH 13.4 % (11.6-17.2); WHITE BLOOD COUNT 5.2 TH/MM3 (4.0-11.0)
[2017-11-19 03:02] LABS: BACTERIA, URINE MANY /hpf; BLOOD, URINE SMALL (NEG); GLUCOSE,URINE NEG (NEG); HYALINE CAST, URINE 44 /lpf (RARE); KETONE, URINE NEG (NEG); MUCUS URINE FEW /lpf (OCC); NITRITE,URINE NEG (NEG); PH, URINE 5.5 (5.0-8.5); SQUAMOUS EPITHELIAL CELL URINE 3 /hpf (0-5); URINE COLOR YELLOW (YELLW/STRAW); URINE LEUKOCYTE ESTERASE LARGE (NEG); WHITE BLOOD CELL CLUMPS FEW
--- NOTE | 2017-11-19 03:02 | RADRPT ---
EXAM DATE/TIME: 11/19/2017 02:40 [facility] COMPARISON: CHEST SINGLE AP, October 14, 2016, 15:19. INDICATIONS : E-T Tube placement. MEDICAL HISTORY : Hypercholesterolemia. Gastroesophageal reflux disease. Hypertension. Dementia Cardiovascular dise ase. SURGICAL HISTORY : Cholecystectomy. Hysterectomy. ENCOUNTER: Initial ACUITY: 1 day PAIN SCORE: Non-responsive. LOCATION: Bilateral chest FINDINGS: Portable AP view of the chest demonstrates a normal-sized cardiac silhouette. Endotracheal tube exten ds into the right main bronchus. There is airspace consolidation in the right upper and right midlung zone. Lungs are underinflated. No pneumothorax is identified. Bones and soft tissues demonstrate no acute finding. CONCLUSION: 1. Endotracheal tube extends into the right main bronchus and should be retracted at least 3.5 cm. On ce retracted suggest repeating x-ray. 2. There is right upper and right midlung zone airspace consolidation. Mariano Mcclure MD on November 19, 2017 at 2:59 Board Certified Radiologist. This report was verified electronically.
[2017-11-19 03:04] LABS: BILIRUBIN, URINE NEG (NEG)
--- NOTE | 2017-11-19 04:14 | PD ---
HPI Chief Complaint: Altered Mental Status Time Seen by Provider: 01:47 Travel History International Travel<30 days: No Contact w/Intl Traveler<30days: No Traveled to known affect area: No History of Present Illness HPI pt is from [place] and has been decrease mental status for over 3 days now found by paramedics to be hypotensive unresponsive and tachycardic , Arrives on non rebreather AMS lethargic . Grace queen and paramedics indicate she is a full code including intubation which is apparent she needs on arrival .. PFSH Past Medical History Hx Anticoagulant Therapy: Yes (ASA) AAA: Yes Anxiety: Yes Depression: Yes Cardiovascular Problems: Yes High Cholesterol: Yes COPD: Yes Coronary Artery Disease: Yes Dementia: Yes Diminished Hearing: No Gastrointestinal Disorders: Yes GERD: Yes Genitourinary: No Hypertension: Yes Musculoskeletal: No Neurologic: Yes Reproductive: No Respiratory: No Thyroid Disease: Yes Past Surgical History Abdominal Surgery: Yes (cholecystectomy 2000) Cholecystectomy: Yes Gynecologic Surgery: Yes (hysterectomy 15 years ago) Hysterectomy: Yes Neurologic Surgery: Yes Other Surgery: Yes Social History Alcohol Use: No Tobacco Use: No Substance Use: No Allergies-Medications (Allergen,Severity, Reaction): Coded Allergies: No Known Allergies (Verified , 02/28/17) Reported Meds & Prescriptions Reported Meds & Active Scripts Active Coreg (Carvedilol) 3.125 Mg Tab 1.56 Mg PO BID 1/2 tab daily Lasix (Furosemide) 20 Mg Tab 20 Mg PO DAILY Senna Plus 8.6-50 mg (Sennosides-Docusate Sodium) 1 Tab Tab 2 Tab PO BID Vitamin D3 (Cholecalciferol) 5,000 Unit Cap 5,000 Units PO DAILY Reported Potassium Chloride ER (Potassium Chloride) 10 Meq Cap 10 Meq PO DAILY [place] 5-325 Tablet (Hydrocodone/Acetaminophen) 5 Mg-325 Mg Tablet Lexapro (Escitalopram Oxalate) 5 Mg Tab 5 Mg PO DAILY Zofran (Ondansetron HCl) 4 Mg Tab 4 Mg PO Q6HR PRN Ventolin Hfa 18 GM Inh (Albuterol Sulfate) 90 Mcg/Act Aer 2 Puff INH Q6H PRN Ibuprofen 800 Mg Tab 800 Mg PO Q6HR PRN Ferrousul (Ferrous Sulfate) 325 Mg Tab 325 Mg PO TID Zantac (Ranitidine HCl) 150 Mg Tab 150 Mg PO DAILY Melatonin 3 Mg Tab 3 Mg PO HS Levothyroxine (Levothyroxine Sodium) 125 Mcg Tab 125 Mcg PO DAILY Calcium 600+D (Calcium Carbonate-Vitamin D) 600-400 Mg-Unit Tab 1 Tab PO DAILY Aspirin Adult Low Strength (Aspirin) 81 Mg Tabdr 81 Mg PO DAILY Review of Systems ROS Limitations: Altered Mental Status Physical Exam Narrative GENERAL: Patient is lethargic minimally responsive on a nonrebreather opens her eyes. But Not to command febrile 102 SKIN: Warm and dry. HEAD: Atraumatic. Normocephalic. EYES: Pupils equal and round. No scleral icterus. No injection or drainage. ENT: No nasal bleeding or discharge. Mucous membranes pink and moist. NECK: Trachea midline. No JVD. CARDIOVASCULAR: Regular rate and rhythm. RESPIRATORY: No accessory muscle use. Clear to auscultation. Breath sounds equal bilaterally. + right crackles mid lung field GASTROINTESTINAL: Abdomen soft, non-tender, nondistended. Hepatic and splenic margins not palpable. MUSCULOSKELETAL: Extremities without clubbing, cyanosis, or edema. No obvious deformities. NEUROLOGICAL: non obvious focal deficits . PSCYH Lethargic Data Data Last Documented VS Orders Orders Acetaminophen Supp (Tylenol Supp) (11/19/17 02:00) Vancomycin Inj (Vancomycin Inj) (11/19/17 02:00) Piperacil-Tazo 3.375 Gm Premix (Zosyn 3. (11/19/17 02:00) Propofol 500 Mg/50 Ml Inj (Diprivan 500 (11/19/17 02:02) Propofol 1000 Mg/100 Ml Inj (Diprivan 10 (11/19/17 02:02) C Diff Toxin Pcr (11/19/17 02:04) Electrocardiogram (11/19/17 02:05) Complete Blood Count With Diff (11/19/17 02:05) Comprehensive Metabolic Panel (11/19/17 02:05) Ckmb (Isoenzyme) Profile (11/19/17 02:05) Troponin I (11/19/17 02:05) Lipase (11/19/17 02:05) Urinalysis - C+S If Indicated (11/19/17 02:05) Chest, Single Ap (11/19/17 ) Sodium Chlor 0.9% 1000 Ml Inj (Ns 1000 M (11/19/17 02:30) Sodium Chlor 0.9% 1000 Ml Inj (Ns 1000 M (11/19/17 02:30) Resp Ventilation- Volume (11/19/17 ) Blood Culture (11/19/17 02:36) Sputum Culture And Gram Stain (11/19/17 02:36) Fentanyl Drip (Fentanyl Drip) (11/19/17 02:45) Urine Culture (11/19/17 02:30) Admit Order (Ed Use Only) (11/19/17 03:09) Labs Laboratory Tests Test 11/19/17 02:20 11/19/17 02:30 11/19/17 02:35 Stool C. difficile Toxin (PCR) NEGATIVE Stl C. difficile Toxin Epiderm 027 PRESUMPTIVE NEGATIVE Urine Color YELLOW Urine Turbidity HAZY Urine pH 5.5 Urine Specific [place] 1.018 Urine Protein TRACE mg/dL Urine Glucose (UA) NEG mg/dL Urine Ketones NEG mg/dL Urine Occult Blood SMALL Urine Nitrite NEG Urine Bilirubin NEG Urine Urobilinogen 2.0 MG/DL Urine Leukocyte Esterase LARGE Urine RBC 5 /hpf Urine WBC 52 /hpf Urine WBC Clumps FEW Urine Squamous Epithelial Cells 3 /hpf Urine Bacteria MANY /hpf Urine Hyaline Casts 44 /lpf Urine Mucus FEW /lpf Microscopic Urinalysis Comment CULTURE INDICATED White Blood Count 5.2 TH/MM3 Red Blood Count 3.66 MIL/MM3 Hemoglobin 12.0 GM/DL Hematocrit 35.2 % Mean Corpuscular Volume 96.2 FL Mean Corpuscular Hemoglobin 32.7 PG Mean Corpuscular Hemoglobin Concent 34.0 % Red Cell Distribution Width 13.4 % Platelet Count 146 TH/MM3 Mean Platelet Volume 10.6 FL Neutrophils (%) (Auto) 84.9 % Lymphocytes (%) (Auto) 10.6 % Monocytes (%) (Auto) 4.3 % Eosinophils (%) (Auto) 0.0 % Basophils (%) (Auto) 0.2 % Neutrophils # (Auto) 4.4 TH/MM3 Lymphocytes # (Auto) 0.6 TH/MM3 Monocytes # (Auto) 0.2 TH/MM3 Eosinophils # (Auto) 0.0 TH/MM3 Basophils # (Auto) 0.0 TH/MM3 CBC Comment DIFF FINAL Differential Comment MDM Medical Decision Making Medical Screen Exam Complete: Yes Emergency Medical Condition: Yes Differential Diagnosis sepsis from PNA vs Urosepsis vs , volume depletion hhypotension , SIRS from viral illness other Narrative Course I immediately intubate as she is hypotensive and likely altered and not protecting her airway ,she is given NS bolus and non rebreather and then RSI for intubation without complication , and CXR shows large right sided PNA Zosyn Vanco intubation admission ICU Fluid NS resusitation Critical Care Narrative CC time 30 minutes as above Procedures Procedure Narrative Intubation 7.5 tube used RSI and direct visualization wihtout complication etomidate used and succinyl chloline held as it was not needed , CXR comfrims that it is in aairway but slight;ly deep I pulled the ET TUBE back 3 cm Pt remains 100% sat on vent Diagnosis Primary Impression: PNA (pneumonia) Disposition: 01 DISCHARGE HOME Condition: Good Keshav Butts MD Nov 19, 2017 04:14
[2017-11-19] MEDS ORDERED: LEXA5TAB PO (04:45)
[2017-11-19] MEDS ORDERED: NORC5TAB (04:45)
[2017-11-19] MEDS ORDERED: POTA10CA PO (04:45)
--- NOTE | 2017-11-19 05:05 | HHI.HP ---
HPI Service Critical Care Medicine Primary Care Physician Toni Lewis MD Admission Diagnosis PNA R ML and sepsis Diagnosis: Travel History International Travel<30 Days: No Contact w/Intl Traveler <30 Da: No Traveled to Known Affected Are: No History of Present Illness 77-year-old unfortunate female with advanced dementia, resident of the assisted, has been admitted for an evaluation of decrease mental status for over 3 days . She was found by paramedics to be hypotensive unresponsive and tachycardic. Per my conversation with the patient's daughter she has been declining over last 3 weeks not eating and not drinking. Patient has a DNR/DNI order from the assisted however this was on the chart when patient was admitted here and she was intubated by ED attending for an airway protection. Per my conversation with patient's daughter we will continue current level of care with medical support as treatment with no further escalation of care and palliative care consultation. Review of Systems ROS Unobtainable patient sedated and intubated Past Family Social History Allergies: Coded Allergies: No Known Allergies (Verified , 02/28/17) Past Medical History Dementia Aortic aneurysm s/p repair 80% Carotid stenosis- sees Dr. Edouard Severe aortic stenosis COPD HTN Hypothyroidism Hypercholesterolemia Past Surgical History Aortic aneurysm repair Hysterectomy Cholecystectomy 2000 Left hip intertrochanteric fracture s/p reduction and pinning of fixation left femur on 10/08/2016 Reported Medications Reported Meds & Active Scripts Active Coreg (Carvedilol) 3.125 Mg Tab 1.56 Mg PO BID 1/2 tab daily Lasix (Furosemide) 20 Mg Tab 20 Mg PO DAILY Senna Plus 8.6-50 mg (Sennosides-Docusate Sodium) 1 Tab Tab 2 Tab PO BID Vitamin D3 (Cholecalciferol) 5,000 Unit Cap 5,000 Units PO DAILY Reported Potassium Chloride ER (Potassium Chloride) 10 Meq Cap 10 Meq PO DAILY [place] 5-325 Tablet (Hydrocodone/Acetaminophen) 5 Mg-325 Mg Tablet Lexapro (Escitalopram Oxalate) 5 Mg Tab 5 Mg PO DAILY Zofran (Ondansetron HCl) 4 Mg Tab 4 Mg PO Q6HR PRN Ventolin Hfa 18 GM Inh (Albuterol Sulfate) 90 Mcg/Act Aer 2 Puff INH Q6H PRN Ibuprofen 800 Mg Tab 800 Mg PO Q6HR PRN Ferrousul (Ferrous Sulfate) 325 Mg Tab 325 Mg PO TID Zantac (Ranitidine HCl) 150 Mg Tab 150 Mg PO DAILY Melatonin 3 Mg Tab 3 Mg PO HS Levothyroxine (Levothyroxine Sodium) 125 Mcg Tab 125 Mcg PO DAILY Calcium 600+D (Calcium Carbonate-Vitamin D) 600-400 Mg-Unit Tab 1 Tab PO DAILY Aspirin Adult Low Strength (Aspirin) 81 Mg Tabdr 81 Mg PO DAILY Active Ordered Medications Current Medications Medications (Trade) Dose Ordered Sig/[place] Route PRN Reason Start Time Stop Time Status Last Admin Dose Admin Fentanyl Citrate 250 ml @ 5 mls/hr TITRATE PRN IV SEDATION 11/19/17 02:45 11/19/17 03:16 Sodium Chloride 1,000 ml @ 124 mls/hr Q8H4M IV 11/19/17 05:14 Sodium Chloride (NS Flush) 2 ml UNSCH PRN IV FLUSH FLUSH AFTER USING IV ACCESS 11/19/17 05:15 Sodium Chloride (NS Flush) 2 ml BID IV FLUSH 11/19/17 09:00 Acetaminophen (Tylenol) 650 mg Q6H PRN PO PAIN 1-5 AND/OR FEVER >101F 11/19/17 05:15 Morphine Sulfate (Morphine Inj) 2 mg Q2H PRN IV PUSH PAIN SCALE 6 TO 10 11/19/17 05:15 Famotidine (Pepcid Inj) 20 mg Q12HR IV PUSH 11/19/17 09:00 Midazolam HCl (Versed Inj) 2 mg Q1H PRN IV PUSH SEDATION 11/19/17 05:15 Artificial Tears (Tears Naturale Opth Soln) 1 drop TID EACH EYE 11/19/17 09:00 Ondansetron HCl (Zofran Inj) 4 mg Q6H PRN IV PUSH NAUSEA OR VOMITING 11/19/17 05:15 Albuterol/ Ipratropium (Duoneb Neb) 1 ampule Q6HR NEB INH 11/19/17 10:00 Albuterol/ Ipratropium (Duoneb Neb) 1 ampule Q2HR NEB PRN INH WHEEZING 11/19/17 05:15 Heparin Sodium (Porcine) (Heparin Inj) 5,000 units Q12HR SQ 11/19/17 09:00 Miscellaneous Information 1 [id number] XX 11/19/17 05:15 Chlorhexidine Gluconate (Chlorhexidine 2% Cloth) 3 pack Taper DAILY@04 TOP 11/20/17 04:00 11/16/18 03:59 Chlorhexidine Gluconate (Chlorhexidine 2% Cloth) 3 pack UNSCH PRN TOP HYGIENIC CARE 11/19/17 05:15 Senna/Docusate Sodium (Toshia-Colace) 1 tab BID PO 11/19/17 09:00 Magnesium Hydroxide (Milk Of Magnesia Liq) 30 ml Q12H PRN PO Mild constipation 11/19/17 05:15 Sennosides (Senokot) 17.2 mg Q12H PRN PO Moderate constipation 11/19/17 05:15 Bisacodyl (Dulcolax Supp) 10 mg DAILY PRN RECTAL SEVERE CONSITIPATION 11/19/17 05:15 Lactulose (Lactulose Liq) 30 ml DAILY PRN PO SEVERE CONSITIPATION 11/19/17 05:15 Chlorhexidine Gluconate (Peridex 0.12% Liq) 15 ml BID@08,20 MT 11/19/17 08:00 Fentanyl Citrate 250 ml @ 5 mls/hr TITRATE PRN IV SEDATION 11/19/17 05:15 Family History Sister - history of aortic aneurysm Social History Lives at [facility] Daughter Jie John at bedside Cigarette smoking - per EMR since 18 years of age, quit several years ago since living at [facility] Physical Exam Vital Signs Vital Signs Date Time Temp Pulse Resp B/P (MAP) Pulse Ox O2 Delivery O2 Flow Rate FiO2 11/19/17 04:46 99 100 11/19/17 04:45 11/19/17 04:04 100 100 11/19/17 04:00 90 18 130/70 (90) 98 Ventilator 100 11/19/17 03:00 96 18 105/56 (72) 98 Ventilator 100 11/19/17 02:55 98 100 11/19/17 02:03 100 11/19/17 02:00 114 18 114/74 (87) 99 Ventilator 100 11/19/17 01:59 118 18 100 Ventilator 100 11/19/17 01:57 100 100 11/19/17 01:47 102.0 122 30 108/53 (71) 97 Physical Exam GENERAL: Patient is lethargic minimally responsive sedated and intubated SKIN: Warm and dry. HEAD: Atraumatic. Normocephalic. EYES: Pupils equal and round. No scleral icterus. No injection or drainage. ENT: No nasal bleeding or discharge. Mucous membranes pink and moist. NECK: Trachea midline. No JVD. CARDIOVASCULAR: Regular rate and rhythm. RESPIRATORY: No accessory muscle use. Clear to auscultation. Breath sounds equal bilaterally. + right crackles mid lung field GASTROINTESTINAL: Abdomen soft, non-tender, nondistended. Hepatic and splenic margins not palpable. MUSCULOSKELETAL: Extremities without clubbing, cyanosis, or edema. No obvious deformities. NEUROLOGICAL: Sedated and intubated Laboratory Laboratory Tests Test 11/19/17 02:20 11/19/17 02:30 11/19/17 02:35 Stool C. difficile Toxin (PCR) NEGATIVE Stl C. difficile Toxin Epiderm 027 PRESUMPTIVE NEGATIVE Urine Color YELLOW Urine Turbidity HAZY Urine pH 5.5 Urine Specific [place] 1.018 Urine Protein TRACE Urine Glucose (UA) NEG Urine Ketones NEG Urine Occult Blood SMALL Urine Nitrite NEG Urine Bilirubin NEG Urine Urobilinogen 2.0 Urine Leukocyte Esterase LARGE Urine RBC 5 Urine WBC 52 Urine WBC Clumps FEW Urine Squamous Epithelial Cells 3 Urine Bacteria MANY Urine Hyaline Casts 44 Urine Mucus FEW Microscopic Urinalysis Comment CULTURE INDICATED White Blood Count 5.2 Red Blood Count 3.66 Hemoglobin 12.0 Hematocrit 35.2 Mean Corpuscular Volume 96.2 Mean Corpuscular Hemoglobin 32.7 Mean Corpuscular Hemoglobin Concent 34.0 Red Cell Distribution Width 13.4 Platelet Count 146 Mean Platelet Volume 10.6 Neutrophils (%) (Auto) 84.9 Lymphocytes (%) (Auto) 10.6 Monocytes (%) (Auto) 4.3 Eosinophils (%) (Auto) 0.0 Basophils (%) (Auto) 0.2 Neutrophils # (Auto) 4.4 Lymphocytes # (Auto) 0.6 Monocytes # (Auto) 0.2 Eosinophils # (Auto) 0.0 Basophils # (Auto) 0.0 CBC Comment DIFF FINAL Differential Comment Date/Time Source Procedure Growth Status 11/19/17 02:40 Blood Peripheral Aerobic Blood Culture Pending Received 11/19/17 02:40 Blood Peripheral Anaerobic Blood Culture Pending Received 11/19/17 02:20 Sputum Endotracheal Gram Stain Pending Received 11/19/17 02:20 Sputum Endotracheal Sputum Culture Pending Received 11/19/17 02:30 Urine Clean Catch Urine Culture Pending Received Result Diagram: 11/19/17 0235 Imaging Last 24 hours Impressions Chest X-Ray 11/19/17 0000 Signed Impressions: Service Date/Time: November 02:40 - CONCLUSION: 1. Endotracheal tube extends into the right main bronchus and should be retracted at least 3.5 cm. Once retracted suggest repeating x-ray. 2. There is right upper and right midlung zone airspace consolidation. MD Jose Cole VTE Risk Assessment [place] VTE Risk Assessment: Mod/High Risk (score >= 2) Caprini Risk Assessment Model Point Value = 1 Point Value = 2 Point Value = 3 Point Value = 5 Age 41-60 Minor surgery BMI > 25 kg/m2 Swollen legs Varicose veins or History of unexplained or recurrent spontaneous Oral contraceptives or hormone replacement Sepsis (< 1 month) Serious lung disease, including pneumonia (< 1 month) Abnormal pulmonary function Acute myocardial infarction Congestive heart failure (< 1 month) History of inflammatory bowel disease Medical patient at bed rest Age 61-74 Arthroscopic surgery Major open surgery (> 45 min) Laparoscopic surgery (> 45 min) Malignancy Confined to bed (> 72 hours) Immobilizing plaster cast Central venous access Age >= 75 History of VTE Family history of VTE Factor V Leiden Prothrombin [id number] Lupus anticoagulant Anticardiolipin antibodies Elevated serum homocysteine Heparin-induced thrombocytopenia Other congenital or acquired thrombophilia Stroke (< 1 month) Elective arthroplasty Hip, pelvis, or leg fracture Acute spinal cord injury (< 1 month) Prophylaxis Regimen Total Risk Factor Score Risk Level Prophylaxis Regimen 0-1 Low Early ambulation 2 Moderate Order ONE of the following: *Sequential Compression Device (SCD) *Heparin 5000 units SQ BID 3-4 Higher Order ONE of the following medications: *Heparin 5000 units SQ TID *Enoxaparin/Lovenox 40 mg SQ daily (WT < 150 kg, CrCl > 30 mL/min) *Enoxaparin/Lovenox 30 mg SQ daily (WT < 150 kg, CrCl > 10-29 mL/min) *Enoxaparin/Lovenox 30 mg SQ BID (WT < 150 kg, CrCl > 30 mL/min) AND/OR *Sequential Compression Device (SCD) 5 or more Highest Order ONE of the following medications: *Heparin 5000 units SQ TID (Preferred with Epidurals) *Enoxaparin/Lovenox 40 mg SQ daily (WT < 150 kg, CrCl > 30 mL/min) *Enoxaparin/Lovenox 30 mg SQ daily (WT < 150 kg, CrCl > 10-29 mL/min) *Enoxaparin/Lovenox 30 mg SQ BID (WT < 150 kg, CrCl > 30 mL/min) AND *Sequential Compression Device (SCD) Assessment and Plan Assessment and Plan Respiratory failure - Intubated for an airway protection - Mechanical ventilation - No weaning until neurologically improved Hypotension - Severe dehydration - Aggressive IV fluids resuscitation - Patient has a PICC line will start Levophed if needed to keep mean arterial pressure above 65 Dementia - Supportive care - Palliative medicine consultation COPD - No exacerbation - No steroids indicated - Aerosols scheduled and when necessary Hypothyroidism - Levothyroxine - TSH level UTI - Symptomatic with altered mental status - Rocephin Hypercholesterolemia - Atorvastatin DVT GI prophylaxis - Teds SCDs - Subcutaneous heparin - Pepcid Critical Care: The total critical care time was 35 minutes. Time to perform other separately billable procedures was not included in the critical care time. Arpan Diana MD Nov 19, 2017 05:05
[2017-11-19] MEDS: SODIUM CHLOR 0.9% 1000 ML INJ 1,000 ML IV SCH ×2 (05:14→11:40)
[2017-11-19] MEDS ORDERED: BISACODYL 10 MG SUPP RECTAL PRN (05:15)
[2017-11-19] MEDS ORDERED: RESP: ALBUTEROL 2.5 MG/IPRATROPIUM 0.5 MG NEB (PRN) INH (05:15)
[2017-11-19] MEDS ORDERED: ACETAMINOPHEN 325 MG TAB PO PRN (05:15)
[2017-11-19] MEDS ORDERED: CHLORHEXIDINE GLUCONATE 2 % 1 PACK (2 CLOTHS) TOP PRN (05:15)
[2017-11-19] MEDS ORDERED: LACTULOSE SYRUP 20 GM/30 ML CUP PO PRN (05:15)
[2017-11-19] MEDS ORDERED: MISCELLANEOUS NURSING INFORMATION XX SCH (05:15)
[2017-11-19] MEDS ORDERED: SODIUM CHLORIDE 0.9% FLUSH 10 ML FLUSH IV FLUSH PRN (05:15)
[2017-11-19] MEDS ORDERED: MIDAZOLAM HCL 2 MG/2 ML VIAL IV PUSH PRN (05:15)
[2017-11-19] MEDS ORDERED: ONDANSETRON HCL 4 MG/2 ML VIAL IV PUSH PRN (05:15)
[2017-11-19] MEDS ORDERED: MORPHINE SULFATE 4 MG/ML INJ IV PUSH PRN ×2 (05:15→16:30)
[2017-11-19] MEDS ORDERED: MAGNESIUM HYDROXIDE SUSP 30 ML CUP PO PRN (05:15)
[2017-11-19] MEDS ORDERED: SENNOSIDES 8.6 MG TAB PO PRN (05:15)
[2017-11-19 05:53] LABS: ALBUMIN 2.3 GM/DL (3.4-5.0); BICARBONATE 23.7 MEQ/L (21.0-32.0); CALCIUM 7.2 MG/DL (8.5-10.1); CALCIUM-PROTEIN CORRECTED 7.9 MG/DL (8.5-10.1); CREATININE 1.5 MG/DL (0.50-1.00); TOTAL PROTEIN 5.8 GM/DL (6.4-8.2); TROPONIN I 0.23 NG/ML (0.02-0.05)
[2017-11-19] MEDS ORDERED: cefTRIAXone INJ 1,000 MG in SODIUM CHLORIDE 0.9% INJ 100 ML IV SCH (06:15)
[2017-11-19] MEDS ORDERED: LEVOTHYROXINE SODIUM 125 MCG TAB PO SCH (07:08)
[2017-11-19] MEDS: FERROUS SULFATE 325 MG (65 MG ELEMENTAL IRON) TAB PO SCH ×2 (07:52→11:40)
[2017-11-19] MEDS: SODIUM CHLORIDE 0.9% FLUSH 10 ML FLUSH IV FLUSH SCH ×2 (07:52→20:13)
[2017-11-19] MEDS ORDERED: CHLORHEXIDINE 0.12% (ORAL KIT) 15 ML CUP MT SCH (08:00)
[2017-11-19] MEDS: RESP: ALBUTEROL 2.5 MG/IPRATROPIUM 0.5 MG NEB (SCH) INH ×2 (08:07→15:29)
[2017-11-19] MEDS ORDERED: DOCUSATE SODIUM 50 MG/SENNA 8.6 MG TAB PO SCH (09:00)
[2017-11-19] MEDS ORDERED: ASPIRIN EC 81 MG TABEC PO SCH (09:00)
[2017-11-19] MEDS ORDERED: ESCITALOPRAM OXALATE 10 MG TAB PO SCH (09:00)
[2017-11-19] MEDS ORDERED: FAMOTIDINE 20 MG/2 ML VIAL IV PUSH SCH (09:00)
[2017-11-19] MEDS ORDERED: CHOLECALCIFEROL (VIT D3) 5000 UNIT CAP PO SCH (09:00)
[2017-11-19] MEDS ORDERED: HEPARIN SODIUM - SQ 10,000 UNITS/ML VIAL SQ SCH (09:00)
[2017-11-19] MEDS: ARTIFICIAL TEARS OPTH SOLN 15 ML BTL EACH EYE SCH ×3 (09:11→18:00)
[2017-11-19] MEDS ORDERED: NOREPINEPHRINE-DEXTROSE DRIP 250 ML IV ONE (09:49)
--- NOTE | 2017-11-19 10:10 | PD.CONS ---
Consult Service Palliative Care . Consult Requested By Dr. Diana . Primary Care Physician Toni Lewis MD . Reason for Consultation a. To assist with evaluation and management of symptoms including: altered mental status, dyspnea. b. To assist medical decision maker(s) with: better understanding of current medical conditions; weighing benefits/burdens of medical treatment options; making medical treatment decisions. . HPI History of Present Illness Ms. Rahman is a 77 year old female with past medical history of dementia, COPD , severe aortic stenosis, hypertension, hypothyroidism.hypercholesterolemia and carotid stenosis. Patient presented to [facility] on 11/19/17 from [facility] for evaluation of altered mental status. Upon EMS arrival the patient was found to be hypotensive, tachycardic and unresponsive. Notes indicate daughter has been declining over the past 3 weeks, not eating and drinking. Patient was intubated in ER for airway protection. Patient has [place] DNR however it was not on chart when patient presented to ER. Findings since admission: * WBC 5.2, hgb 12, hct 35.2, platelets 146, neutrophils 84.9% * sodium 147, BUn 47, creatinine 1.5 * T Bili 2.0, AST 51, ALT 23, alk phos 87 * total creatine kinase 70, troponin 0.23 * total protein 5.8, albumin 2.3 * lipase 86 * urinalysis - positive leukocyte esterase, WBC52, bacteria. Culture pending. * C. Diff - negative. * CXR - right upper and right midlung airspace consolidation. Hypotensive on pressor support. Integrated Campaign Manager spoke with patient's daughter who desired continuation of current level of care with medical support as treatment with no further escalation of care. Palliative care was consulted to assist with further clarification of goals. Function/Cognitive Trajectory Patient is a resident of [facility] with end stage dementia. She has not been speaking for the past 3 weeks. She is only taking sips of fluid for 3 weeks, not eating. Has had ongoing trajectory of decline. . Review of Systems ROS Limitations: Intubated, Altered Mental Status (confused with baseline end stage dementia, ROS per daughter report. ), Unresponsive Constitutional: COMPLAINS OF: Fatigue, Weight loss, Change in appetite ( drinking only sips for 3 past 3 weeks. ), Generalized weakness Eyes: COMPLAINS OF: Blurred vision Hematologic/Lymphatics: COMPLAINS OF: Bruising Psychiatric: COMPLAINS OF: Anxiety, Confusion, Depression Other ROS: non verbal, unable to ambulate. Past Family Social History Coded Allergies: No Known Allergies (Verified , 02/28/17) Past Medical History Dementia Aortic aneurysm s/p repair 80% Carotid stenosis- sees Dr. Edouard Severe aortic stenosis COPD HTN Hypothyroidism Hypercholesterolemia Anxiety Depression GERD Alvarez's esophagus Back compression fracture . Past Surgical History Aortic aneurysm repair Hysterectomy Cholecystectomy 2001 Left hip intertrochanteric fracture s/p reduction and pinning of fixation left femur on 10/08/2016 . Reported Medications Coreg (Carvedilol) 3.125 Mg Tab 1.56 Mg PO BID 1/2 tab daily Lasix (Furosemide) 20 Mg Tab 20 Mg PO DAILY Senna Plus 8.6-50 mg (Sennosides-Docusate Sodium) 1 Tab Tab 2 Tab PO BID Vitamin D3 (Cholecalciferol) 5,000 Unit Cap 5,000 Units PO DAILY Reported Potassium Chloride ER (Potassium Chloride) 10 Meq Cap 10 Meq PO DAILY [place] 5-325 Tablet (Hydrocodone/Acetaminophen) 5 Mg-325 Mg Tablet Lexapro (Escitalopram Oxalate) 5 Mg Tab 5 Mg PO DAILY Zofran (Ondansetron HCl) 4 Mg Tab 4 Mg PO Q6HR PRN Ventolin Hfa 18 GM Inh (Albuterol Sulfate) 90 Mcg/Act Aer 2 Puff INH Q6H PRN Ibuprofen 800 Mg Tab 800 Mg PO Q6HR PRN Ferrousul (Ferrous Sulfate) 325 Mg Tab 325 Mg PO TID Zantac (Ranitidine HCl) 150 Mg Tab 150 Mg PO DAILY Melatonin 3 Mg Tab 3 Mg PO HS Levothyroxine (Levothyroxine Sodium) 125 Mcg Tab 125 Mcg PO DAILY Calcium 600+D (Calcium Carbonate-Vitamin D) 600-400 Mg-Unit Tab 1 Tab PO DAILY Aspirin Adult Low Strength (Aspirin) 81 Mg Tabdr 81 Mg PO DAILY . Current Medications Medications (Trade) Dose Ordered Sig/Alma Route Start Time Stop Time Status Last Admin Fentanyl Citrate 250 ml @ 5 mls/hr TITRATE PRN IV 11/19/17 02:45 11/19/17 03:16 Sodium Chloride 1,000 ml @ 124 mls/hr Q8H4M IV 11/19/17 05:14 11/19/17 05:14 (NS Flush) 2 ml UNSCH PRN IV FLUSH 11/19/17 05:15 (NS Flush) 2 ml BID IV FLUSH 11/19/17 09:00 11/19/17 07:52 (Tylenol) 650 mg Q6H PRN PO 11/19/17 05:15 (Morphine Inj) 2 mg Q2H PRN IV PUSH 11/19/17 05:15 (Versed Inj) 2 mg Q1H PRN IV PUSH 11/19/17 05:15 (Tears Naturale Opth Soln) 1 drop TID EACH EYE 11/19/17 09:00 11/19/17 09:11 (Zofran Inj) 4 mg Q6H PRN IV PUSH 11/19/17 05:15 (Duoneb Neb) 1 ampule Q6HR NEB INH 11/19/17 10:00 11/19/17 08:07 (Duoneb Neb) 1 ampule Q2HR NEB PRN INH 11/19/17 05:15 (Heparin Inj) 5,000 units Q12HR SQ 11/19/17 09:00 11/19/17 09:11 Miscellaneous Information 1 Q361D XX 11/19/17 05:15 (Chlorhexidine 2% Cloth) 3 pack Taper DAILY@04 TOP 11/20/17 04:00 11/16/18 03:59 (Chlorhexidine 2% Cloth) 3 pack UNSCH PRN TOP 11/19/17 05:15 (Toshia-Colace) 1 tab BID PO 11/19/17 09:00 (Milk Of Magnesia Liq) 30 ml Q12H PRN PO 11/19/17 05:15 (Senokot) 17.2 mg Q12H PRN PO 11/19/17 05:15 (Dulcolax Supp) 10 mg DAILY PRN RECTAL 11/19/17 05:15 (Lactulose Liq) 30 ml DAILY PRN PO 11/19/17 05:15 (Peridex 0.12% Liq) 15 ml BID@08,20 MT 11/19/17 08:00 11/19/17 07:53 Fentanyl Citrate 250 ml @ 5 mls/hr TITRATE PRN IV 11/19/17 05:15 Ceftriaxone Sodium 1000 mg/ Sodium Chloride 100 ml @ 200 mls/hr DAILY@0600,1800 IV 11/19/17 06:15 11/19/17 07:09 (Ecotrin Ec) 81 mg DAILY PO 11/19/17 09:00 (Vitamin D3) 5,000 units DAILY PO 11/19/17 09:00 (Lexapro) 5 mg DAILY PO 11/19/17 09:00 (Ferrous Sulfate) 325 mg TID PO 11/19/17 09:00 (Synthroid) 125 mcg DAILY@0600 PO 11/19/17 07:08 (Pepcid Inj) 20 mg DAILY IV PUSH 11/20/17 09:00 Family History Sister - history of aortic aneurysm. Family history also positive for hypertension, negative for heart disease. . Substance Use Tobacco: Previously smoked since 18 years of age, quit several years ago. Alcohol: Patient does not drink alcohol. Prescription med abuse: None known. Illicits: None known. . Psychosocial History . Lives at [facility]. . Spiritual/Cultural Factors Confucianist leticia. Daughter welcomes consulting application engineer visits. . Living Will: Never completed Health Care Surrogate: Never completed Durable Power of Reimbursement Counselor: Never completed Health Care Surrogate(s): Patient is not capacitated to make her own health care decisions, will not regain capacity due to end stage dementia. . has 1 daughter. According to [place] statutes, in the absence of written advanced directives healthcare proxy decision-making falls to the patient's only daughter, Manju John. . Today's verbally stated goals: Patient is not capacitated to make her own health care decisions, will not regain capacity due to end stage dementia. . Family/friends goals: Manju Longo ([facility]) is certain given patient has end stage (terminal) dementia she would not want to artificially prolong the dying process. She has elected to proceed with compassionate withdrawal of life support. . Ethical and Legal Issues Patient is not capacitated to make her own health care decisions, will not regain capacity due to end stage dementia. . has 1 daughter. According to [place] statutes, in the absence of written advanced directives healthcare proxy decision-making falls to the patient's only daughter, Manju John. . Physical Exam Vital Signs Date Time Temp Pulse Resp B/P (MAP) Pulse Ox O2 Delivery O2 Flow Rate FiO2 11/19/17 08:08 97 100 11/19/17 08:00 84 11/19/17 05:00 100 Nasal Cannula 6.00 11/19/17 04:46 99 100 11/19/17 04:45 11/19/17 04:04 100 100 11/19/17 04:00 90 18 130/70 (90) 98 Ventilator 100 11/19/17 03:00 96 18 105/56 (72) 98 Ventilator 100 11/19/17 02:55 98 100 11/19/17 02:03 100 11/19/17 02:00 114 18 114/74 (87) 99 Ventilator 100 11/19/17 01:59 118 18 100 Ventilator 100 11/19/17 01:57 100 100 11/19/17 01:47 102.0 122 30 108/53 (71) 97 11/19/17 11/20/17 19:00 07:00 # Bowel Movements 2 Exam GENERAL: Patient is elderly, frail patient, unresponsive sedated and intubated TUBES: ETT, PIVs, wrist restraints, Tej[place], SCDs. SKIN: Cachectic, pale. Skin warm and dry. Bruising upper extremities. HEAD: Atraumatic. Normocephalic. EYES: Pupils equal and round. No scleral icterus. No injection or drainage. ENT: No nasal bleeding or discharge. Mucous membranes pink and moist. NECK: Trachea midline. No JVD. CARDIOVASCULAR: Regular rate and rhythm. Hypotensive. RESPIRATORY: On mech vent, right lung crackles. GASTROINTESTINAL: Abdomen soft, nondistended. Hepatic and splenic margins not palpable. Hypoactive BS. MUSCULOSKELETAL: Extremities without clubbing, cyanosis, or edema. No obvious deformities. NEUROLOGICAL: Sedated and intubated. . Diagnostic Tests Laboratory Laboratory Tests Test 11/19/17 02:20 11/19/17 02:30 11/19/17 02:35 11/19/17 05:52 Stool C. difficile Toxin (PCR) NEGATIVE (NEGATIVE) Stl C. difficile Toxin Epiderm 027 PRESUMPTIVE NEGATIVE Urine Color YELLOW (YELLW/STRAW) Urine Turbidity HAZY (CLEAR) Urine pH 5.5 (5.0-8.5) Urine Specific [place] 1.018 (1.002-1.035) Urine Protein TRACE mg/dL (NEG-TRACE) Urine Glucose (UA) NEG mg/dL (NEG) Urine Ketones NEG mg/dL (NEG) Urine Occult Blood SMALL (NEG) Urine Nitrite NEG (NEG) Urine Bilirubin NEG (NEG) Urine Urobilinogen 2.0 MG/DL (LESS THAN Urine Leukocyte Esterase LARGE (NEG) Urine RBC 5 /hpf (0-3) Urine WBC 52 /hpf (0-5) Urine WBC Clumps FEW (NONE) Urine Squamous Epithelial Cells 3 /hpf (0-5) Urine Bacteria MANY /hpf (NONE) Urine Hyaline Casts 44 /lpf (RARE) Urine Mucus FEW /lpf (OCC) Microscopic Urinalysis Comment CULTURE INDICATED White Blood Count 5.2 TH/MM3 (4.0-11.0) Red Blood Count 3.66 MIL/MM3 (4.00-5.30) Hemoglobin 12.0 GM/DL (11.6-15.3) Hematocrit 35.2 % (35.0-46.0) Mean Corpuscular Volume 96.2 FL (80.0-100.0) Mean Corpuscular Hemoglobin 32.7 PG (27.0-34.0) Mean Corpuscular Hemoglobin Concent 34.0 % (32.0-36.0) Red Cell Distribution Width 13.4 % (11.6-17.2) Platelet Count 146 TH/MM3 (150-450) Mean Platelet Volume 10.6 FL (7.0-11.0) Neutrophils (%) (Auto) 84.9 % (16.0-70.0) Lymphocytes (%) (Auto) 10.6 % (9.0-44.0) Monocytes (%) (Auto) 4.3 % (0.0-8.0) Eosinophils (%) (Auto) 0.0 % (0.0-4.0) Basophils (%) (Auto) 0.2 % (0.0-2.0) Neutrophils # (Auto) 4.4 TH/MM3 (1.8-7.7) Lymphocytes # (Auto) 0.6 TH/MM3 (1.0-4.8) Monocytes # (Auto) 0.2 TH/MM3 (0-0.9) Eosinophils # (Auto) 0.0 TH/MM3 (0-0.4) Basophils # (Auto) 0.0 TH/MM3 (0-0.2) CBC Comment DIFF FINAL Differential Comment Blood Urea Nitrogen 47 MG/DL (7-18) Creatinine 1.50 MG/DL (0.50-1.00) Random Glucose 79 MG/DL (74-106) Total Protein 5.8 GM/DL (6.4-8.2) Albumin 2.3 GM/DL (3.4-5.0) Calcium Level 7.2 MG/DL (8.5-10.1) Alkaline Phosphatase 87 U/L (45-117) Aspartate Amino Transf (AST/SGOT) 51 U/L (15-37) Alanine Aminotransferase (ALT/SGPT) 23 U/L (10-53) Total Bilirubin 2.0 MG/DL (0.2-1.0) Sodium Level 147 MEQ/L (136-145) Potassium Level 3.7 MEQ/L (3.5-5.1) Chloride Level 113 MEQ/L (98-107) Carbon Dioxide Level 23.7 MEQ/L (21.0-32.0) Anion Gap 10 MEQ/L (5-15) Estimat Glomerular Filtration Rate 34 ML/MIN (>89) Protein Corrected Calcium 7.9 MG/DL (8.5-10.1) Total Creatine Kinase 70 U/L (26-192) Troponin I 0.23 NG/ML (0.02-0.05) Lipase 86 U/L (73-393) Result Diagram: 11/19/17 0235 11/19/17 0552 Microbiology Microbiology Date/Time Source Procedure Growth Status 11/19/17 05:52 Blood Peripheral Aerobic Blood Culture Pending Received 11/19/17 05:52 Blood Peripheral Anaerobic Blood Culture Pending Received 11/19/17 02:40 Blood Peripheral Aerobic Blood Culture Pending Received 11/19/17 02:40 Blood Peripheral Anaerobic Blood Culture Pending Received 11/19/17 02:30 Blood Peripheral Aerobic Blood Culture Pending Received 11/19/17 02:30 Blood Peripheral Anaerobic Blood Culture Pending Received 11/19/17 07:15 Sputum Endotracheal Gram Stain Pending Received 11/19/17 07:15 Sputum Endotracheal Sputum Culture Pending Received 11/19/17 02:20 Sputum Endotracheal Gram Stain - Final Resulted 11/19/17 02:20 Sputum Endotracheal Sputum Culture Pending Resulted 11/19/17 02:30 Urine Clean Catch Urine Culture Pending Received Imaging Last Impressions Chest X-Ray 11/19/17 0000 Signed Impressions: Service Date/Time: November 02:40 - CONCLUSION: 1. Endotracheal tube extends into the right main bronchus and should be retracted at least 3.5 cm. Once retracted suggest repeating x-ray. 2. There is right upper and right midlung zone airspace consolidation. Mariano Mcclure MD Procedures * 11/19/17 - Intubated . Patient/Family Conference Present at Family Conference: Met with daughter and her significant other. Also present Dinah Baird LCSW for a portion of the meeting. . Family Conference Time (mins): 60 Family Conference Location: Bedside, Consult Room Issues Discussed: * Palliative care role, purpose, approach * Additional medical, psychosocial, and spiritual history * Patients general health, functional status, and cognitive changes in the months leading up to the current hospitalization * Patient/family understanding of the current medical problems * Patient/family understanding of prognosis * Patients goals of care as best understood from advance directives and/or conversations and/or values * Current medical treatment options and benefits/burdens of those options * Likely scenarios comparing ongoing aggressive care with a transition to comfort measures only * Questions answered to the best of my ability * Palliative care contact information provided Assessment and Plan Disease Oriented Problem List: (1) PNA (pneumonia) (2) Confusion (3) Hypotension (4) Dementia (5) UTI (urinary tract infection) Symptom Scale: (1) Pain 0-10 Scale: Unable to quantify (2) Confusion 0-10 Scale: Unable to quantify (3) Dyspnea 0-10 Scale: Unable to quantify Pertinent Non-Medical Issues Psychosocial: . Has 1 daughter. Resident [facility] for 3 years. Spiritual: Confucianist leticia. Welcomes consulting application engineer support. Legal: Patient is not capacitated to make her own health care decisions, will not regain capacity due to end stage dementia. . has 1 daughter. According to [place] statutes, in the absence of written advanced directives healthcare proxy decision-making falls to the patient's only daughter, Manju John. Ethical issues impacting care: none known. . Important Contacts * Manju John, daughter: [phone] Prognosis Ms. Rahman is a 77 year old female with end stage (terminal) dementia, she was admitted with pneumonia, now on life support requiring mech vent and pressor support. Her condition is terminal. PPS was 20/10 prior to admission. . Code Status: No Code Plan * Patient is not capacitated to make her own health care decisions, will not regain capacity due to end stage dementia. . has 1 daughter. According to [place] statutes, in the absence of written advanced directives healthcare proxy decision-making falls to the patient's only daughter, Manju John. * NO CODE * Daughter, Manju ([facility]) is certain given patient has end stage (terminal) dementia she would not want to artificially prolong the dying process. She has elected to proceed with compassionate withdrawal of life support. Desires comfort focused care with withdrawal of life support this evening. Declined hospice at this time. Anticipatory guidance provided. Last Sorter has visited. Exhibits B & C on chart for signatures. * Orders written for transition to comfort. * Discussed with Dr. Mujica, Dr. Rosas and nursing staff. * Palliative care contact information provided to patient's daughter. * Palliative care will continue to follow this patient throughout her hospitalization to establish trust, assist with symptom management and clarification of medical treatment goals. . Thank you for the opportunity to participate in the care of Ms. Rahman. Attestation To help prompt me to consider important information that might be impacting today's encounter and assessment, information from prior notes written by myself or my colleagues may have been "brought forward" into today's note. My signature on this note, however, is an attestation that I personally performed the exam, history, and/or decision-making noted today, and, unless otherwise indicated, the interactions with patient, family, and staff as well as the review of records all occurred today. I also attest that the listed assessment and stated plan reflect my best clinical judgment today based on the combination of historical information, prior notes, and today's exam/ interactions. When time spent is documented, it refers only to time spent today by the signer, or if indicated, combined time spent today by collaborating physician/nurse practitioner. . Marcela Singletary Nov 19, 2017 10:10
[2017-11-19] MEDS ORDERED: NOREPINEPHRINE 4 MG/D5W 250 ML IV PRN (10:15)
[2017-11-19] MEDS ORDERED: MORPHINE SULFATE 8 MG/ML INJ IV PUSH ONE (16:00)
[2017-11-19] MEDS ORDERED: LORazepam 2 MG/ML VIAL IV PUSH ONE ×2 (16:00→16:30)
[2017-11-19] MEDS ORDERED: HYOSCYAMINE 0.5 MG/ML AMP IV PUSH ONE (16:00)
[2017-11-19] MEDS ORDERED: ACETAMINOPHEN 650 MG SUPP RECTAL PRN (16:30)
[2017-11-19] MEDS ORDERED: HYOSCYAMINE 0.5 MG/ML AMP IV PUSH PRN (16:30)
[2017-11-19] MEDS ORDERED: MORPHINE SULFATE 4 MG/ML INJ IV PUSH ONE (16:30)
[2017-11-19] MEDS ORDERED: LORazepam 2 MG/ML VIAL IV PUSH PRN (16:30)
[2017-11-19] MEDS ORDERED: FUROSEMIDE 20 MG/2 ML VIAL IV PUSH PRN (16:30)
[2017-11-19] MEDS: LORazepam 2 MG/ML VIAL IV PUSH PRN ×2 (17:24→18:24)
[2017-11-19] MEDS: MORPHINE SULFATE 8 MG/ML INJ IV PUSH PRN ×3 (17:25→18:24)
[2017-11-19] MEDS ORDERED: LORazepam 2 MG/ML VIAL IV PUSH SCH (20:00)
[2017-11-19] MEDS ORDERED: MORPHINE SULFATE 4 MG/ML INJ IV PUSH SCH (20:00)
--- NOTE | 2017-11-19 21:23 | EKG ---
Date Performed: 11/19/2017 Time Performed: 03:47:23 PTAGE: 77 years EKG: Sinus rhythm POSSIBLE LEFT ATRIAL ENLARGEMENT SEPTAL MYOCARDIAL INFARCTION SINCE PRIOR TRACING THE R- WAVE PROGRE SSION IS SLIGHTLY WORSE POSSIBLY DUE TO LEAD PLACEMENT DIFFERENCES. ABNORMAL ECG PREVIOUS TRACING 10/09/16 DOCTOR: Misael Sam Interpretating Date/Time 11/19/2017 21:21:03
[2017-11-20] MEDS ORDERED: CHLORHEXIDINE GLUCONATE 2 % 1 PACK (2 CLOTHS) TOP SCH (04:00)
[2017-11-20] MEDS ORDERED: FAMOTIDINE 20 MG/2 ML VIAL IV PUSH SCH (09:00)
== END 2017-11-19 20:48 | disposition expired | DRG 208 ==
LOC: NEPE 01:38 → NEDA 03:11 → N03A 04:11
PROVIDERS: ADMIT Internal Medicine Critical Care Medicine; ATTEND Internal Medicine Critical Care Medicine
PROC: 0BH17EZ Insertion of Endotracheal Airway into Trachea, Via Natural or Artificial Opening (ICD-10-PCS; principal; 2017-11-19)
PROC: 5A1935Z Respiratory Ventilation, Less than 24 Consecutive Hours (ICD-10-PCS; 2017-11-19)
DX: J96.90 Respiratory failure, unspecified, unspecified whether with hypoxia or hypercapnia (principal); J18.9 Pneumonia, unspecified organism; J44.0 Chronic obstructive pulmonary disease with (acute) lower respiratory infection; I95.9 Hypotension, unspecified; F03.90 Unspecified dementia, unspecified severity, without behavioral disturbance, psychotic disturbance, mood disturbance, and anxiety; I35.0 Nonrheumatic aortic (valve) stenosis; E86.0 Dehydration; N39.0 Urinary tract infection, site not specified; Z68.1 Body mass index [BMI] 19.9 or less, adult; R63.4 Abnormal weight loss; R00.0 Tachycardia, unspecified; Z66 Do not resuscitate; I10 Essential (primary) hypertension; E03.9 Hypothyroidism, unspecified; E78.00 Pure hypercholesterolemia, unspecified; I65.29 Occlusion and stenosis of unspecified carotid artery; K21.9 Gastro-esophageal reflux disease without esophagitis; F32.9 Major depressive disorder, single episode, unspecified; F41.9 Anxiety disorder, unspecified; K22.70 Barrett's esophagus without dysplasia; Z51.5 Encounter for palliative care; I25.10 Atherosclerotic heart disease of native coronary artery without angina pectoris; Z87.891 Personal history of nicotine dependence
CPT/HCPCS: 51702; 71045; 80053; 81001; 82550; 83690; 84484; 85025; 87040; 87070; 87086; 87205; 87493; 93005; 94002; 94664; J0696; J1644; J1980; J2060; J2270; J2543; J3010; J3370; J7030; J7050